=== PATIENT | female | born 1960 | race Caucasian/White ===

== ENCOUNTER 2016-12-19 13:13 | Inpatient (IN) | payer BC, MEDICARE ==
[2016-12-19] MEDS ORDERED: NORMAL SALINE 1,000 ML IV ONE ×2 (13:22→15:40)
--- NOTE | 2016-12-19 13:36 | ERNOTE ---
Medical Problem HPI - Narrative Date of Service: 12/19/16 - General Chief Complaint: Diabetes Related Problem Time Seen by Provider: 12/19/16 13:21 Source: patient Exam Limitations: no limitations - Immun/Allergies/Home Medications Immunizations: IMMUNIZATION HX Immunizations Up to Date Yes History of Influenza Vaccine Yes Hx Pneumococcal Vaccination No Allergies/Adverse Reactions: Allergies Penicillins Allergy (Verified 11/06/15 12:55) Hives Home Medications: HOME MEDICATIONS Multivitamin [Multivitamins] 1 each PO DAILY #0 12/18/12 [Last Taken 12/18/12] Atorvastatin Calcium [Lipitor] 40 mg PO HS #0 tablet 12/27/12 [Last Taken ] lamoTRIgine [Lamictal] 150 mg PO DAILY 01/15/13 [Last Taken Unknown] Ferrous Sulfate [Iron] 325 mg PO DAILY #30 tablet 08/14/14 [Last Taken Unknown] Duloxetine HCl [Cymbalta] 30 mg PO DAILY 08/29/14 [Last Taken Unknown] Insulin Glargine,Hum.rec.anlog [Lantus] 30 units SC HS 08/29/14 [Last Taken Unknown] Pregabalin [Lyrica] 300 mg PO DAILY 08/29/14 [Last Taken Unknown] Cholecalciferol (Vitamin D3) [Vitamin D3] 2,000 unit PO DAILY 09/25/14 [Last Taken Unknown] Furosemide [Lasix] 40 mg PO DAILY 11/17/14 [Last Taken Unknown] Buprenorphine HCl/Naloxone HCl [Suboxone 8 MG-2 MG Tablet] 1 each SL DAILY 11/05 [Last Taken Unknown] Allopurinol [Zyloprim (Allopurinol)] 200 mg PO DAILY 12/19/16 [Last Taken Unknown] Calcium Carb/Vit D3/Minerals [Calcium 600+D Plus Minerals Tb] 1 each PO DAILY [Last Taken Unknown] Diltiazem HCl [Cardizem Cd] 120 mg PO DAILY 12/19/16 [Last Taken Unknown] Emollient Base [Vanicream] 1 appl TP TID 12/19/16 [Last Taken Unknown] Insulin Lispro [Humalog] 8 units SC ACINS 12/19/16 [Last Taken Unknown] - History of Present History Narrative: 56-year-old patient presents to the emergency room for elevated blood glucose at home. Patient states she is unsure if she took her Lantus last 2 days. Patient started to have blood glucose machine at home is reading high, which it does radiate up to 600. Patient states that she did a have hypoglycemia around December 12, and that previously she had increased her Lantus from 28 to 30. Patient states that she is now backing out of her Lantus from 30-28. Date (Duration): 12/19/16 Timing: constant Severity: mild Review of Systems - Narrative Narrative: patient is unsure if she has taken her lantus the last few days but did take it today - Review of Systems Constitutional: Present: See HPI, decreased activity level EYE: Present: no symptoms reported ENT: Present: no symptoms reported Respiratory: Present: no symptoms reported Cardiology: Present: no symptoms reported Gastrointestinal/Abdominal: Present: no symptoms reported Genitourinary: Present: See HPI, frequency Musculoskeletal: Present: no symptoms reported Skin: Present: no symptoms reported Neurological: Present: no symptoms reported Endocrine: Present: See HPI, increased thirst, increased urine Hematologic/Lymphatic: Present: no symptoms reported Psych: Present: no symptoms reported All Other Systems: All systems neg except as marked - Patient's Past Medical History Patient History - Medical: Anemia, Bipolar, Chronic Pain, Diabetes Type 1, Depression, Headache, Osteoarthritis, Renal Failure Patient History - Cardiac/Respiratory: CHF, Hyperlipidemia Patient History - Cancer: No Hx of Cancer Patient History - Surgical Procedures: Colonoscopy, T & A Patient History - Other: None - Family History Mother Family History - Medical: No pertinent hx Father Family History - Medical: History Unknown - Social History Living Situations: home Abuse History: No History of abuse Psych History: No pertinent hx Smoking Status: Current every day smoker Have you smoked in the past 12 months: Yes Do you dip or chew tobacco: No Alcohol Use: none Drug Use: none - Immunizations Immunizations Up to Date: Yes Hx Pneumococcal Vaccination: No History of Influenza Vaccine: Yes Physical Exam - Physical Exam Narrative: Very dry mucous membranes. General Appearance: Present: wd/wn, alert, no apparent distress Eye Exam: Normal inspection: bilateral Ears, Nose, Throat: Present: normal ENT inspection, normal pharynx Neck: Present: normal inspection, nontender Respiratory: Present: no respiratory distress, normal breath sounds, no accessory muscle use, chest nontender, lungs clear Cardiovascular/Chest: Present: regular rate, rhythm, no murmur, normal peripheral pulses Gastrointestinal/Abdominal: Present: normal bowel sounds, nontender, nondistended, soft, no organomegaly Back Exam: Present: normal inspection, normal range of motion, no CVA tenderness , no vertebral tenderness Extremity Exam: Present: normal inspection, non-tender, normal range of motion, no edema Neurological Exam: Present: alert, oriented, normal mood/affect, no motor/ sensory deficits DTR: N=norm/NB=norm/brisk/A=abs/DD=dull/dimin/HC=hyperactive: Ankle (L): Absent Skin Exam: Present: normal color, warm/dry Lymphatic Exam: Present: no adenopathy ED Progress - Results and Orders Patient's Lab Results:: I have reviewed the patient's lab results. Results and Orders: elevated blood glucose, ketones in urine and blood. - Vital Signs Patient's Vital Signs:: I have reviewed the patient's vital signs. Vital Signs: Vital Signs 12/19/16 13:13 Temperature 36.9 C Pulse Rate 85 Respiratory 16 Rate Blood Pressure 140/67 O2 Sat by Pulse 95 Oximetry - EKG EKG: NSR EKG read: Reviewed by me EKG Comments: interp by Ed attending - Progress/Reassessment Chief Complaint: Diabetes Related Problem Progress:: Improved Plan - Plan Plan: After speaking with Dr. Delacruz he requested to give patient 10 units of IV insulin and monitor blood glucose. After this patients blood glucose went down to 427. Dr Nelson and myself feel that this patient no longer requires an insulin gtt and can be treated on the floor with SSI. Patient agrees to her plan of care. Patient will require blood glucose monitoring. Departure - Departure Clinical Impression: Ketoacidosis in type I diabetes mellitus Disposition: [facility] Condition: Good Referrals: Shelia Nelson MD [Primary Care Provider] -
[2016-12-19 13:41] LABS: Venous Blood Gas HCO3 22.8 mmol/L (22.0-29.0); Venous Blood Gas pH 7.39 (7.32-7.43)
[2016-12-19 13:42] LABS: Hematocrit 25.5 % (37.0-47.0); Hemoglobin 8.7 gm/dL (12.5-16.0); Mean Cell Volume 90.4 fl (78-100); Mean Corpuscular Hemoglobin 30.9 pg (27-31); Mean Corpuscular Hgb Conc 34.1 g/dl (32-36); Mean Platelet Volume 9.7 fl (6.0-9.5); Neutrophil % 74.1 % (42-75.0); Platelet Count 215 K/mm3 (150-450); Red Blood Count 2.82 M/mm3 (4.2-5.4); Red Cell Distribution Width 12.1 % (11.5-14.0); White Blood Count 6.7 K/mm3 (4.0-10.5)
[2016-12-19 14:00] LABS: Urine Bilirubin Negative (NEGATIVE); Urine Blood 25 /ul (NEGATIVE); Urine Ketone 15 mg/dL (NEGATIVE); Urine Nitrite Negative (NEGATIVE); Urine Protein 30 mg/dL (NEGATIVE); Urine Urobilinogen Normal (NORMAL); Urine pH 5.5 pH (5.0-7.0)
[2016-12-19 14:06] LABS: Urine Appearance Clear; Urine Bacteria TRACE; Urine Color Yellow; Urine WBC None Seen /hpf (0-5)
[2016-12-19 14:10] LABS: Troponin I 0.059 ng/ml (0.00-0.10)
[2016-12-19 14:12] LABS: ALT 23 U/L (19-67); AST 17 U/L (0-48); Albumin * 3.5 gm/dl (3.4-5.0); Alkaline Phosphatase * 103 U/L (50-170); Anion Gap 18.1 mmol/L (6.8-13.8); BNP * 640 pg/mL (5-205); BUN/Creatinine Ratio 20.8 (9.0-21.6); Bilirubin, Total 0.5 mg/dL (0.0-1.1); Blood Urea Nitrogen 59 mg/dL (3-23); Ca. Corrected For Albumin 9.3 mg/dL (8.4-10.2); Calcium * 9.2 mg/dL (7.9-10.9); Carbon Dioxide 25.6 mmol/L (24-32.6); Chloride 92 mmol/L (97-106); Potassium 4.7 mmol/L (3.4-4.6); Sodium 131 mmol/L (132-142); Total Protein 7.5 gm/dL (6.2-8.2)
[2016-12-19 14:15] LABS: Glucose * 571 mg/dL (70-110)
[2016-12-19] MEDS ORDERED: INSULIN REGULAR HUMAN REC 100 UNITS in NORMAL SALINE 100 ML IV PRN (14:33)
[2016-12-19 14:44] LABS: CKMB 3.1 ng/mL (0.0-9.0)
[2016-12-19 15:09] LABS: Hemoglobin A1C 11.4 % (4.00-6.0)
[2016-12-19] MEDS ORDERED: INSULIN REGULAR, HUMAN 100 UNITS/ML VIAL IV ONE (15:18)
[2016-12-19] MEDS ORDERED: INSULIN REGULAR, HUMAN 100 UNITS/ML VIAL ONE (15:20)
--- NOTE | 2016-12-19 16:43 | HP ---
Chief Complaint - Chief Complaint Date of Service: 12/19/16 Time of Service: 16:32 Chief Complaint: elevated blood sugar History of Present Illness: Viji Vilchis, is a 56-year-old white female, with previous medical history of diabetes mellitus type 1, uncontrolled secondary to noncompliance, hypertension , hyperlipidemia, chronic renal failure stage IV, who was admitted on 2016 because of high blood sugars. The patient said that one week prior to admission she had low blood sugars due to our increase of her Lantus from 28 units to 30 units because her HbA1c was 13.3. She says ever since that day she has been forgetting if she had taken her insulin doses or not. Last night, she said that her sugar read more than 600 in her machine and she did not give herself injection because she fell asleep. She woke up this morning her blood sugar was still 600 and so she went to our emergency room. In the ED , BS was 571, AG of 18.1, her VS were stable, she denied N/V/abdominal pain, AAO x 3 but she had a negative urine ketones , positive serum ketones with a non acidotic ABG. She was started on IVF and insulin drip in the ER and received a RI IV bolus. Her follow up BS was in the low 400. She denies chest pain , increase frequency/dysuria, no open wound. Her EKG showed NSR with possible anterior myocardial infarction, age undetermined. Her troponin was WNL. - Patient's Past Medical History Patient History - Medical: Anemia, Bipolar, Chronic Pain, Diabetes Type 1, Depression, Headache, Osteoarthritis, Renal Failure Patient History - Cardiac/Respiratory: CHF, Hyperlipidemia Patient History - Cancer: No Hx of Cancer Patient History - Surgical Procedures: Colonoscopy, T & A Patient History - Other: None - Family History Mother Family History - Medical: No pertinent hx Father Family History - Medical: History Unknown - Social History Living Situations: home Abuse History: No History of abuse Psych History: No pertinent hx Smoking Status: Current every day smoker Have you smoked in the past 12 months: Yes Do you dip or chew tobacco: No Alcohol Use: none Drug Use: none - Immunizations Immunizations Up to Date: Yes Hx Pneumococcal Vaccination: No History of Influenza Vaccine: Yes Review Of Systems (GEN) - Review of Systems Generalized/Overall Review: Absent: Chills, Fever EENTM: Present: No Symptoms Reported Respiratory: Absent: Cough, Shortness of Breath Cardiac: Absent: Chest Pain, Edema, Palpitations Abdominal: Absent: Nausea, Vomiting, Abdominal Pain Genitourinary: Absent: Burning, Urgency, Frequency Musculoskeletal: Present: Joint Pain Neurological: Absent: Parasthesia, Seizure Skin: Absent: Lesions Immunizations: IMMUNIZATION HX Immunizations Up to Date Yes History of Influenza Vaccine Yes Hx Pneumococcal Vaccination No Allergies/Adverse Reactions: Allergies Allergy/AdvReac Type Severity Reaction Status Date / Time Penicillins Allergy Hives Verified 12/19/16 16:24 Home Medications: HOME MEDICATIONS Multivitamin [Multivitamins] 1 each PO DAILY #0 12/18/12 [Last Taken 12/18/12] Atorvastatin Calcium [Lipitor] 40 mg PO HS #0 tablet 12/27/12 [Last Taken ] lamoTRIgine [Lamictal] 150 mg PO DAILY 01/15/13 [Last Taken Unknown] Ferrous Sulfate [Iron] 325 mg PO DAILY #30 tablet 08/14/14 [Last Taken Unknown] Duloxetine HCl [Cymbalta] 30 mg PO DAILY 08/29/14 [Last Taken Unknown] Insulin Glargine,Hum.rec.anlog [Lantus] 30 units SC HS 08/29/14 [Last Taken Unknown] Pregabalin [Lyrica] 300 mg PO DAILY 08/29/14 [Last Taken Unknown] Cholecalciferol (Vitamin D3) [Vitamin D3] 2,000 unit PO DAILY 09/25/14 [Last Taken Unknown] Furosemide [Lasix] 40 mg PO DAILY 11/17/14 [Last Taken Unknown] Buprenorphine HCl/Naloxone HCl [Suboxone 8 MG-2 MG Tablet] 1 each SL DAILY 11/05 [Last Taken 12/18/16] Allopurinol [Zyloprim (Allopurinol)] 200 mg PO DAILY 12/19/16 [Last Taken Unknown] Calcium Carb/Vit D3/Minerals [Calcium 600+D Plus Minerals Tb] 1 each PO DAILY [Last Taken Unknown] Diltiazem HCl [Cardizem Cd] 120 mg PO DAILY 12/19/16 [Last Taken Unknown] Insulin Lispro [Humalog] 8 units SC ACINS 12/19/16 [Last Taken Unknown] Multivit-Min/FA/Lycopen/Lutein [[employer] Senior Multivitamin Tab] 1 each PO HS 04/27 [Last Taken Unknown] Triamcinolone Acetonide [Kenalog 0.5%] 1 appl TP TID 12/19/16 [Last Taken Unknown] Exam - Exam Vital Signs: Vital Signs - Last Taken Temp 36.7 C 12/19/16 15:28 Pulse 82 12/19/16 16:02 Resp 18 12/19/16 16:02 BP 129/53 12/19/16 16:02 Pulse Ox 96 12/19/16 16:02 Constitutional: Present: Alert, Oriented x3, Cooperative ENT Exam: Present: hearing grossly normal Eye Exam: bilateral eye: normal inspection, PERRL, EOMI Neck: Present: supple Back Exam: Present: no CVA tenderness Breasts: Present: Exam deferred Respiratory: Present: normal breath sounds, No rales, No wheezing Cardiovascular/Chest: Present: regular rate, rhythm, no JVD, no murmur Abdomen: Present: Normal bowel sounds, soft, nontender, nondistended Extremity: Present: no pedal edema, no calf tenderness Diagnostic Studies: Laboratory Results WBC 6.7 K/mm3 (4.0-10.5) 12/19/16 13:35 RBC 2.82 M/mm3 (4.2-5.4) L 12/19/16 13:35 Hgb 8.7 gm/dL (12.5-16.0) L 12/19/16 13:35 Hct 25.5 % (37.0-47.0) L 12/19/16 13:35 MCV 90.4 fl (78-100) 12/19/16 13:35 MCH 30.9 pg (27-31) 12/19/16 13:35 MCHC 34.1 g/dl (32-36) 12/19/16 13:35 RDW 12.1 % (11.5-14.0) 12/19/16 13:35 Plt Count 215 K/mm3 (150-450) 12/19/16 13:35 MPV 9.7 fl (6.0-9.5) H 12/19/16 13:35 Immature Gran % (Auto) 0.10 % (0.001-0.429) 12/19/16 13:35 Immature Gran # (Auto) 0.01 K/mm3 (0.000-0.0310) 12/19/16 13:35 Neutrophils % 74.1 % (42-75.0) 12/19/16 13:35 Lymphocytes % 19.3 % (20-51) L 12/19/16 13:35 Monocytes % 6.0 % (0.0-9) 12/19/16 13:35 Eosinophils % 0.1 % (0.0-3.0) 12/19/16 13:35 Basophils % 0.4 % (0.0-1.0) 12/19/16 13:35 Nucleated RBC % 0.0 k/mm3 (0-1) 12/19/16 13:35 Neutrophils # 5.0 K/mm3 (1.3-6.0) 12/19/16 13:35 Lymphocytes # 1.3 k/mm3 (1.5-3.5) L 12/19/16 13:35 Monocytes # 0.4 k/mm3 (0.0-1.0) 12/19/16 13:35 Eosinophils # 0.0 k/mm3 (0.0-0.7) 12/19/16 13:35 Absolute Basophils 0.0 k/mm3 (0.0-0.1) 12/19/16 13:35 pCO2 37.8 mmHg (32.0-45.0) 12/19/16 14:40 pO2 66.1 mmHg (83.0-108.0) L 12/19/16 14:40 HCO3 23.0 mmol/L (21.0-28.0) 12/19/16 14:40 Total CO2 24.2 mmol/L (19.0-24.0) H 12/19/16 14:40 Base Excess -1.5 mmol/L (-2.0-3.0) 12/19/16 14:40 ABG pH 7.40 (7.35-7.45) 12/19/16 14:40 ABG O2 Sat (Measured) 93.3 % (94.0-98.0) L 12/19/16 14:40 VBG O2 Saturation 78.2 % (94.0-98.0) L 12/19/16 13:35 Sodium 131 mmol/L (132-142) L 12/19/16 13:35 Plasma Sodium 139 mmol/L (130-142) 12/19/16 13:35 Potassium 4.7 mmol/L (3.4-4.6) H 12/19/16 13:35 Chloride 92 mmol/L (97-106) L 12/19/16 13:35 Carbon Dioxide 25.6 mmol/L (24-32.6) 12/19/16 13:35 Anion Gap 18.1 mmol/L (6.8-13.8) H 12/19/16 13:35 BUN 59 mg/dL (3-23) H 12/19/16 13:35 Creatinine 2.84 mg/dL (0.4-1.4) H 12/19/16 13:35 Est GFR (Non-Af Amer) 18 mL/min (60-130) L 12/19/16 13:35 BUN/Creatinine Ratio 20.8 (9.0-21.6) 12/19/16 13:35 Random Glucose 571 mg/dL (70-110) H* 12/19/16 13:35 Mean Blood Glucose 294 mg/dL 12/19/16 13:35 Hemoglobin A1c 11.4 % (4.00-6.0) H 12/19/16 13:35 Calcium 9.2 mg/dL (7.9-10.9) 12/19/16 13:35 Calcium Adj for Albumin 9.3 mg/dL (8.4-10.2) 12/19/16 13:35 Total Bilirubin 0.5 mg/dL (0.0-1.1) 12/19/16 13:35 AST 17 U/L (0-48) 12/19/16 13:35 ALT 23 U/L (19-67) 12/19/16 13:35 Alkaline Phosphatase 103 U/L (50-170) 12/19/16 13:35 Creatine Kinase 166 U/L (0-259) 12/19/16 13:35 CK-MB (CK-2) 3.1 ng/mL (0.0-9.0) 12/19/16 13:35 Troponin I 0.059 ng/ml (0.00-0.10) 12/19/16 13:35 B-Natriuretic Peptide 640 pg/mL (5-205) H 12/19/16 13:35 Total Protein 7.5 gm/dL (6.2-8.2) 12/19/16 13:35 Albumin 3.5 gm/dl (3.4-5.0) 12/19/16 13:35 Urine Color Yellow 12/19/16 13:51 Urine Appearance Clear 12/19/16 13:51 Urine pH 5.5 pH (5.0-7.0) 12/19/16 13:51 Ur Specific [place] 1.010 SP.GR. (1.005-1.010) 12/19/16 13:51 Urine Protein 30 mg/dL (NEGATIVE) H 12/19/16 13:51 Urine Glucose (UA) >=1000 mg/dL (NEGATIVE) H 12/19/16 13:51 Urine Ketones 15 mg/dL (NEGATIVE) 12/19/16 13:51 Urine Blood 25 /ul (NEGATIVE) H 12/19/16 13:51 Urine Nitrate Negative (NEGATIVE) 12/19/16 13:51 Urine Bilirubin Negative mg/dl (NEGATIVE) 12/19/16 13:51 Prot Sulfosalicylic Acd 1+ mg/dL (0) 12/19/16 13:51 Urine Urobilinogen Normal EU/dl (NORMAL) 12/19/16 13:51 Ur Leukocyte Esterase Negative /ul (NEGATIVE) 12/19/16 13:51 Urine RBC 5-10 /hpf (0-5) H 12/19/16 13:51 Urine WBC None seen /hpf (0-5) 12/19/16 13:51 Ur Epithelial Cells 5-10 /hpf (0-5) H 12/19/16 13:51 Urine Bacteria Trace (NONE) 12/19/16 13:51 Urine Culture Comments No culture indicated 12/19/16 13:51 Serum Ketones Positive - 30mg/dl (NEGATIVE) H 12/19/16 13:35 Assessment/Plan - Assessment/Plan (1) Hyperglycemia due to type 1 diabetes mellitus Assessment: due to noncompliance. patient forgetting to take her insulin. though her ketones are positive, her ABG shows a normal pH. will get a CXR, do a follow up EKG and troponin, repeat a BMP, start her on diabetic diet, continue her on IVF and do accuchecks with Humalog following high dose SSI protocol. Will resume her lantus tonight. Problem: Acute (2) Anemia of chronic disease Problem: Acute (3) Chronic pain Assessment: on suboxone Problem: Acute (4) Diabetes mellitus type 1 Problem: Chronic Qualifiers: Diabetes mellitus complication status: with kidney complications Diabetes mellitus complication detail: with chronic kidney disease Chronic kidney disease stage: stage 4 (severe) Qualified Code(s): E10.22 - Type 1 diabetes mellitus with diabetic chronic kidney disease; N18.4 - Chronic kidney disease, stage 4 (severe) (5) HTN (hypertension) Problem: Chronic Qualifiers: Hypertension type: essential hypertension Qualified Code(s): I10 - Essential (primary) hypertension (6) Ketosis due to diabetes Assessment: without acidosis. due to missed insulin medications. continue with IVF Problem: Acute
[2016-12-19] MEDS ORDERED: INSULIN LISPRO 100 UNITS/ML VIAL SC SCH (17:00)
[2016-12-19 19:56] LABS: Anion Gap 12.3 mmol/L (6.8-13.8); BUN/Creatinine Ratio 19.8 (9.0-21.6); Calcium * 8.5 mg/dL (7.9-10.9); Carbon Dioxide 28.2 mmol/L (24-32.6); Estimated Creat Clear 21.3; Potassium 3.5 mmol/L (3.4-4.6); Troponin I 0.108 ng/ml (0.00-0.10)
[2016-12-19] MEDS ORDERED: ASPIRIN 81 MG TAB.CHEW PO ONE (20:13)
[2016-12-19] MEDS: INSULIN GLARGINE,HUM.REC.ANLOG 100 UNITS/ML VIAL SC SCH ×2 (20:23→20:42)
[2016-12-19] MEDS ORDERED: ROSUVASTATIN CALCIUM 10 MG TABLET ONE (20:24)
[2016-12-19] MEDS ORDERED: CLOPIDOGREL BISULFATE 75 MG TABLET PO STA (20:31)
[2016-12-19] MEDS ORDERED: HEPARIN SODIUM,PORCINE 5,000 UNITS/ML VIAL IV ONE (20:37)
--- NOTE | 2016-12-19 20:39 | DS ---
<MaximilianoJackie - Last Filed: 12/19/16 21:48> Transfer Discharge Summary - Diagnosis(s)/Problems (1) NSTEMI (non-ST elevated myocardial infarction) Narrative: Viji Vilchis is a very pleasant 56-year-old female who presented to the emergency room today with complaints of elevated blood glucose. Her meter at home was reading "high." She is a past medical history of type 1 diabetes for the past 21 years which is poorly controlled secondary to noncompliance, hypertension, hyperlipidemia, chronic renal failure stage IV, and a history of congestive heart failure. Her most recent A1c is 13.3%. She reports that she decreased her use of glargine from 30 units to 28 units that she has an episode of hypoglycemia on December 12. Last evening, her glucometer read greater than 600 and she did not give herself insulin but fell asleep. In the emergency room, blood glucose was elevated at 571 mg/dL. Anion gap was 18.1. Her vital signs were stable without hypotension or tachycardia. She received 2 L of IV normal saline. She was started on an IV insulin infusion in the emergency room. Her follow-up blood glucose was 400 mg/dL. No signs or symptoms of infection were noted. Initial troponin was negative. ECG was obtained which did not show any acute ST segment changes. Repeat labs at 1930 revealed elevated troponin from previous reading at 0.1. Sodium is stable. Anion gap is 12.3. Blood glucose has trended down to 179 mg/dL. Creatinine is stable at 2.6 previous reading was 2.8. ECG was obtained which shows inversion of T waves and leads one to aVF. She denies any chest pain or shortness of breath. She has no nausea or vomiting. She is afebrile. Problem: Acute - Course Description of Stay: Mrs. Vilchis continues to deny any chest pain. She does have a family history of cardiovascular disease and continues to smoke 1 pack cigarettes per day. Due to elevated troponin and findings on her ECG, consultation with [facility] was obtained. She received 324 mg of aspirin, 600 mg of clopidogrel, and 4000 units of IV heparin. Her is now at bedside and is update on her condition. Metabolic panel has improved--anion gap 12.3, most recent blood glucose 175 mg/dL. K+ 3.5. She was placed on D5 1/2 NS w/ 20KCL @ 75 mL/hr. Mrs. Vilchis was accepted for transfer by Dr. Gonzales at [facility]. My supervising physician, Dr. Galicia was notified of change in patient condition and transfer. Procedures Performed: none - Results and Findings Results and Findings: Laboratory Results - last 24 hr 12/19/16 19:34 Sodium 138 Plasma Sodium 139 Potassium 3.5 D Chloride 101 Carbon Dioxide 28.2 Anion Gap 12.3 BUN 52 H Creatinine 2.62 H Est GFR (Non-Af Amer) 20 L BUN/Creatinine Ratio 19.8 Random Glucose 179 H D Calcium 8.5 Troponin I 0.108 H - Medications Medications: Active Medications Insulin Human Lispro (Humalog) 0 - 23 units SC ACINS [facility] PRN Reason: Protocol Stop: 01/18/17 17:01 Last Admin: 12/19/16 17:56 Dose: 20 units Rosuvastatin Calcium (Crestor) 20 mg PO HS [facility] Stop: 01/18/17 21:01 Last Admin: 12/19/16 20:25 Dose: 20 mg Discontinued Medications Aspirin (Aspirin Chewable) 324 mg PO ONCE ONE Stop: 12/19/16 20:14 Last Admin: 12/19/16 20:20 Dose: 324 mg Sodium Chloride (Sodium Chloride 0.9%) 1,000 mls @ 126 mls/hr IV .Q7H57M ONE Stop: 12/19/16 21:18 Last Infusion: 12/19/16 15:39 Dose: Infused Sodium Chloride (Sodium Chloride 0.9%) 1,000 mls @ 500 mls/hr IV .Q2H ONE Stop: 12/19/16 17:39 Last Admin: 12/19/16 15:41 Dose: 500 mls/hr Insulin Human Regular (Humulin R) 10 units IV ONCE ONE Stop: 12/19/16 15:19 Last Admin: 12/19/16 15:22 Dose: 10 units - Disposition Disposition: [facility] Condition: Serious Discharge Date: 12/19/16 Discharge Time: 20:46 <Suhail Donahue - Last Filed: 12/20/16 07:16> Transfer Discharge Summary - Course Description of Stay: Significant finding was change in troponin. Family PREFERRED transfer to [facility] rather than the closer facility in [place]. [facility] accepted, transfer arranged. Patient was stable. I directly supervised our nurse practitioner hospitalist care of this patient. - Results and Findings Results and Findings: Laboratory Results - last 24 hr 12/19/16 19:34 Sodium 138 Plasma Sodium 139 Potassium 3.5 D Chloride 101 Carbon Dioxide 28.2 Anion Gap 12.3 BUN 52 H Creatinine 2.62 H Est GFR (Non-Af Amer) 20 L BUN/Creatinine Ratio 19.8 Random Glucose 179 H D Calcium 8.5 Troponin I 0.108 H - Medications Medications: Active Medications Discontinued Medications Aspirin (Aspirin Chewable) 324 mg PO ONCE ONE Stop: 12/19/16 20:14 Last Admin: 12/19/16 20:20 Dose: 324 mg Clopidogrel Bisulfate (Plavix) 600 mg PO ONCE STA Stop: 12/19/16 20:32 Last Admin: 12/19/16 20:42 Dose: 600 mg Heparin Sodium (Porcine) (Heparin Sodium) 4,000 units IV ONCE ONE Stop: 12/19/16 20:38 Last Admin: 12/19/16 20:52 Dose: 4,000 units Sodium Chloride (Sodium Chloride 0.9%) 1,000 mls @ 126 mls/hr IV .Q7H57M ONE Stop: 12/19/16 21:18 Last Infusion: 12/19/16 15:39 Dose: Infused Sodium Chloride (Sodium Chloride 0.9%) 1,000 mls @ 500 mls/hr IV .Q2H ONE Stop: 12/19/16 17:39 Last Admin: 12/19/16 15:41 Dose: 500 mls/hr Insulin Glargine (Lantus) 30 units SC [facility] Stop: 01/18/17 21:01 Last Admin: 12/19/16 20:42 Dose: Not Given Insulin Glargine (Lantus) 15 units SC ONCE ONE Stop: 12/19/16 20:42 Last Admin: 12/19/16 20:42 Dose: 15 units Insulin Human Lispro (Humalog) 0 - 23 units SC [facility] PRN Reason: Protocol Stop: 01/18/17 17:01 Last Admin: 12/19/16 17:56 Dose: 20 units Insulin Human Regular (Humulin R) 10 units IV ONCE ONE Stop: 12/19/16 15:19 Last Admin: 12/19/16 15:22 Dose: 10 units Rosuvastatin Calcium (Crestor) 20 mg PO HS [facility] Stop: 01/18/17 21:01 Last Admin: 12/19/16 20:25 Dose: 20 mg
[2016-12-19] MEDS ORDERED: INSULIN GLARGINE,HUM.REC.ANLOG 100 UNITS/ML VIAL SC ONE (20:41)
[2016-12-19] MEDS ORDERED: ROSUVASTATIN CALCIUM 20 MG TABLET PO SCH (21:00)
[2016-12-19 23:26] VITALS: BP 137/55
[2016-12-20] MEDS ORDERED: ALLOPURINOL 100 MG TABLET PO SCH (09:00)
[2016-12-20] MEDS ORDERED: PREGABALIN 75 MG CAPSULE PO SCH (09:00)
[2016-12-20] MEDS ORDERED: DULoxetine HCL 30 MG CAPSULE.SA PO SCH (09:00)
[2016-12-20] MEDS ORDERED: CHOLECALCIFEROL 1,000 UNIT CAPSULE PO SCH (09:00)
[2016-12-20] MEDS ORDERED: DILTIAZEM HCL 120 MG CAP.SR.24H PO SCH (09:00)
[2016-12-20] MEDS ORDERED: NALOXONE HCL SL SCH (09:00)
[2016-12-20] MEDS ORDERED: lamoTRIgine 100 MG TABLET PO SCH (09:00)
[2016-12-20] MEDS ORDERED: FERROUS SULFATE 325 MG TABLET PO SCH (09:00)
[2016-12-20] MEDS ORDERED: TRIAMCINOLONE ACETONIDE 15 APPL TUBE TP SCH (09:00)
[2016-12-20] MEDS ORDERED: BUPRENORPHINE HCL SL SCH (09:00)
== END 2016-12-19 23:50 | disposition short-term general hospital (02) | DRG 280 ==
LOC: ER 13:13 → MS 15:59
PROVIDERS: ADMIT Internal Medicine; ATTEND Internal Medicine
PROC: 4A033R1 Measurement of Arterial Saturation, Peripheral, Percutaneous Approach (ICD-10-PCS; principal; 2016-12-19)
DX: I21.4 Non-ST elevation (NSTEMI) myocardial infarction (principal); E10.10 Type 1 diabetes mellitus with ketoacidosis without coma; N18.4 Chronic kidney disease, stage 4 (severe); F17.210 Nicotine dependence, cigarettes, uncomplicated; I12.9 Hypertensive chronic kidney disease with stage 1 through stage 4 chronic kidney disease, or unspecified chronic kidney disease; E10.22 Type 1 diabetes mellitus with diabetic chronic kidney disease; T38.3X6A Underdosing of insulin and oral hypoglycemic [antidiabetic] drugs, initial encounter; Y92.009 Unspecified place in unspecified non-institutional (private) residence as the place of occurrence of the external cause; I50.9 Heart failure, unspecified; E78.5 Hyperlipidemia, unspecified; Z79.4 Long term (current) use of insulin; Z82.49 Family history of ischemic heart disease and other diseases of the circulatory system

== ENCOUNTER 2018-03-22 08:50 | Inpatient (IN) | payer BC, MEDICARE ==
[2018-03-22 10:09] LABS: Albumin * 3.6 gm/dl (3.4-5.0); Anion Gap 11.4 mmol/L (6.8-13.8); BUN/Creatinine Ratio 18.5 (9.0-21.6); Bilirubin, Total 0.7 mg/dL (0.0-1.1); Ca. Corrected For Albumin 9.2 mg/dL (8.4-10.2); Calcium * 9.2 mg/dL (7.9-10.9); Carbon Dioxide 32.6 mmol/L (24-32.6)
[2018-03-22 10:10] LABS: Hematocrit 28.8 % (37.0-47.0); Hemoglobin 9.9 gm/dL (12.5-16.0); Mean Cell Volume 94.4 fl (78-100); Mean Corpuscular Hemoglobin 32.5 pg (27-31); Mean Corpuscular Hgb Conc 34.4 g/dl (32-36); Mean Platelet Volume 10.3 fl (8-12.5); Neutrophil # 23.2 K/mm3 (1.3-6.0); Neutrophil % 86.7 % (42-75.0); Platelet Count 220 K/mm3 (150-450); Red Blood Count 3.05 M/mm3 (4.2-5.4); Red Cell Distribution Width 12.7 % (11.5-14.0); White Blood Count 26.7 K/mm3 (4.0-10.5)
[2018-03-22 10:16] LABS: Total Cells Counted 100
[2018-03-22 10:22] LABS: Band 1 % (0-2.0); Lymphocyte 12 % (20-51); Monocyte 6 % (0-9); Neutrophil 81 % (42-75); Neutrophil # 21.6 K/mm3 (1.3-6.0); Platelet Estimate Normal (NORMAL); RBC Morphology Normal (NORMAL)
[2018-03-22] MEDS ORDERED: DEXTROSE 50%-WATER 50 ML SYRG IV ONE (10:32)
[2018-03-22] MEDS ORDERED: DEXTROSE 50%-WATER 50 ML SYRG ONE (10:33)
--- NOTE | 2018-03-22 11:06 | ERNOTE ---
Medical Problem HPI - General Chief Complaint: General Assessment Time Seen by Provider: 03/22/18 10:35 Source: family Exam Limitations: clinical condition - Immun/Allergies/Home Medications Immunizations: IMMUNIZATION HX Immunizations Up to Date Yes History of Influenza Vaccine Yes Hx Pneumococcal Vaccination Yes Allergies/Adverse Reactions: Allergies Penicillins Allergy (Verified 03/22/18 09:05) Hives Home Medications: HOME MEDICATIONS Multivitamin [Multivitamins] 1 ea PO DAILY #0 12/18/12 [Last Taken 12/18/12] lamoTRIgine [Lamictal] 150 mg PO DAILY 01/15/13 [Last Taken Unknown] Ferrous Sulfate [Iron] 325 mg PO DAILY #30 tab 08/14/14 [Last Taken Unknown] Duloxetine HCl [Cymbalta] 30 mg PO DAILY 08/29/14 [Last Taken Unknown] Buprenorphine HCl/Naloxone HCl [Suboxone 8 MG-2 MG Tablet] 1 ea SL DAILY 11/06/15 [Last Taken 12/18/16] Allopurinol [Zyloprim] 200 mg PO DAILY 12/19/16 [Last Taken Unknown] Diltiazem HCl [Cardizem Cd] 120 mg PO DAILY 12/19/16 [Last Taken Unknown] Insulin Lispro [Humalog] 6 units SC ACINS 12/19/16 [Last Taken Unknown] Multivit-Min/FA/Lycopen/Lutein [Sentry Senior Multivitamin Tab] 1 ea PO HS 12/19/16 [Last Taken Unknown] Acetaminophen [Tylenol] 650 mg PO Q4H PRN tab 09/04/17 [Last Taken Unknown] Insulin Glargine,Hum.rec.anlog [Lantus] 20 units SC HS #7 vial 09/04/17 [Last Taken Unknown] atorvastatin 40 mg tablet 40 mg PO HS #31 tab 12/18/17 [Last Taken Unknown] calcium carbonate-vitamin D3 600 mg (1,500 mg)-400 unit capsule 1 cap PO DAILY #31 cap 12/18/17 [Last Taken Unknown] cetirizine 10 mg tablet 10 mg PO DAILY #31 tab 12/18/17 [Last Taken Unknown] multivitamin-ferrous fumarate-folic acid 18 mg-400 mcg tablet 1 tab PO DAILY #31 tab 12/18/17 [Last Taken Unknown] insulin glargine (U-100) 100 unit/mL (3 mL) subcutaneous pen 30 unit SUB-Q QHS #15 ml 01/07/18 [Last Taken Unknown] pregabalin 150 mg capsule 300 mg PO DAILY #62 cap 02/05/18 [Last Taken Unknown] insulin syringe-needle U-100 0.5 mL 31 gauge x 10/24" See Dose Instructions .ROUTE .MEDSUPPLY #10 ea 02/07/18 [Last Taken Unknown] insulin syringe-needle U-100 1 mL 31 gauge x 16" See Dose Instructions .ROUTE .MEDSUPPLY #10 ea 02/07/18 [Last Taken Unknown] miscellaneous medical supply [facility] See Dose Instructions .ROUTE .MEDSUPPLY #1 ea 02/07/18 [Last Taken Unknown] pen needle, diabetic 30 gauge x 10/24" See Dose Instructions .ROUTE .MEDSUPPLY #100 ea 02/07/18 [Last Taken Unknown] cholecalciferol (vitamin D3) 2,000 unit capsule 2,000 unit PO DAILY #90 cap 03/14/18 [Last Taken Unknown] furosemide 40 mg tablet 40 mg PO DAILY #30 tab 03/14/18 [Last Taken Unknown] - History of Present History Narrative: Patient is brought in by her for low blood sugar. She is non compliant with her medications and checking her glucose. Her checked her glucose last night and it read high so he gave her 7units of humalog. Early this morning her glucose was in the 70's, he tried to give her breakfast and a soda but she only took some, denies any vomiting but drools at time when she sleeps She has had a problem with falling asleep at random times during the day, is often up at night and sleeps on the couch. She is on suboxone for chronic pain that is prescribed by a psychiatrist in [place] Review of Systems - Narrative Narrative: limited by lethargy - Review of Systems Constitutional: Absent: recent illness, chills ENT: Absent: nasal drainage, sore throat Respiratory: Absent: shortness of breath, cough Cardiology: Absent: chest pain Gastrointestinal/Abdominal: Absent: nausea, vomiting Genitourinary: Present: no symptoms reported Medical History (Last Reviewed 03/22/18 @ 13:24 by Patti Montoya MD) Tibia fracture (Chronic) Onset Date: ~11/2011 Restless leg syndrome (Chronic) Onset Date: Unknown Presbyopia (Chronic) Onset Date: Unknown History of onychomycosis (Chronic) Onset Date: ~05/27/14 OCD (obsessive compulsive disorder) (Chronic) Onset Date: Unknown Neck pain (Chronic) Onset Date: Unknown Mood swings (Chronic) Onset Date: Unknown Lumbago (Chronic) Onset Date: Unknown Kidney disease (Chronic) Onset Date: Unknown Joint pain (Chronic) Onset Date: Unknown Hyperopia (Chronic) Onset Date: Unknown Hyperlipidemia (Chronic) Onset Date: Unknown Headache (Chronic) Onset Date: Unknown History of gastroesophageal reflux (GERD) (Chronic) Onset Date: Unknown Fibula fracture (Acute) Onset Date: ~11/2011 Endometriosis (Chronic) Onset Date: Unknown Diabetic retinopathy (Chronic) Onset Date: Unknown Diabetic neuropathy (Chronic) Onset Date: ~05/27/14 Diabetes 1.5, managed as type 1 (Chronic) Onset Date: ~12/15/13 Depression (Chronic) Onset Date: Unknown Charcot's joint arthropathy in type 1 diabetes mellitus (Chronic) Onset Date: ~12/24/13 Cellulitis (Chronic) Onset Date: ~12/24/13 Bulging disc (Chronic) Onset Date: Unknown Bipolar disorder (Chronic) Onset Date: Unknown Anemia (Chronic) Onset Date: ~12/24/13 Surgical History: Surgical History (Last Reviewed 03/22/18 @ 13:24 by Patti Montoya MD) History of tonsillectomy (Resolved) Onset Date: ~1973 History of sigmoidoscopy (Resolved) Onset Date: ~05/15/02 H/O nasal septoplasty (Resolved) Onset Date: ~04/10/03 History of salpingo-oophorectomy (Resolved) Onset Date: ~1999 H/O fracture of lower leg (Resolved) Onset Date: ~12/08/11 H/O esophagogastroduodenoscopy (Resolved) Onset Date: ~06/30/04 H/O colonoscopy (Resolved) Onset Date: ~2002 H/O colonoscopy (Resolved) Onset Date: ~08/14/12 Family History: Family History (Last Reviewed 03/22/18 @ 14:13 by Alisa Crooks RN) Mother Acute arthritis Behcets syndrome H/O Deandra thyroiditis Father CVA (cerebral vascular accident) CAD (coronary artery disease) Brother No problems noted. Social History: Preferred Language Vietnamese Smoking Status Current every day smoker Abuse History No History of abuse Psych History No pertinent hx Alcohol Use none Drug Use none Physical Exam - Physical Exam General Appearance: Present: wd/wn, no apparent distress, lethargic Head Exam: Present: normal inspection, no evidence of injury Eye Exam: Normal inspection: bilateral, PERRL: bilateral Ears, Nose, Throat: Present: normal pharynx, other - food remnants on mouth and face Neck: Present: nontender Respiratory: Present: no respiratory distress, normal breath sounds, no accessory muscle use, lungs clear Cardiovascular/Chest: Present: regular rate, rhythm, no murmur Gastrointestinal/Abdominal: Present: nontender, nondistended, soft Extremity Exam: Present: no edema Neurological Exam: Present: no motor/sensory deficits - limited exam,moves all extremities, squeezes hands, symmetric face, other - lethargic but arousable, answers name and location appropiately Skin Exam: Present: normal color, warm/dry ED Progress - Results and Orders Patient's Lab Results:: I have reviewed the patient's lab results. - Vital Signs Patient's Vital Signs:: I have reviewed the patient's vital signs. Vital Signs: Vital Signs 03/22/18 09:00 03/22/18 09:08 03/22/18 09:32 Temperature 37.4 C Pulse Rate 81 78 79 Respiratory Rate 12 14 12 Blood Pressure 138/52 137/62 O2 Sat by Pulse Oximetry 94 98 92 L 03/22/18 10:00 Temperature Pulse Rate 85 Respiratory Rate 12 Blood Pressure 145/67 H O2 Sat by Pulse Oximetry 94 - EKG EKG: NSR, other - no acute changes EKG read: Interp. by me - X-Ray X-Ray #1 X-Ray: chest - right upper love infiltrate Interpretation: Discd w/ radiologist - CT/Ultrasound CT/Ultrasound Narrative: CT head: 1. No acute intracranial hemorrhage or mass effect. 2. Paranasal sinus disease. Correlate clinically for sinusitis. 3. Additional comments as above. - Progress/Reassessment Chief Complaint: General Assessment Progress Note-Subjective: 03/22/18 13:08 patient sleeping but arousable discussed test results with 03/22/18 13:15 discussed with chapis Haysay to admit for pneumonia, continue rocephin, zithromax Rocephin was order not infusing yet as IV infiltrated and patient is very hard stick Departure Clinical Impression: Diabetes 1.5, managed as type 1 Pneumonia Qualifiers: Pneumonia type: due to unspecified organism Laterality: right Lung location: upper lobe of lung Qualified Code(s): J18.1 - Lobar pneumonia, unspecified organism Chronic pain Qualifiers: Chronic pain type: other chronic pain Qualified Code(s): G89.29 - Other chronic pain CKD (chronic kidney disease) Qualifiers: Chronic kidney disease stage: stage 4 (severe) Qualified Code(s): N18.9 - Chronic kidney disease, unspecified - Departure Disposition: Still a patient Condition: Stable
[2018-03-22] MEDS ORDERED: NORMAL SALINE 1,000 ML IV ONE (11:27)
[2018-03-22 11:46] LABS: Urine Bilirubin Negative (NEGATIVE); Urine Blood 25 /ul (NEGATIVE); Urine Ketone Negative (NEGATIVE); Urine Nitrite Negative (NEGATIVE); Urine Protein 100 mg/dL (NEGATIVE); Urine Specific Gravity 1.025 SP.GR. (1.005-1.010); Urine Urobilinogen Normal (NORMAL); Urine pH 5.5 pH (5.0-7.0)
[2018-03-22 11:57] LABS: Urine Appearance Clear (CLEAR); Urine Color Yellow; Urine RBC 0-5 /hpf (0-5); Urine WBC TRACE /hpf (0-5)
[2018-03-22 11:58] LABS: Urine Bacteria TRACE
[2018-03-22 12:04] LABS: Cocaine Ur Negative (NEGATIVE); Urine Barbiturate Negative (NEGATIVE); Urine Benzodiazepines Negative (NEGATIVE); Urine Opiates Negative (NEGATIVE); Urine PCP Negative (NEGATIVE); Urine THC Negative (NEGATIVE)
[2018-03-22] MEDS ORDERED: AZITHROMYCIN 500 MG in DEXTROSE 5 % IN WATER 250 ML IV ONE ×2 (13:31)
--- NOTE | 2018-03-22 14:34 | HP ---
Chief Complaint - Chief Complaint Date of Service: 03/22/18 Time of Service: 14:18 Chief Complaint: low blood sugar History of Present Illness: Viji Vilchis, is a 57-year-old white female, with past medical history of chronic renal failure stage IV, diabetes mellitus type 1, uncontrolled due to noncompliance, diabetic neuropathy, diabetic retinopathy, hyperlipidemia, who was admitted on 03/22/2018 because of pneumonia. The patient was actually brought in by the to the emergency room because of low blood sugar. I am not able to get a clear history from Mei. My history is mostly based on the emergency room notes. Last night the checked her blood sugar level and the meter read high so he gave her 7 units of Humalog. Her blood sugar this morning was in the 70s and so the tried to feed her but she only would be able to take a little bit. She was lethargic and so the brought her to the emergency room. She is on suboxone for chronic pain that is prescribed by a psychiatrist in [place]. In the ED, her WBC was 26,000 and she carried a temperature of 39. Her CXR showed RUL infiltrate correlate for pneumonia. She was given IV Rocephin ad Azithromycin and admitted for further treatment. Medical History (Last Reviewed 03/22/18 @ 14:13 by Alisa Crooks RN) Tibia fracture (Chronic) Onset Date: ~11/2011 Restless leg syndrome (Chronic) Onset Date: Unknown Presbyopia (Chronic) Onset Date: Unknown History of onychomycosis (Chronic) Onset Date: ~05/27/14 OCD (obsessive compulsive disorder) (Chronic) Onset Date: Unknown Neck pain (Chronic) Onset Date: Unknown Mood swings (Chronic) Onset Date: Unknown Lumbago (Chronic) Onset Date: Unknown Kidney disease (Chronic) Onset Date: Unknown Joint pain (Chronic) Onset Date: Unknown Hyperopia (Chronic) Onset Date: Unknown Hyperlipidemia (Chronic) Onset Date: Unknown Headache (Chronic) Onset Date: Unknown History of gastroesophageal reflux (GERD) (Chronic) Onset Date: Unknown Fibula fracture (Acute) Onset Date: ~11/2011 Endometriosis (Chronic) Onset Date: Unknown Diabetic retinopathy (Chronic) Onset Date: Unknown Diabetic neuropathy (Chronic) Onset Date: ~05/27/14 Diabetes 1.5, managed as type 1 (Chronic) Onset Date: ~12/15/13 Depression (Chronic) Onset Date: Unknown Charcot's joint arthropathy in type 1 diabetes mellitus (Chronic) Onset Date: ~12/24/13 Cellulitis (Chronic) Onset Date: ~12/24/13 Bulging disc (Chronic) Onset Date: Unknown Bipolar disorder (Chronic) Onset Date: Unknown Anemia (Chronic) Onset Date: ~12/24/13 Surgical History: Surgical History (Last Reviewed 03/22/18 @ 14:13 by Alisa Crooks RN) History of tonsillectomy (Resolved) Onset Date: ~1973 History of sigmoidoscopy (Resolved) Onset Date: ~05/15/02 H/O nasal septoplasty (Resolved) Onset Date: ~04/10/03 History of salpingo-oophorectomy (Resolved) Onset Date: ~1999 H/O fracture of lower leg (Resolved) Onset Date: ~12/08/11 H/O esophagogastroduodenoscopy (Resolved) Onset Date: ~06/30/04 H/O colonoscopy (Resolved) Onset Date: ~2002 H/O colonoscopy (Resolved) Onset Date: ~08/14/12 Family History: Family History (Last Reviewed 03/22/18 @ 14:13 by Alisa Crooks RN) Mother Acute arthritis Behcets syndrome H/O Deandra thyroiditis Father CVA (cerebral vascular accident) CAD (coronary artery disease) Brother No problems noted. Social History: Preferred Language Occitan Smoking Status Current every day smoker Abuse History No History of abuse Psych History No pertinent hx Alcohol Use none Drug Use none Review Of Systems (GEN) - Review of Systems Misc: All systems neg except as marked - Unreliable due to patient's mentation. Immunizations: IMMUNIZATION HX Immunizations Up to Date Yes History of Influenza Vaccine Yes Hx Pneumococcal Vaccination Yes Allergies/Adverse Reactions: Allergies Allergy/AdvReac Type Severity Reaction Status Date / Time Penicillins Allergy Hives Verified 03/22/18 09:05 Home Medications: HOME MEDICATIONS Multivitamin [Multivitamins] 1 ea PO DAILY #0 12/18/12 [Last Taken 12/18/12] lamoTRIgine [Lamictal] 150 mg PO DAILY 01/15/13 [Last Taken Unknown] Ferrous Sulfate [Iron] 325 mg PO DAILY #30 tab 08/14/14 [Last Taken Unknown] Duloxetine HCl [Cymbalta] 30 mg PO DAILY 08/29/14 [Last Taken Unknown] Buprenorphine HCl/Naloxone HCl [Suboxone 8 MG-2 MG Tablet] 1 ea SL DAILY 11/06/15 [Last Taken 12/18/16] Allopurinol [Zyloprim] 200 mg PO DAILY 12/19/16 [Last Taken Unknown] Diltiazem HCl [Cardizem Cd] 120 mg PO DAILY 12/19/16 [Last Taken Unknown] Insulin Lispro [Humalog] 6 units SC ACINS 12/19/16 [Last Taken Unknown] Multivit-Min/FA/Lycopen/Lutein [Sentry Senior Multivitamin Tab] 1 ea PO HS 12/19/16 [Last Taken Unknown] Acetaminophen [Tylenol] 650 mg PO Q4H PRN tab 09/04/17 [Last Taken Unknown] Insulin Glargine,Hum.rec.anlog [Lantus] 20 units SC HS #7 vial 09/04/17 [Last Taken Unknown] atorvastatin 40 mg tablet 40 mg PO HS #31 tab 12/18/17 [Last Taken Unknown] calcium carbonate-vitamin D3 600 mg (1,500 mg)-400 unit capsule 1 cap PO DAILY #31 cap 12/18/17 [Last Taken Unknown] cetirizine 10 mg tablet 10 mg PO DAILY #31 tab 12/18/17 [Last Taken Unknown] multivitamin-ferrous fumarate-folic acid 18 mg-400 mcg tablet 1 tab PO DAILY #31 tab 12/18/17 [Last Taken Unknown] insulin glargine (U-100) 100 unit/mL (3 mL) subcutaneous pen 30 unit SUB-Q QHS #15 ml 01/07/18 [Last Taken Unknown] pregabalin 150 mg capsule 300 mg PO DAILY #62 cap 02/05/18 [Last Taken Unknown] insulin syringe-needle U-100 0.5 mL 31 gauge x 516" See Dose Instructions .ROUTE .MEDSUPPLY #10 ea 02/07/18 [Last Taken Unknown] insulin syringe-needle U-100 1 mL 31 gauge x 516" See Dose Instructions .ROUTE .MEDSUPPLY #10 ea 02/07/18 [Last Taken Unknown] miscellaneous medical supply misc See Dose Instructions .ROUTE .MEDSUPPLY #1 ea 02/07/18 [Last Taken Unknown] pen needle, diabetic 30 gauge x 516" See Dose Instructions .ROUTE .MEDSUPPLY #100 ea 02/07/18 [Last Taken Unknown] cholecalciferol (vitamin D3) 2,000 unit capsule 2,000 unit PO DAILY #90 cap 03/14/18 [Last Taken Unknown] furosemide 40 mg tablet 40 mg PO DAILY #30 tab 03/14/18 [Last Taken Unknown] Exam - Exam Vital Signs: Vital Signs - Last Taken Temp 38.3 C H 03/22/18 13:45 Pulse 91 03/22/18 13:45 Resp 18 03/22/18 13:45 BP 156/57 H 03/22/18 13:45 Pulse Ox 94 03/22/18 13:45 Constitutional: Present: Alert - AAO x 2, Somnolent ENT Exam: Present: hearing grossly normal Eye Exam: bilateral eye: normal inspection, PERRL, EOMI Neck: Present: supple Respiratory: Present: decreased breath sounds, No rales, No wheezing Cardiovascular/Chest: Present: regular rate, rhythm, no JVD, no murmur Abdomen: Present: Normal bowel sounds, soft, nontender, nondistended Extremity: Present: no pedal edema, no calf tenderness Diagnostic Studies: Abnormal Lab Results 03/22/18 03/22/18 03/22/18 Range/Units 09:45 09:45 09:45 WBC 26.7 H (4.0-10.5) K/mm3 RBC 3.05 L (4.2-5.4) M/mm3 Hgb 9.9 L (12.5-16.0) gm/dL Hct 28.8 L (37.0-47.0) % MCH 32.5 H (27-31) pg Immature Gran % (Auto) 1.20 H (0.001-0.429) % Immature Gran # (Auto) 0.33 H (0.000-0.0310) K/mm3 Neutrophils % 86.7 H (42-75.0) % Neutrophils % (Manual) 81 H (42-75) % Lymphocytes % 6.6 L (20-51) % Lymphocytes % (Manual) 12 L (20-51) % Neutrophils # 23.2 H (1.3-6.0) K/mm3 Neutrophils # (Manual) 21.6 H (1.3-6.0) K/mm3 Monocytes # 1.4 H (0.0-1.0) k/mm3 Monocytes # (Manual) 1.6 H (0.0-1.0) k/mm3 Chloride 94 L (97-106) mmol/L BUN 44 H (3-23) mg/dL Creatinine 2.38 H D (0.4-1.4) mg/dL Est GFR (Non-Af Amer) 22 L D (60-130) mL/min Random Glucose 59 L (70-110) mg/dL Procalcitonin 1.62 H (0.05-0.50) ng/mL Urine Protein (NEGATIVE) mg/dL Urine Glucose (UA) (NEGATIVE) mg/dL Urine Blood (NEGATIVE) /ul Prot Sulfosalicylic Acd (0) mg/dL Urine WBC (0-5) /hpf 03/22/18 Range/Units 11:18 WBC (4.0-10.5) K/mm3 RBC (4.2-5.4) M/mm3 Hgb (12.5-16.0) gm/dL Hct (37.0-47.0) % MCH (27-31) pg Immature Gran % (Auto) (0.001-0.429) % Immature Gran # (Auto) (0.000-0.0310) K/mm3 Neutrophils % (42-75.0) % Neutrophils % (Manual) (42-75) % Lymphocytes % (20-51) % Lymphocytes % (Manual) (20-51) % Neutrophils # (1.3-6.0) K/mm3 Neutrophils # (Manual) (1.3-6.0) K/mm3 Monocytes # (0.0-1.0) k/mm3 Monocytes # (Manual) (0.0-1.0) k/mm3 Chloride (97-106) mmol/L BUN (3-23) mg/dL Creatinine (0.4-1.4) mg/dL Est GFR (Non-Af Amer) (60-130) mL/min Random Glucose (70-110) mg/dL Procalcitonin (0.05-0.50) ng/mL Urine Protein 100 H (NEGATIVE) mg/dL Urine Glucose (UA) >=1000 H (NEGATIVE) mg/dL Urine Blood 25 H (NEGATIVE) /ul Prot Sulfosalicylic Acd 3+ H (0) mg/dL Urine WBC Trace H (0-5) /hpf Laboratory Results WBC 26.7 K/mm3 (4.0-10.5) H 03/22/18 09:45 RBC 3.05 M/mm3 (4.2-5.4) L 03/22/18 09:45 Hgb 9.9 gm/dL (12.5-16.0) L 03/22/18 09:45 Hct 28.8 % (37.0-47.0) L 03/22/18 09:45 MCV 94.4 fl (78-100) 03/22/18 09:45 MCH 32.5 pg (27-31) H 03/22/18 09:45 MCHC 34.4 g/dl (32-36) 03/22/18 09:45 RDW 12.7 % (11.5-14.0) 03/22/18 09:45 Plt Count 220 K/mm3 (150-450) 03/22/18 09:45 MPV 10.3 fl (8-12.5) 03/22/18 09:45 Immature Gran % (Auto) 1.20 % (0.001-0.429) H 03/22/18 09:45 Immature Gran # (Auto) 0.33 K/mm3 (0.000-0.0310) H 03/22/18 09:45 Neutrophils % 86.7 % (42-75.0) H 03/22/18 09:45 Neutrophils % (Manual) 81 % (42-75) H 03/22/18 09:45 Band Neuts % (Manual) 1 % (0-2.0) 03/22/18 09:45 Lymphocytes % 6.6 % (20-51) L 03/22/18 09:45 Lymphocytes % (Manual) 12 % (20-51) L 03/22/18 09:45 Monocytes % 5.3 % (0.0-9) 03/22/18 09:45 Monocytes % (Manual) 6 % (0-9) 03/22/18 09:45 Eosinophils % 0.0 % (0.0-3.0) 03/22/18 09:45 Basophils % 0.2 % (0.0-1.0) 03/22/18 09:45 Nucleated RBC % 0.0 k/mm3 (0-1) 03/22/18 09:45 Neutrophils # 23.2 K/mm3 (1.3-6.0) H 03/22/18 09:45 Neutrophils # (Manual) 21.6 K/mm3 (1.3-6.0) H 03/22/18 09:45 Lymphocytes # 1.76 k/mm3 (1.5-3.5) 03/22/18 09:45 Lymphocytes # (Manual) 3.2 k/mm3 (1.5-3.5) 03/22/18 09:45 Monocytes # 1.4 k/mm3 (0.0-1.0) H 03/22/18 09:45 Monocytes # (Manual) 1.6 k/mm3 (0.0-1.0) H 03/22/18 09:45 Eosinophils # 0.0 k/mm3 (0.0-0.7) 03/22/18 09:45 Absolute Basophils 0.1 k/mm3 (0.0-0.1) 03/22/18 09:45 Platelet Estimate Normal (NORMAL) 03/22/18 09:45 RBC Morphology Normal (NORMAL) 03/22/18 09:45 Sodium 134 mmol/L (132-142) 03/22/18 09:45 Plasma Sodium 133 mmol/L (130-142) 03/22/18 09:45 Potassium 4.0 mmol/L (3.4-4.6) D 03/22/18 09:45 Chloride 94 mmol/L (97-106) L 03/22/18 09:45 Carbon Dioxide 32.6 mmol/L (24-32.6) 03/22/18 09:45 Anion Gap 11.4 mmol/L (6.8-13.8) 03/22/18 09:45 BUN 44 mg/dL (3-23) H 03/22/18 09:45 Creatinine 2.38 mg/dL (0.4-1.4) H D 03/22/18 09:45 Est GFR (Non-Af Amer) 22 mL/min (60-130) L D 03/22/18 09:45 BUN/Creatinine Ratio 18.5 (9.0-21.6) 03/22/18 09:45 Random Glucose 59 mg/dL (70-110) L 03/22/18 09:45 Lactic Acid, Venous 0.9 mmol/L (0.4-2.0) 03/22/18 09:45 Calcium 9.2 mg/dL (7.9-10.9) 03/22/18 09:45 Calcium Adj for Albumin 9.2 mg/dL (8.4-10.2) 03/22/18 09:45 Total Bilirubin 0.7 mg/dL (0.0-1.1) 03/22/18 09:45 AST 20 U/L (0-48) 03/22/18 09:45 ALT 21 U/L (19-67) 03/22/18 09:45 Alkaline Phosphatase 105 U/L (50-170) 03/22/18 09:45 Total Protein 8.0 gm/dL (6.2-8.2) 03/22/18 09:45 Albumin 3.6 gm/dl (3.4-5.0) 03/22/18 09:45 Procalcitonin 1.62 ng/mL (0.05-0.50) H 03/22/18 09:45 Urine Color Yellow 03/22/18 11:18 Urine Appearance Clear (CLEAR) 03/22/18 11:18 Urine pH 5.5 pH (5.0-7.0) 03/22/18 11:18 Ur Specific [place] 1.025 SP.GR. (1.005-1.010) 03/22/18 11:18 Urine Protein 100 mg/dL (NEGATIVE) H 03/22/18 11:18 Urine Glucose (UA) >=1000 mg/dL (NEGATIVE) H 03/22/18 11:18 Urine Ketones Negative mg/dL (NEGATIVE) 03/22/18 11:18 Urine Blood 25 /ul (NEGATIVE) H 03/22/18 11:18 Urine Nitrate Negative (NEGATIVE) 03/22/18 11:18 Urine Bilirubin Negative mg/dl (NEGATIVE) 03/22/18 11:18 Prot Sulfosalicylic Acd 3+ mg/dL (0) H 03/22/18 11:18 Urine Urobilinogen Normal EU/dl (NORMAL) 03/22/18 11:18 Ur Leukocyte Esterase Negative /ul (NEGATIVE) 03/22/18 11:18 Urine RBC 0-5 /hpf (0-5) 10/12/18 11:18 Urine WBC Trace /hpf (0-5) H 03/22/18 11:18 Ur Epithelial Cells Trace /hpf (0-5) 03/22/18 11:18 Urine Bacteria Trace (NONE) 03/22/18 11:18 Urine Culture Comments Culture to follow 03/22/18 11:18 Urine Opiates Screen Negative (NEGATIVE) 03/22/18 11:18 Barbiturate Screen Negative (NEGATIVE) 03/22/18 11:18 Ur Phencyclidine Scrn Negative (NEGATIVE) 03/22/18 11:18 Urine Amphetamine Negative (NEGATIVE) 03/22/18 11:18 U Benzodiazepines Scrn Negative (NEGATIVE) 03/22/18 11:18 Urine Cocaine Screen Negative (NEGATIVE) 03/22/18 11:18 Urine Marijuana (THC) Negative (NEGATIVE) 03/22/18 11:18 Assessment/Plan - Assessment/Plan (1) Hypoglycemia Assessment: got D50 and BS went up to 154. Problem: Acute (2) Pneumonia Assessment: community acquired vs aspiration. will continue with IV antibiotics. await for blood /spututm culture results. Problem: Acute Qualifiers: Pneumonia type: due to unspecified organism Laterality: right Lung location: upper lobe of lung Qualified Code(s): J18.1 - Lobar pneumonia, unspecified organism (3) Leukocytosis Assessment: due to infection and hypoglycemic stress Problem: Acute (4) Chronic pain syndrome Problem: Chronic (5) Diabetic retinopathy Problem: Chronic (6) Diabetic neuropathy Problem: Chronic (7) Bipolar disorder Problem: Chronic (8) HTN (hypertension) Problem: Chronic Qualifiers: Hypertension type: essential hypertension Qualified Code(s): I10 - Essential (primary) hypertension (9) Hyperglycemia due to type 1 diabetes mellitus Assessment: due to noncompliance Problem: Acute (10) CKD (chronic kidney disease) Problem: Chronic Qualifiers: Chronic kidney disease stage: stage 4 (severe) Qualified Code(s): N18.4 - Chronic kidney disease, stage 4 (severe) (11) Anemia Problem: Chronic (12) Uncontrolled diabetes mellitus type 1 with peripheral artery disease Problem: Acute
[2018-03-22] MEDS: INSULIN LISPRO 100 UNITS/ML VIAL SC SCH (16:39)
[2018-03-22] MEDS: NORMAL SALINE 1,000 ML IV PRN (20:26)
[2018-03-22] MEDS ORDERED: ALBUTEROL SULFATE 2.5 MG/0.5 ML VIAL.NEB IH PRN (20:31)
[2018-03-23] MEDS: NORMAL SALINE 1,000 ML IV PRN ×2 (06:35→17:00)
[2018-03-23] MEDS: INSULIN LISPRO 100 UNITS/ML VIAL SC SCH ×3 (07:11→16:59)
--- NOTE | 2018-03-23 10:45 | PN ---
Progess Note - Interim Date: 03/23/18 Time: 10:43 Narrative: 03/23/18 10:43 Tmax is 39.3 at 18:53. Will repeat CBC. Still drowsy and sleepy. O2 sat 95% at RA.
[2018-03-23 11:58] LABS: Hematocrit 27.1 % (37.0-47.0); Mean Cell Volume 95.4 fl (78-100); Mean Corpuscular Hemoglobin 31.7 pg (27-31); Mean Corpuscular Hgb Conc 33.2 g/dl (32-36); Mean Platelet Volume 10.5 fl (8-12.5); Neutrophil # 20.4 K/mm3 (1.3-6.0); Neutrophil % 89.6 % (42-75.0); Platelet Count 177 K/mm3 (150-450); Red Blood Count 2.84 M/mm3 (4.2-5.4); Red Cell Distribution Width 12.7 % (11.5-14.0); White Blood Count 22.8 K/mm3 (4.0-10.5)
[2018-03-23 11:59] LABS: Anion Gap 9.4 mmol/L (6.8-13.8); BUN/Creatinine Ratio 23.7 (9.0-21.6); Calcium * 8.1 mg/dL (7.9-10.9); Carbon Dioxide 27.6 mmol/L (24-32.6); Estimated Creat Clear 27.8
--- NOTE | 2018-03-23 12:46 | PN ---
Subjective - Date and Time Seen Date: 03/23/18 Time: 12:42 Subjective Narrative: Tmax is 39.3 at 18:53. Will repeat CBC. Still drowsy and sleepy from her hypoglycemia and pneumonia. O2 sat 95% at RA-improved. Objective - Review of Systems Generalized/Overall Review: Reports: Fever. Denies: Weakness, Chills Respiratory: Reports: Shortness of Breath Cardiac: Denies: Chest Pain, Edema, Palpitations Abdominal: Denies: Nausea, Vomiting Genitourinary Symptoms: Denies: Urgency, Frequency Musculoskeletal Complaints: Reports: Joint Pain - Vitals Vitals: Last Vital Signs Temp 37.2 C 03/23/18 10:35 Pulse 79 03/23/18 10:35 Resp 14 03/23/18 10:35 BP 132/47 03/23/18 10:35 Pulse Ox 96 03/23/18 10:35 - Abnormal Lab Findings Abnormal Lab Findings: Abnormal Lab Results 03/23/18 Range/Units 11:37 Sodium 131 L (132-142) mmol/L BUN 47 H (3-23) mg/dL Creatinine 1.98 H D (0.4-1.4) mg/dL Est GFR (Non-Af Amer) 28 L D (60-130) mL/min BUN/Creatinine Ratio 23.7 H (9.0-21.6) Random Glucose 349 H D (70-110) mg/dL - Exam Constitutional: Present: Alert, Oriented x3, Cooperative ENT Exam: Present: hearing grossly normal Neck: Present: supple Respiratory: Present: decreased breath sounds, No rales, No wheezing Cardiovascular/Chest: Present: regular rate, rhythm, no JVD, no murmur Abdomen: Present: Normal bowel sounds, soft, nontender, nondistended Extremity: Present: no pedal edema, no calf tenderness Assessment/Plan - Problems/Diagnosis (1) Hypoglycemia Problem: Resolved Narrative: still dowsy and sleepy (2) Pneumonia Problem: Acute Qualifiers: Pneumonia type: due to unspecified organism Laterality: right Lung location: upper lobe of lung Qualified Code(s): J18.1 - Lobar pneumonia, unspecified organism Narrative: her Tmax at 1853 was 39.3. will continue with IV antibiotics until she is afebrile for at leaast 48 hours before changing to PO antibiotic. Will recheck her CBC. ADDENDUM: Her WBC is still 22,000. will transfer her to acute status. (3) Leukocytosis Problem: Acute Narrative: due to pneumonia and the stress of hypoglycemia. will recheck. (4) Chronic pain syndrome Problem: Chronic (5) Diabetic retinopathy Problem: Chronic (6) Diabetic neuropathy Problem: Chronic (7) Bipolar disorder Problem: Chronic (8) HTN (hypertension) Problem: Chronic Qualifiers: Hypertension type: essential hypertension Qualified Code(s): I10 - Essential (primary) hypertension (9) Hyperglycemia due to type 1 diabetes mellitus Problem: Acute (10) CKD (chronic kidney disease) Problem: Chronic Qualifiers: Chronic kidney disease stage: stage 4 (severe) Qualified Code(s): N18.4 - Chronic kidney disease, stage 4 (severe) (11) Anemia Problem: Chronic (12) Uncontrolled diabetes mellitus type 1 with peripheral artery disease Problem: Acute
[2018-03-23 13:00] LABS: Total Cells Counted 100
[2018-03-23] MEDS: AZITHROMYCIN 250 MG TABLET PO SCH (13:37)
[2018-03-23] MEDS: ENOXAPARIN SODIUM 30 MG/0.3 ML SYRG SC SCH (13:37)
[2018-03-23] MEDS: ACETAMINOPHEN 325 MG TABLET PO PRN (15:07)
[2018-03-23 15:17] LABS: Band 8 % (0-2.0); Lymphocyte 3 % (20-51); Monocyte 2 % (0-9); Neutrophil 87 % (42-75); Neutrophil # 19.8 K/mm3 (1.3-6.0); Platelet Estimate Normal (NORMAL); RBC Morphology Normal (NORMAL)
[2018-03-23] MEDS: INSULIN GLARGINE,HUM.REC.ANLOG 100 UNITS/ML VIAL SC SCH (20:26)
[2018-03-23] MEDS ORDERED: INSULIN LISPRO 100 UNITS/ML VIAL SC ONE (21:00)
[2018-03-24] MEDS: NORMAL SALINE 1,000 ML IV PRN ×3 (02:28→22:52)
[2018-03-24] MEDS: ACETAMINOPHEN 325 MG TABLET PO PRN ×3 (04:31→23:45)
[2018-03-24] MEDS: INSULIN LISPRO 100 UNITS/ML VIAL SC SCH ×3 (06:45→16:57)
[2018-03-24] MEDS: AZITHROMYCIN 250 MG TABLET PO SCH (09:16)
--- NOTE | 2018-03-24 11:27 | PN ---
Subjective - Date and Time Seen Date: 03/24/18 Time: 11:27 Subjective Narrative: Patient wanting to go home today. Tmax 37.3. WBC [id number] Objective - Review of Systems Generalized/Overall Review: Reports: Weakness. Denies: Chills, Fever Respiratory: Reports: Cough. Denies: Shortness of Breath Cardiac: Denies: Chest Pain, Edema, Palpitations Abdominal: Denies: Nausea, Vomiting Genitourinary Symptoms: Denies: Urgency, Frequency - Vitals Vitals: Last Vital Signs Temp 36.9 C 03/24/18 11:00 Pulse 100 03/24/18 11:00 Resp 18 03/24/18 11:00 BP 169/70 H 03/24/18 11:00 Pulse Ox 93 03/24/18 11:00 - Abnormal Lab Findings Abnormal Lab Findings: Abnormal Lab Results 03/23/18 03/23/18 Range/Units 11:37 11:37 WBC 22.8 H (4.0-10.5) K/mm3 RBC 2.84 L (4.2-5.4) M/mm3 Hgb 9.0 L (12.5-16.0) gm/dL Hct 27.1 L (37.0-47.0) % MCH 31.7 H (27-31) pg Immature Gran % (Auto) 2.10 H (0.001-0.429) % Immature Gran # (Auto) 0.49 H (0.000-0.0310) K/mm3 Neutrophils % 89.6 H (42-75.0) % Neutrophils % (Manual) 87 H (42-75) % Band Neuts % (Manual) 8 H (0-2.0) % Lymphocytes % 4.4 L (20-51) % Lymphocytes % (Manual) 3 L (20-51) % Neutrophils # 20.4 H (1.3-6.0) K/mm3 Neutrophils # (Manual) 19.8 H (1.3-6.0) K/mm3 Lymphocytes # 1.01 L (1.5-3.5) k/mm3 Lymphocytes # (Manual) 0.7 L (1.5-3.5) k/mm3 Sodium 131 L (132-142) mmol/L BUN 47 H (3-23) mg/dL Creatinine 1.98 H D (0.4-1.4) mg/dL Est GFR (Non-Af Amer) 28 L D (60-130) mL/min BUN/Creatinine Ratio 23.7 H (9.0-21.6) Random Glucose 349 H D (70-110) mg/dL - Exam Constitutional: Present: Alert, Oriented x3, Cooperative ENT Exam: Present: hearing grossly normal Neck: Present: supple Respiratory: Present: decreased breath sounds, No rales, No wheezing Cardiovascular/Chest: Present: regular rate, rhythm, no JVD, no murmur Abdomen: Present: Normal bowel sounds, soft, nontender, nondistended Extremity: Present: no pedal edema, no calf tenderness Assessment/Plan - Problems/Diagnosis (1) Hypoglycemia Problem: Resolved Narrative: AAO x 3 . (2) Pneumonia Problem: Acute Qualifiers: Pneumonia type: due to unspecified organism Laterality: right Lung location: upper lobe of lung Qualified Code(s): J18.1 - Lobar pneumonia, unspecified organism Narrative: will do a follow up CBC. Possible discharge nt he mrsourav f contiue to be afebrile and WBC continues to trend down. (3) Leukocytosis Problem: Acute Narrative: due to pneumonia. will do follow up CBC (4) Chronic pain syndrome Problem: Chronic Narrative: on Suboxone by pain clinic in [place] (5) Diabetic retinopathy Problem: Chronic (6) Diabetic neuropathy Problem: Chronic (7) Bipolar disorder Problem: Chronic (8) HTN (hypertension) Problem: Chronic Qualifiers: Hypertension type: essential hypertension Qualified Code(s): I10 - Essential (primary) hypertension (9) Hyperglycemia due to type 1 diabetes mellitus Problem: Acute (10) CKD (chronic kidney disease) Problem: Chronic Qualifiers: Chronic kidney disease stage: stage 4 (severe) Qualified Code(s): N18.4 - Chronic kidney disease, stage 4 (severe) (11) Anemia Problem: Chronic (12) Uncontrolled diabetes mellitus type 1 with peripheral artery disease Problem: Acute
[2018-03-24 11:53] LABS: Hematocrit 28.9 % (37.0-47.0); Hemoglobin 9.6 gm/dL (12.5-16.0); Mean Cell Volume 93.8 fl (78-100); Mean Corpuscular Hemoglobin 31.2 pg (27-31); Mean Corpuscular Hgb Conc 33.2 g/dl (32-36); Mean Platelet Volume 9.9 fl (8-12.5); Neutrophil # 13.8 K/mm3 (1.3-6.0); Neutrophil % 85.3 % (42-75.0); Platelet Count 206 K/mm3 (150-450); Red Blood Count 3.08 M/mm3 (4.2-5.4); Red Cell Distribution Width 12.8 % (11.5-14.0); White Blood Count 16.2 K/mm3 (4.0-10.5)
[2018-03-24 12:01] LABS: Anion Gap 12.2 mmol/L (6.8-13.8); BUN/Creatinine Ratio 26.5 (9.0-21.6); Calcium * 8.8 mg/dL (7.9-10.9); Carbon Dioxide 26.7 mmol/L (24-32.6); Estimated Creat Clear 35.5; Potassium 3.9 mmol/L (3.4-4.6)
[2018-03-24] MEDS: BUPRENORPHINE HCL SL SCH (12:12)
[2018-03-24] MEDS: NALOXONE HCL SL SCH (12:12)
[2018-03-24] MEDS: ENOXAPARIN SODIUM 30 MG/0.3 ML SYRG SC SCH (13:32)
[2018-03-24] MEDS ORDERED: ROSUVASTATIN CALCIUM 20 MG TABLET PO SCH (21:00)
[2018-03-24] MEDS: INSULIN GLARGINE,HUM.REC.ANLOG 100 UNITS/ML VIAL SC SCH (21:37)
[2018-03-25] MEDS: ACETAMINOPHEN 325 MG TABLET PO PRN ×2 (03:47→07:50)
[2018-03-25 06:15] LABS: Hematocrit 24.5 % (37.0-47.0); Hemoglobin 8.2 gm/dL (12.5-16.0); Mean Cell Volume 93.2 fl (78-100); Mean Corpuscular Hemoglobin 31.2 pg (27-31); Mean Corpuscular Hgb Conc 33.5 g/dl (32-36); Mean Platelet Volume 10.2 fl (8-12.5); Neutrophil # 9.7 K/mm3 (1.3-6.0); Platelet Count 189 K/mm3 (150-450); Red Blood Count 2.63 M/mm3 (4.2-5.4); Red Cell Distribution Width 12.5 % (11.5-14.0); White Blood Count 11.7 K/mm3 (4.0-10.5)
[2018-03-25 06:21] LABS: Anion Gap 8.3 mmol/L (6.8-13.8); BUN/Creatinine Ratio 20.4 (9.0-21.6); Calcium * 8.2 mg/dL (7.9-10.9); Carbon Dioxide 27.6 mmol/L (24-32.6); Estimated Creat Clear 40.2; Potassium 3.9 mmol/L (3.4-4.6)
[2018-03-25] MEDS: INSULIN LISPRO 100 UNITS/ML VIAL SC SCH ×2 (06:55→11:14)
[2018-03-25] MEDS ORDERED: ONDANSETRON HCL 4 MG TABLET PO PRN (08:01)
--- NOTE | 2018-03-25 08:19 | DS ---
(1) Hypoglycemia Problem: Resolved (2) Pneumonia Problem: Acute Qualifiers: Pneumonia type: due to unspecified organism Laterality: right Lung location: upper lobe of lung Qualified Code(s): J18.1 - Lobar pneumonia, unspecified organism (3) Leukocytosis Problem: Acute (4) Chronic pain syndrome Problem: Chronic (5) Diabetic retinopathy Problem: Chronic (6) Diabetic neuropathy Problem: Chronic (7) Bipolar disorder Problem: Chronic (8) HTN (hypertension) Problem: Chronic Qualifiers: Hypertension type: essential hypertension Qualified Code(s): I10 - Essential (primary) hypertension (9) Hyperglycemia due to type 1 diabetes mellitus Problem: Acute (10) CKD (chronic kidney disease) Problem: Chronic Qualifiers: Chronic kidney disease stage: stage 4 (severe) Qualified Code(s): N18.4 - Chronic kidney disease, stage 4 (severe) (11) Anemia Problem: Chronic (12) Uncontrolled diabetes mellitus type 1 with peripheral artery disease Problem: Acute Description of Stay: Viji Vilchis, is a 57-year-old white female, with past medical history of chronic renal failure stage IV, diabetes mellitus type 1, uncontrolled due to noncompliance, diabetic neuropathy, diabetic retinopathy, hyperlipidemia, who was admitted on 03/22/2018 because of pneumonia. The patient was actually brought in by the to the emergency room because of low blood sugar. I am not able to get a clear history from Mei. My history is mostly based on the emergency room notes. Last night the checked her blood sugar level and the meter read high so he gave her 7 units of Humalog. Her blood sugar this morning was in the 70s and so the tried to feed her but she only would be able to take a little bit. She was lethargic and so the brought her to the emergency room. She is on suboxone for chronic pain that is prescribed by a psychiatrist in [place]. In the ED, her WBC was 26,000 and she carried a temperature of 39. Her CXR showed RUL infiltrate correlate for pneumonia. She was given IV Rocephin ad Azithromycin and admitted for further treatment. She improved clinically with IV antibiotis and she is AAO x 3. She has not been febrile for the last 48-72 hours and her WBC is now down to 11.7. She says hat she was started on Tressiba 24 units q AM. She is stable to be discharged today. Procedures Performed: none Results and Findings: Pending Mircobiology Results 03/22/18 12:30 Blood Blood Culture - Preliminary NO GROWTH AFTER 48 HOURS 03/22/18 09:45 Blood Blood Culture - Preliminary NO GROWTH AFTER 48 HOURS Lab Pending Results 03/22/18 09:45: WBC 26.7 H, RBC 3.05 L, Hgb 9.9 L, Hct 28.8 L, MCV 94.4, MCH 32.5 H, MCHC 34.4, RDW 12.7, Plt Count 220, MPV 10.3, Immature Gran % (Auto) 1.20 H, Immature Gran # (Auto) 0.33 H, Neutrophils % 86.7 H, Neutrophils % (Manual) 81 H, Band Neuts % (Manual) 1, Lymphocytes % 6.6 L, Lymphocytes % (Manual) 12 L, Monocytes % 5.3, Monocytes % (Manual) 6, Eosinophils % 0.0, Basophils % 0.2, Nucleated RBC % 0.0, Neutrophils # 23.2 H, Neutrophils # (Manual) 21.6 H, Lymphocytes # 1.76, Lymphocytes # (Manual) 3.2, Monocytes # 1.4 H, Monocytes # (Manual) 1.6 H, Eosinophils # 0.0, Absolute Basophils 0.1, Platelet Estimate Normal, RBC Morphology Normal 03/22/18 09:45: Sodium 134, Plasma Sodium 133, Potassium 4.0 D, Chloride 94 L, Carbon Dioxide 32.6, Anion Gap 11.4, BUN 44 H, Creatinine 2.38 H D, Est GFR (Non-Af Amer) 22 L D, BUN/Creatinine Ratio 18.5, Random Glucose 59 L, Calcium 9.2, Calcium Adj for Albumin 9.2, Total Bilirubin 0.7, AST 20, ALT 21, Alkaline Phosphatase 105, Total Protein 8.0, Albumin 3.6 03/22/18 09:45: Lactic Acid, Venous 0.9 03/22/18 09:45: Procalcitonin 1.62 H 03/22/18 11:18: Urine Color Yellow, Urine Appearance Clear, Urine pH 5.5, Ur Specific [place] 1.025, Urine Protein 100 H, Urine Glucose (UA) >=1000 H, Urine Ketones Negative, Urine Blood 25 H, Urine Nitrate Negative, Urine Bilirubin Negative, Prot Sulfosalicylic Acd 3+ H, Urine Urobilinogen Normal, Ur Leukocyte Esterase Negative, Urine RBC 0-5, Urine WBC Trace H, Ur Epithelial Cells Trace, Urine Bacteria Trace, Urine Culture Comments Culture to follow 03/22/18 11:18: Urine Opiates Screen Negative, Barbiturate Screen Negative, Ur Phencyclidine Scrn Negative, Urine Amphetamine Negative, U Benzodiazepines Scrn Negative, Urine Cocaine Screen Negative, Urine Marijuana (THC) Negative 03/23/18 11:37: WBC 22.8 H, RBC 2.84 L, Hgb 9.0 L, Hct 27.1 L, MCV 95.4, MCH 31.7 H, MCHC 33.2, RDW 12.7, Plt Count 177, MPV 10.5, Immature Gran % (Auto) 2.10 H, Immature Gran # (Auto) 0.49 H, Neutrophils % 89.6 H, Neutrophils % (Manual) 87 H, Band Neuts % (Manual) 8 H, Lymphocytes % 4.4 L, Lymphocytes % (Manual) 3 L, Monocytes % 3.8, Monocytes % (Manual) 2, Eosinophils % 0.0, Basophils % 0.1, Nucleated RBC % 0.0, Neutrophils # 20.4 H, Neutrophils # (Manual) 19.8 H, Lymphocytes # 1.01 L, Lymphocytes # (Manual) 0.7 L, Monocytes # 0.9, Monocytes # (Manual) 0.5, Eosinophils # 0.0, Absolute Basophils 0.0, Platelet Estimate Normal, RBC Morphology Normal 03/23/18 11:37: Sodium 131 L, Plasma Sodium 135, Potassium 4.0, Chloride 98, Carbon Dioxide 27.6, Anion Gap 9.4, BUN 47 H, Creatinine 1.98 H D, Est GFR (Non- Af Amer) 28 L D, BUN/Creatinine Ratio 23.7 H, Random Glucose 349 H D, Calcium 8.1 03/24/18 11:48: WBC 16.2 H D, RBC 3.08 L, Hgb 9.6 L, Hct 28.9 L, MCV 93.8, MCH 31.2 H, MCHC 33.2, RDW 12.8, Plt Count 206, MPV 9.9, Immature Gran % (Auto) 1.60 H, Immature Gran # (Auto) 0.26 H, Neutrophils % 85.3 H, Lymphocytes % 8.5 L, Monocytes % 4.0, Eosinophils % 0.4, Basophils % 0.2, Nucleated RBC % 0.0, Neutrophils # 13.8 H, Lymphocytes # 1.37 L, Monocytes # 0.6, Eosinophils # 0.1, Absolute Basophils 0.0 03/24/18 11:48: Sodium 134, Plasma Sodium 136, Potassium 3.9, Chloride 99, Carbon Dioxide 26.7, Anion Gap 12.2, BUN 41 H, Creatinine 1.55 H D, Est GFR (Non-Af Amer) 37 L D, BUN/Creatinine Ratio 26.5 H, Random Glucose 202 H D, Calcium 8.8 03/25/18 06:07: WBC 11.7 H D, RBC 2.63 L, Hgb 8.2 L, Hct 24.5 L, MCV 93.2, MCH 31.2 H, MCHC 33.5, RDW 12.5, Plt Count 189, MPV 10.2, Immature Gran % (Auto) 1.00 H, Immature Gran # (Auto) 0.12 H, Neutrophils % 83.0 H, Lymphocytes % 10.5 L, Monocytes % 4.9, Eosinophils % 0.3, Basophils % 0.3, Nucleated RBC % 0.0, Neutrophils # 9.7 H, Lymphocytes # 1.23 L, Monocytes # 0.6, Eosinophils # 0.0, Absolute Basophils 0.0 03/25/18 06:07: Sodium 134, Plasma Sodium 137, Potassium 3.9, Chloride 102, Carbon Dioxide 27.6, Anion Gap 8.3, BUN 28 H, Creatinine 1.37, Est GFR (Non-Af Amer) 42 L, BUN/Creatinine Ratio 20.4, Random Glucose 271 H D, Calcium 8.2 Discharge Location: Home Disposition: Home self-care Condition: Stable Discharge Activity: Activity as tolerated Discharge Diet: Consistent carbs Referrals: Shelia Nelson MD [Primary Care Provider] - Additional Patient Instructions (free text): Follow up with PCP in 1 week. -Please make TCM appointment unless senior living discharge. Thank you! Charity @ [phone]. Prescriptions (Any new or edited meds): Insulin Degludec [Tresiba Flextouch U-200] 24 unit SQ DAILY #1 insuln.pen Levofloxacin [Levaquin] 500 mg PO DAILY 6 Days #6 tablet Ondansetron HCl [Zofran] 4 mg PO Q6H PRN #20 tablet PRN Reason: Nausea And Vomiting Complete Home Medications List: Complete Home Medication List: Multivitamin [Multivitamins] 1 ea PO DAILY #0 12/18/12 lamoTRIgine [Lamictal] 150 mg PO DAILY 01/15/13 Ferrous Sulfate [Iron] 325 mg PO DAILY #30 tab 08/14/14 Duloxetine HCl [Cymbalta] 30 mg PO DAILY 08/29/14 Buprenorphine HCl/Naloxone HCl [Suboxone 8 MG-2 MG Tablet] 1.5 film SL DAILY 11/06/15 Allopurinol [Zyloprim] 200 mg PO DAILY 12/19/16 Diltiazem HCl [Cardizem Cd] 120 mg PO DAILY 12/19/16 Insulin Lispro [Humalog] 6 units SC ACINS 12/19/16 Multivit-Min/FA/Lycopen/Lutein [[facility] Multivitamin Tab] 1 ea PO HS 12/19/16 Acetaminophen [Tylenol] 650 mg PO Q4H PRN tab 09/04/17 atorvastatin 40 mg tablet 40 mg PO HS #31 tab 12/18/17 calcium carbonate-vitamin D3 600 mg (1,500 mg)-400 unit capsule 1 cap PO DAILY #31 cap 12/18/17 cetirizine 10 mg tablet 10 mg PO DAILY #31 tab 12/18/17 multivitamin-ferrous fumarate-folic acid 18 mg-400 mcg tablet 1 tab PO DAILY #31 tab 12/18/17 pregabalin 150 mg capsule 300 mg PO DAILY #62 cap 02/05/18 insulin syringe-needle U-100 0.5 mL 31 gauge x 516" See Dose Instructions .ROUTE .MEDSUPPLY #10 ea 02/07/18 insulin syringe-needle U-100 1 mL 31 gauge x 516" See Dose Instructions .ROUTE .MEDSUPPLY #10 ea 02/07/18 miscellaneous medical supply misc See Dose Instructions .ROUTE .MEDSUPPLY #1 ea 02/07/18 pen needle, diabetic 30 gauge x 516" See Dose Instructions .ROUTE .MEDSUPPLY #100 ea 02/07/18 cholecalciferol (vitamin D3) 2,000 unit capsule 2,000 unit PO DAILY #90 cap 03/14/18 furosemide 40 mg tablet 40 mg PO DAILY #30 tab 03/14/18 Insulin Degludec [Tresiba Flextouch U-200] 24 unit SQ DAILY #1 insuln.pen 03/25/18 Levofloxacin [Levaquin] 500 mg PO DAILY 6 Days #6 tablet 03/25/18 Ondansetron HCl [Zofran] 4 mg PO Q6H PRN #20 tablet 03/25/18
[2018-03-25] MEDS: NORMAL SALINE 1,000 ML IV PRN (08:26)
[2018-03-25] MEDS: NALOXONE HCL SL SCH (08:40)
[2018-03-25] MEDS: BUPRENORPHINE HCL SL SCH (08:40)
[2018-03-25] MEDS: AZITHROMYCIN 250 MG TABLET PO SCH (08:41)
[2018-03-25] MEDS ORDERED: CHOLECALCIFEROL 1,000 UNIT CAPSULE PO SCH (09:00)
[2018-03-25] MEDS ORDERED: PREGABALIN 75 MG CAPSULE PO SCH (09:00)
[2018-03-25] MEDS ORDERED: DULoxetine HCL 30 MG CAPSULE.SA PO SCH (09:00)
[2018-03-25] MEDS ORDERED: DILTIAZEM HCL 120 MG CAP.SR.24H PO SCH (09:00)
[2018-03-25] MEDS ORDERED: MULTIVITAMINS 1 CAP CAPSULE PO SCH (09:00)
[2018-03-25] MEDS ORDERED: CALCIUM CARBONATE/VITAMIN D3 1 TAB TABLET PO SCH (09:00)
[2018-03-25] MEDS ORDERED: FERROUS SULFATE 325 MG TABLET PO SCH (09:00)
[2018-03-25] MEDS ORDERED: ALLOPURINOL 100 MG TABLET PO SCH (09:00)
[2018-03-25] MEDS ORDERED: Buprenorphine Hcl/Naloxone 8-2 MG SL SCH (09:00)
[2018-03-25] MEDS ORDERED: LORATADINE 10 MG TABLET PO SCH (09:00)
[2018-03-25] MEDS ORDERED: lamoTRIgine 100 MG TABLET PO SCH (09:00)
[2018-03-25] MEDS ORDERED: FUROSEMIDE 40 MG TABLET PO SCH (09:00)
[2018-03-25] MEDS: ENOXAPARIN SODIUM 30 MG/0.3 ML SYRG SC SCH (12:50)
[2018-03-25 15:08] VITALS: BP 158/65
== END 2018-03-25 16:20 | disposition home or self-care (01) | DRG 637 ==
LOC: MS 08:50 → ER 08:50 → MS 13:50
PROVIDERS: ADMIT Internal Medicine; ATTEND Internal Medicine
CPT/HCPCS: 36415; 70450; 71010; 71045; 80048; 80053; 80307; 81001; 83605; 84145; 85007; 85025; 87040; 87077; 87086; 87186; 93005; 96360; 96361; 96365; 96374; 99285; G0479

== ENCOUNTER 2019-01-24 08:50 | Inpatient (IN) ==
[2019-01-24 09:46] LABS: Hematocrit 24.8 % (37.0-47.0); Hemoglobin 8.7 gm/dL (12.5-16.0); Mean Cell Volume 90.5 fl (78-100); Mean Corpuscular Hemoglobin 31.8 pg (27-31); Mean Corpuscular Hgb Conc 35.1 g/dl (32-36); Platelet Count 210 K/mm3 (150-450); Red Blood Count 2.74 M/mm3 (4.2-5.4); Red Cell Distribution Width 12.5 % (11.5-14.0); White Blood Count 18.3 K/mm3 (4.0-10.5)
[2019-01-24 09:47] LABS: ALT 26 U/L (19-67); AST 30 U/L (0-48); Albumin * 2.2 gm/dl (3.4-5.0); Alkaline Phosphatase * 166 U/L (50-170); Anion Gap 13.5 mmol/L (6.8-13.8); BUN/Creatinine Ratio 21.8 (9.0-21.6); Bilirubin, Total 0.4 mg/dL (0.0-1.1); Blood Urea Nitrogen 84 mg/dL (3-23); Ca. Corrected For Albumin 9.6 mg/dL (8.4-10.2); Calcium * 8.5 mg/dL (7.9-10.9); Carbon Dioxide 26.6 mmol/L (24-32.6); Chloride 86 mmol/L (97-106); Glucose * 317 mg/dL (70-110); Potassium 4.1 mmol/L (3.4-4.6); Sodium 122 mmol/L (132-142); Total Protein 6.9 gm/dL (6.2-8.2)
[2019-01-24 09:49] LABS: Total Cells Counted 100
[2019-01-24 10:09] LABS: Band 2 % (0-2.0); Lymphocyte 6 % (20-51); Monocyte 2 % (0-9); Neutrophil 90 % (42-75); Neutrophil # 16.5 K/mm3 (1.3-6.0)
[2019-01-24 10:10] LABS: Hypochromia 1+; Platelet Estimate Normal (NORMAL)
--- NOTE | 2019-01-24 10:27 | ERNOTE ---
Neuro HPI ER Record Date of Service: 01/24/19 Presenting Symptoms: confusion, difficulty walking, difficulty standing Time Seen by Provider: 01/24/19 09:01 Source: patient, family Exam Limitations: no limitations Immunizations: IMMUNIZATION HX Immunizations Up to Date Yes History of Influenza Vaccine Yes Hx Pneumococcal Vaccination Yes Allergies/Adverse Reactions: Allergies Allergy/AdvReac Type Severity Reaction Status Date / Time Penicillins Allergy Hives Verified 01/24/19 07:41 Home Medications: HOME MEDICATIONS Buprenorphine HCl/Naloxone HCl [Suboxone 8 MG-2 MG Tablet] 1.5 film SL DAILY 11/06/15 [Last Taken 12/18/16] Insulin Lispro [Humalog] 6 units SC ACINS 12/19/16 [Last Taken Unknown] Acetaminophen [Tylenol] 650 mg PO Q4H PRN tab 09/04/17 [Last Taken Unknown] miscellaneous medical supply misc See Dose Instructions .ROUTE .MEDSUPPLY #1 ea 02/07/18 [Last Taken Unknown] pen needle, diabetic 30 gauge x 10/24" See Dose Instructions .ROUTE .MEDSUPPLY #100 ea 02/07/18 [Last Taken Unknown] duloxetine 30 mg capsule,delayed release 30 mg PO DAILY #30 cap 09/09/18 [Last Taken Unknown] lamotrigine 150 mg tablet 150 mg PO DAILY #30 tab 09/09/18 [Last Taken Unknown] tramadol 50 mg tablet 50 mg PO Q6H PRN #30 tab 12/04/18 [Last Taken Unknown] pregabalin 150 mg capsule 150 mg PO BID #60 cap 12/11/18 [Last Taken Unknown] omeprazole magnesium 20 mg tablet,delayed release 20 mg PO DAILY 12/31/18 [Last Taken Unknown] insulin degludec (U-100) 100 unit/mL (3 mL) subcutaneous pen 20 unit SUBCUT DAILY ml 01/01/19 [Last Taken Unknown] calcium carbonate-vitamin D3 600 mg (1,500 mg)-800 unit tablet 1 tab PO DAILY #90 tab 01/06/19 [Last Taken Unknown] cholecalciferol (vitamin D3) 2,000 unit capsule 2,000 unit PO DAILY #90 cap 01/06/19 [Last Taken Unknown] diltiazem ER 180 mg capsule,24 hr,extended release 180 mg PO DAILY 01/06/19 [Last Taken Unknown] ferrous sulfate 325 mg (65 mg iron) tablet 325 mg PO DAILY #30 tab 01/06/19 [Last Taken Unknown] furosemide 40 mg tablet 60 mg PO DAILY #135 tab 01/06/19 [Last Taken Unknown] Atorvastatin Calcium 40 mg PO DAILY 01/18/19 [Last Taken Unknown] Sulfamethoxazole/Trimethoprim [Bactrim Ds] 1 tab PO BID #14 tab 01/18/19 [Last Taken Unknown] oxyCODONE HCL/ACETAMINOPHEN [Percocet 5 MG/325 MG] 1 tab PO Q4H PRN #20 tab 01/18/19 [Last Taken Unknown] lorazepam 1 mg tablet 1 mg PO ONCE #1 tab 01/23/19 [Last Taken Unknown] - History of Present Illness Narrative: patient has ongoing process with fx pelvis for several months has had numerous meds changed to deal with pain, , recent treatment for uti, was seen by ortho today and was not noted to be safe to go home with alterred mentall state Onset: constant, continues in ER Context: other - Character of Deficits New weakness: Present: general (diffuse) Additional Deficits: Present: vision problems, decrease ability to walk, weakness, off balance Baseline Cognition: Present: alert, oriented x 4 Baseline Gait: Present: walks w/o assistance Associated Symptoms: Reports: altered mental status, disoriented, confused Prior Treament: Reports: recently seen, treated by physician Review of Systems - Review of Systems Constitutional: Present: See HPI EYE: Present: no symptoms reported ENT: Present: no symptoms reported Respiratory: Present: no symptoms reported Cardiology: Present: no symptoms reported Gastrointestinal/Abdominal: Present: no symptoms reported Genitourinary: Present: no symptoms reported Musculoskeletal: Present: See HPI, other - pain in anterior pelvis Skin: Present: no symptoms reported Neurological: Present: no symptoms reported Endocrine: Present: no symptoms reported Hematologic/Lymphatic: Present: no symptoms reported Psych: Present: no symptoms reported Medical History (Updated 01/22/19 @ 12:22 by Patti Montoya MD) Major depression (Chronic) Onset Date: Unknown Tibia fracture (Chronic) Onset Date: ~11/2011 Left Restless leg syndrome (Chronic) Onset Date: Unknown Presbyopia (Chronic) Onset Date: Unknown History of onychomycosis (Chronic) Onset Date: ~05/27/14 OCD (obsessive compulsive disorder) (Chronic) Onset Date: Unknown Neck pain (Chronic) Onset Date: Unknown Mood swings (Chronic) Onset Date: Unknown Lumbago (Chronic) Onset Date: Unknown Kidney disease (Chronic) Onset Date: Unknown Joint pain (Chronic) Onset Date: Unknown Hyperopia (Chronic) Onset Date: Unknown Hyperlipidemia (Chronic) Onset Date: Unknown Headache (Chronic) Onset Date: Unknown History of gastroesophageal reflux (GERD) (Chronic) Onset Date: Unknown Fibula fracture (Acute) Onset Date: ~11/2011 Closed Left Endometriosis (Chronic) Onset Date: Unknown Diabetic retinopathy (Chronic) Onset Date: Unknown Diabetic neuropathy (Chronic) Onset Date: ~05/27/14 Diabetes 1.5, managed as type 1 (Chronic) Onset Date: ~12/15/13 Depression (Chronic) Onset Date: Unknown Charcot's joint arthropathy in type 1 diabetes mellitus (Chronic) Onset Date: ~12/24/13 Cellulitis (Chronic) Onset Date: ~12/24/13 and abscess of foot and leg Bulging disc (Chronic) Onset Date: Unknown Bipolar disorder (Chronic) Onset Date: Unknown Anemia (Chronic) Onset Date: ~12/24/13 Fracture of pubic ramus Onset Date: ~12/09/18 Surgical History: Surgical History (Updated 03/25/18 @ 08:37 by Shelia Nelson MD) History of tonsillectomy (Resolved) Onset Date: ~1973 History of sigmoidoscopy (Resolved) Onset Date: ~05/15/02 Marcela; polyp H/O nasal septoplasty (Resolved) Onset Date: ~04/10/03 Dr. Almodovar History of salpingo-oophorectomy (Resolved) Onset Date: ~1999 H/O fracture of lower leg (Resolved) Onset Date: ~12/08/11 Dr. Niño; Closed reduction, IM fixation of left tibiae closed reduction of left fibula H/O esophagogastroduodenoscopy (Resolved) Onset Date: ~06/30/04 10/07/14; Marcela; '05 gastroparesis. ' clotest negative. Mild chronic superficial gastritis H/O colonoscopy (Resolved) Onset Date: ~2002 2003, 2004, 05/18/08; Dr. Mderano '03 hyperplastic, pedunculated adenomatous polyps. '04 adenomatous polyp, '05 poor prep. '08 fragments of colonic mucosa with adenomatous and hyperplastic changes H/O colonoscopy (Resolved) Onset Date: ~08/14/12 [place]; Capacious colon. Recheck 10 years Family History: Family History (Updated 02/07/18 @ 10:50 by Anastasia Post RN) Mother Acute arthritis Behcets syndrome H/O Deandra thyroiditis Father , age 84 CVA (cerebral vascular accident) CAD (coronary artery disease) Brother , age 59 unknown cause No problems noted. Social History: (Last Reviewed 01/24/19 @ 08:59 by Martín Raya RN) Social History: adopted: No Marital status: lives independently: Yes household members: spouse current occupation: disability Highest education level completed: Associate degree: occupat Service: No Tobacco: Smoking Status: Former smoker Tobacco: How many years used: 5 how long ago did patient quit smoking: age 20 Alcohol: alcohol intake: former Substance Use: substance use type: does not use Dietary Habits: caffeine: Yes Type: carbonated beverages, coffee Physical Exam - Physical Exam General Appearance: Present: lethargic Head Exam: Present: normal inspection, no evidence of injury Eye Exam: Normal inspection: bilateral, PERRL: bilateral, EOMI: bilateral Ears, Nose, Throat: Present: normal ENT inspection, normal pharynx Neck: Present: normal inspection, nontender Respiratory: Present: no respiratory distress, normal breath sounds, no accessory muscle use, chest nontender, lungs clear Cardiovascular/Chest: Present: regular rate, rhythm, no murmur, normal peripheral pulses Gastrointestinal/Abdominal: Present: normal bowel sounds, nondistended, no organomegaly, tenderness - suprapubic tenderness Back Exam: Present: normal inspection, normal range of motion, no CVA tenderne ss, no vertebral tenderness Extremity Exam: Present: normal inspection, non-tender, normal range of motion, no edema Neurological Exam: Present: alert, oriented, normal mood/affect, no motor/sensory deficits Skin Exam: Present: normal color, warm/dry Lymphatic Exam: Present: no adenopathy Dao Coma Scale - Assess Eye Opening: To Voice Motor: Obeys Commands Verbal: Confused - Total Coma Scale Total: 13 Progress - Date and Time Seen: Date and Time: 01/24/19 10:[address] clemente, to admit to hospital with alterred mental status and hyperglycemia - Results and Orders Patient's Lab Results:: I have reviewed the patient's lab results. - Vital Signs Patient's Vital Signs:: I have reviewed the patient's vital signs. Vital Signs: Vital Signs 01/24/19 08:50 Temperature 36.6 C Pulse Rate 61 Respiratory Rate 14 Blood Pressure 116/53 O2 Sat by Pulse Oximetry 92 L - EKG EKG #1 EKG: NSR - CT/Ultrasound CT/Ultrasound Narrative: ct head no acute process - Progress/Reassessment Chief Complaint: Altered Mental Status Progress:: Unchanged - Transfer of Care Expected Disposition: Admit Plan - Plan Plan: to admit to observation Departure Clinical Impression: Altered mental state, Hyponatremia, Hyperglycemia due to type 1 diabetes mellitus - Departure Disposition: Still a patient Condition: Serious Referrals: Morena Clemente MD [Primary Care Provider] -
[2019-01-24 10:30] LABS: Urine Bilirubin Negative (NEGATIVE); Urine Ketone Negative (NEGATIVE); Urine Nitrite Negative (NEGATIVE); Urine Protein 15 mg/dL (NEGATIVE); Urine Urobilinogen Normal (NORMAL)
[2019-01-24 10:44] LABS: Urine Amorphous Sediment Moderate - 2+ (NONE-FEW); Urine Appearance Cloudy (CLEAR); Urine Bacteria None Seen; Urine Blood 5 /ul (NEGATIVE); Urine Color Yellow; Urine RBC TRACE /hpf (0-5); Urine WBC None Seen /hpf (0-5)
[2019-01-24] MEDS: NORMAL SALINE 1,000 ML IV PRN ×2 (11:12→18:56)
[2019-01-24] MEDS ORDERED: LEVOFLOXACIN IN DEXTROSE 5 % 750 MG/150 ML BAG IV ONE (11:23)
[2019-01-24] MEDS ORDERED: INSULIN REGULAR, HUMAN 100 UNITS/ML VIAL IV STA (11:44)
[2019-01-24] MEDS ORDERED: INSULIN DEGLUDEC 20 UNIT subcut SCH (11:45)
[2019-01-24] MEDS ORDERED: INSULIN GLARGINE,HUM.REC.ANLOG 100 UNITS/ML VIAL SC SCH (11:45)
[2019-01-24] MEDS ORDERED: INSULIN LISPRO 100 UNITS/ML VIAL SC SCH (12:00)
[2019-01-24] MEDS: DILTIAZEM HCL 180 MG CAP.SR.24H PO SCH ×2 (12:55→13:25)
[2019-01-24] MEDS: lamoTRIgine 100 MG TABLET PO SCH ×2 (12:55→13:26)
[2019-01-24] MEDS: CALCIUM CARBONATE/VITAMIN D3 1 TAB TABLET PO SCH ×2 (12:55→13:26)
[2019-01-24] MEDS: ROSUVASTATIN CALCIUM 20 MG TABLET PO SCH ×2 (12:55→13:25)
[2019-01-24] MEDS: DULoxetine HCL 30 MG CAPSULE.SA PO SCH ×2 (12:55→13:25)
[2019-01-24] MEDS: CHOLECALCIFEROL 1,000 UNIT CAPSULE PO SCH ×2 (12:56→13:24)
[2019-01-24] MEDS: NALOXONE HCL SL SCH (12:56)
[2019-01-24] MEDS: INSULIN REGULAR, HUMAN 100 UNITS/ML VIAL SC SCH ×3 (12:56→20:29)
[2019-01-24] MEDS: FERROUS SULFATE 325 MG TABLET PO SCH ×2 (12:56→13:25)
[2019-01-24] MEDS: PREGABALIN 75 MG CAPSULE PO SCH ×3 (12:56→20:38)
[2019-01-24] MEDS: BUPRENORPHINE HCL SL SCH (12:56)
--- NOTE | 2019-01-24 13:29 | HP ---
Chief Complaint - Chief Complaint Date of Service: 01/24/19 Time of Service: 13:27 Chief Complaint: I feel drowsy, and have back and pelvic pain. History of Present Illness: 58-year-old female with past medical history of anemia of chronic disease, bipolar disorder, bulging disc disease, Charcot joints, depression, type 1 diabetes, hypertension, CKD stage IV, GERD, hyperlipidemia, OCD, and restless leg syndrome was evaluated in our ER due to altered mental status and increasing somnolence after the patient took a prescribed Ativan tablet. Patient was scheduled to undergo an MRI this morning to evaluate her pelvis for possible displacement of known fractures of the superior and inferior rami. Patient was unable to stay still and required the medication to relax in order for the imaging to be done. However her reports shortly after taking the medication at 5:00 this morning she became sleepy and fell asleep and was difficult to arouse. When patient did awaken she was very drowsy but was able to recall where she was and why she was in the hospital. Patient has been seen in the ER and PCP's office over the past week multiple times for increasing right hip and back pain despite being on pain medications. She reports that the pain became excruciating after she returned from a camping trip with her last week but denies any known trauma or injury. Patient is chronically on Suboxone which is managed by a pain specialist in the [facility], therefore management of her pain has been difficult. Her blood sugar has also been very difficult to manage at home according to her who cares for her, this is likely secondary to an ongoing infection secondary to UTI confirmed on urinalysis and urine culture. Patient was initially prescribed oral antibiotics in the ER but repeat labs done in the ER this morning demonstrate persistence of her UTI. Medical History (Updated 01/24/19 @ 14:09 by Morena Kimbrough MD) Major depression (Chronic) Onset Date: Unknown Tibia fracture (Chronic) Onset Date: ~11/2011 Left Restless leg syndrome (Chronic) Onset Date: Unknown Presbyopia (Chronic) Onset Date: Unknown History of onychomycosis (Chronic) Onset Date: ~05/27/14 OCD (obsessive compulsive disorder) (Chronic) Onset Date: Unknown Neck pain (Chronic) Onset Date: Unknown Mood swings (Chronic) Onset Date: Unknown Lumbago (Chronic) Onset Date: Unknown Kidney disease (Chronic) Onset Date: Unknown Joint pain (Chronic) Onset Date: Unknown Hyperopia (Chronic) Onset Date: Unknown Hyperlipidemia (Chronic) Onset Date: Unknown Headache (Chronic) Onset Date: Unknown History of gastroesophageal reflux (GERD) (Chronic) Onset Date: Unknown Fibula fracture (Acute) Onset Date: ~11/2011 Closed Left Endometriosis (Chronic) Onset Date: Unknown Diabetic retinopathy (Chronic) Onset Date: Unknown Diabetic neuropathy (Chronic) Onset Date: ~05/27/14 Diabetes 1.5, managed as type 1 (Chronic) Onset Date: ~12/15/13 Depression (Chronic) Onset Date: Unknown Charcot's joint arthropathy in type 1 diabetes mellitus (Chronic) Onset Date: ~12/24/13 Cellulitis (Chronic) Onset Date: ~12/24/13 and abscess of foot and leg Bulging disc (Chronic) Onset Date: Unknown Bipolar disorder (Chronic) Onset Date: Unknown Anemia (Chronic) Onset Date: ~12/24/13 Fracture of pubic ramus Onset Date: ~12/09/18 Surgical History: Surgical History (Updated 03/25/18 @ 08:37 by Shelia Nelson MD) History of tonsillectomy (Resolved) Onset Date: ~1973 History of sigmoidoscopy (Resolved) Onset Date: ~05/15/02 Marcela; polyp H/O nasal septoplasty (Resolved) Onset Date: ~04/10/03 Dr. Almodovar History of salpingo-oophorectomy (Resolved) Onset Date: ~1999 H/O fracture of lower leg (Resolved) Onset Date: ~12/08/11 Dr. Niño; Closed reduction, IM fixation of left tibiae closed reduction of left fibula H/O esophagogastroduodenoscopy (Resolved) Onset Date: ~06/30/04 10/07/14; Marcela; '05 gastroparesis. ' clotest negative. Mild chronic superficial gastritis H/O colonoscopy (Resolved) Onset Date: ~2002 2003, 2004, 05/18/08; Dr. Medrano '03 hyperplastic, pedunculated adenomatous polyps. '04 adenomatous polyp, '05 poor prep. '08 fragments of colonic mucosa with adenomatous and hyperplastic changes H/O colonoscopy (Resolved) Onset Date: ~08/14/12 Marcela; Capacious colon. Recheck 10 years Family History: Family History (Updated 02/07/18 @ 10:50 by Anastasia Post RN) Mother Acute arthritis Behcets syndrome H/O Deandra thyroiditis Father , age 84 CVA (cerebral vascular accident) CAD (coronary artery disease) Brother , age 59 unknown cause No problems noted. Social History: (Last Updated 01/24/19 @ 12:06 by Marylu Pereira RN) Social History: adopted: No longterm: No Marital status: lives independently: Yes household members: spouse current occupational status: disabled current occupation: disability Highest education level completed: Associate degree: occupat Service: No Tobacco: Smoking Status: Current every day smoker Smoking cigarettes per day: 5 Tobacco: How many years used: 5 how long ago did patient quit smoking: age 20 Alcohol: alcohol intake: current Alcohol type: beer alcohol intake frequency: a few times a month Substance Use: substance use type: does not use Dietary Habits: caffeine: Yes Type: carbonated beverages, coffee Peds Patient Hx - Developmental: No Pertinent Hx Peds Patient Hx - Medical: Diabetes Peds Patient Hx - Cardiac/Respiratory: No Pertinent Hx Peds Patient Hx - Surgical: No Surgical History Patient History - Cancer: No Hx of Cancer Review Of Systems (GEN) - Review of Systems Generalized/Overall Review: Present: Fatigue EENTM: Present: No Symptoms Reported Respiratory: Present: No Symptoms Reported Cardiac: Present: No Symptoms Reported Abdominal: Present: No Symptoms Reported Genitourinary: Present: Frequency Musculoskeletal: Present: Joint Pain - Right hip pain, Back Pain Neurological: Present: Depressed, Emotional Problems Skin: Present: No Symptoms Reported Endocrine: Present: No Symptoms Reported Immunizations: IMMUNIZATION HX Immunizations Up to Date Yes History of Influenza Vaccine Yes Hx Pneumococcal Vaccination Yes Allergies/Adverse Reactions: Allergies Allergy/AdvReac Type Severity Reaction Status Date / Time Penicillins Allergy Hives Verified 01/24/19 12:02 Home Medications: HOME MEDICATIONS Buprenorphine HCl/Naloxone HCl [Suboxone 8 MG-2 MG Tablet] 1.5 film SL DAILY 11/06/15 [Last Taken 12/18/16] Insulin Lispro [Humalog] 6 units SC ACINS 12/19/16 [Last Taken Unknown] Acetaminophen [Tylenol] 650 mg PO Q4H PRN tab 09/04/17 [Last Taken Unknown] miscellaneous medical supply misc See Dose Instructions .ROUTE .MEDSUPPLY #1 ea 02/07/18 [Last Taken Unknown] pen needle, diabetic 30 gauge x 10/24" 1 each .ROUTE .MEDSUPPLY #100 ea 02/07/18 [Last Taken Unknown] duloxetine 30 mg capsule,delayed release 30 mg PO DAILY #30 cap 09/09/18 [Last Taken Unknown] lamotrigine 150 mg tablet 150 mg PO DAILY #30 tab 09/09/18 [Last Taken Unknown] pregabalin 150 mg capsule 150 mg PO BID #60 cap 12/11/18 [Last Taken Unknown] omeprazole magnesium 20 mg tablet,delayed release 20 mg PO DAILY 12/31/18 [Last Taken Unknown] insulin degludec (U-100) 100 unit/mL (3 mL) subcutaneous pen 24 unit SUBCUT DAILY ml 01/01/19 [Last Taken Unknown] calcium carbonate-vitamin D3 600 mg (1,500 mg)-800 unit tablet 1 tab PO DAILY #90 tab 01/06/19 [Last Taken Unknown] cholecalciferol (vitamin D3) 2,000 unit capsule 2,000 unit PO DAILY #90 cap 01/06/19 [Last Taken Unknown] diltiazem ER 180 mg capsule,24 hr,extended release 180 mg PO DAILY 01/06/19 [Last Taken Unknown] ferrous sulfate 325 mg (65 mg iron) tablet 325 mg PO DAILY #30 tab 01/06/19 [Last Taken Unknown] furosemide 40 mg tablet 60 mg PO DAILY #135 tab 01/06/19 [Last Taken Unknown] Atorvastatin Calcium 40 mg PO DAILY 01/18/19 [Last Taken Unknown] Sulfamethoxazole/Trimethoprim [Bactrim Ds] 1 tab PO BID #14 tab 01/18/19 [Last Taken Unknown] oxyCODONE HCL/ACETAMINOPHEN [Percocet 5 MG/325 MG] 1 tab PO Q4H PRN #20 tab 01/18/19 [Last Taken Unknown] Allopurinol [Zyloprim (Allopurinol)] 200 mg PO HS 01/24/19 [Last Taken Unknown] Sodium Fluoride [Prevident 5000] 100 ml DENTAL DAILY 01/24/19 [Last Taken Unknown] Exam - Exam Vital Signs: Vital Signs - Last Taken Temp 36.5 C 01/24/19 12:09 Pulse 60 01/24/19 12:09 Resp 20 01/24/19 12:09 BP 122/55 01/24/19 12:09 Pulse Ox 95 01/24/19 12:09 Constitutional: Present: Oriented x3, Cooperative, Well developed, Well nourished, No distress, Somnolent, Elderly, Looks Older than stated age ENT Exam: Present: normal ENT inspection, hearing grossly normal, pharynx normal, TMs normal Eye Exam: bilateral eye: normal inspection, PERRL, EOMI Neck: Present: non-tender, full range of motion, supple, normal inspection, trachea midline Back Exam: Present: normal inspection, no CVA tenderness, decreased range of motion, vertebral tenderness Breasts: Present: Exam deferred Respiratory: Present: chest non-tender, no respiratory distress, no accessory muscle use, wheezing - mild inspiratory wheezing bilaterally Cardiovascular/Chest: Present: normal peripheral pulses, regular rate, rhythm, no chest tenderness, no edema, no gallop, no JVD, no murmur, no rub Peripheral Pulses: carotid (R): 3+, carotid (L): 3+, femoral (R): 3+, femoral (L): 3+, dorsalis-pedis (R): 3+, dorsalis-pedis (L): 3+ Abdomen: Present: Normal bowel sounds, soft, nontender, nondistended, no rebound tenderness, no hepatospenomegaly, no masses /Rectal: Present: Exam deferred Extremity: Present: no pedal edema, no calf tenderness, normal capillary refill, pelvis stable, leg pain Skin Exam: Present: normal color, warm/dry, no cyanosis Lymphatic: Present: no adenopathy Neurologic: Present: electromechanical technologist II-XII nml as tested, normal cerebellar test, no motor/sensory deficits, normal mood/affect, abnormal gait, other - Somnolent but arousable Appearance: Present: appropriate insight, neat, no memory impairment Eye contact: Present: cooperative, good eye contact, normal speech Thoughts: Present: normal thought pattern, no apparent hallucination Diagnostic Studies: Abnormal Lab Results 01/24/19 01/24/19 01/24/19 Range/Units 09:27 09:27 10:24 WBC 18.3 H (4.0-10.5) K/mm3 RBC 2.74 L (4.2-5.4) M/mm3 Hgb 8.7 L (12.5-16.0) gm/dL Hct 24.8 L (37.0-47.0) % MCH 31.8 H (27-31) pg Neutrophils % (Manual) 90 H (42-75) % Lymphocytes % (Manual) 6 L (20-51) % Neutrophils # (Manual) 16.5 H (1.3-6.0) K/mm3 Lymphocytes # (Manual) 1.1 L (1.5-3.5) k/mm3 Sodium 122 L (132-142) mmol/L Plasma Sodium 125 L (130-142) mmol/L Chloride 86 L (97-106) mmol/L BUN 84 H (3-23) mg/dL Creatinine 3.85 H (0.4-1.4) mg/dL Est GFR (Non-Af Amer) 13 L (60-130) mL/min BUN/Creatinine Ratio 21.8 H (9.0-21.6) Random Glucose 317 H (70-110) mg/dL Albumin 2.2 L (3.4-5.0) gm/dl Urine Protein 15 H (NEGATIVE) mg/dL Urine Glucose (UA) 100 H (NEGATIVE) mg/dL Urine Blood 5 H (NEGATIVE) /ul Amorphous Sediment Moderate - 2+ H (NONE-FEW) Ur Random Sodium (20-110) mmol/L 01/24/19 Range/Units 10:24 WBC (4.0-10.5) K/mm3 RBC (4.2-5.4) M/mm3 Hgb (12.5-16.0) gm/dL Hct (37.0-47.0) % MCH (27-31) pg Neutrophils % (Manual) (42-75) % Lymphocytes % (Manual) (20-51) % Neutrophils # (Manual) (1.3-6.0) K/mm3 Lymphocytes # (Manual) (1.5-3.5) k/mm3 Sodium (132-142) mmol/L Plasma Sodium (130-142) mmol/L Chloride (97-106) mmol/L BUN (3-23) mg/dL Creatinine (0.4-1.4) mg/dL Est GFR (Non-Af Amer) (60-130) mL/min BUN/Creatinine Ratio (9.0-21.6) Random Glucose (70-110) mg/dL Albumin (3.4-5.0) gm/dl Urine Protein (NEGATIVE) mg/dL Urine Glucose (UA) (NEGATIVE) mg/dL Urine Blood (NEGATIVE) /ul Amorphous Sediment (NONE-FEW) Ur Random Sodium 16 L (20-110) mmol/L Laboratory Results WBC 18.3 K/mm3 (4.0-10.5) H 01/24/19 09:27 RBC 2.74 M/mm3 (4.2-5.4) L 01/24/19 09:27 Hgb 8.7 gm/dL (12.5-16.0) L 01/24/19 09:27 Hct 24.8 % (37.0-47.0) L 01/24/19 09: MCV 90.5 fl (78-100) 01/24/19 09:27 MCH 31.8 pg (27-31) H 01/24/19 09: MCHC 35.1 g/dl (32-36) 01/24/19 09: RDW 12.5 % (11.5-14.0) 01/24/19 09:27 Plt Count 210 K/mm3 (150-450) 01/24/19 09:27 MPV 11.0 fl (8-12.5) 01/24/19 09:27 90 % (42-75) H 01/24/19 09:27 Band Neuts % (Manual) 2 % (0-2.0) 01/24/19 09:27 6 % (20-51) L 01/24/19 09:27 2 % (0-9) 01/24/19 09:27 16.5 K/mm3 (1.3-6.0) H 01/24/19 09:27 1.1 k/mm3 (1.5-3.5) L 01/24/19 09:27 0.4 k/mm3 (0.0-1.0) 01/24/19 09:27 Normal (NORMAL) 01/24/19 09:27 1+ 01/24/19 09:27 Sodium 122 mmol/L (132-142) L 01/24/19 09:27 125 mmol/L (130-142) L 01/24/19 09:27 Potassium 4.1 mmol/L (3.4-4.6) 01/24/19 09:27 Chloride 86 mmol/L (97-106) L 01/24/19 09:27 Carbon Dioxide 26.6 mmol/L (24-32.6) 01/24/19 09:27 13.5 mmol/L (6.8-13.8) 01/24/19 09:27 BUN 84 mg/dL (3-23) H 01/24/19 09:27 3.85 mg/dL (0.4-1.4) H 01/24/19 09:27 Est GFR (Non-Af Amer) 13 mL/min (60-130) L 01/24/19 09:27 21.8 (9.0-21.6) H 01/24/19 09:27 317 mg/dL (70-110) H 01/24/19 09:27 Calcium 8.5 mg/dL (7.9-10.9) 01/24/19 09:27 Calcium Adj for Albumin 9.6 mg/dL (8.4-10.2) 01/24/19 09:27 0.4 mg/dL (0.0-1.1) 01/24/19 09:27 AST 30 U/L (0-48) 01/24/19 09:27 ALT 26 U/L (19-67) 01/24/19 09:27 166 U/L (50-170) 01/24/19 09:27 6.9 gm/dL (6.2-8.2) 01/24/19 09:27 2.2 gm/dl (3.4-5.0) L 01/24/19 09:27 Yellow 01/24/19 10:24 Cloudy (CLEAR) 01/24/19 10:24 5.0 pH (5.0-7.0) 01/24/19 10:24 Ur Specific [facility] 1.020 SP.GR. (1.005-1.010) 01/24/19 10:24 15 mg/dL (NEGATIVE) H 01/24/19 10:24 100 mg/dL (NEGATIVE) H 01/24/19 10:24 Negative mg/dL (NEGATIVE) 01/24/19 10:24 5 /ul (NEGATIVE) H 01/24/19 10:24 Negative (NEGATIVE) 01/24/19 10:24 Negative mg/dl (NEGATIVE) 01/24/19 10:24 Prot Sulfosalicylic Acd 1+ mg/dL (0) 01/24/19 10:24 Normal EU/dl (NORMAL) 01/24/19 10:24 Ur Leukocyte Esterase Negative /ul (NEGATIVE) 01/24/19 10:24 Trace /hpf (0-5) 01/24/19 10:24 None seen /hpf (0-5) 01/24/19 10:24 Ur Epithelial Cells None seen /hpf (0-5) 01/24/19 10:24 Amorphous Sediment Moderate - 2+ (NONE-FEW) H 01/24/19 10:24 None seen (NONE) 01/24/19 10:24 Culture to follow 01/24/19 10:24 Ur Random Sodium 16 mmol/L (20-110) L 01/24/19 10:24 Negative (NEGATIVE) 01/24/19 09:27 Assessment/Plan - Narrative Narrative: Patient was evaluated and medical chart was reviewed and decision to admit to inpatient MedSurg unit was made. Patient currently remains somnolent and drowsy but is arousable to verbal and tactile stimuli, she was able to give a history of her current condition and relates that she just feels sleepy since taking the Ativan this morning. At the moment she denies pain and is resting comfortably. However labs done during the admission reveals significant hyponatremia and concurrent hyperglycemia, patient's kidney function has also declined likely secondary to dehydration since her and herself admit that since becoming ill she has not been eating or drinking the way she should. Patient also has findings of an ongoing infection indicated by elevated WBCs and neutrophils, urine culture results and sensitivity also revealed a growth of E. coli and group B strep. Given the patient's somnolence ER physician ordered a head CT which was negative for any acute findings and MRI of the pelvis although poor in quality due to the patient's inability to stay still demonstrate persistence of her pelvic fracture although it is nondisplaced but the radiologist expressed concern for possible pathologic fracture. At the moment we are unable to confirm this however she was evaluated by the orthopedic team who recommends no surgical intervention at the moment but outpatient ongoing monitoring of the pelvic fracture. Therefore patient currently is being treated for diagnoses of a UTI, severe hyponatremia, moderate dehydration, hyperglycemia, and altered mental status secondary to anxiolytics. Will treat patient with IV hydration to manage hyponatremia and dehydration as well as acute kidney injury superimposed on CKD, will also treat her with IV antibiotics to treat her UTI, and her insulin has been optimized to treat her hyperglycemia and to manage her diabetes while in the hospital. In the meantime, serial CMP's have been ordered to continue monitoring hyponatremia and repeat lab was also ordered for the morning to monitor the infection. - Assessment/Plan (1) Hyponatremia Problem: Acute (2) Moderate dehydration Problem: Acute (3) Acute kidney injury superimposed on CKD Problem: Acute (4) Hyperglycemia due to type 1 diabetes mellitus Problem: Acute (5) Altered mental state Problem: Acute (6) Hip pain, right Problem: Chronic (7) Back pain Problem: Chronic (8) Pelvic ring fracture with delayed healing Problem: Chronic (9) UTI (urinary tract infection) Problem: Acute Qualifiers: Urinary tract infection type: site unspecified
[2019-01-24 13:49] LABS: Anion Gap 12.4 mmol/L (6.8-13.8); BUN/Creatinine Ratio 22.5 (9.0-21.6); Bilirubin, Total 0.3 mg/dL (0.0-1.1); Ca. Corrected For Albumin 9.9 mg/dL (8.4-10.2); Calcium * 8.6 mg/dL (7.9-10.9); Carbon Dioxide 26.5 mmol/L (24-32.6); Potassium 3.9 mmol/L (3.4-4.6); Total Protein 6.5 gm/dL (6.2-8.2)
[2019-01-24 17:48] LABS: Albumin * 1.9 gm/dl (3.4-5.0); Anion Gap 14.4 mmol/L (6.8-13.8); BUN/Creatinine Ratio 23.7 (9.0-21.6); Bilirubin, Total 0.3 mg/dL (0.0-1.1); Ca. Corrected For Albumin 9.9 mg/dL (8.4-10.2); Calcium * 8.5 mg/dL (7.9-10.9); Carbon Dioxide 24.7 mmol/L (24-32.6); Potassium 4.1 mmol/L (3.4-4.6); Total Protein 6.3 gm/dL (6.2-8.2)
[2019-01-24] MEDS: DOCUSATE SODIUM 100 MG CAPSULE PO SCH (20:31)
[2019-01-24] MEDS: INSULIN GLARGINE,HUM.REC.ANLOG 100 UNITS/ML VIAL SC SCH (20:31)
[2019-01-24] MEDS: FAMOTIDINE 20 MG TABLET PO SCH (20:34)
[2019-01-24] MEDS: ALLOPURINOL 100 MG TABLET PO SCH (20:35)
[2019-01-24] MEDS: traMADol HCL 50 MG TABLET PO PRN (20:41)
[2019-01-24 21:22] LABS: Anion Gap 14.6 mmol/L (6.8-13.8); BUN/Creatinine Ratio 22.5 (9.0-21.6); Bilirubin, Total 0.4 mg/dL (0.0-1.1); Ca. Corrected For Albumin 9.6 mg/dL (8.4-10.2); Calcium * 8.3 mg/dL (7.9-10.9); Carbon Dioxide 22.7 mmol/L (24-32.6); Potassium 4.3 mmol/L (3.4-4.6); Total Protein 6.8 gm/dL (6.2-8.2)
[2019-01-24] MEDS ORDERED: SODIUM CHLORIDE 3 % 500 ML IV SCH (21:45)
[2019-01-24] MEDS: TAMSULOSIN HCL 0.4 MG CAP.SR.24H PO SCH (22:11)
[2019-01-25] MEDS: ACETAMINOPHEN 325 MG TABLET PO PRN (00:36)
[2019-01-25 01:57] LABS: Albumin * 1.9 gm/dl (3.4-5.0); Anion Gap 12.8 mmol/L (6.8-13.8); Bilirubin, Total 0.2 mg/dL (0.0-1.1); Ca. Corrected For Albumin 9.9 mg/dL (8.4-10.2); Calcium * 8.5 mg/dL (7.9-10.9); Carbon Dioxide 24.4 mmol/L (24-32.6); Potassium 4.2 mmol/L (3.4-4.6); Total Protein 6.2 gm/dL (6.2-8.2)
[2019-01-25] MEDS: traMADol HCL 50 MG TABLET PO PRN (04:15)
[2019-01-25 06:12] LABS: Hemoglobin 8.2 gm/dL (12.5-16.0); Mean Cell Volume 91.9 fl (78-100); Mean Corpuscular Hemoglobin 31.5 pg (27-31); Mean Corpuscular Hgb Conc 34.3 g/dl (32-36); Mean Platelet Volume 10.3 fl (8-12.5); Neutrophil # 13.5 K/mm3 (1.3-6.0); Platelet Count 258 K/mm3 (150-450); Red Cell Distribution Width 12.8 % (11.5-14.0); White Blood Count 15.7 K/mm3 (4.0-10.5)
[2019-01-25 06:27] LABS: Albumin * 1.8 gm/dl (3.4-5.0); BUN/Creatinine Ratio 22.7 (9.0-21.6); Bilirubin, Total 0.3 mg/dL (0.0-1.1); Calcium * 8.6 mg/dL (7.9-10.9); Carbon Dioxide 25.2 mmol/L (24-32.6); Potassium 4.2 mmol/L (3.4-4.6); Total Protein 5.9 gm/dL (6.2-8.2)
[2019-01-25] MEDS: INSULIN REGULAR, HUMAN 100 UNITS/ML VIAL SC SCH ×4 (06:53→22:04)
[2019-01-25 07:12] LABS: Hematocrit 23.9 % (37.0-47.0)
[2019-01-25] MEDS: BUPRENORPHINE HCL SL SCH (09:00)
[2019-01-25] MEDS: NALOXONE HCL SL SCH (09:00)
[2019-01-25] MEDS: DOCUSATE SODIUM 100 MG CAPSULE PO SCH ×2 (09:01→21:58)
[2019-01-25] MEDS: CALCIUM CARBONATE/VITAMIN D3 1 TAB TABLET PO SCH (09:01)
[2019-01-25] MEDS: DILTIAZEM HCL 180 MG CAP.SR.24H PO SCH (09:01)
[2019-01-25] MEDS: ROSUVASTATIN CALCIUM 20 MG TABLET PO SCH (09:01)
[2019-01-25] MEDS: lamoTRIgine 100 MG TABLET PO SCH (09:02)
[2019-01-25] MEDS: FERROUS SULFATE 325 MG TABLET PO SCH (09:02)
[2019-01-25] MEDS: FUROSEMIDE 20 MG TABLET PO SCH (09:02)
[2019-01-25] MEDS: PREGABALIN 75 MG CAPSULE PO SCH ×2 (09:02→22:03)
[2019-01-25] MEDS: DULoxetine HCL 30 MG CAPSULE.SA PO SCH (09:02)
[2019-01-25] MEDS: CHOLECALCIFEROL 1,000 UNIT CAPSULE PO SCH (09:03)
[2019-01-25] MEDS: FAMOTIDINE 20 MG TABLET PO SCH ×2 (09:03→22:00)
--- NOTE | 2019-01-25 11:05 | PN ---
Subjective - Date and Time Seen Date: 01/25/19 Time: 10:58 Subjective Narrative: I feel better but I am still sleepy Objective Objective Narrative: 58-year-old female admitted for severe hyponatremia, dehydration, kno wn pelvic fracture, and uncontrolled pelvic pain was evaluated at bedside was found to be afebrile and in no acute distress. Patient was found to be resting comfortably, she is still sleeping excessively but is arousable, she maintains stable vitals and denies any new symptoms. Patient's hyponatremia has improved significantly with IV fluids, she was followed and monitored with serial CMP. Electrolytes are balanced and her kidney function has returned to baseline. Patient reports adequate pain control at the moment. Patient was found to have urinary retention last night, and was required to be catheterized. At the moment she is urinating without any issues and maintains adequate diuresis. We will continue to monitor closely. - Review of Systems Generalized/Overall Review: Reports: No Symptoms Reported EENTM: Reports: No Symptoms Reported Respiratory: Reports: No Symptoms Reported Cardiac: Reports: No Symptoms Reported Abdominal: Reports: No Symptoms Reported Genitourinary Symptoms: Reports: No Symptoms Reported Musculoskeletal Complaints: Reports: Joint Pain - Right hip and back pain Neurological: Reports: Other - Mild somnolence but the patient is arousable Skin: Reports: No Symptoms Reported Endocrine: Reports: No Symptoms Reported - Vitals Vitals: Last Vital Signs Temp 36.6 C 01/25/19 06:32 Pulse 80 01/25/19 09:02 Resp 18 01/25/19 06:32 BP 113/57 01/25/19 09:02 Pulse Ox 95 01/25/19 06:32 - Abnormal Lab Findings Abnormal Lab Findings: Abnormal Lab Results 01/24/19 01/24/19 01/24/19 Range/Units 10:24 13:30 17:30 WBC (4.0-10.5) K/mm3 RBC (4.2-5.4) M/mm3 Hgb (12.5-16.0) gm/dL Hct (37.0-47.0) % MCH (27-31) pg Immature Gran % (Auto) (0.001-0.429) % Immature Gran # (Auto) (0.000-0.0310) K/mm3 Neutrophils % (42-75.0) % Lymphocytes % (20-51) % Neutrophils # (1.3-6.0) K/mm3 Lymphocytes # (1.5-3.5) k/mm3 Monocytes # (0.0-1.0) k/mm3 Sodium 124 L 123 L (132-142) mmol/L Plasma Sodium 126 L 125 L (130-142) mmol/L Chloride 89 L 88 L (97-106) mmol/L Carbon Dioxide (24-32.6) mmol/L Anion Gap 14.4 H (6.8-13.8) mmol/L BUN 86 H 85 H (3-23) mg/dL Creatinine 3.82 H 3.58 H (0.4-1.4) mg/dL Est GFR (Non-Af Amer) 13 L 14 L (60-130) mL/min BUN/Creatinine Ratio 22.5 H 23.7 H (9.0-21.6) Random Glucose 222 H 224 H (70-110) mg/dL ALT (19-67) U/L Total Protein (6.2-8.2) gm/dL Albumin 2.0 L 1.9 L (3.4-5.0) gm/dl Ur Random Sodium 16 L (20-110) mmol/L 01/24/19 01/25/19 01/25/19 Range/Units 21:05 01:30 05:30 WBC (4.0-10.5) K/mm3 RBC (4.2-5.4) M/mm3 Hgb (12.5-16.0) gm/dL Hct (37.0-47.0) % MCH (27-31) pg Immature Gran % (Auto) (0.001-0.429) % Immature Gran # (Auto) (0.000-0.0310) K/mm3 Neutrophils % (42-75.0) % Lymphocytes % (20-51) % Neutrophils # (1.3-6.0) K/mm3 Lymphocytes # (1.5-3.5) k/mm3 Monocytes # (0.0-1.0) k/mm3 Sodium 122 L 126 L 128 L (132-142) mmol/L Plasma Sodium 123 L 126 L 129 L (130-142) mmol/L Chloride 89 L 93 L 95 L (97-106) mmol/L Carbon Dioxide 22.7 L (24-32.6) mmol/L Anion Gap 14.6 H (6.8-13.8) mmol/L BUN 80 H 79 H 79 H (3-23) mg/dL Creatinine 3.55 H 3.43 H 3.48 H (0.4-1.4) mg/dL Est GFR (Non-Af Amer) 14 L 15 L 14 L (60-130) mL/min BUN/Creatinine Ratio 22.5 H 23.0 H 22.7 H (9.0-21.6) Random Glucose 156 H D 119 H 160 H D (70-110) mg/dL ALT 17 L (19-67) U/L Total Protein 5.9 L (6.2-8.2) gm/dL Albumin 2.0 L 1.9 L 1.8 L (3.4-5.0) gm/dl Ur Random Sodium (20-110) mmol/L 01/25/19 Range/Units 06:00 WBC 15.7 H (4.0-10.5) K/mm3 RBC 2.60 L (4.2-5.4) M/mm3 Hgb 8.2 L (12.5-16.0) gm/dL Hct 23.9 L* (37.0-47.0) % MCH 31.5 H (27-31) pg Immature Gran % (Auto) 2.10 H (0.001-0.429) % Immature Gran # (Auto) 0.33 H (0.000-0.0310) K/mm3 Neutrophils % 86.0 H (42-75.0) % Lymphocytes % 4.4 L (20-51) % Neutrophils # 13.5 H (1.3-6.0) K/mm3 Lymphocytes # 0.69 L (1.5-3.5) k/mm3 Monocytes # 1.1 H (0.0-1.0) k/mm3 Sodium (132-142) mmol/L Plasma Sodium (130-142) mmol/L Chloride (97-106) mmol/L Carbon Dioxide (24-32.6) mmol/L Anion Gap (6.8-13.8) mmol/L BUN (3-23) mg/dL Creatinine (0.4-1.4) mg/dL Est GFR (Non-Af Amer) (60-130) mL/min BUN/Creatinine Ratio (9.0-21.6) Random Glucose (70-110) mg/dL ALT (19-67) U/L Total Protein (6.2-8.2) gm/dL Albumin (3.4-5.0) gm/dl Ur Random Sodium (20-110) mmol/L - Exam Constitutional: Present: Alert, Oriented x3, Cooperative, Well developed, Well nourished, No distress ENT Exam: Present: normal ENT inspection, hearing grossly normal, pharynx normal, TMs normal Neck: Present: non-tender, full range of motion, supple, normal inspection, trachea midline Breasts: Present: Exam deferred Respiratory: Present: chest non-tender, lungs clear, normal breath sounds, no respiratory distress, no accessory muscle use Cardiovascular/Chest: Present: normal peripheral pulses, regular rate, rhythm, no chest tenderness, no edema, no gallop, no JVD, no murmur, no rub Abdomen: Present: Normal bowel sounds, soft, nontender /Rectal: Present: Exam deferred Extremity: Present: non-tender, no pedal edema, no calf tenderness, leg pain, other - Mild right hip tenderness Skin Exam: Present: normal color, warm/dry, no cyanosis Lymphatic: Present: no adenopathy Neurologic: Present: direct support professional home health II-XII nml as tested, no motor/sensory deficits, alert, normal mood/affect, oriented x 3 Appearance: Present: appropriate appearance, appropriate insight, neat, no memory impairment Eye contact: Present: cooperative, good eye contact, normal speech Thoughts: Present: normal thought pattern, no apparent hallucination Cauti Physician Documentation - Urinary Catheter Management Urethral (Jackson) Urethral Indwelling: No Date of Insertion: 01/25/19 Time of Insertion: 21:36 Assessment/Plan - Problems/Diagnosis (1) Hyponatremia Problem: Acute (2) Moderate dehydration Problem: Resolved (3) Acute kidney injury superimposed on CKD Problem: Acute (4) Hyperglycemia due to type 1 diabetes mellitus Problem: Acute (5) Altered mental state Problem: Acute Qualifiers: Altered mental status type: somnolence Qualified Code(s): R40.0 - Somnolence (6) Hip pain, right Problem: Chronic (7) Back pain Problem: Chronic (8) Pelvic ring fracture with delayed healing Problem: Chronic (9) UTI (urinary tract infection) Problem: Acute Qualifiers: Urinary tract infection type: site unspecified (10) Urinary retention with incomplete bladder emptying Problem: Acute
[2019-01-25] MEDS: TAMSULOSIN HCL 0.4 MG CAP.SR.24H PO SCH ×2 (19:16→19:18)
[2019-01-25] MEDS ORDERED: TAMSULOSIN HCL 0.4 MG CAP.SR.24H PO SCH (21:38)
[2019-01-25] MEDS: ALLOPURINOL 100 MG TABLET PO SCH (21:59)
[2019-01-25] MEDS: INSULIN GLARGINE,HUM.REC.ANLOG 100 UNITS/ML VIAL SC SCH (22:03)
[2019-01-26] MEDS: INSULIN REGULAR, HUMAN 100 UNITS/ML VIAL SC SCH ×4 (06:33→20:55)
[2019-01-26 07:57] LABS: Albumin * 1.9 gm/dl (3.4-5.0); Anion Gap 11.5 mmol/L (6.8-13.8); BUN/Creatinine Ratio 21.1 (9.0-21.6); Bilirubin, Total 0.3 mg/dL (0.0-1.1); Ca. Corrected For Albumin 10.2 mg/dL (8.4-10.2); Calcium * 8.8 mg/dL (7.9-10.9); Carbon Dioxide 27.1 mmol/L (24-32.6); Potassium 4.6 mmol/L (3.4-4.6); Total Protein 6.4 gm/dL (6.2-8.2)
[2019-01-26] MEDS: CHOLECALCIFEROL 1,000 UNIT CAPSULE PO SCH (09:23)
[2019-01-26] MEDS: DILTIAZEM HCL 180 MG CAP.SR.24H PO SCH (09:23)
[2019-01-26] MEDS: FERROUS SULFATE 325 MG TABLET PO SCH (09:23)
[2019-01-26] MEDS: CALCIUM CARBONATE/VITAMIN D3 1 TAB TABLET PO SCH (09:23)
[2019-01-26] MEDS: FAMOTIDINE 20 MG TABLET PO SCH ×2 (09:24→20:56)
[2019-01-26] MEDS: FUROSEMIDE 20 MG TABLET PO SCH (09:24)
[2019-01-26] MEDS: lamoTRIgine 100 MG TABLET PO SCH (09:24)
[2019-01-26] MEDS: ROSUVASTATIN CALCIUM 20 MG TABLET PO SCH (09:24)
[2019-01-26] MEDS: DOCUSATE SODIUM 100 MG CAPSULE PO SCH ×2 (09:24→20:55)
[2019-01-26] MEDS: DULoxetine HCL 30 MG CAPSULE.SA PO SCH (09:24)
[2019-01-26] MEDS: PREGABALIN 75 MG CAPSULE PO SCH ×2 (09:26→21:00)
[2019-01-26] MEDS: NALOXONE HCL SL SCH ×2 (09:26→11:54)
[2019-01-26] MEDS: BUPRENORPHINE HCL SL SCH ×2 (09:26→11:54)
[2019-01-26] MEDS ORDERED: LEVOFLOXACIN IN DEXTROSE 5 % 500 MG/100 ML BAG IV SCH (11:30)
[2019-01-26] MEDS ORDERED: NALOXONE HCL 1 MG/1 ML SYRG IV ONE (11:31)
--- NOTE | 2019-01-26 12:07 | PN ---
Subjective - Date and Time Seen Date: 01/26/19 Time: 11:51 Subjective Narrative: Patient is somnolent at the moment and is unable to express her self. Objective Objective Narrative: 58-year-old female admitted for severe hyponatremia, dehydration, known pelvic fracture, and uncontrolled pelvic pain was evaluated at bedside was found to be afebrile but heavily sedated and difficult to arouse. Patient is a chronic Suboxone user which she is being treated with for opioid addiction by a physician and [place]. Her brought in the medication yesterday and she was administered the prescribed dose of 1.5 transdermal patch, however this morning he explains that normally she does not take the prescribed dose but only half of one patch. Therefore it is apparent that the patient was administered a higher dose than what she usually takes which might explain her oversedation. During bedside evaluation this morning patient was noted to be snoring and very difficult to arouse by verbal or pains stimuli. She only went with sternal rub. Therefore decision to attempt to reverse the medication with a low dose of Narcan was made. I am not sure how effective this would be since the Suboxone already contains Narcan, however given the fact that the medication contains opioids and she received a higher dose than usual I figure it want her to try. I will reevaluate her after the administration of the medication. On the other hand her hyponatremia has resolved and her blood sugars have improved. Patient maintains stable vitals however her oxygen saturation was found to be inadequate therefore oxygen was administered by nasal cannula which brought her saturation to normal levels. - Review of Systems Generalized/Overall Review: Reports: Weakness EENTM: Reports: No Symptoms Reported Respiratory: Reports: No Symptoms Reported Cardiac: Reports: No Symptoms Reported Abdominal: Reports: No Symptoms Reported Genitourinary Symptoms: Reports: No Symptoms Reported Musculoskeletal Complaints: Reports: Joint Pain - Right hip and pelvic pain Neurological: Reports: Other - Patient is somnolent and difficult to arouse Skin: Reports: No Symptoms Reported Endocrine: Reports: No Symptoms Reported - Vitals Vitals: Last Vital Signs Temp 36.8 C 01/26/19 10:09 Pulse 86 01/26/19 10:09 Resp 18 01/26/19 10:09 BP 138/51 01/26/19 10:09 Pulse Ox 93 01/26/19 10:09 - Abnormal Lab Findings Abnormal Lab Findings: Abnormal Lab Results 01/26/19 Range/Units 06:09 Sodium 131 L (132-142) mmol/L BUN 74 H (3-23) mg/dL Creatinine 3.50 H (0.4-1.4) mg/dL Est GFR (Non-Af Amer) 14 L (60-130) mL/min AST 50 H (0-48) U/L Albumin 1.9 L (3.4-5.0) gm/dl - Exam Constitutional: Present: Lethargic, Somnolent, Looks Older than stated age ENT Exam: Present: normal ENT inspection, hearing grossly normal, pharynx normal Neck: Present: non-tender, full range of motion, supple, normal inspection, trachea midline Breasts: Present: Exam deferred Respiratory: Present: chest non-tender, lungs clear, normal breath sounds, no respiratory distress, no accessory muscle use, other - Heavy breathing and snoring Cardiovascular/Chest: Present: normal peripheral pulses, regular rate, rhythm, no chest tenderness, no edema, no gallop, no JVD, no murmur, no rub Abdomen: Present: Normal bowel sounds, soft, nontender, nondistended, no rebound tenderness, no hepatospenomegaly, no masses /Rectal: Present: Exam deferred Extremity: Present: no pedal edema, no calf tenderness, pelvis stable - but stable pelvis, other - Eyal right hip tenderness Skin Exam: Present: normal color, warm/dry, no cyanosis Lymphatic: Present: no adenopathy Neurologic: Present: depressed affect, disoriented x 3, other - Patient is so mnolent and difficult to arouse, neurological evaluation is difficult at the moment Appearance: Present: disheveled, impaired insight, impaired recent memory Eye contact: Present: avoids eye contact, decreased rate of speech, belligerent, uncooperative Thoughts: Present: incoherent Cauti Physician Documentation - Urinary Catheter Management Urethral (Jackson) Urethral Indwelling: No Date of Insertion: 01/25/19 Time of Insertion: 21:36 Assessment/Plan - Problems/Diagnosis (1) Hyponatremia Problem: Acute (2) Moderate dehydration Problem: Resolved (3) Acute kidney injury superimposed on CKD Problem: Acute (4) Hyperglycemia due to type 1 diabetes mellitus Problem: Acute (5) Altered mental state Problem: Acute Qualifiers: Altered mental status type: somnolence Qualified Code(s): R40.0 - Somnolence (6) Hip pain, right Problem: Chronic (7) Back pain Problem: Chronic (8) Pelvic ring fracture with delayed healing Problem: Chronic (9) UTI (urinary tract infection) Problem: Acute Qualifiers: Urinary tract infection type: site unspecified (10) Urinary retention with incomplete bladder emptying Problem: Resolved (11) Overdose of drug/medicinal substance Problem: Acute
[2019-01-26] MEDS ORDERED: NALOXONE HCL 0.4 MG/ML VIAL IV ONE (12:11)
[2019-01-26] MEDS: DEXTROSE 5%-NORMAL SALINE 1,000 ML IV PRN (17:02)
[2019-01-26] MEDS: TAMSULOSIN HCL 0.4 MG CAP.SR.24H PO SCH (17:08)
[2019-01-26] MEDS: INSULIN GLARGINE,HUM.REC.ANLOG 100 UNITS/ML VIAL SC SCH (20:55)
[2019-01-26] MEDS: ALLOPURINOL 100 MG TABLET PO SCH (20:56)
[2019-01-27] MEDS: DEXTROSE 5%-NORMAL SALINE 1,000 ML IV PRN (05:41)
[2019-01-27] MEDS: INSULIN REGULAR, HUMAN 100 UNITS/ML VIAL SC SCH ×2 (06:33→11:56)
[2019-01-27] MEDS ORDERED: BUPRENORPHINE HCL SL SCH (09:45)
[2019-01-27] MEDS ORDERED: NALOXONE HCL SL SCH (09:45)
[2019-01-27] MEDS: DILTIAZEM HCL 180 MG CAP.SR.24H PO SCH ×2 (09:47→11:41)
[2019-01-27] MEDS: FUROSEMIDE 20 MG TABLET PO SCH ×2 (09:47→11:47)
[2019-01-27 09:55] LABS: Mean Cell Volume 92.4 fl (78-100); Mean Corpuscular Hemoglobin 31.5 pg (27-31); Mean Corpuscular Hgb Conc 34.1 g/dl (32-36); Mean Platelet Volume 9.8 fl (8-12.5); Platelet Count 296 K/mm3 (150-450); Red Blood Count 2.38 M/mm3 (4.2-5.4); Red Cell Distribution Width 14.2 % (11.5-14.0)
[2019-01-27 10:06] LABS: Hemoglobin 7.5 gm/dL (12.5-16.0)
[2019-01-27 10:08] LABS: Total Cells Counted 100
[2019-01-27] MEDS ORDERED: DILTIAZEM HCL 5 MG/ML VIAL IV SCH ×2 (10:30→12:00)
--- NOTE | 2019-01-27 10:39 | PN ---
Subjective - Date and Time Seen Date: 01/27/19 Time: 10:30 Subjective Narrative: Patient is heavily sedated and difficult to arouse. She is nonverbal. Objective Objective Narrative: 58-year-old female originally admitted for severe hyponatremia, moderate dehydration, known pelvic fracture, and uncontrolled pelvic pain, hyperglycemia was evaluated at bedside was again found to be afebrile but heavily sedated and difficult to arouse. Patient is demonstrating clinical decline, her prognosis looks poor at the moment. Yesterday she started desaturating with oxygen saturation as low as 80-83 however corrected to 97 with oxygen by nasal cannula. Patient is still so heavily sedated that she cannot stay awake enough to eat a complete meal or take p.o. meds, so we had to put her on a D5W to maintain blood sugars and switch to IV meds when possible. She is unresponsive to verbal stimuli and only partially responsive to pain stimuli. Her explains that she has an extensive history of addiction and psyc hiatric disorders that she is been hospitalized for. Her psychiatrist that normally manages her Suboxone was contacted and he explains that he does not think this is due to a Suboxone overdose nor is she withdrawing however he recommended testing levels in the urine and blood so orders were placed. We will follow-up with the results although he might be days until we receive them since they are send out labs. In the meantime the patient has started to show hemodynamic instability with hypotension that was reported this morning and she had a bout of fever around 6:00 this morning that increased to 38.9 and required the administration of acetaminophen. Her has been briefed on her condition it was explained to him that her prognosis looks very poor but we are doing the best we can. Currently we are considering transferring the patient to a facility with higher level of care. Once we have secured a bed we will transfer the patient for management by a neurophysiology tech and an balance wheel motion inspector. In the meantime we will continue hydrating her and have optimized her IV antibiotics due a clinical picture of pneumonia indicated by worsening leukocytosis and a chest x-ray done this morning that demonstrated bilateral infiltrate indicating possible pneumonia versus atelectasis likely secondary to her bedridden status and sedated state. Vanco at renal doses has been added to her IV antibiotic regimen. - Review of Systems Generalized/Overall Review: Reports: Weakness, Fever, Malaise EENTM: Reports: No Symptoms Reported Respiratory: Reports: Other - Heavy snoring Cardiac: Reports: No Symptoms Reported Abdominal: Reports: No Symptoms Reported Genitourinary Symptoms: Reports: No Symptoms Reported Musculoskeletal Complaints: Reports: Joint Pain, Other - Right hip pain Neurological: Reports: Weakness, Other - Heavy sedation and unarousable by verbal or tactile stimuli Skin: Reports: No Symptoms Reported Endocrine: Reports: No Symptoms Reported - Vitals Vitals: Last Vital Signs Temp 37.1 C 01/27/19 10:00 Pulse 73 01/27/19 10:00 Resp 22 H 01/27/19 10:00 BP 132/43 01/27/19 10:00 Pulse Ox 100 01/27/19 10:00 - Abnormal Lab Findings Abnormal Lab Findings: Abnormal Lab Results 01/27/19 Range/Units 09:43 WBC 18.0 H (4.0-10.5) K/mm3 RBC 2.38 L (4.2-5.4) M/mm3 Hgb 7.5 L* (12.5-16.0) gm/dL Hct 22.0 L* (37.0-47.0) % MCH 31.5 H (27-31) pg RDW 14.2 H (11.5-14.0) % - Exam Constitutional: Present: Well developed, Somnolent, Obtunded, Other - Patient is currently sleeping soundly and snoring, she is unarousable to verbal and partia lly arousable to pain stimuli., Looks Older than stated age ENT Exam: Present: normal ENT inspection, pharynx normal Neck: Present: non-tender, full range of motion, supple, normal inspection, trachea midline Breasts: Present: Exam deferred Respiratory: Present: no respiratory distress, no accessory muscle use, decreased breath sounds - Decreased breath sounds at bases, No wheezing Cardiovascular/Chest: Present: normal peripheral pulses, regular rate, rhythm, no chest tenderness, no edema, no gallop, no JVD, no murmur, no rub Abdomen: Present: Normal bowel sounds, soft, nontender, nondistended, no rebound tenderness, no hepatospenomegaly, no masses /Rectal: Present: Exam deferred Extremity: Present: normal range of motion, non-tender, normal inspection, no pedal edema, no calf tenderness, normal capillary refill Skin Exam: Present: normal color, warm/dry, no cyanosis Lymphatic: Present: no adenopathy Neurologic: Present: abnormal message clerk II-XII, depressed affect, disoriented x 3, other - Unresponsive to verbal stimuli, somnolent, difficult to arouse Appearance: Present: disheveled, impaired recent memory, impaired remote memory, other - Patient is unarousable and unresponsive to verbal stimuli she looks acutely ill Eye contact: Present: avoids eye contact, uncooperative Thoughts: Present: other - Thoughts are difficult to evaluate given the patient's unresponsive state Cauti Physician Documentation - Urinary Catheter Management Urethral (Jackson) Urethral Indwelling: Yes Reason for Continuing Indwelling Catheter: Acute urinary retention Date of Insertion: 01/25/19 Time of Insertion: 21:36 Assessment/Plan Plan Narrative: We are currently trying to obtain a bed at a facility with a higher level of care given the patient's grandson clinical picture. At the moment she remains unarousable and unresponsive to verbal stimuli but is partially responsive to pain stimuli. Patient is currently on D5W IV drip to maintain blood sugars, hypotension has improved and she maintains stable blood pressure at the moment. Oxygen saturation is also stable on room air, however patient is still sleeping soundly and is difficult to awake. Chest x-ray demonstrates possible atelectasis versus bilateral pneumonia, given her worsening leukocytosis Vanco has been added to her treatment as a precaution. She is currently on Levaquin as well. Her psychiatrist in [place] reports that it is unlikely that this is a Suboxone overdose or withdrawal given the nature of the medication, however as a precaution we have reduce the dose of the medication to avoid further complication. Patient's GFR has returned to baseline with adequate hydration however she is currently an end-stage renal disease so we will try to transfer her to a facility that has nephrology service available. Head CT ordered this morning is negative for any acute findings. Her prognosis looks poor at the moment however we are doing all that we can and the has been briefed on her condition. We will continue to keep her on a electronic device monitor and monitor closely. - Problems/Diagnosis (1) Hyponatremia Problem: Acute (2) Moderate dehydration Problem: Resolved (3) Acute kidney injury superimposed on CKD Problem: Acute (4) Hyperglycemia due to type 1 diabetes mellitus Problem: Resolved (5) Altered mental state Problem: Acute Qualifiers: Altered mental status type: somnolence Qualified Code(s): R40.0 - Somnolence (6) Hip pain, right Problem: Chronic (7) Back pain Problem: Chronic (8) Pelvic ring fracture with delayed healing Problem: Chronic (9) UTI (urinary tract infection) Problem: Resolved Qualifiers: Urinary tract infection type: site unspecified (10) Urinary retention with incomplete bladder emptying Problem: Resolved (11) Overdose of drug/medicinal substance Problem: Acute (12) Jackson catheter in place Problem: Acute (13) Patient unarousable Problem: Acute (14) [place] coma scale score 13-15, 24 hours or more after hospital admission Problem: Acute (15) End stage chronic kidney disease Problem: Acute (16) Opiate addiction Problem: Acute
[2019-01-27 10:48] LABS: Eosinophil 1 % (0-3); Hypochromia 2+; Lymphocyte 5 % (20-51); Monocyte 5 % (0-9); Neutrophil 89 % (42-75)
[2019-01-27 10:49] LABS: Platelet Estimate Normal (NORMAL)
[2019-01-27] MEDS: lamoTRIgine 100 MG TABLET PO SCH (11:41)
[2019-01-27] MEDS: CHOLECALCIFEROL 1,000 UNIT CAPSULE PO SCH (11:41)
[2019-01-27] MEDS: FERROUS SULFATE 325 MG TABLET PO SCH (11:42)
[2019-01-27] MEDS: DULoxetine HCL 30 MG CAPSULE.SA PO SCH (11:42)
[2019-01-27] MEDS: FAMOTIDINE 20 MG TABLET PO SCH (11:42)
[2019-01-27] MEDS: ROSUVASTATIN CALCIUM 20 MG TABLET PO SCH (11:42)
[2019-01-27] MEDS: DOCUSATE SODIUM 100 MG CAPSULE PO SCH (11:42)
[2019-01-27] MEDS: CALCIUM CARBONATE/VITAMIN D3 1 TAB TABLET PO SCH (11:42)
[2019-01-27] MEDS: PREGABALIN 75 MG CAPSULE PO SCH (11:45)
[2019-01-27] MEDS: NALOXONE HCL SL SCH (12:18)
[2019-01-27] MEDS: BUPRENORPHINE HCL SL SCH (12:18)
[2019-01-27] MEDS: ACETAMINOPHEN 325 MG TABLET PO PRN (12:30)
[2019-01-27] MEDS ORDERED: VANCOMYCIN HCL 1 GM in DEXTROSE 5 % IN WATER 250 ML IV SCH ×2 (13:00)
--- NOTE | 2019-01-27 13:47 | DS ---
Transfer Discharge Summary - Diagnosis(s)/Problems (1) Hyponatremia Problem: Acute (2) Moderate dehydration Problem: Resolved (3) Acute kidney injury superimposed on CKD Problem: Acute (4) Hyperglycemia due to type 1 diabetes mellitus Problem: Resolved (5) Altered mental state Problem: Acute (6) Hip pain, right Problem: Chronic (7) Back pain Problem: Chronic (8) Pelvic ring fracture with delayed healing Problem: Chronic (9) UTI (urinary tract infection) Problem: Resolved (10) Urinary retention with incomplete bladder emptying Problem: Resolved (11) Overdose of drug/medicinal substance Problem: Suspected (12) Jackson catheter in place Problem: Acute (13) Patient unarousable Problem: Resolved (14) [place] coma scale score 13-15, 24 hours or more after hospital admission Problem: Acute (15) End stage chronic kidney disease Problem: Acute (16) Opiate addiction Problem: Chronic - Course Description of Stay: 58-year-old female with past medical history of opioid addiction, Suboxone user, anemia of chronic disease, bipolar disorder, chronic back pain, depression, anxiety disorder, end-stage renal disease, GERD, hyperlipidemia, restless legs syndrome was admitted to our MedSurg unit for a diagnosis of severe hyponatremia, altered mental status, moderate dehydration, and uncontrolled type 2 diabetes. Patient has been diagnosed with the pathologic pelvic fracture which has caused her uncontrolled pain requiring multiple visits to our ER. On the last visit to the ER she was found to have severe hyponatremia and altered mental state. Patient's hyponatremia was managed and corrected with IV fluids, and her blood sugars were managed with insulin. However patient's altered mental status worsened when she became unarousable and unresponsive to verbal or tactile stimuli, she was administered Narcan which had no effect. Yesterday she started desaturating and required O2 by nasal cannula which improved her oxygenation, however patient was still obtunded and difficult to arouse. This morning 2 bouts of fever requiring acetaminophen was reported as well as hypotension. Checks x-ray demonstrated bilateral infiltrate indicating possible pneumonia versus bilateral atelectasis. Head CT was once again repeated and was negative for any acute findings. After discussing transferring patient's another facility patient finally started waking up and was responsive and following verbal commands. For now she maintained stable vitals and adequate oxygen saturation on room air. However given the patient's worsening kidney function, it is necessary that she see a program consultant therefore we will transfer her to [facility] where patient would be placed in the ICU for closer monitoring and management. Her case was presented to the on-call director of real estate Dr. Farris who graciously accepted the patient's case. Procedures Performed: none - Results and Findings Results and Findings: Laboratory Results - last 24 hr 01/27/19 01/27/19 01/27/19 09:43 09:43 09:43 WBC 18.0 H RBC 2.38 L Hgb 7.5 L* Hct 22.0 L* MCV 92.4 MCH 31.5 H MCHC 34.1 RDW 14.2 H Plt Count 296 MPV 9.8 Neutrophils % (Manual) 89 H Lymphocytes % (Manual) 5 L Monocytes % (Manual) 5 Eosinophils % (Manual) 1 Neutrophils # (Manual) 16.0 H Lymphocytes # (Manual) 0.9 L Monocytes # (Manual) 0.9 Eosinophils # (Manual) 0.2 Platelet Estimate Normal Hypochromasia 2+ pCO2 pO2 HCO3 Total CO2 Base Excess ABG pH ABG O2 Sat (Measured) Creatinine 3.24 H Lactic Acid, Venous 0.4 01/27/19 13:20 WBC RBC Hgb Hct MCV MCH MCHC RDW Plt Count MPV Neutrophils % (Manual) Lymphocytes % (Manual) Monocytes % (Manual) Eosinophils % (Manual) Neutrophils # (Manual) Lymphocytes # (Manual) Monocytes # (Manual) Eosinophils # (Manual) Platelet Estimate Hypochromasia pCO2 32.1 pO2 67.7 L HCO3 21.9 Total CO2 22.8 Base Excess -1.8 ABG pH 7.45 ABG O2 Sat (Measured) 94.5 Creatinine Lactic Acid, Venous - Medications Medications: Active Medications Acetaminophen (Tylenol) 650 mg PO Q6H PRN PRN Reason: Mild pain (pain scale 1-3) Stop: 02/23/19 11:18 Last Admin: 01/27/19 12:30 Dose: 650 mg Documented by: Allopurinol (Zyloprim) 200 mg PO HS FRANCES Stop: 02/23/19 21:01 Last Admin: 01/26/19 20:56 Dose: 200 mg Documented by: Calcium/Vitamin D (Calcarb 600 With Vitamin D) 1 tab PO DAILY FRANCES Stop: 02/23/19 12:01 Last Admin: 01/27/19 11:42 Dose: 1 tab Documented by: Cholecalciferol (Vitamin D) 2,000 unit PO DAILY [facility] Stop: 02/23/19 12:01 Last Admin: 01/27/19 11:41 Dose: 2,000 unit Documented by: Diltiazem HCl (Cardizem Cd) 180 mg PO DAILY [facility] Stop: 02/23/19 12:01 Last Admin: 01/27/19 11:41 Dose: 180 mg Documented by: Docusate Sodium (Colace) 100 mg PO BID [facility] Stop: 02/23/19 21:01 Last Admin: 01/27/19 11:42 Dose: 100 mg Documented by: Duloxetine HCl (Cymbalta) 30 mg PO DAILY [facility] Stop: 02/23/19 11:46 Last Admin: 01/27/19 11:42 Dose: Not Given Documented by: Famotidine (Pepcid) 20 mg PO BID [facility] Stop: 02/23/19 21:01 Last Admin: 01/27/19 11:42 Dose: 20 mg Documented by: Ferrous Sulfate (Ferrous Sulfate) 325 mg PO DAILY [facility] Stop: 02/23/19 12:01 Last Admin: 01/27/19 11:42 Dose: 325 mg Documented by: Furosemide (Lasix) 60 mg PO DAILY [facility] Stop: 02/24/19 09:01 Last Admin: 01/27/19 11:47 Dose: 60 mg Documented by: Levofloxacin/Dextrose (Levaquin) 500 mg in 100 mls @ 100 mls/hr IV Q48H [facility]; Protocol Stop: 02/25/19 11:31 Last Infusion: 01/26/19 13:08 Dose: Infused Documented by: Dextrose/Sodium Chloride (Dextrose 5%-0.9% Ns) 1,000 mls @ 150 mls/hr IV .Q6H40M PRN PRN Reason: HYDRATION Stop: 02/25/19 15:44 Last Admin: 01/27/19 05:41 Dose: 80 mls/hr Documented by: Insulin Glargine (Lantus) 20 units SC [facility] Stop: 02/23/19 21:01 Last Admin: 01/26/19 20:55 Dose: 20 units Documented by: Insulin Human Regular (Humulin R) [address] [facility]; Protocol Stop: 02/23/19 12:01 Last Admin: 01/27/19 11:56 Dose: 16 units Documented by: Lamotrigine (Lamictal) 150 mg PO DAILY [facility] Stop: 02/23/19 11:46 Last Admin: 01/27/19 11:41 Dose: 150 mg Documented by: Non-Formulary Medication (Buprenorphine Hcl/Naloxone Hcl) 0.5 film SL DAILY [facility] Stop: 02/26/19 09:46 Last Admin: 01/27/19 12:17 Dose: Not Given Documented by: Pregabalin (Lyrica) 150 mg PO BID [facility] Stop: 02/23/19 12:01 Last Admin: 01/27/19 11:45 Dose: Not Given Documented by: Rosuvastatin Calcium (Crestor) 20 mg PO DAILY [facility] Stop: 02/23/19 11:46 Last Admin: 01/27/19 11:42 Dose: 20 mg Documented by: Tamsulosin HCl (Flomax) 0.4 mg PO DAILY@1800 [facility] Stop: 02/23/19 22:06 Last Admin: 01/26/19 17:08 Dose: Not Given Documented by: Discontinued Medications Diltiazem HCl (Cardizem) 30 mg IV Q6H [facility] Stop: 02/26/19 10:31 Last Admin: 01/27/19 12:18 Dose: Not Given Documented by: Sodium Chloride (Sodium Chloride 0.9%) 1,000 mls @ 150 mls/hr IV .Q6H40M PRN PRN Reason: HYDRATION Stop: 02/23/19 10:42 Last Infusion: 01/24/19 23:13 Dose: Infused Documented by: Levofloxacin/Dextrose (Levaquin) 750 mg in 150 mls @ 100 mls/hr IV ONCE ONE; Protocol Stop: 01/24/19 12:52 Last Infusion: 01/24/19 14:20 Dose: Infused Documented by: Sodium Chloride (Hypertonic) (Sodium Chloride 3%) 500 mls @ 30 mls/hr IV .[id number] [facility] Stop: 02/23/19 21:46 Last Infusion: 01/25/19 13:00 Dose: Infused Documented by: Insulin Human Regular (Humulin R) 10 units IV ONCE STA Stop: 01/24/19 11:45 Last Admin: 01/24/19 12:52 Dose: 10 units Documented by: Naloxone HCl (Narcan) 0.1 mg IV ONCE ONE Stop: 01/26/19 11:32 Last Admin: 01/26/19 11:44 Dose: 0.1 mg Documented by: Naloxone HCl (Narcan) 0.2 mg IV ONCE ONE Stop: 01/26/19 12:12 Last Admin: 01/26/19 12:16 Dose: 0.2 mg Documented by: Buprenorphine Hcl/Naloxone Hcl 1.5 Film 1.5 film SL DAILY [facility] Stop: 02/23/19 12:31 Last Admin: 01/27/19 12:18 Dose: Not Given Documented by: Tramadol HCl (Ultram) 50 mg PO Q6H PRN PRN Reason: Right hip pain Stop: 02/23/19 11:35 Last Admin: 01/25/19 04:15 Dose: 50 mg Documented by: - Disposition Disposition: Short Term Hospital Inpatient Condition: Stable Discharge Date: 01/27/19 Discharge Time: 13:47
[2019-01-27 15:33] VITALS: BP 122/48
== END 2019-01-27 15:05 | disposition short-term general hospital (02) | DRG 640 ==
LOC: MS 08:50 → ER 08:50 → OBSVTOIN 10:34 → MS 11:17
PROVIDERS: ADMIT Family Medicine; ATTEND Family Medicine
CPT/HCPCS: 36415; 36600; 70450; 71010; 71045; 80053; 81001; 82009; 82565; 82803; 83605; 83930; 84300; 85007; 85025; 87040; 87086; 93005; 94762; 96361; 96365; 99285; G0378

== ENCOUNTER 2020-03-20 11:55 | Inpatient (IN) ==
--- NOTE | 2020-03-20 13:08 | ERNOTE ---
Back Pain ER HPI Date of Service: 03/20/20 Presenting Symptoms: other - fall Time Seen by Provider: 03/20/20 12:07 Source: patient Exam Limitations: clinical condition Immunizations: IMMUNIZATION HX Immunizations Up to Date Yes History of Influenza Vaccine Yes Hx Pneumococcal Vaccination Yes Allergies/Adverse Reactions: Allergies Penicillins Allergy (Verified 03/20/20 17:51) Hives Home Medications: HOME MEDICATIONS Buprenorphine HCl/Naloxone HCl [Suboxone 8 MG-2 MG Tablet] 1.5 film SL DAILY 11/06/15 [Last Taken 12/18/16] Acetaminophen [Tylenol] 650 mg PO Q4H PRN tab 09/04/17 [Last Taken Unknown] miscellaneous medical supply See Dose Instructions .ROUTE .MEDSUPPLY #1 ea 02/07/18 [Last Taken Unknown] pen needle, diabetic 30 gauge x 10/24" 1 ea .ROUTE .MEDSUPPLY #100 ea 02/07/18 [Last Taken Unknown] diltiazem HCl 180 mg capsule,24 hr,extended release 180 mg PO DAILY 01/06/19 [Last Taken Unknown] Sodium Fluoride [Prevident 5000] 100 ml DENTAL DAILY 01/24/19 [Last Taken Unknown] lisinopril 10 mg tablet See Rx Instructions .ROUTE DAILY #90 tab 06/09/19 [Last Taken Unknown] insulin aspart U-100 100 unit/mL (3 mL) subcutaneous pen 4 unit SUBCUT .with meals ml 10/01/19 [Last Taken Unknown] insulin degludec 200 unit/mL (3 mL) subcutaneous pen See Rx Instructions .ROUTE .COMPLEX ml 10/01/19 [Last Taken Unknown] famotidine 20 mg tablet 20 mg PO Q48H #30 tab 01/02/20 [Last Taken Unknown] omeprazole magnesium 20 mg tablet,delayed release 40 mg PO DAILY #60 tab 01/02/20 [Last Taken Unknown] atorvastatin 20 mg tablet 20 mg PO HS #90 tab 01/19/20 [Last Taken Unknown] furosemide 40 mg tablet See Rx Instructions .ROUTE .COMPLEX #135 unknown measurement unit code: not specified 01/29/20 [Last Taken Unknown] pregabalin 75 mg capsule 75 mg PO BID #180 cap 01/29/20 [Last Taken Unknown] duloxetine 30 mg capsule,delayed release 30 mg PO DAILY #30 cap 02/02/20 [Last Taken Unknown] calcium carbonate-vitamin D3 600 mg (1,500 mg)-800 unit tablet See Rx Instructions .ROUTE .COMPLEX #90 unknown measurement unit code: not specified 03/01/20 [Last Taken Unknown] cholecalciferol (vitamin D3) 50 mcg (2,000 unit) capsule See Rx Instructions .ROUTE .COMPLEX #90 unknown measurement unit code: not specified 03/01/20 [Last Taken Unknown] cyclobenzaprine 7.5 mg tablet 7.5 mg PO Q8H #60 tab 03/01/20 [Last Taken Unknown] lamotrigine 150 mg tablet 150 mg PO DAILY #30 tab 03/01/20 [Last Taken Unknown] Narrative: Patient is a 59 years old female who present brought in by EMS for pain in her right shoulder and right side of thoracic spine. Patient had a fall 2 weeks ago during which she sustained a fracture of her pelvis. Her reports that she has been complaining of pain in her right shoulder since and it has become worse in the last week. Patient is on insulin and Suboxone for pain for years. Her Suboxone is prescribed from a doctor in [place]. reported that she has not been eating much in the last week. reported that patient did not receive her dose of long-acting insulin yet today. 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 Patient is pale Timing: Reports: constant Quality/Severity: Reports: severe Location of pain: Reports: upper back, other - pelvis Activities at Onset: Reports: rest Recent Injury?: Reports: yes Possible Precipitating Factor: Reports: fall/near fall Modifying Factors - (Improves): Reports: nothing Modifying Factors - (Worsens): Reports: other - movement in all direction Associated Symptoms: Reports: difficulty walking Prior Treament: Reports: recently seen, other - two weeks ago for a fall with pelvis fracture of inferior right ramus Review of Systems - Review of Systems Constitutional: Absent: fever EYE: Absent: eye pain ENT: Present: other - no loss of smell and no loss of taste. Absent: ear pain, nose congestion, sore throat Respiratory: Absent: shortness of breath Cardiology: Absent: chest pain Gastrointestinal/Abdominal: Present: nausea, eating less. Absent: abdominal pain Genitourinary: Absent: pain Musculoskeletal: Present: back pain, joint pain Endocrine: Present: See HPI Psych: Present: depressed All Other Systems: All systems neg except as marked Medical History (Last Reviewed 03/20/20 @ 12:06 by Anna Chan RN) Primary osteoarthritis, left shoulder (Chronic) Osteoarthritis of right knee (Chronic) Major depression (Chronic) Onset Date: Unknown Tibia fracture (Chronic) Onset Date: ~11/2011 Left Restless leg syndrome (Chronic) Onset Date: Unknown Presbyopia (Chronic) Onset Date: Unknown History of onychomycosis (Chronic) Onset Date: ~05/27/14 OCD (obsessive compulsive disorder) (Chronic) Onset Date: Unknown Neck pain (Chronic) Onset Date: Unknown Mood swings (Chronic) Onset Date: Unknown Lumbago (Chronic) Onset Date: Unknown Kidney disease (Chronic) Onset Date: Unknown Joint pain (Chronic) Onset Date: Unknown Hyperopia (Chronic) Onset Date: Unknown Hyperlipidemia (Chronic) Onset Date: Unknown Headache (Chronic) Onset Date: Unknown History of gastroesophageal reflux (GERD) (Chronic) Onset Date: Unknown Fibula fracture (Acute) Onset Date: ~11/2011 Closed Left Endometriosis (Chronic) Onset Date: Unknown Diabetic retinopathy (Chronic) Onset Date: Unknown Diabetic neuropathy (Chronic) Onset Date: ~05/27/14 Diabetes 1.5, managed as type 1 (Chronic) Onset Date: ~12/15/13 Depression (Chronic) Onset Date: Unknown Charcot's joint arthropathy in type 1 diabetes mellitus (Chronic) Onset Date: ~12/24/13 Cellulitis (Chronic) Onset Date: ~12/24/13 and abscess of foot and leg Bulging disc (Chronic) Onset Date: Unknown Bipolar disorder (Chronic) Onset Date: Unknown Anemia (Chronic) Onset Date: ~12/24/13 Fracture of pubic ramus Onset Date: ~02/202012/09/2018 Surgical History: Surgical History (Last Reviewed 03/20/20 @ 12:06 by Anna Chan RN) History of tonsillectomy (Resolved) Onset Date: ~1973 History of sigmoidoscopy (Resolved) Onset Date: ~05/15/02 Thomasan; polyp H/O nasal septoplasty (Resolved) Onset Date: ~04/10/03 Dr. Almodovar History of salpingo-oophorectomy (Resolved) Onset Date: ~1999 H/O fracture of lower leg (Resolved) Onset Date: ~12/08/11 Dr. Niño; Closed reduction, IM fixation of left tibiae closed reduction of left fibula H/O esophagogastroduodenoscopy (Resolved) Onset Date: ~06/30/04 10/07/14; Marcela; '05 gastroparesis. '15 clotest negative. Mild chronic superficial gastritis H/O colonoscopy (Resolved) Onset Date: ~2002 2003, 2004, 05/18/08; Dr. Medrano '03 hyperplastic, pedunculated adenomatous polyps. '04 adenomatous polyp, '05 poor prep. '08 fragments of colonic mucosa with adenomatous and hyperplastic changes H/O colonoscopy (Resolved) Onset Date: ~08/14/12 Marcela; Capacious colon. Recheck 10 years Family History: Family History (Last Reviewed 03/20/20 @ 12:07 by Anna Chan RN) Mother Acute arthritis Behcets syndrome H/O Deandra thyroiditis Father , age 84 CVA (cerebral vascular accident) CAD (coronary artery disease) Brother , age 59 unknown cause No problems noted. Social History: (Last Updated 03/20/20 @ 12:07 by Anna Chan RN) Social History: adopted: No mcfp: No Marital status: lives independently: Yes household members: spouse current occupational status: disabled Highest education level completed: Associate degree: occupat Service: No Tobacco: Smoking Status: Former smoker tobacco type: cigarettes Smoking cigarettes per day: 8 Tobacco: How many years used: 5 how long ago did patient quit smoking: age 20 Alcohol: alcohol intake: current Alcohol type: beer, hard liquor alcohol intake frequency: a few times a month Substance Use: substance use type: does not use Dietary Habits: caffeine: Yes Type: carbonated beverages, coffee Physical Exam - Physical Exam General Appearance: Present: alert, moderate distress, other - pale Head Exam: Present: normal inspection Eye Exam: Normal inspection: bilateral, PERRL: bilateral, EOMI: bilateral Ears, Nose, Throat: Present: normal ENT inspection Neck: Present: normal inspection Respiratory: Present: no respiratory distress Cardiovascular/Chest: Present: regular rate, rhythm Peripheral Pulses: N=norm/S=strong/W=weak/B=bound/A=absent: Carotid (R): Normal, Carotid (L): Normal, Radial (R): Normal, Radial (L): Normal Gastrointestinal/Abdominal: Present: normal bowel sounds Back Exam: Present: other - pain in paraspinal muscle (right rhomboid) and right shoulder Extremity Exam: Present: other - abrasion of 1st left toe Skin Exam: Present: other - pale Lymphatic Exam: Present: no adenopathy Progress - Results and Orders Patient's Lab Results:: I have reviewed the patient's lab results. - Vital Signs Patient's Vital Signs:: I have reviewed the patient's vital signs. Vital Signs: Vital Signs 03/20/20 12:00 Temperature 36.5 C Pulse Rate 106 H Respiratory Rate 16 Blood Pressure 153/109 H O2 Sat by Pulse Oximetry 100 - Progress/Reassessment Chief Complaint: Back Pain Progress Note-Subjective: 03/20/20 15:35 - Discussed case with Dr Nelson, who accepted admission Plan - Plan Plan: Patient with right shoulder and right rhomboid pain, brought in by EMS, found to have an Hemoglobin of 5.6. Patient reports having previous transfusion with multiple colonoscopy and EGD which did not reveal a source of her anemia. Her anemia Departure Clinical Impression: Acute anemia, Chronic pain, Urinary tract infection Diabetes mellitus Qualifiers: Diabetes mellitus type: type 1 Pelvic fracture Qualifiers: Encounter type: subsequent encounter Pelvic bone location: pubis - Departure Disposition: Short Term Hospital Inpatient Condition: Fair
[2020-03-20 13:15] LABS: Mean Cell Volume 88.1 fl (78-100); Mean Corpuscular Hemoglobin 29.2 pg (27-31); Mean Corpuscular Hgb Conc 33.1 g/dl (32-36); Mean Platelet Volume 9.6 fl (8-12.5); Neutrophil # 23.2 K/mm3 (1.3-6.0); Neutrophil % 93.2 % (42-75.0); Platelet Count 619 K/mm3 (150-450); Red Blood Count 2.02 M/mm3 (4.2-5.4); Red Cell Distribution Width 15.8 % (11.5-14.0); White Blood Count 24.9 K/mm3 (4.0-10.5)
[2020-03-20 13:27] LABS: BUN/Creatinine Ratio 38.8 (9.0-21.6); Bilirubin, Total 0.4 mg/dL (0.0-1.1); Calcium * 9.9 mg/dL (7.9-10.9); Carbon Dioxide 21.1 mmol/L (24-32.6); Potassium 5.1 mmol/L (3.4-4.6)
[2020-03-20 13:33] LABS: Hematocrit 17.8 % (37.0-47.0); Hemoglobin 5.9 gm/dL (12.5-16.0)
[2020-03-20 13:35] LABS: Albumin * 1.6 gm/dl (3.4-5.0); Ca. Corrected For Albumin 11.5 mg/dL (8.4-10.2)
[2020-03-20 13:36] LABS: Total Cells Counted 100
[2020-03-20 14:11] LABS: Lymphocyte 4 % (20-51); Neutrophil 93 % (42-75); Neutrophil # 23.2 K/mm3 (1.3-6.0)
[2020-03-20 14:12] LABS: Monocyte 3 % (0-9); Platelet Estimate Increased (NORMAL); RBC Morphology Normal (NORMAL)
[2020-03-20] MEDS ORDERED: FUROSEMIDE 10 MG/ML VIAL IV ONE (14:30)
[2020-03-20] MEDS ORDERED: cefTRIAXone SODIUM 1,000 MG/100 ML BAG IV ONE (15:46)
[2020-03-20 16:24] LABS: Urine Appearance Slightly Cloudy (CLEAR); Urine Bilirubin Negative (NEGATIVE); Urine Blood 25 /ul (NEGATIVE); Urine Color Yellow; Urine Ketone Negative (NEGATIVE)
[2020-03-20 16:25] LABS: Urine Bacteria 2+; Urine Nitrite Positive (NEGATIVE); Urine Protein 30 mg/dL (NEGATIVE); Urine RBC 0-5 /hpf (0-5); Urine Urobilinogen Normal (NORMAL); Urine WBC 0-5 /hpf (0-5)
--- NOTE | 2020-03-20 18:06 | HP ---
Chief Complaint - Chief Complaint Date of Service: 03/20/20 Time of Service: 17:41 Chief Complaint: fall/shoulder and back pain History of Present Illness: Viji Lancaster is a 59-year-old white female, patient of Dr. Kimbrough, with past medical history significant for diabetes mellitus type 1, chronic renal failure, chronic low back pain, diabetic neuropathy and retinopathy, bipolar affective disorder, essential hypertension, who was admitted on 03/20/2020 for right shoulder pain and right side upper back pain. The patient and the said that she rolled over her couch today and fell to the floor. The height of the couch is very close to the floor as per . 2 weeks prior to admission the patient did have a fall and sustained a pelvic fracture. Her x-ray of her shoulder showed no acute fracture or dislocation with some degenerative changes. X-ray of her thoracic spine showed no acute changes except for degenerative disc disease throughout the spine. She however was found to have an elevated white blood cell count of 24.9 and a hemoglobin of 5.9, with an MCV of 88.1. Her last hemoglobin was 4 months ago which was 8.7. Her urinalysis also showed urinary tract infection. She was given IV Rocephin and 2 units of packed RBC was ordered with IV Lasix in between bags. She was then admitted for further management. She denies any hematemesis, hematochezia, and black tarry stools. She denies any blood in her urine. Medical History (Last Reviewed 03/20/20 @ 12:06 by Anna Chan RN) Primary osteoarthritis, left shoulder (Chronic) Osteoarthritis of right knee (Chronic) Major depression (Chronic) Onset Date: Unknown Tibia fracture (Chronic) Onset Date: ~11/2011 Left Restless leg syndrome (Chronic) Onset Date: Unknown Presbyopia (Chronic) Onset Date: Unknown History of onychomycosis (Chronic) Onset Date: ~05/27/14 OCD (obsessive compulsive disorder) (Chronic) Onset Date: Unknown Neck pain (Chronic) Onset Date: Unknown Mood swings (Chronic) Onset Date: Unknown Lumbago (Chronic) Onset Date: Unknown Kidney disease (Chronic) Onset Date: Unknown Joint pain (Chronic) Onset Date: Unknown Hyperopia (Chronic) Onset Date: Unknown Hyperlipidemia (Chronic) Onset Date: Unknown Headache (Chronic) Onset Date: Unknown History of gastroesophageal reflux (GERD) (Chronic) Onset Date: Unknown Fibula fracture (Acute) Onset Date: ~11/2011 Closed Left Endometriosis (Chronic) Onset Date: Unknown Diabetic retinopathy (Chronic) Onset Date: Unknown Diabetic neuropathy (Chronic) Onset Date: ~05/27/14 Diabetes 1.5, managed as type 1 (Chronic) Onset Date: ~12/15/13 Depression (Chronic) Onset Date: Unknown Charcot's joint arthropathy in type 1 diabetes mellitus (Chronic) Onset Date: ~12/24/13 Cellulitis (Chronic) Onset Date: ~12/24/13 and abscess of foot and leg Bulging disc (Chronic) Onset Date: Unknown Bipolar disorder (Chronic) Onset Date: Unknown Anemia (Chronic) Onset Date: ~12/24/13 Fracture of pubic ramus Onset Date: ~02/202012/09/2018 Surgical History: Surgical History (Last Reviewed 03/20/20 @ 12:06 by Anna Chan, KARLENE) History of tonsillectomy (Resolved) Onset Date: ~1973 History of sigmoidoscopy (Resolved) Onset Date: ~05/15/02 Marcela; polyp H/O nasal septoplasty (Resolved) Onset Date: ~04/10/03 Dr. Almodovar History of salpingo-oophorectomy (Resolved) Onset Date: ~1999 H/O fracture of lower leg (Resolved) Onset Date: ~12/08/11 Dr. Niño; Closed reduction, IM fixation of left tibiae closed reduction of left fibula H/O esophagogastroduodenoscopy (Resolved) Onset Date: ~06/30/04 10/07/14; Marcela; '05 gastroparesis. ' clotest negative. Mild chronic superficial gastritis H/O colonoscopy (Resolved) Onset Date: ~2002 2003, 2004, 05/18/08; Dr. Medrano '03 hyperplastic, pedunculated adenomatous polyps. '04 adenomatous polyp, '05 poor prep. '08 fragments of colonic mucosa with adenomatous and hyperplastic changes H/O colonoscopy (Resolved) Onset Date: ~08/14/12 Marcela; Capacious colon. Recheck 10 years Family History: Family History (Last Reviewed 03/20/20 @ 12:07 by Anna Chan, KARLENE) Mother Acute arthritis Behcets syndrome H/O Deandra thyroiditis Father , age 84 CVA (cerebral vascular accident) CAD (coronary artery disease) Brother , age 59 unknown cause No problems noted. Social History: (Last Updated 03/20/20 @ 12:07 by Anna Chan RN) Social History: adopted: No custodial: No Marital status: lives independently: Yes household members: spouse current occupational status: disabled Highest education level completed: Associate degree: occupat Service: No Tobacco: Smoking Status: Former smoker tobacco type: cigarettes Smoking cigarettes per day: 8 Tobacco: How many years used: 5 how long ago did patient quit smoking: age 20 Alcohol: alcohol intake: current Alcohol type: beer, hard liquor alcohol intake frequency: a few times a month Substance Use: substance use type: does not use Dietary Habits: caffeine: Yes Type: carbonated beverages, coffee Review Of Systems (GEN) - Review of Systems Generalized/Overall Review: Present: Weakness. Absent: Chills, Fever EENTM: Present: Blurred Vision Respiratory: Absent: Cough, Shortness of Breath, Orthopnea Cardiac: Absent: Chest Pain, Edema, Palpitations Abdominal: Absent: Nausea, Vomiting, Hematemesis, Abdominal Pain, Melena, Bright blood from rectum Genitourinary: Present: Frequency. Absent: Urgency, Hematuria, Dysuria Musculoskeletal: Present: Joint Pain, Back Pain Neurological: Absent: Headache Skin: Absent: Lesions, Rash Misc: All systems neg except as marked Immunizations: IMMUNIZATION HX Immunizations Up to Date Yes History of Influenza Vaccine Yes Hx Pneumococcal Vaccination Yes Allergies/Adverse Reactions: Allergies Allergy/AdvReac Type Severity Reaction Status Date / Time Penicillins Allergy Hives Verified 03/20/20 17:51 Home Medications: HOME MEDICATIONS Buprenorphine HCl/Naloxone HCl [Suboxone 8 MG-2 MG Tablet] 1.5 film SL DAILY 11/06/15 [Last Taken 12/18/16] Acetaminophen [Tylenol] 650 mg PO Q4H PRN tab 09/04/17 [Last Taken Unknown] miscellaneous medical supply See Dose Instructions .ROUTE .MEDSUPPLY #1 ea 02/07/18 [Last Taken Unknown] pen needle, diabetic 30 gauge x 5/16" 1 ea .ROUTE .MEDSUPPLY #100 ea 02/07/18 [Last Taken Unknown] diltiazem HCl 180 mg capsule,24 hr,extended release 180 mg PO DAILY 01/06/19 [Last Taken Unknown] Sodium Fluoride [Prevident 5000] 100 ml DENTAL DAILY 01/24/19 [Last Taken Unknown] insulin aspart U-100 100 unit/mL (3 mL) subcutaneous pen 4 unit SUBCUT .with meals ml 10/01/19 [Last Taken Unknown] famotidine 20 mg tablet 20 mg PO Q48H #30 tab 01/02/20 [Last Taken Unknown] omeprazole magnesium 20 mg tablet,delayed release 40 mg PO DAILY #60 tab 01/02/20 [Last Taken Unknown] atorvastatin 20 mg tablet 20 mg PO HS #90 tab 01/19/20 [Last Taken Unknown] pregabalin 75 mg capsule 75 mg PO BID #180 cap 01/29/20 [Last Taken Unknown] duloxetine 30 mg capsule,delayed release 30 mg PO DAILY #30 cap 02/02/20 [Last Taken Unknown] cyclobenzaprine 7.5 mg tablet 7.5 mg PO Q8H #60 tab 03/01/20 [Last Taken Unknown] lamotrigine 150 mg tablet 150 mg PO DAILY #30 tab 03/01/20 [Last Taken Unknown] Calcium Carbonate/Vitamin D3 [Calcium 600-D3 20Mcg(800 Unit)] 1 ea PO HS 03/20/20 [Last Taken Unknown] Cholecalciferol (Vitamin D3) [Vitamin D3] 2,000 unit PO HS 03/20/20 [Last Taken Unknown] Furosemide [Lasix] 60 mg PO DAILY 03/20/20 [Last Taken Unknown] Insulin Degludec [Tresiba Flextouch U-200] 16 unit SQ HS 03/20/20 [Last Taken Unknown] Lisinopril [Zestril] 10 mg PO DAILY 03/20/20 [Last Taken Unknown] Exam - Exam Vital Signs: Vital Signs - Last Taken Temp 37 C 03/20/20 17:11 Pulse 105 H 03/20/20 17:11 Resp 18 03/20/20 17:11 BP 170/69 H 03/20/20 17:11 Pulse Ox 100 03/20/20 17:11 Constitutional: Present: Alert, Oriented x3, Cooperative, Looks Older than stated age ENT Exam: Present: hearing grossly normal Eye Exam: bilateral eye: normal inspection, PERRL, EOMI, conjunctivae pale Neck: Present: supple. Absent: lymphadenopathy (R), lymphadenopathy (L) Back Exam: Present: other - Positive tenderness between her shoulder blades Respiratory: Present: decreased breath sounds, No rales, No wheezing Cardiovascular/Chest: Present: regular rate, rhythm, no JVD, no murmur Abdomen: Present: Normal bowel sounds, soft, nontender, nondistended Extremity: Present: no calf tenderness, pedal edema Diagnostic Studies: Abnormal Lab Results 03/20/20 03/20/20 03/20/20 Range/Units 13:09 13:09 14:40 WBC 24.9 H (4.0-10.5) K/mm3 RBC 2.02 L (4.2-5.4) M/mm3 Hgb 5.9 L* D (12.5-16.0) gm/dL Hct 17.8 L* D (37.0-47.0) % RDW 15.8 H (11.5-14.0) % Plt Count 619 H (150-450) K/mm3 Immature Gran % (Auto) 1.10 H (0.001-0.429) % Immature Gran # (Auto) 0.28 H (0.000-0.0310) K/mm3 Neutrophils % 93.2 H (42-75.0) % Neutrophils % (Manual) 93 H (42-75) % Lymphocytes % 2.8 L (20-51) % Lymphocytes % (Manual) 4 L (20-51) % Neutrophils # 23.2 H (1.3-6.0) K/mm3 Neutrophils # (Manual) 23.2 H (1.3-6.0) K/mm3 Lymphocytes # 0.69 L (1.5-3.5) k/mm3 Lymphocytes # (Manual) 1.0 L (1.5-3.5) k/mm3 Platelet Estimate Increased H (NORMAL) Sodium 126 L (132-142) mmol/L Plasma Sodium 129 L (130-142) mmol/L Potassium 5.1 H (3.4-4.6) mmol/L Chloride 94 L (97-106) mmol/L Carbon Dioxide 21.1 L (24-32.6) mmol/L Anion Gap 16.0 H (6.8-13.8) mmol/L BUN 99 H (3-23) mg/dL Creatinine 2.55 H D (0.4-1.4) mg/dL Est GFR (Non-Af Amer) 20 L D (60-130) mL/min BUN/Creatinine Ratio 38.8 H (9.0-21.6) Random Glucose 374 H (70-110) mg/dL Calcium Adj for Albumin 11.5 H (8.4-10.2) mg/dL Alkaline Phosphatase 172 H (50-170) U/L Albumin 1.6 L (3.4-5.0) gm/dl Urine Protein (NEGATIVE) mg/dL Urine Glucose (UA) (NEGATIVE) mg/dL Urine Blood (NEGATIVE) /ul Urine Nitrate (NEGATIVE) Ur Leukocyte Esterase (NEGATIVE) /ul Urine Bacteria (NONE) Crossmatch See Detail 03/20/20 Range/Units 16:09 WBC (4.0-10.5) K/mm3 RBC (4.2-5.4) M/mm3 Hgb (12.5-16.0) gm/dL Hct (37.0-47.0) % RDW (11.5-14.0) % Plt Count (150-450) K/mm3 Immature Gran % (Auto) (0.001-0.429) % Immature Gran # (Auto) (0.000-0.0310) K/mm3 Neutrophils % (42-75.0) % Neutrophils % (Manual) (42-75) % Lymphocytes % (20-51) % Lymphocytes % (Manual) (20-51) % Neutrophils # (1.3-6.0) K/mm3 Neutrophils # (Manual) (1.3-6.0) K/mm3 Lymphocytes # (1.5-3.5) k/mm3 Lymphocytes # (Manual) (1.5-3.5) k/mm3 Platelet Estimate (NORMAL) Sodium (132-142) mmol/L Plasma Sodium (130-142) mmol/L Potassium (3.4-4.6) mmol/L Chloride (97-106) mmol/L Carbon Dioxide (24-32.6) mmol/L Anion Gap (6.8-13.8) mmol/L BUN (3-23) mg/dL Creatinine (0.4-1.4) mg/dL Est GFR (Non-Af Amer) (60-130) mL/min BUN/Creatinine Ratio (9.0-21.6) Random Glucose (70-110) mg/dL Calcium Adj for Albumin (8.4-10.2) mg/dL Alkaline Phosphatase (50-170) U/L Albumin (3.4-5.0) gm/dl Urine Protein 30 H (NEGATIVE) mg/dL Urine Glucose (UA) 500 H (NEGATIVE) mg/dL Urine Blood 25 H (NEGATIVE) /ul Urine Nitrate Positive H (NEGATIVE) Ur Leukocyte Esterase 25 H (NEGATIVE) /ul Urine Bacteria 2+ H (NONE) Crossmatch Laboratory Results WBC 24.9 K/mm3 (4.0-10.5) H 03/20/20 13:09 RBC 2.02 M/mm3 (4.2-5.4) L 03/20/20 13:09 Hgb 5.9 gm/dL (12.5-16.0) L* D 03/20/20 13:09 Hct 17.8 % (37.0-47.0) L* D 03/20/20 13:09 MCV 88.1 fl (78-100) 03/20/20 13:09 MCH 29.2 pg (27-31) 03/20/20 13:09 MCHC 33.1 g/dl (32-36) 03/20/20 13:09 RDW 15.8 % (11.5-14.0) H 03/20/20 13:09 Plt Count 619 K/mm3 (150-450) H 03/20/20 13:09 MPV 9.6 fl (8-12.5) 03/20/20 13:09 Immature Gran % (Auto) 1.10 % (0.001-0.429) H 03/20/20 13:09 Immature Gran # (Auto) 0.28 K/mm3 (0.000-0.0310) H 03/20/20 13:09 Neutrophils % 93.2 % (42-75.0) H 03/20/20 13:09 Neutrophils % (Manual) 93 % (42-75) H 03/20/20 13:09 Lymphocytes % 2.8 % (20-51) L 03/20/20 13:09 Lymphocytes % (Manual) 4 % (20-51) L 03/20/20 13:09 Monocytes % 2.8 % (0.0-9) 03/20/20 13:09 Monocytes % (Manual) 3 % (0-9) 03/20/20 13:09 Eosinophils % 0.0 % (0.0-3.0) 03/20/20 13:09 Basophils % 0.1 % (0.0-1.0) 03/20/20 13:09 Nucleated RBC % 0.0 k/mm3 (0-1) 03/20/20 13:09 Neutrophils # 23.2 K/mm3 (1.3-6.0) H 03/20/20 13:09 Neutrophils # (Manual) 23.2 K/mm3 (1.3-6.0) H 03/20/20 13:09 Lymphocytes # 0.69 k/mm3 (1.5-3.5) L 03/20/20 13:09 Lymphocytes # (Manual) 1.0 k/mm3 (1.5-3.5) L 03/20/20 13:09 Monocytes # 0.7 k/mm3 (0.0-1.0) 03/20/20 13:09 Monocytes # (Manual) 0.7 k/mm3 (0.0-1.0) 03/20/20 13:09 Eosinophils # 0.0 k/mm3 (0.0-0.7) 03/20/20 13:09 Absolute Basophils 0.0 k/mm3 (0.0-0.1) 03/20/20 13:09 Platelet Estimate Increased (NORMAL) H 03/20/20 13:09 RBC Morphology Normal (NORMAL) 03/20/20 13:09 Sodium 126 mmol/L (132-142) L 03/20/20 13:09 Plasma Sodium 129 mmol/L (130-142) L 03/20/20 13:09 Potassium 5.1 mmol/L (3.4-4.6) H 03/20/20 13:09 Chloride 94 mmol/L (97-106) L 03/20/20 13:09 Carbon Dioxide 21.1 mmol/L (24-32.6) L 03/20/20 13:09 Anion Gap 16.0 mmol/L (6.8-13.8) H 03/20/20 13:09 BUN 99 mg/dL (3-23) H 03/20/20 13:09 Creatinine 2.55 mg/dL (0.4-1.4) H D 03/20/20 13:09 Est GFR (Non-Af Amer) 20 mL/min (60-130) L D 03/20/20 13:09 BUN/Creatinine Ratio 38.8 (9.0-21.6) H 03/20/20 13:09 Random Glucose 374 mg/dL (70-110) H 03/20/20 13:09 Lactic Acid, Venous 0.7 mmol/L (0.4-2.0) 03/20/20 13:09 Calcium 9.9 mg/dL (7.9-10.9) 03/20/20 13:09 Calcium Adj for Albumin 11.5 mg/dL (8.4-10.2) H 03/20/20 13:09 Total Bilirubin 0.4 mg/dL (0.0-1.1) 03/20/20 13:09 AST 18 U/L (0-48) 03/20/20 13:09 ALT 19 U/L (19-67) 03/20/20 13:09 Alkaline Phosphatase 172 U/L (50-170) H 03/20/20 13:09 Total Protein 8.0 gm/dL (6.2-8.2) 03/20/20 13:09 Albumin 1.6 gm/dl (3.4-5.0) L 03/20/20 13:09 Urine Color Yellow 03/20/20 16:09 Urine Appearance Slightly cloudy (CLEAR) 03/20/20 16:09 Urine pH 6.0 pH (5.0-7.0) 03/20/20 16:09 Ur Specific Grandy 1.010 SP.GR. (1.005-1.010) 03/20/20 16:09 Urine Protein 30 mg/dL (NEGATIVE) H 03/20/20 16:09 Urine Glucose (UA) 500 mg/dL (NEGATIVE) H 03/20/20 16:09 Urine Ketones Negative mg/dL (NEGATIVE) 03/20/20 16:09 Urine Blood 25 /ul (NEGATIVE) H 03/20/20 16:09 Urine Nitrate Positive (NEGATIVE) H 03/20/20 16:09 Urine Bilirubin Negative mg/dl (NEGATIVE) 03/20/20 16:09 Prot Sulfosalicylic Acd 1+ mg/dL (0) 03/20/20 16:09 Urine Urobilinogen Normal EU/dl (NORMAL) 03/20/20 16:09 Ur Leukocyte Esterase 25 /ul (NEGATIVE) H 03/20/20 16:09 Urine RBC 0-5 /hpf (0-5) 03/20/20 16:09 Urine WBC 0-5 /hpf (0-5) 03/20/20 16:09 Ur Epithelial Cells None seen /hpf (0-5) 03/20/20 16:09 Urine Bacteria 2+ (NONE) H 03/20/20 16:09 Urine Culture Comments Culture to follow 03/20/20 16:09 Blood Type A Positive 03/20/20 14:40 Antibody Screen Negative 03/20/20 14:40 Crossmatch See Detail 03/20/20 14:40 Assessment/Plan - Narrative Narrative: Viji was admitted for a rollover fall from a couch with concomitant back and shoulder pain. Her x-rays did not show any acute fracture or dislocations. She however was found to have a hemoglobin of 5.9. Her urinalysis also showed urinary tract infection. She is being admitted for IV antibiotics and blood transfusion. Her leukocytosis and thrombocytosis are probably reactive to her anemia although her leukocytosis is also secondary to her urinary tract infection. We will continue her on IV Rocephin until her culture and sensitivity comes back. We will get a stool for occult blood although I feel her acute anemia is due to acute blood loss from her pelvic fracture 2 weeks ago. She does have chronic anemia secondary likely to her chronic kidney disease. - Assessment/Plan (1) Back pain Problem: Chronic Qualifiers: (2) UTI (urinary tract infection) Problem: Resolved (3) Acute anemia Problem: Acute (4) Leukocytosis Problem: Acute (5) Thrombocytosis Problem: Acute (6) Hyponatremia Problem: Acute (7) Diabetes mellitus Problem: Chronic Qualifiers: Diabetes mellitus type: type 1 (8) Hyperglycemia due to type 1 diabetes mellitus Problem: Resolved (9) Pelvic fracture Problem: Acute Qualifiers: Encounter type: subsequent encounter Pelvic bone location: pubis
[2020-03-20] MEDS ORDERED: INSULIN DEGLUDEC SQ SCH (21:00)
[2020-03-20] MEDS: ROSUVASTATIN CALCIUM 10 MG TABLET PO SCH ×2 (21:10→21:19)
[2020-03-20] MEDS: CYCLOBENZAPRINE HCL 10 MG TABLET PO SCH (21:10)
[2020-03-20] MEDS: CHOLECALCIFEROL 1,000 UNIT CAPSULE PO SCH ×2 (21:10→21:19)
[2020-03-20] MEDS: PREGABALIN 75 MG CAPSULE PO SCH (21:10)
[2020-03-20] MEDS: CALCIUM CARBONATE/VITAMIN D3 1 TAB TABLET PO SCH ×2 (21:10→21:19)
[2020-03-20] MEDS: INSULIN LISPRO 100 UNITS/ML VIAL SC SCH (21:10)
[2020-03-20] MEDS: INSULIN GLARGINE,HUM.REC.ANLOG 100 UNITS/ML VIAL SC SCH (23:11)
[2020-03-20] MEDS ORDERED: FUROSEMIDE 10 MG/ML VIAL ONE (23:21)
[2020-03-21] MEDS: ACETAMINOPHEN 325 MG TABLET PO PRN ×2 (00:30→20:04)
[2020-03-21] MEDS: CYCLOBENZAPRINE HCL 10 MG TABLET PO SCH ×3 (04:23→20:05)
[2020-03-21] MEDS: NORMAL SALINE 1,000 ML IV PRN ×2 (05:33→15:42)
[2020-03-21] MEDS ORDERED: OMEPRAZOLE 20 MG CAPSULE.SA PO SCH (07:00)
[2020-03-21] MEDS ORDERED: VANCOMYCIN HCL 1 GM in DEXTROSE 5 % IN WATER 250 ML IV ONE ×2 (07:30)
[2020-03-21] MEDS ORDERED: LISINOPRIL 10 MG TABLET PO SCH (09:00)
[2020-03-21] MEDS ORDERED: FUROSEMIDE 40 MG TABLET PO SCH (09:00)
[2020-03-21 09:10] LABS: Anion Gap 18.5 mmol/L (6.8-13.8); BUN/Creatinine Ratio 42.2 (9.0-21.6); Calcium * 9.5 mg/dL (7.9-10.9); Estimated Creat Clear 28.8; Potassium 4.5 mmol/L (3.4-4.6)
[2020-03-21] MEDS: lamoTRIgine 100 MG TABLET PO SCH (09:10)
[2020-03-21] MEDS: DILTIAZEM HCL 180 MG CAP.SR.24H PO SCH (09:11)
[2020-03-21] MEDS: PREGABALIN 75 MG CAPSULE PO SCH ×2 (09:11→20:10)
[2020-03-21] MEDS: DULoxetine HCL 30 MG CAPSULE.SA PO SCH (09:12)
[2020-03-21] MEDS: FUROSEMIDE 20 MG TABLET PO SCH (09:13)
[2020-03-21] MEDS: INSULIN LISPRO 100 UNITS/ML VIAL SC SCH ×4 (09:29→20:07)
[2020-03-21] MEDS: PANTOPRAZOLE SODIUM 40 MG TABLET.EC PO SCH (09:30)
[2020-03-21 09:40] LABS: Hematocrit 26.2 % (37.0-47.0); Hemoglobin 8.6 gm/dL (12.5-16.0); Mean Cell Volume 88.2 fl (78-100); Red Blood Count 2.97 M/mm3 (4.2-5.4); White Blood Count 21.9 K/mm3 (4.0-10.5)
[2020-03-21 09:41] LABS: Mean Corpuscular Hgb Conc 32.8 g/dl (32-36); Mean Platelet Volume 9.4 fl (8-12.5); Neutrophil # 19.7 K/mm3 (1.3-6.0); Neutrophil % 90.2 % (42-75.0); Platelet Count 552 K/mm3 (150-450); Red Cell Distribution Width 14.9 % (11.5-14.0)
[2020-03-21 09:42] LABS: NRBC# 0.1 k/mm3 (0-1)
[2020-03-21] MEDS ORDERED: NALOXONE HCL SL SCH (10:30)
[2020-03-21] MEDS ORDERED: BUPRENORPHINE HCL SL SCH (10:30)
--- NOTE | 2020-03-21 10:33 | PN ---
Subjective - Date and Time Seen Date: 03/21/20 Time: 10:15 Subjective Narrative: patient sleeping ( nurse noted she has been more somnolent than yesterday) but woke with name call and nudge of her shoulder , got irritated and went back to sleep. Tmax 38.3. lab called -positive Gram positive cocci in clusters x 2 bottles - therefore likely Staph- coagulase pos or neg ? Objective - Review of Systems Generalized/Overall Review: Reports: Fever Misc: All systems neg except as marked - was not able to get response as patieht preferred to go to sleep - Vitals Vitals: Last Vital Signs Temp 38.3 C H 03/21/20 09:56 Pulse 95 03/21/20 09:56 Resp 18 03/21/20 09:56 BP 166/71 H 03/21/20 09:56 Pulse Ox 93 03/21/20 09:56 - Abnormal Lab Findings Abnormal Lab Findings: Abnormal Lab Results 03/20/20 03/20/20 03/20/20 Range/Units 13:09 13:09 14:40 WBC 24.9 H (4.0-10.5) K/mm3 RBC 2.02 L (4.2-5.4) M/mm3 Hgb 5.9 L* D (12.5-16.0) gm/dL Hct 17.8 L* D (37.0-47.0) % RDW 15.8 H (11.5-14.0) % Plt Count 619 H (150-450) K/mm3 Immature Gran % (Auto) 1.10 H (0.001-0.429) % Immature Gran # (Auto) 0.28 H (0.000-0.0310) K/mm3 Neutrophils % 93.2 H (42-75.0) % Neutrophils % (Manual) 93 H (42-75) % Lymphocytes % 2.8 L (20-51) % Lymphocytes % (Manual) 4 L (20-51) % Neutrophils # 23.2 H (1.3-6.0) K/mm3 Neutrophils # (Manual) 23.2 H (1.3-6.0) K/mm3 Lymphocytes # 0.69 L (1.5-3.5) k/mm3 Lymphocytes # (Manual) 1.0 L (1.5-3.5) k/mm3 Platelet Estimate Increased H (NORMAL) Sodium 126 L (132-142) mmol/L Plasma Sodium 129 L (130-142) mmol/L Potassium 5.1 H (3.4-4.6) mmol/L Chloride 94 L (97-106) mmol/L Carbon Dioxide 21.1 L (24-32.6) mmol/L Anion Gap 16.0 H (6.8-13.8) mmol/L BUN 99 H (3-23) mg/dL Creatinine 2.55 H D (0.4-1.4) mg/dL Est GFR (Non-Af Amer) 20 L D (60-130) mL/min BUN/Creatinine Ratio 38.8 H (9.0-21.6) Random Glucose 374 H (70-110) mg/dL Calcium Adj for Albumin 11.5 H (8.4-10.2) mg/dL Alkaline Phosphatase 172 H (50-170) U/L Albumin 1.6 L (3.4-5.0) gm/dl Urine Protein (NEGATIVE) mg/dL Urine Glucose (UA) (NEGATIVE) mg/dL Urine Blood (NEGATIVE) /ul Urine Nitrate (NEGATIVE) Ur Leukocyte Esterase (NEGATIVE) /ul Urine Bacteria (NONE) Crossmatch See Detail 03/20/20 03/21/20 03/21/20 Range/Units 16:09 05:45 05:55 WBC 21.9 H (4.0-10.5) K/mm3 RBC 2.97 L (4.2-5.4) M/mm3 Hgb 8.6 L (12.5-16.0) gm/dL Hct 26.2 L (37.0-47.0) % RDW 14.9 H (11.5-14.0) % Plt Count 552 H (150-450) K/mm3 Immature Gran % (Auto) 0.90 H (0.001-0.429) % Immature Gran # (Auto) 0.20 H (0.000-0.0310) K/mm3 Neutrophils % 90.2 H (42-75.0) % Neutrophils % (Manual) (42-75) % Lymphocytes % 3.7 L (20-51) % Lymphocytes % (Manual) (20-51) % Neutrophils # 19.7 H (1.3-6.0) K/mm3 Neutrophils # (Manual) (1.3-6.0) K/mm3 Lymphocytes # 0.81 L (1.5-3.5) k/mm3 Lymphocytes # (Manual) (1.5-3.5) k/mm3 Platelet Estimate (NORMAL) Sodium (132-142) mmol/L Plasma Sodium (130-142) mmol/L Potassium (3.4-4.6) mmol/L Chloride (97-106) mmol/L Carbon Dioxide 20.0 L (24-32.6) mmol/L Anion Gap 18.5 H (6.8-13.8) mmol/L BUN 79 H (3-23) mg/dL Creatinine 1.87 H D (0.4-1.4) mg/dL Est GFR (Non-Af Amer) 29 L D (60-130) mL/min BUN/Creatinine Ratio 42.2 H (9.0-21.6) Random Glucose 211 H D (70-110) mg/dL Calcium Adj for Albumin (8.4-10.2) mg/dL Alkaline Phosphatase (50-170) U/L Albumin (3.4-5.0) gm/dl Urine Protein 30 H (NEGATIVE) mg/dL Urine Glucose (UA) 500 H (NEGATIVE) mg/dL Urine Blood 25 H (NEGATIVE) /ul Urine Nitrate Positive H (NEGATIVE) Ur Leukocyte Esterase 25 H (NEGATIVE) /ul Urine Bacteria 2+ H (NONE) Crossmatch - Exam Constitutional: Present: Alert - AAO x1, was not able to aks more questions, Somnolent Neck: Present: supple. Absent: lymphadenopathy (R), lymphadenopathy (L) Respiratory: Present: decreased breath sounds, No rales, No wheezing Cardiovascular/Chest: Present: regular rate, rhythm, no JVD, no murmur Abdomen: Present: Normal bowel sounds, soft, nontender, nondistended Extremity: Present: no pedal edema, no calf tenderness Assessment/Plan Plan Narrative: Viji was admitted yesterday for shoulder and back pain after a fall. X-ray showed no evidence of acute fracture or dislocation. She was found though to have a leukocytosis of 25.8 and a urinary tract infection. She was also found to be anemic with a hemoglobin of 5.9 down from 8.7 four months prior to admission. She did have a pelvic fracture 2 weeks ago after a fall and is most likely the source of her acute on chronic anemia. She denied any hematemesis, hematochezia, or melena. She does have anemia of chronic renal disease. She received 2 units of packed RBC and her hemoglobin is up to 8.9. She was started on IV Rocephin. Her blood cultures x 2 bottles is growing gram-positive cocci in clusters likely Staphylococcus. I added vancomycin this morning. Her white blood cell count has come down to 21.8 however she did have a fever this morning of 38.3. Her creatinine improved to 1.7. She did not fulfill criteria for sepsis. She is however more somnolent this morning or could also be patient has not had a good sleep for several nights and is trying to recover now. We will continue with her IV antibiotics and await culture and sensitivity. Her urine culture is ruling out pathogen. Consider doing renal ultrasound to rule out complicated UTI like acute pyelonephritis/abscess. - Problems/Diagnosis (1) Bacteremia Problem: Acute (2) UTI (urinary tract infection) Problem: Acute Qualifiers: Urinary tract infection type: site unspecified Hematuria presence: without hematuria Qualified Code(s): N39.0 - Urinary tract infection, site not specified (3) Acute anemia Problem: Acute (4) Back pain Problem: Chronic Qualifiers: (5) Leukocytosis Problem: Acute (6) Thrombocytosis Problem: Acute (7) Hyponatremia Problem: Acute (8) Diabetes mellitus Problem: Chronic Qualifiers: Diabetes mellitus type: type 1 (9) Pelvic fracture Problem: Acute Qualifiers: Encounter type: subsequent encounter Pelvic bone location: pubis
[2020-03-21] MEDS ORDERED: ENOXAPARIN SODIUM 30 MG/0.3 ML SYRG SC SCH (12:15)
[2020-03-21] MEDS: NALOXONE HCL SL SCH (13:20)
[2020-03-21] MEDS: BUPRENORPHINE HCL SL SCH (13:20)
[2020-03-21] MEDS: CALCIUM CARBONATE/VITAMIN D3 1 TAB TABLET PO SCH (20:04)
[2020-03-21] MEDS: ROSUVASTATIN CALCIUM 10 MG TABLET PO SCH (20:05)
[2020-03-21] MEDS: CHOLECALCIFEROL 1,000 UNIT CAPSULE PO SCH (20:06)
[2020-03-21] MEDS: INSULIN GLARGINE,HUM.REC.ANLOG 100 UNITS/ML VIAL SC SCH (20:07)
[2020-03-22] MEDS: NORMAL SALINE 1,000 ML IV PRN ×2 (02:15→13:47)
[2020-03-22] MEDS: CYCLOBENZAPRINE HCL 10 MG TABLET PO SCH ×3 (05:59→20:05)
[2020-03-22 06:32] LABS: Hematocrit 25.6 % (37.0-47.0); Hemoglobin 8.5 gm/dL (12.5-16.0); Mean Cell Volume 86.8 fl (78-100); Mean Corpuscular Hemoglobin 28.8 pg (27-31); Mean Corpuscular Hgb Conc 33.2 g/dl (32-36); Mean Platelet Volume 9.2 fl (8-12.5); Neutrophil # 21.5 K/mm3 (1.3-6.0); Neutrophil % 89.1 % (42-75.0); Platelet Count 575 K/mm3 (150-450); Red Blood Count 2.95 M/mm3 (4.2-5.4); Red Cell Distribution Width 15.2 % (11.5-14.0); White Blood Count 24.1 K/mm3 (4.0-10.5)
[2020-03-22 06:35] LABS: Total Cells Counted 100
[2020-03-22 06:58] LABS: Anion Gap 14.1 mmol/L (6.8-13.8); BUN/Creatinine Ratio 34.1 (9.0-21.6); Carbon Dioxide 22.7 mmol/L (24-32.6); Estimated Creat Clear 31.1; Potassium 3.8 mmol/L (3.4-4.6)
[2020-03-22 06:59] LABS: Eosinophil 1 % (0-3); Lymphocyte 8 % (20-51); Monocyte 1 % (0-9); Neutrophil 90 % (42-75); Neutrophil # 21.7 K/mm3 (1.3-6.0); Platelet Estimate Normal (NORMAL)
[2020-03-22] MEDS: INSULIN LISPRO 100 UNITS/ML VIAL SC SCH ×4 (07:02→20:03)
[2020-03-22] MEDS: PANTOPRAZOLE SODIUM 40 MG TABLET.EC PO SCH (07:27)
[2020-03-22] MEDS: DULoxetine HCL 30 MG CAPSULE.SA PO SCH (09:21)
[2020-03-22] MEDS: DILTIAZEM HCL 180 MG CAP.SR.24H PO SCH (09:21)
[2020-03-22] MEDS: LISINOPRIL 20 MG TABLET PO SCH (09:21)
[2020-03-22] MEDS: FUROSEMIDE 20 MG TABLET PO SCH (09:21)
[2020-03-22] MEDS: VANCOMYCIN HCL 750 MG in DEXTROSE 5 % IN WATER 250 ML IV SCH ×2 (09:22)
[2020-03-22] MEDS: lamoTRIgine 100 MG TABLET PO SCH (09:22)
[2020-03-22] MEDS: NALOXONE HCL SL SCH (09:23)
[2020-03-22] MEDS: BUPRENORPHINE HCL SL SCH (09:23)
[2020-03-22] MEDS: PREGABALIN 75 MG CAPSULE PO SCH ×2 (09:26→20:08)
[2020-03-22] MEDS: ACETAMINOPHEN 325 MG TABLET PO PRN ×2 (09:30→20:05)
--- NOTE | 2020-03-22 10:57 | PN ---
Subjective - Date and Time Seen Date: 03/22/20 Time: 10:37 Subjective Narrative: I have right shoulder and right hip pain. Objective Objective Narrative: 59-year-old female admitted for UTI, bacteremia, right shoulder injury, acute symptomatic anemia, CAIN on CKD, and generalized weakness was evaluated at bedside this morning was found to be afebrile and in no acute distress. Patient was fully awake and sitting up in her chair and was oriented x3 on evaluation. She continues to complain of right shoulder pain that is spasmodic in nature, therefore we will continue to administer a muscle relaxant to treat muscle spasm. Imaging of the patient's shoulder and cervical neck area were negative for any acute fractures, however she does have multiple fractures in the pelvic region which would explain her right pelvic and right hip pain. The patient has had multiple falls in the recent months due to issues with balance and a previous pelvic fracture that was never corrected. She has been evaluated by Ortho who recommended only conservative management of the original pelvic fracture but since the fracture occurred the patient has had recurrent falls due to issues with balance. She also has a long history of uncontrolled type 1 diabetes due to noncompliance with her insulin and indulging in the wrong foods, so during the hospitalization we will keep a close eye on her glucose levels. The patient also has history of chronic kidney disease however she arrived at the hospital with decreased hemoglobin levels, and her bleeding related to her pelvic fracture is suspected but cannot be confirmed since there was no signs of acute bleeding on imaging. However as a precaution I will discontinue Lovenox in order to avoid complications with bleeding. This is especially important since the patient received 2 units of PRBCs during the weekend to bring her hemoglobin back to her baseline. The patient has a long history with Suboxone which [place] so pain management will need to be very cautious during the hospitalization. For now we will manage her with acetaminophen. We will also keep her on dual IV antibiotics and IV fluids to address a UTI and bacteremia. Her last known fever was yesterday morning for which she was administered acetaminophen, there has been no recurrence so far. - Review of Systems Generalized/Overall Review: Reports: No Symptoms Reported EENTM: Reports: No Symptoms Reported Respiratory: Reports: No Symptoms Reported Cardiac: Reports: No Symptoms Reported Abdominal: Reports: No Symptoms Reported Genitourinary Symptoms: Reports: No Symptoms Reported Musculoskeletal Complaints: Reports: Joint Pain - Right hip and right shoulder pain Neurological: Reports: No Symptoms Reported Skin: Reports: Change in Color - Paleness of skin Endocrine: Reports: No Symptoms Reported - Vitals Vitals: Last Vital Signs Temp 36.5 C 03/22/20 09:57 Pulse 82 03/22/20 09:57 Resp 16 03/22/20 09:57 BP 143/70 03/22/20 09:57 Pulse Ox 93 03/22/20 09:57 - Abnormal Lab Findings Abnormal Lab Findings: Abnormal Lab Results 03/22/20 03/22/20 Range/Units 06:14 06:14 WBC 24.1 H (4.0-10.5) K/mm3 RBC 2.95 L (4.2-5.4) M/mm3 Hgb 8.5 L (12.5-16.0) gm/dL Hct 25.6 L (37.0-47.0) % RDW 15.2 H (11.5-14.0) % Plt Count 575 H (150-450) K/mm3 Immature Gran % (Auto) 1.50 H (0.001-0.429) % Immature Gran # (Auto) 0.37 H (0.000-0.0310) K/mm3 Neutrophils % 89.1 H (42-75.0) % Neutrophils % (Manual) 90 H (42-75) % Lymphocytes % 5.8 L (20-51) % Lymphocytes % (Manual) 8 L (20-51) % Neutrophils # 21.5 H (1.3-6.0) K/mm3 Neutrophils # (Manual) 21.7 H (1.3-6.0) K/mm3 Lymphocytes # 1.40 L (1.5-3.5) k/mm3 Carbon Dioxide 22.7 L (24-32.6) mmol/L Anion Gap 14.1 H (6.8-13.8) mmol/L BUN 59 H (3-23) mg/dL Creatinine 1.73 H (0.4-1.4) mg/dL Est GFR (Non-Af Amer) 32 L (60-130) mL/min BUN/Creatinine Ratio 34.1 H (9.0-21.6) Random Glucose 137 H D (70-110) mg/dL - Exam Constitutional: Present: Alert, Oriented x3, Cooperative, Well developed, No distress, Elderly ENT Exam: Present: normal ENT inspection, hearing grossly normal, pharynx normal, TMs normal Neck: Present: non-tender, full range of motion, supple, normal inspection, trachea midline Breasts: Present: Exam deferred, Nontender Respiratory: Present: chest non-tender, lungs clear, normal breath sounds, no respiratory distress, no accessory muscle use Cardiovascular/Chest: Present: normal peripheral pulses, regular rate, rhythm, no chest tenderness, no edema, no gallop, no JVD, no rub Abdomen: Present: Normal bowel sounds, soft, nontender, nondistended, no rebound tenderness, no hepatospenomegaly, no masses /Rectal: Present: Exam deferred Extremity: Present: no pedal edema, no calf tenderness, normal capillary refill, leg pain Skin Exam: Present: pallor Lymphatic: Present: no adenopathy Neurologic: Present: immunochemist II-XII nml as tested, normal cerebellar test, no motor/sensory deficits, alert, normal mood/affect, oriented x 3 Appearance: Present: appropriate appearance, appropriate insight, neat, no memory impairment Eye contact: Present: cooperative, good eye contact, normal speech Thoughts: Present: normal thought pattern, no apparent hallucination Assessment/Plan Plan Narrative: Follow-up labs have been ordered for tomorrow morning to reevaluate leukocytosis hemoglobin and renal function electrolytes. In the meantime we will keep patient on IV antibiotics and IV hydration. She was found to be growing coagulase positive Staphylococcus aureus so Vanco was ordered to her treatment. Patient has been has expressed that he is no longer able to care for her and is requested that she be discharged to a nursing facility, case reviewer are on the case looking for placement. They inform you that this might be difficult due to the patient's psychiatric history and complicated chronic conditions, but we will make our best effort to find proper placement for her. She also arrived with a coccygeal ulcer most likely due to immobility and pressure applied to her sacrum, so wound care team has been consulted. - Problems/Diagnosis (1) Right shoulder pain Problem: Acute (2) Acute anemia Problem: Acute (3) Diabetes mellitus Problem: Chronic Qualifiers: Diabetes mellitus type: type 1 Diabetes mellitus complication status: with kidney complications Diabetes mellitus complication detail: with chronic kidney disease Chronic kidney disease stage: stage 4 (severe) Qualified Code(s): E10.22 - Type 1 diabetes mellitus with diabetic chronic kidney disease; N18.4 - Chronic kidney disease, stage 4 (severe) (4) Bacteremia Problem: Acute (5) Acute kidney injury superimposed on CKD Problem: Acute (6) Hip pain, right Problem: Chronic (7) Back pain Problem: Chronic Qualifiers: Back pain location: low back pain (8) UTI (urinary tract infection) Problem: Acute (9) Pelvic fracture Problem: Chronic Qualifiers: Encounter type: subsequent encounter Pelvic bone location: pubis (10) Signs and symptoms of anemia Problem: Acute (11) Recurrent falls Problem: Chronic (12) Decubitus ulcer of coccygeal region Problem: Acute
--- NOTE | 2020-03-22 14:03 | CONS ---
HPI - General Date of Service: 03/22/20 Source: patient, RN notes reviewed - History of Present Illness Initial Comments: Patient is a 59 year old female, recently admitted to the hospital from the Emergency Department. She presented due to right shoulder pain and chronic low back pain. On admission, the patient was diagnosed with acute anemia, with a hemaglobin of 5.6, UTI, bacteremia with blood cultures pending and WBC of 24.9. [facility] was consulted regarding an open wound to the sacrum. The patient states that she has experienced itching and mild soreness to the area for approximately one year. She denies any treatment. She does have an extensive medical history, including falls and pelvic fracture x 2, with the recent being a few weeks ago. She admits to being sedentary at home. Timing/Duration: constant Allergies/Adverse Reactions: Allergies Penicillins Allergy (Verified 03/20/20 17:51) Hives Home Medications: Home Medications Medication Instructions Recorded Last Taken Buprenorphine HCl/Naloxone HCl 1 film SL DAILY 11/06/15 12/18/16 [Suboxone 8 MG-2 MG Tablet] Acetaminophen [Tylenol] 650 mg PO Q4H PRN tab 09/04/17 Unknown miscellaneous medical supply See Dose Instructions .ROUTE 02/07/18 Unknown .MEDSUPPLY #1 ea pen needle, diabetic 30 gauge x 1 ea .ROUTE .MEDSUPPLY #100 ea 02/07/18 Unknown 10/24" diltiazem HCl 180 mg capsule,24 180 mg PO DAILY 01/06/19 Unknown hr,extended release Sodium Fluoride [Prevident 5000] 100 ml DENTAL DAILY 01/24/19 Unknown insulin aspart U-100 100 unit/mL 4 unit SUBCUT .with meals ml 10/01/19 Unknown (3 mL) subcutaneous pen famotidine 20 mg tablet 20 mg PO Q48H #30 tab 01/02/20 Unknown omeprazole magnesium 20 mg 40 mg PO DAILY #60 tab 01/02/20 Unknown tablet,delayed release atorvastatin 20 mg tablet 20 mg PO HS #90 tab 01/19/20 Unknown pregabalin 75 mg capsule 75 mg PO BID #180 cap 01/29/20 Unknown duloxetine 30 mg capsule,delayed 30 mg PO DAILY #30 cap 02/02/20 Unknown release cyclobenzaprine 7.5 mg tablet 7.5 mg PO Q8H #60 tab 03/01/20 Unknown lamotrigine 150 mg tablet 150 mg PO DAILY #30 tab 03/01/20 Unknown Calcium Carbonate/Vitamin D3 1 ea PO HS 03/20/20 Unknown [Calcium 600-D3 20Mcg(800 Unit)] Cholecalciferol (Vitamin D3) 2,000 unit PO HS 03/20/20 Unknown [Vitamin D3] Furosemide [Lasix] 60 mg PO DAILY 03/20/20 Unknown Insulin Degludec [Tresiba 16 unit SQ HS 03/20/20 Unknown Flextouch U-200] Lisinopril [Zestril] 10 mg PO DAILY 03/20/20 Unknown Procedures Closed [endoscopic] biopsy of large intestine (05/15/02) Closed reduction of fracture with internal fixation, tibia and fibula (12/07/11) Colonoscopy (08/14/12) Endoscopic polypectomy of large intestine (05/18/08) Esophagogastroduodenoscopy [EGD] with closed biopsy (10/07/14) Measurement of Arterial Saturation, Peripheral, Percutaneous Approach (12/19/16) Measurement of systemic arterial blood gases (12/25/12) Other endoscopy of small intestine (06/30/04) Other septoplasty (04/10/02) Other turbinectomy (04/10/02) Medications - Medications Current Medications: Current Medications Acetaminophen (Tylenol) 650 mg PO Q4H PRN PRN Reason: Mild pain (pain scale 1-3) Stop: 04/19/20 20:01 Last Admin: 03/22/20 09:30 Dose: 650 mg Documented by: Calcium/Vitamin D (Calcarb 600 With Vitamin D) 1 tab PO [facility] Stop: 04/19/20 20:46 Last Admin: 03/21/20 20:04 Dose: 1 tab Documented by: Cholecalciferol (Vitamin D) 2,000 unit PO [facility] Stop: 04/19/20 20:46 Last Admin: 03/21/20 20:06 Dose: 2,000 unit Documented by: Cyclobenzaprine HCl (Flexeril) 7.5 mg PO Q8H [facility] Stop: 04/19/20 21:01 Last Admin: 03/22/20 12:22 Dose: 7.5 mg Documented by: Diltiazem HCl (Cardizem Cd) 180 mg PO DAILY [facility] Stop: 04/20/20 09:01 Last Admin: 03/22/20 09:21 Dose: 180 mg Documented by: Duloxetine HCl (Cymbalta) 30 mg PO DAILY [facility] Stop: 04/20/20 09:01 Last Admin: 03/22/20 09:21 Dose: 30 mg Documented by: Furosemide (Lasix) 60 mg PO DAILY [facility] Stop: 04/20/20 09:01 Last Admin: 03/22/20 09:21 Dose: 60 mg Documented by: Ceftriaxone Sodium 1,000 mg/ (Dextrose/Water) 100 mls @ 200 mls/hr IV Q24H [facility]; Protocol Stop: 04/20/20 17:01 Last Infusion: 03/21/20 18:10 Dose: Infused Documented by: Sodium Chloride (Sodium Chloride 0.9%) 1,000 mls @ 100 mls/hr IV .Q10H PRN PRN Reason: HYDRATION Stop: 04/20/20 05:04 Last Admin: 03/22/20 02:15 Dose: 100 mls/hr Documented by: Vancomycin HCl 750 mg/ (Dextrose/Water) 250 mls @ 167 mls/hr IV Q24H [facility] Stop: 04/21/20 09:01 Last Admin: 03/22/20 09:22 Dose: 167 mls/hr Documented by: Insulin Glargine (Lantus) 16 units SC [facility] Stop: 04/19/20 21:01 Last Admin: 03/21/20 20:07 Dose: 16 units Documented by: Insulin Human Lispro (Humalog) 0 - 21 units SC [facility]; Protocol Stop: 04/19/20 21:01 Last Admin: 03/22/20 12:22 Dose: 4 units Documented by: Lamotrigine (Lamictal) 150 mg PO DAILY [facility] Stop: 04/20/20 09:01 Last Admin: 03/22/20 09:22 Dose: 150 mg Documented by: Lisinopril (Zestril) 20 mg PO DAILY [facility] Stop: 04/21/20 09:01 Last Admin: 03/22/20 09:21 Dose: 20 mg Documented by: Buprenorphine Hcl/Naloxone Hcl 8 Mg/2 Mg 1 film SL DAILY [facility] Stop: 04/20/20 10:31 Last Admin: 03/22/20 09:23 Dose: 1 film Documented by: Pantoprazole Sodium (Protonix) 40 mg PO QDAC [facility] Stop: 04/20/20 07:01 Last Admin: 03/22/20 07:27 Dose: 40 mg Documented by: Pregabalin (Lyrica) 75 mg PO BID [facility] Stop: 04/19/20 21:01 Last Admin: 03/22/20 09:26 Dose: 75 mg Documented by: Rosuvastatin Calcium (Crestor) 10 mg PO HS [facility] Stop: 04/19/20 20:46 Last Admin: 03/21/20 20:05 Dose: 10 mg Documented by: Review of Systems - Review of Systems Generalized/Overall Review: Present: Weakness, Fatigue EENTM: Absent: Nose Congestion Respiratory: Absent: Cough, Shortness of Breath Cardiac: Absent: Chest Pain, Edema Abdominal: Absent: Nausea, Vomiting Musculoskeletal: Present: Muscle Pain Neurological: Absent: Headache Skin: Present: Lesions Physical Examination - Exam Vital Signs: Vital Signs - Last Taken Temp 36.5 C 03/22/20 09:57 Pulse 82 03/22/20 09:57 Resp 16 03/22/20 09:57 BP 143/70 03/22/20 09:57 Pulse Ox 93 03/22/20 09:57 O2 Oxygen Delivery Method Room Air Constitutional: Present: Alert, Cooperative, No distress ENT Exam: Present: hearing grossly normal Skin Exam: Present: warm/dry, other - area of excoriation on the sacrum measures ~7cm in circumference. minimal drainage. no induration. - Results and Findings: Lab/Microbiology results last 24 hrs: Abnormal/Pending Laboratory Last 24 HRS 03/22/20 03/22/20 06:14 06:14 WBC 24.1 H RBC 2.95 L Hgb 8.5 L Hct 25.6 L RDW 15.2 H Plt Count 575 H Immature Gran % (Auto) 1.50 H Immature Gran # (Auto) 0.37 H Neutrophils % 89.1 H Neutrophils % (Manual) 90 H Lymphocytes % 5.8 L Lymphocytes % (Manual) 8 L Neutrophils # 21.5 H Neutrophils # (Manual) 21.7 H Lymphocytes # 1.40 L Carbon Dioxide 22.7 L Anion Gap 14.1 H BUN 59 H Creatinine 1.73 H Est GFR (Non-Af Amer) 32 L BUN/Creatinine Ratio 34.1 H Random Glucose 137 H D Culture 03/20/20 16:05 Urine Culture - Preliminary Urine,Catheterized Staphylococcus Species 03/20/20 16:36 Blood Culture - Preliminary Blood Staphylococcus Species 03/20/20 16:17 Blood Culture - Preliminary Blood Staphylococcus Species - Assessments/Findings (1) Decubitus ulcer of coccygeal region Diagnosis(s): The area on the sacral/coccyx of redness and excoriation is superficial. Recommend using Janel antifungal cream, as a skin barrier. This will be applied daily, and PRN. Wash with soap and water at dressing changes. Continue with excellent off-loading. Problem: Chronic Qualifiers: Pressure injury stage: stage 1 Qualified Code(s): L89.151 - Pressure ulcer of sacral region, stage 1
[2020-03-22] MEDS: INSULIN GLARGINE,HUM.REC.ANLOG 100 UNITS/ML VIAL SC SCH (20:03)
[2020-03-22] MEDS: ROSUVASTATIN CALCIUM 10 MG TABLET PO SCH (20:05)
[2020-03-22] MEDS: CALCIUM CARBONATE/VITAMIN D3 1 TAB TABLET PO SCH (20:05)
[2020-03-22] MEDS: CHOLECALCIFEROL 1,000 UNIT CAPSULE PO SCH (20:06)
[2020-03-22] MEDS: MICONAZOLE NITRATE 30 APPL TUBE TP SCH (20:15)
[2020-03-23] MEDS: NORMAL SALINE 1,000 ML IV PRN ×3 (00:17→19:51)
[2020-03-23] MEDS: ACETAMINOPHEN 325 MG TABLET PO PRN ×3 (00:19→15:41)
[2020-03-23] MEDS: CYCLOBENZAPRINE HCL 10 MG TABLET PO SCH ×3 (04:26→20:04)
[2020-03-23 06:25] LABS: Mean Cell Volume 88.7 fl (78-100); Mean Corpuscular Hemoglobin 28.7 pg (27-31); Mean Corpuscular Hgb Conc 32.4 g/dl (32-36); Mean Platelet Volume 8.9 fl (8-12.5); Neutrophil # 17.4 K/mm3 (1.3-6.0); Neutrophil % 86.9 % (42-75.0); Platelet Count 510 K/mm3 (150-450); Red Blood Count 2.47 M/mm3 (4.2-5.4); Red Cell Distribution Width 15.5 % (11.5-14.0)
[2020-03-23 06:37] LABS: Albumin * 1.2 gm/dl (3.4-5.0); Anion Gap 12.2 mmol/L (6.8-13.8); Bilirubin, Total 0.2 mg/dL (0.0-1.1); Ca. Corrected For Albumin 11.2 mg/dL (8.4-10.2); Calcium * 9.3 mg/dL (7.9-10.9); Carbon Dioxide 22.1 mmol/L (24-32.6); Potassium 4.3 mmol/L (3.4-4.6); Total Protein 6.6 gm/dL (6.2-8.2)
[2020-03-23 07:05] LABS: Hematocrit 21.9 % (37.0-47.0); Hemoglobin 7.1 gm/dL (12.5-16.0)
[2020-03-23] MEDS: INSULIN LISPRO 100 UNITS/ML VIAL SC SCH ×4 (07:20→20:10)
[2020-03-23] MEDS: PANTOPRAZOLE SODIUM 40 MG TABLET.EC PO SCH (07:27)
[2020-03-23] MEDS: lamoTRIgine 100 MG TABLET PO SCH (09:10)
[2020-03-23] MEDS: LISINOPRIL 20 MG TABLET PO SCH (09:10)
[2020-03-23] MEDS: DILTIAZEM HCL 180 MG CAP.SR.24H PO SCH (09:10)
[2020-03-23] MEDS: FUROSEMIDE 20 MG TABLET PO SCH (09:10)
[2020-03-23] MEDS: MICONAZOLE NITRATE 30 APPL TUBE TP SCH ×2 (09:11→20:04)
[2020-03-23] MEDS: DULoxetine HCL 30 MG CAPSULE.SA PO SCH (09:11)
[2020-03-23] MEDS: NALOXONE HCL SL SCH (09:12)
[2020-03-23] MEDS: BUPRENORPHINE HCL SL SCH (09:12)
[2020-03-23] MEDS: VANCOMYCIN HCL 750 MG in DEXTROSE 5 % IN WATER 250 ML IV SCH ×2 (09:13)
[2020-03-23] MEDS: PREGABALIN 75 MG CAPSULE PO SCH ×2 (09:19→20:04)
--- NOTE | 2020-03-23 10:46 | PN ---
Subjective - Date and Time Seen Date: 03/23/20 Time: 10:35 Subjective Narrative: I still have right shoulder and right hip pain. Objective Objective Narrative: 59-year-old female admitted for UTI, bacteremia, Sepsis, right shoulder injury, acute symptomatic anemia, CAIN on CKD, and generalized weakness was evaluated at bedside this morning was found to be afebrile and in no acute distress. Patient continues to complain of right hip and right shoulder pain, we are managing her pain carefully given the fact that she is still on Suboxone. We will look for conservative methods to treat her pain to avoid complications over medicating her. Repeat labs this morning revealed a drop of 1 g in her hemoglobin after the patient was transfused 2 units during the weekend. Results did show however improvement of the leukocytosis, and there has been no recurrence of fever. This would indicate a favorable response to the current treatment, therefore we will not make any changes. We will continue to monitor this for now and wait for fecal occult blood test results to rule out any GI bleeding. Patient's diagnostic list was updated this morning and sepsis was added to the diagnoses. Given the patient's tachycardia, fever, and organ injury, and unknown source of infection is likely the patient was septic when she arrived to the hospital. Final blood and urine culture results confirmed the growth of MSSA susceptible to Vanco, so the patient will be kept on Vanco and we will discontinue the Rocephin. This particularly important given her significant chronic kidney disease. During morning rounds today a long-term plan was discussed and patient was informed that we are looking for placement at a rehab facility so she can continue PT and OT, however it was recommended that the patient should consider going to a long-term care facility preferably alf to manage her chronic conditions. She has not decided whether or not this is the right plan for her, so we will give her time to discuss it with her , once they reach a decision will do our best to assist them in finding proper placement - Review of Systems Generalized/Overall Review: Reports: No Symptoms Reported EENTM: Reports: No Symptoms Reported Respiratory: Reports: No Symptoms Reported Cardiac: Reports: No Symptoms Reported Abdominal: Reports: No Symptoms Reported Genitourinary Symptoms: Reports: No Symptoms Reported Musculoskeletal Complaints: Reports: Joint Pain - Right hip and right shoulder pain Neurological: Reports: No Symptoms Reported Skin: Reports: No Symptoms Reported Endocrine: Reports: No Symptoms Reported - Vitals Vitals: Last Vital Signs Temp 36.7 C 03/23/20 07:34 Pulse 81 03/23/20 09:10 Resp 16 03/23/20 07:34 BP 138/61 03/23/20 09:10 Pulse Ox 93 03/23/20 07:34 - Abnormal Lab Findings Abnormal Lab Findings: Abnormal Lab Results 03/23/20 03/23/20 Range/Units 06:19 06:19 WBC 20.0 H (4.0-10.5) K/mm3 RBC 2.47 L (4.2-5.4) M/mm3 Hgb 7.1 L* (12.5-16.0) gm/dL Hct 21.9 L* (37.0-47.0) % RDW 15.5 H (11.5-14.0) % Plt Count 510 H (150-450) K/mm3 Immature Gran % (Auto) 1.80 H (0.001-0.429) % Immature Gran # (Auto) 0.37 H (0.000-0.0310) K/mm3 Neutrophils % 86.9 H (42-75.0) % Lymphocytes % 7.3 L (20-51) % Neutrophils # 17.4 H (1.3-6.0) K/mm3 Lymphocytes # 1.46 L (1.5-3.5) k/mm3 Sodium 129 L (132-142) mmol/L Carbon Dioxide 22.1 L (24-32.6) mmol/L BUN 53 H (3-23) mg/dL Creatinine 1.83 H (0.4-1.4) mg/dL Est GFR (Non-Af Amer) 30 L (60-130) mL/min BUN/Creatinine Ratio 29.0 H (9.0-21.6) Random Glucose 207 H D (70-110) mg/dL Calcium Adj for Albumin 11.2 H (8.4-10.2) mg/dL ALT 15 L (19-67) U/L Albumin 1.2 L (3.4-5.0) gm/dl - Exam Constitutional: Present: Alert, Oriented x3, Cooperative, Well developed, Well nourished, No distress, Elderly ENT Exam: Present: normal ENT inspection, hearing grossly normal, pharynx normal, TMs normal Neck: Present: non-tender, full range of motion, supple, normal inspection, trachea midline Breasts: Present: Exam deferred, Nontender Respiratory: Present: chest non-tender, lungs clear, normal breath sounds, no respiratory distress, no accessory muscle use Cardiovascular/Chest: Present: normal peripheral pulses, regular rate, rhythm, no chest tenderness, no edema, no gallop, no JVD, no murmur, no rub Abdomen: Present: Normal bowel sounds, soft, nontender, nondistended, no rebound tenderness, no hepatospenomegaly, no masses /Rectal: Present: Exam deferred Extremity: Present: no pedal edema, no calf tenderness, leg pain - Right thigh and hip tenderness Skin Exam: Present: warm/dry, no cyanosis, pallor Lymphatic: Present: no adenopathy Neurologic: Present: syrup mixer helper II-XII nml as tested, no motor/sensory deficits, alert, normal mood/affect, oriented x 3 Appearance: Present: appropriate appearance, appropriate insight, neat, no memory impairment Eye contact: Present: cooperative, good eye contact, normal speech Thoughts: Present: normal thought pattern, no apparent hallucination Assessment/Plan Plan Narrative: We will continue the current management with IV Vanco and IV hydration. Discharge planning to rehab facility is underway. We will also follow-up with fecal occult blood test to rule out any GI bleeding. - Problems/Diagnosis (1) Right shoulder pain Problem: Acute (2) Acute anemia Problem: Acute (3) Diabetes mellitus Problem: Chronic Qualifiers: Diabetes mellitus type: type 1 Diabetes mellitus complication status: with kidney complications Diabetes mellitus complication detail: with chronic kidney disease Chronic kidney disease stage: stage 4 (severe) Qualified Code(s): E10.22 - Type 1 diabetes mellitus with diabetic chronic kidney disease; N18.4 - Chronic kidney disease, stage 4 (severe) (4) Bacteremia Problem: Acute (5) Acute kidney injury superimposed on CKD Problem: Acute (6) Hip pain, right Problem: Chronic (7) Back pain Problem: Chronic Qualifiers: Back pain location: low back pain (8) UTI (urinary tract infection) Problem: Acute (9) Pelvic fracture Problem: Chronic Qualifiers: Encounter type: subsequent encounter Pelvic bone location: pubis (10) Signs and symptoms of anemia Problem: Acute (11) Recurrent falls Problem: Chronic (12) Decubitus ulcer of coccygeal region Problem: Chronic Qualifiers: Pressure injury stage: stage 1 Qualified Code(s): L89.151 - Pressure ulcer of sacral region, stage 1 (13) Decubitus ulcer of coccygeal region, stage 1 Problem: Acute (14) CKD (chronic kidney disease) stage 4, GFR 15-29 ml/min Problem: Chronic (15) Sepsis Problem: Acute Qualifiers: Sepsis type: methicillin susceptible Staphylococcus aureus
[2020-03-23] MEDS: CHOLECALCIFEROL 1,000 UNIT CAPSULE PO SCH (20:04)
[2020-03-23] MEDS: INSULIN GLARGINE,HUM.REC.ANLOG 100 UNITS/ML VIAL SC SCH (20:09)
[2020-03-23] MEDS: ROSUVASTATIN CALCIUM 10 MG TABLET PO SCH (20:10)
[2020-03-23] MEDS: CALCIUM CARBONATE/VITAMIN D3 1 TAB TABLET PO SCH (20:10)
[2020-03-24] MEDS: ACETAMINOPHEN 325 MG TABLET PO PRN ×4 (00:47→19:22)
[2020-03-24] MEDS: CYCLOBENZAPRINE HCL 10 MG TABLET PO SCH ×3 (05:44→20:51)
[2020-03-24] MEDS: NORMAL SALINE 1,000 ML IV PRN ×2 (05:47→15:52)
[2020-03-24] MEDS: PANTOPRAZOLE SODIUM 40 MG TABLET.EC PO SCH (07:20)
[2020-03-24] MEDS: INSULIN LISPRO 100 UNITS/ML VIAL SC SCH ×4 (07:22→20:56)
[2020-03-24] MEDS ORDERED: VANCOMYCIN HCL LEVEL XX ONE (08:30)
[2020-03-24] MEDS: DILTIAZEM HCL 180 MG CAP.SR.24H PO SCH (08:49)
[2020-03-24] MEDS: DULoxetine HCL 30 MG CAPSULE.SA PO SCH (08:49)
[2020-03-24] MEDS: PREGABALIN 75 MG CAPSULE PO SCH ×2 (08:49→20:49)
[2020-03-24] MEDS: lamoTRIgine 100 MG TABLET PO SCH (08:50)
[2020-03-24] MEDS: FUROSEMIDE 20 MG TABLET PO SCH (08:50)
[2020-03-24] MEDS: LISINOPRIL 20 MG TABLET PO SCH (08:51)
[2020-03-24] MEDS: VANCOMYCIN HCL 750 MG in DEXTROSE 5 % IN WATER 250 ML IV SCH ×2 (08:51)
[2020-03-24] MEDS: BUPRENORPHINE HCL SL SCH (08:55)
[2020-03-24] MEDS: NALOXONE HCL SL SCH (08:55)
[2020-03-24] MEDS: MICONAZOLE NITRATE 30 APPL TUBE TP SCH ×2 (09:12→20:51)
--- NOTE | 2020-03-24 14:25 | PN ---
Subjective - Date and Time Seen Date: 03/24/20 Time: 14:17 Subjective Narrative: I still have muscle spasms in my right shoulder Objective Objective Narrative: 59-year-old female admitted for UTI, bacteremia, Sepsis, right shoulder injury, acute symptomatic anemia, CAIN on CKD, and generalized weakness was evaluated at bedside today was found to be her usual self. The patient continues to complain of periodic muscle spasm in her right shoulder, will continue to administer muscle relaxants for this. She is tolerating in hospital PT and OT without any issues but has a long way to go in her rehabilitation. Patient was found to have a decrease in her hemoglobin yesterday so we will repeat labs in the morning to reevaluate her anemia, in the meantime we will continue the current treatment. - Review of Systems Generalized/Overall Review: Reports: No Symptoms Reported EENTM: Reports: No Symptoms Reported Respiratory: Reports: No Symptoms Reported Cardiac: Reports: No Symptoms Reported Abdominal: Reports: No Symptoms Reported Genitourinary Symptoms: Reports: No Symptoms Reported Musculoskeletal Complaints: Reports: Joint Pain - Right shoulder pain Neurological: Reports: No Symptoms Reported Skin: Reports: No Symptoms Reported Endocrine: Reports: No Symptoms Reported - Vitals Vitals: Last Vital Signs Temp 37.6 C 03/24/20 11:13 Pulse 82 03/24/20 11:13 Resp 16 03/24/20 11:13 BP 140/52 03/24/20 11:13 Pulse Ox 95 03/24/20 11:13 - Abnormal Lab Findings Abnormal Lab Findings: Abnormal Lab Results 03/24/20 Range/Units 09:15 Vancomycin Trough 20.5 H (10.0-20.0) mcg/mL - Exam Constitutional: Present: Alert, Oriented x3, Cooperative, Well developed, Well nourished, No distress ENT Exam: Present: normal ENT inspection, hearing grossly normal Neck: Present: non-tender, full range of motion, supple, normal inspection, trachea midline Breasts: Present: Exam deferred, Nontender Respiratory: Present: chest non-tender, lungs clear, normal breath sounds, no respiratory distress, no accessory muscle use Cardiovascular/Chest: Present: normal peripheral pulses, regular rate, rhythm, no chest tenderness, no edema, no gallop, no JVD, no murmur, no rub Abdomen: Present: Normal bowel sounds, soft, nontender, nondistended, no rebound tenderness, no hepatospenomegaly, no masses /Rectal: Present: Exam deferred Extremity: Present: no pedal edema, no calf tenderness, leg pain Skin Exam: Present: warm/dry, no cyanosis, pallor Lymphatic: Present: no adenopathy Neurologic: Present: court worker II-XII nml as tested, no motor/sensory deficits, alert, normal mood/affect, oriented x 3 Appearance: Present: appropriate appearance, appropriate insight, neat, no memory impairment Eye contact: Present: cooperative, good eye contact, normal speech Thoughts: Present: normal thought pattern Assessment/Plan Plan Narrative: Follow-up CBC and CMP has been ordered for tomorrow morning. - Problems/Diagnosis (1) Right shoulder pain Problem: Acute (2) Acute anemia Problem: Acute (3) Diabetes mellitus Problem: Chronic Qualifiers: Diabetes mellitus type: type 1 Diabetes mellitus complication status: with kidney complications Diabetes mellitus complication detail: with chronic kid clive disease Chronic kidney disease stage: stage 4 (severe) Qualified Code(s): E10.22 - Type 1 diabetes mellitus with diabetic chronic kidney disease; N18.4 - Chronic kidney disease, stage 4 (severe) (4) Bacteremia Problem: Acute (5) Acute kidney injury superimposed on CKD Problem: Acute (6) Hip pain, right Problem: Chronic (7) Back pain Problem: Chronic Qualifiers: Back pain location: low back pain (8) UTI (urinary tract infection) Problem: Acute (9) Pelvic fracture Problem: Chronic Qualifiers: Encounter type: subsequent encounter Pelvic bone location: pubis (10) Signs and symptoms of anemia Problem: Acute (11) Recurrent falls Problem: Chronic (12) Decubitus ulcer of coccygeal region Problem: Chronic Qualifiers: Pressure injury stage: stage 1 Qualified Code(s): L89.151 - Pressure ulcer of sacral region, stage 1 (13) Decubitus ulcer of coccygeal region, stage 1 Problem: Acute (14) CKD (chronic kidney disease) stage 4, GFR 15-29 ml/min Problem: Chronic (15) Sepsis Problem: Acute Qualifiers: Sepsis type: methicillin susceptible Staphylococcus aureus
[2020-03-24] MEDS ORDERED: WATER IV SCH ×2 (19:00)
[2020-03-24] MEDS ORDERED: DEXTROSE 5% IV SCH ×2 (19:00)
[2020-03-24] MEDS ORDERED: VANCOMYCIN HCL IV SCH ×2 (19:00)
[2020-03-24] MEDS: CHOLECALCIFEROL 1,000 UNIT CAPSULE PO SCH (20:50)
[2020-03-24] MEDS: ROSUVASTATIN CALCIUM 10 MG TABLET PO SCH (20:50)
[2020-03-24] MEDS: CALCIUM CARBONATE/VITAMIN D3 1 TAB TABLET PO SCH (20:50)
[2020-03-24] MEDS: INSULIN GLARGINE,HUM.REC.ANLOG 100 UNITS/ML VIAL SC SCH (20:57)
[2020-03-25] MEDS: NORMAL SALINE 1,000 ML IV PRN ×3 (01:57→22:53)
[2020-03-25] MEDS: CYCLOBENZAPRINE HCL 10 MG TABLET PO SCH ×3 (04:34→20:31)
[2020-03-25] MEDS: ACETAMINOPHEN 325 MG TABLET PO PRN ×2 (05:39→17:10)
[2020-03-25] MEDS: PANTOPRAZOLE SODIUM 40 MG TABLET.EC PO SCH (06:43)
[2020-03-25] MEDS: INSULIN LISPRO 100 UNITS/ML VIAL SC SCH ×4 (07:09→20:36)
[2020-03-25 07:29] LABS: Hematocrit 24.3 % (37.0-47.0); Mean Cell Volume 89.7 fl (78-100); Mean Corpuscular Hemoglobin 28.8 pg (27-31); Mean Corpuscular Hgb Conc 32.1 g/dl (32-36); Platelet Count 624 K/mm3 (150-450); Red Blood Count 2.71 M/mm3 (4.2-5.4); Red Cell Distribution Width 15.8 % (11.5-14.0); White Blood Count 18.5 K/mm3 (4.0-10.5)
[2020-03-25 07:35] LABS: Hemoglobin 7.8 gm/dL (12.5-16.0)
[2020-03-25 07:36] LABS: Total Cells Counted 100
[2020-03-25 07:44] LABS: Albumin * 1.3 gm/dl (3.4-5.0); Anion Gap 15.5 mmol/L (6.8-13.8); BUN/Creatinine Ratio 27.1 (9.0-21.6); Bilirubin, Total 0.3 mg/dL (0.0-1.1); Ca. Corrected For Albumin 11.1 mg/dL (8.4-10.2); Calcium * 9.3 mg/dL (7.9-10.9); Carbon Dioxide 19.7 mmol/L (24-32.6); Potassium 5.2 mmol/L (3.4-4.6); Total Protein 7.1 gm/dL (6.2-8.2)
[2020-03-25 07:50] LABS: Atypical (Reactive) Lymph 1 % (0-2); Eosinophil 2 % (0-3); Lymphocyte 4 % (20-51); Monocyte 3 % (0-9); Neutrophil 90 % (42-75); Neutrophil # 16.7 K/mm3 (1.3-6.0)
[2020-03-25 07:51] LABS: Platelet Estimate Increased (NORMAL)
[2020-03-25] MEDS: DILTIAZEM HCL 180 MG CAP.SR.24H PO SCH (08:43)
[2020-03-25] MEDS: FUROSEMIDE 20 MG TABLET PO SCH (08:44)
[2020-03-25] MEDS: DULoxetine HCL 30 MG CAPSULE.SA PO SCH (08:44)
[2020-03-25] MEDS: lamoTRIgine 100 MG TABLET PO SCH (08:44)
[2020-03-25] MEDS: LISINOPRIL 20 MG TABLET PO SCH (08:44)
[2020-03-25] MEDS: BUPRENORPHINE HCL SL SCH (08:45)
[2020-03-25] MEDS: NALOXONE HCL SL SCH (08:45)
[2020-03-25] MEDS: MICONAZOLE NITRATE 30 APPL TUBE TP SCH ×2 (08:45→20:32)
--- NOTE | 2020-03-25 08:59 | PN ---
Subjective - Date and Time Seen Date: 03/25/20 Time: 08:58 Subjective Narrative: I am comfortable, but right shoulder hurts. Objective Objective Narrative: 59-year-old female admitted for UTI, bacteremia, Sepsis, right shoulder injury, acute symptomatic anemia, CAIN on CKD, and generalized weakness was evaluated at bedside today was found to be afebrile and in no acute distress. Labs this morning revealed improvement in her leukocytosis indicating that the IV antibiotic is providing adequate coverage, will keep her on the same antibiotics to continue treating her bacteremia. The patient is tolerating in-hospital physical therapy and Occupational Therapy without any issues. We will continue to monitor her and work on discharge planning to a rehab facility. - Review of Systems Generalized/Overall Review: Reports: No Symptoms Reported EENTM: Reports: No Symptoms Reported Respiratory: Reports: No Symptoms Reported Cardiac: Reports: No Symptoms Reported Abdominal: Reports: No Symptoms Reported Genitourinary Symptoms: Reports: No Symptoms Reported Musculoskeletal Complaints: Reports: Joint Pain - Right shoulder and right pelvic pain Neurological: Reports: No Symptoms Reported Skin: Reports: No Symptoms Reported Endocrine: Reports: No Symptoms Reported - Vitals Vitals: Last Vital Signs Temp 36.8 C 03/25/20 06:58 Pulse 84 03/25/20 08:44 Resp 16 03/25/20 06:58 BP 152/59 H 03/25/20 08:44 Pulse Ox 95 03/25/20 06:58 - Abnormal Lab Findings Abnormal Lab Findings: Abnormal Lab Results 03/24/20 03/25/20 03/25/20 Range/Units 09:15 07:10 07:10 WBC 18.5 H (4.0-10.5) K/mm3 RBC 2.71 L (4.2-5.4) M/mm3 Hgb 7.8 L* (12.5-16.0) gm/dL Hct 24.3 L (37.0-47.0) % RDW 15.8 H (11.5-14.0) % Plt Count 624 H (150-450) K/mm3 Neutrophils % (Manual) 90 H (42-75) % Lymphocytes % (Manual) 4 L (20-51) % Neutrophils # (Manual) 16.7 H (1.3-6.0) K/mm3 Lymphocytes # (Manual) 0.7 L (1.5-3.5) k/mm3 Platelet Estimate Increased H (NORMAL) Sodium 129 L (132-142) mmol/L Potassium 5.2 H D (3.4-4.6) mmol/L Carbon Dioxide 19.7 L (24-32.6) mmol/L Anion Gap 15.5 H (6.8-13.8) mmol/L BUN 42 H (3-23) mg/dL Creatinine 1.55 H (0.4-1.4) mg/dL Est GFR (Non-Af Amer) 36 L (60-130) mL/min BUN/Creatinine Ratio 27.1 H (9.0-21.6) Random Glucose 239 H (70-110) mg/dL Calcium Adj for Albumin 11.1 H (8.4-10.2) mg/dL ALT 12 L (19-67) U/L Albumin 1.3 L (3.4-5.0) gm/dl Vancomycin Trough 20.5 H (10.0-20.0) mcg/mL - Exam Constitutional: Present: Alert, Oriented x3, Cooperative, Well developed, Well nourished, No distress ENT Exam: Present: normal ENT inspection, hearing grossly normal Neck: Present: non-tender, full range of motion, supple, normal inspection, trachea midline Breasts: Present: Exam deferred, Nontender Respiratory: Present: chest non-tender, lungs clear, normal breath sounds, no respiratory distress, no accessory muscle use Cardiovascular/Chest: Present: normal peripheral pulses, regular rate, rhythm, no chest tenderness, no edema, no gallop, no JVD, no murmur, no rub Abdomen: Present: Normal bowel sounds, soft, nontender, nondistended, no rebound tenderness, no hepatospenomegaly, no masses /Rectal: Present: Exam deferred Extremity: Present: non-tender, no pedal edema, no calf tenderness, other - Right shoulder and right pelvic tenderness with decreased range of motion. Skin Exam: Present: normal color, warm/dry, no cyanosis Lymphatic: Present: no adenopathy Neurologic: Present: dry dip worker II-XII nml as tested, normal cerebellar test, no motor/sensory deficits, alert, normal mood/affect, oriented x 3 Appearance: Present: appropriate appearance, appropriate insight, neat, no memory impairment Eye contact: Present: cooperative, good eye contact, normal speech Thoughts: Present: normal thought pattern Assessment/Plan Plan Narrative: Labs this morning confirm that hemoglobin is stabilized and is closer to the patient's baseline. We will just monitor for now and repeat labs in the morning. - Problems/Diagnosis (1) Right shoulder pain Problem: Acute (2) Acute anemia Problem: Acute (3) Diabetes mellitus Problem: Chronic Qualifiers: Diabetes mellitus type: type 1 Diabetes mellitus complication status: with kidney complications Diabetes mellitus complication detail: with chronic kidney disease Chronic kidney disease stage: stage 4 (severe) Qualified Code(s): E10.22 - Type 1 diabetes mellitus with diabetic chronic kidney disease; N18.4 - Chronic kidney disease, stage 4 (severe) (4) Bacteremia Problem: Acute (5) Acute kidney injury superimposed on CKD Problem: Acute (6) Hip pain, right Problem: Chronic (7) Back pain Problem: Chronic Qualifiers: Back pain location: low back pain (8) UTI (urinary tract infection) Problem: Acute (9) Pelvic fracture Problem: Chronic Qualifiers: Encounter type: subsequent encounter Pelvic bone location: pubis (10) Signs and symptoms of anemia Problem: Acute (11) Recurrent falls Problem: Chronic (12) Decubitus ulcer of coccygeal region Problem: Chronic Qualifiers: Pressure injury stage: stage 1 Qualified Code(s): L89.151 - Pressure ulcer of sacral region, stage 1 (13) Decubitus ulcer of coccygeal region, stage 1 Problem: Acute (14) CKD (chronic kidney disease) stage 4, GFR 15-29 ml/min Problem: Chronic (15) Sepsis Problem: Acute Qualifiers: Sepsis type: methicillin susceptible Staphylococcus aureus
[2020-03-25] MEDS: PREGABALIN 75 MG CAPSULE PO SCH ×2 (09:05→20:34)
[2020-03-25] MEDS ORDERED: VANCOMYCIN HCL 500 MG in DEXTROSE 5 % IN WATER 100 ML IV SCH ×2 (19:00)
[2020-03-25] MEDS: CHOLECALCIFEROL 1,000 UNIT CAPSULE PO SCH (20:31)
[2020-03-25] MEDS: CALCIUM CARBONATE/VITAMIN D3 1 TAB TABLET PO SCH (20:31)
[2020-03-25] MEDS: ROSUVASTATIN CALCIUM 10 MG TABLET PO SCH (20:31)
[2020-03-25] MEDS: INSULIN GLARGINE,HUM.REC.ANLOG 100 UNITS/ML VIAL SC SCH (20:35)
[2020-03-26] MEDS: CYCLOBENZAPRINE HCL 10 MG TABLET PO SCH ×3 (04:59→21:35)
[2020-03-26] MEDS: ACETAMINOPHEN 325 MG TABLET PO PRN ×2 (05:33→19:03)
[2020-03-26] MEDS: PANTOPRAZOLE SODIUM 40 MG TABLET.EC PO SCH (06:42)
[2020-03-26] MEDS: INSULIN LISPRO 100 UNITS/ML VIAL SC SCH ×4 (06:45→21:31)
[2020-03-26 07:16] LABS: Mean Cell Volume 90.6 fl (78-100); Mean Corpuscular Hemoglobin 28.5 pg (27-31); Mean Corpuscular Hgb Conc 31.5 g/dl (32-36); Mean Platelet Volume 8.9 fl (8-12.5); Platelet Count 564 K/mm3 (150-450); Red Blood Count 2.56 M/mm3 (4.2-5.4); Red Cell Distribution Width 15.7 % (11.5-14.0); White Blood Count 19.5 K/mm3 (4.0-10.5)
[2020-03-26 07:23] LABS: Hemoglobin 7.3 gm/dL (12.5-16.0)
[2020-03-26 07:24] LABS: Hematocrit 23.2 % (37.0-47.0)
[2020-03-26 07:25] LABS: Total Cells Counted 100
[2020-03-26 07:31] LABS: Albumin * 1.4 gm/dl (3.4-5.0); Anion Gap 15.5 mmol/L (6.8-13.8); BUN/Creatinine Ratio 24.2 (9.0-21.6); Bilirubin, Total 0.2 mg/dL (0.0-1.1); Ca. Corrected For Albumin 11.1 mg/dL (8.4-10.2); Calcium * 9.3 mg/dL (7.9-10.9); Carbon Dioxide 22.6 mmol/L (24-32.6); Potassium 4.1 mmol/L (3.4-4.6)
[2020-03-26 07:39] LABS: Atypical (Reactive) Lymph 2 % (0-2); Band 2 % (0-2.0); Eosinophil 1 % (0-3); Immature Granulocyte 2 (0-1); Lymphocyte 7 % (20-51); Monocyte 3 % (0-9); Neutrophil 83 % (42-75); Neutrophil # 16.2 K/mm3 (1.3-6.0)
[2020-03-26 07:42] LABS: Anisocytosis 2+; Hypochromia 2+; Microcytosis 1+; Platelet Estimate Increased (NORMAL); Polychromasia Trace
[2020-03-26] MEDS: DULoxetine HCL 30 MG CAPSULE.SA PO SCH (09:08)
[2020-03-26] MEDS: NALOXONE HCL SL SCH (09:08)
[2020-03-26] MEDS: lamoTRIgine 100 MG TABLET PO SCH (09:08)
[2020-03-26] MEDS: BUPRENORPHINE HCL SL SCH (09:08)
[2020-03-26] MEDS: FUROSEMIDE 20 MG TABLET PO SCH (09:09)
[2020-03-26] MEDS: LISINOPRIL 20 MG TABLET PO SCH (09:10)
[2020-03-26] MEDS: DILTIAZEM HCL 180 MG CAP.SR.24H PO SCH (09:11)
--- NOTE | 2020-03-26 09:20 | PN ---
Subjective - Date and Time Seen Date: 03/26/20 Time: 09:14 Subjective Narrative: I am comfortable. Objective Objective Narrative: 59-year-old female admitted for UTI, bacteremia with MSSA, Sepsis, right shoulder injury, acute symptomatic anemia, and CAIN on CKD was evaluated at bedside this morning was found to be afebrile and in no acute distress. Patient reports being comfortable but still has lingering pain in her right shoulder, her muscle relaxant dose was increased yesterday we will administer a dose this morning. Labs this morning revealed an uptake in her leukocytosis which prompted switching her IV antibiotics to Ancef which was on her susceptibility report for adequate coverage of her MSSA. Her hemoglobin has remained stable which makes ongoing bleeding unlikely. But repeat labs have been ordered for tomorrow morning for reevaluation. This morning she complained of constipation and moving her bowel movements every 2 days and the stools are only minimal, it was explained to her that this could be due to the Suboxone that she is currently on. However in an effort to address her constipation MiraLAX was ordered to her treatment. - Review of Systems Generalized/Overall Review: Reports: No Symptoms Reported EENTM: Reports: No Symptoms Reported Respiratory: Reports: No Symptoms Reported Cardiac: Reports: No Symptoms Reported Abdominal: Reports: No Symptoms Reported Genitourinary Symptoms: Reports: No Symptoms Reported Musculoskeletal Complaints: Reports: Joint Pain, Muscle Pain - Right shoulder muscle pain Neurological: Reports: No Symptoms Reported Skin: Reports: No Symptoms Reported Endocrine: Reports: No Symptoms Reported - Vitals Vitals: Last Vital Signs Temp 37.6 C 03/26/20 08:31 Pulse 87 03/26/20 09:11 Resp 18 03/26/20 08:31 BP 146/59 03/26/20 09:11 Pulse Ox 95 03/26/20 08:31 - Abnormal Lab Findings Abnormal Lab Findings: Abnormal Lab Results 03/26/20 03/26/20 Range/Units 06:57 06:57 WBC 19.5 H (4.0-10.5) K/mm3 RBC 2.56 L (4.2-5.4) M/mm3 Hgb 7.3 L* (12.5-16.0) gm/dL Hct 23.2 L* (37.0-47.0) % MCHC 31.5 L (32-36) g/dl RDW 15.7 H (11.5-14.0) % Plt Count 564 H (150-450) K/mm3 Neutrophils % (Manual) 83 H (42-75) % Lymphocytes % (Manual) 7 L (20-51) % Immature Granulocytes 2 H (0-1) Neutrophils # (Manual) 16.2 H (1.3-6.0) K/mm3 Lymphocytes # (Manual) 1.4 L (1.5-3.5) k/mm3 Platelet Estimate Increased H (NORMAL) Carbon Dioxide 22.6 L (24-32.6) mmol/L Anion Gap 15.5 H (6.8-13.8) mmol/L BUN 37 H (3-23) mg/dL Creatinine 1.53 H (0.4-1.4) mg/dL Est GFR (Non-Af Amer) 37 L (60-130) mL/min BUN/Creatinine Ratio 24.2 H (9.0-21.6) Random Glucose 156 H D (70-110) mg/dL Calcium Adj for Albumin 11.1 H (8.4-10.2) mg/dL ALT 16 L (19-67) U/L Albumin 1.4 L (3.4-5.0) gm/dl - Exam Constitutional: Present: Alert, Oriented x3, Cooperative, Well developed, No distress ENT Exam: Present: normal ENT inspection, hearing grossly normal Neck: Present: non-tender, full range of motion, supple, normal inspection, trachea midline Breasts: Present: Exam deferred Respiratory: Present: chest non-tender, lungs clear, normal breath sounds, no respiratory distress, no accessory muscle use Cardiovascular/Chest: Present: normal peripheral pulses, regular rate, rhythm, no chest tenderness, no edema, no gallop, no JVD, no murmur, no rub Abdomen: Present: Normal bowel sounds, soft, nontender, nondistended, no rebound tenderness, no hepatospenomegaly, no masses /Rectal: Present: Exam deferred Extremity: Present: no pedal edema, no calf tenderness, leg pain Skin Exam: Present: warm/dry, pallor Lymphatic: Present: no adenopathy Neurologic: Present: credit collections specialist II-XII nml as tested, normal cerebellar test, no motor/sensory deficits, alert, normal mood/affect, oriented x 3 Appearance: Present: appropriate appearance, appropriate insight, neat, no memory impairment Eye contact: Present: cooperative, good eye contact, normal speech Thoughts: Present: normal thought pattern, no apparent hallucination Assessment/Plan Plan Narrative: Patient has had no recurrence of fever or chills since arriving to the hospital and she maintained stable vitals. We will repeat labs in the morning for reevaluation of leukocytosis anemia electrolytes and renal function. The patient will be signed out to the on-call physician for the weekend. Discharge planning is underway and we are in the process of finding placement at a rehab facility. - Problems/Diagnosis (1) Right shoulder pain Problem: Acute (2) Acute anemia Problem: Acute (3) Diabetes mellitus Problem: Chronic Qualifiers: Diabetes mellitus type: type 1 Diabetes mellitus complication status: with kidney complications Diabetes mellitus complication detail: with chronic kidney disease Chronic kidney disease stage: stage 4 (severe) Qualified Code(s): E10.22 - Type 1 diabetes mellitus with diabetic chronic kidney disease; N18.4 - Chronic kidney disease, stage 4 (severe) (4) Bacteremia Problem: Acute (5) Acute kidney injury superimposed on CKD Problem: Acute (6) Hip pain, right Problem: Chronic (7) Back pain Problem: Chronic Qualifiers: Back pain location: low back pain (8) UTI (urinary tract infection) Problem: Acute (9) Pelvic fracture Problem: Chronic Qualifiers: Encounter type: subsequent encounter Pelvic bone location: pubis (10) Signs and symptoms of anemia Problem: Acute (11) Recurrent falls Problem: Chronic (12) Decubitus ulcer of coccygeal region Problem: Chronic Qualifiers: Pressure injury stage: stage 1 Qualified Code(s): L89.151 - Pressure ulcer of sacral region, stage 1 (13) Decubitus ulcer of coccygeal region, stage 1 Problem: Acute (14) CKD (chronic kidney disease) stage 4, GFR 15-29 ml/min Problem: Chronic (15) Sepsis Problem: Acute Qualifiers: Sepsis type: methicillin susceptible Staphylococcus aureus (16) Constipation Problem: Acute
[2020-03-26] MEDS: POLYETHYLENE GLYCOL 3350 17 GM PACKET PO SCH (10:26)
[2020-03-26] MEDS: MICONAZOLE NITRATE 30 APPL TUBE TP SCH ×2 (10:26→21:42)
[2020-03-26] MEDS: PREGABALIN 75 MG CAPSULE PO SCH ×2 (10:29→21:42)
[2020-03-26] MEDS: CEFAZOLIN SODIUM/DEXTROSE,ISO 1 GM/50 ML BAG IV SCH ×2 (10:47→17:17)
[2020-03-26] MEDS: NORMAL SALINE 1,000 ML IV PRN ×2 (11:01→21:36)
[2020-03-26] MEDS ORDERED: FLU VACC QS2020-21(6MOS UP)/PF 60 MCG/0.5 ML SYRINGE IM ONE (15:17)
[2020-03-26] MEDS: INSULIN GLARGINE,HUM.REC.ANLOG 100 UNITS/ML VIAL SC SCH (21:33)
[2020-03-26] MEDS: ROSUVASTATIN CALCIUM 10 MG TABLET PO SCH (21:34)
[2020-03-26] MEDS: CHOLECALCIFEROL 1,000 UNIT CAPSULE PO SCH (21:35)
[2020-03-26] MEDS: CALCIUM CARBONATE/VITAMIN D3 1 TAB TABLET PO SCH (21:35)
[2020-03-27] MEDS: CEFAZOLIN SODIUM/DEXTROSE,ISO 1 GM/50 ML BAG IV SCH ×3 (02:28→17:51)
[2020-03-27] MEDS: CYCLOBENZAPRINE HCL 10 MG TABLET PO SCH ×3 (05:42→21:37)
[2020-03-27] MEDS: INSULIN LISPRO 100 UNITS/ML VIAL SC SCH ×4 (06:51→21:34)
[2020-03-27] MEDS: PANTOPRAZOLE SODIUM 40 MG TABLET.EC PO SCH (06:51)
[2020-03-27] MEDS: ACETAMINOPHEN 325 MG TABLET PO PRN ×3 (07:00→19:59)
[2020-03-27 07:31] LABS: Mean Cell Volume 90.2 fl (78-100); Mean Corpuscular Hemoglobin 28.2 pg (27-31); Mean Corpuscular Hgb Conc 31.3 g/dl (32-36); Mean Platelet Volume 8.8 fl (8-12.5); Neutrophil # 12.7 K/mm3 (1.3-6.0); Neutrophil % 79.8 % (42-75.0); Platelet Count 505 K/mm3 (150-450); Red Blood Count 2.55 M/mm3 (4.2-5.4); Red Cell Distribution Width 15.4 % (11.5-14.0)
[2020-03-27 07:39] LABS: Hemoglobin 7.2 gm/dL (12.5-16.0)
[2020-03-27] MEDS: NORMAL SALINE 1,000 ML IV PRN (07:57)
[2020-03-27] MEDS: lamoTRIgine 100 MG TABLET PO SCH (08:49)
[2020-03-27] MEDS: DILTIAZEM HCL 180 MG CAP.SR.24H PO SCH (08:50)
[2020-03-27] MEDS: POLYETHYLENE GLYCOL 3350 17 GM PACKET PO SCH (08:50)
[2020-03-27] MEDS: LISINOPRIL 20 MG TABLET PO SCH (08:50)
[2020-03-27] MEDS: FUROSEMIDE 20 MG TABLET PO SCH (08:50)
[2020-03-27] MEDS: DULoxetine HCL 30 MG CAPSULE.SA PO SCH (08:50)
[2020-03-27] MEDS: MICONAZOLE NITRATE 30 APPL TUBE TP SCH ×2 (08:53→21:40)
[2020-03-27] MEDS: BUPRENORPHINE HCL SL SCH (08:54)
[2020-03-27] MEDS: NALOXONE HCL SL SCH (08:54)
[2020-03-27] MEDS: PREGABALIN 75 MG CAPSULE PO SCH ×2 (09:04→21:42)
[2020-03-27] MEDS: ROSUVASTATIN CALCIUM 10 MG TABLET PO SCH (21:37)
[2020-03-27] MEDS: CALCIUM CARBONATE/VITAMIN D3 1 TAB TABLET PO SCH (21:37)
[2020-03-27] MEDS: INSULIN GLARGINE,HUM.REC.ANLOG 100 UNITS/ML VIAL SC SCH (21:38)
[2020-03-27] MEDS: CHOLECALCIFEROL 1,000 UNIT CAPSULE PO SCH (21:40)
--- NOTE | 2020-03-27 22:20 | PN ---
Subjective - Date and Time Seen Date: 03/27/20 Time: 09:30 Subjective Narrative: No fever, chills. She reports pain is not controlled and she was not able to work with therapy today. Therapy confirms this. She reports her PCP had increased her suboxone to one film TID and she has only been getting one film a day here. Verified with her pharmacy that she was increased to 1 film TID. Objective - Vitals Vitals: Last Vital Signs Temp 36.0 C 03/27/20 18:17 Pulse 83 03/27/20 18:17 Resp 16 03/27/20 18:17 BP 177/72 H 03/27/20 18:17 Pulse Ox 95 03/27/20 18:17 - Abnormal Lab Findings Abnormal Lab Findings: Abnormal Lab Results 03/27/20 Range/Units 07:25 WBC 16.0 H (4.0-10.5) K/mm3 RBC 2.55 L (4.2-5.4) M/mm3 Hgb 7.2 L* (12.5-16.0) gm/dL Hct 23.0 L* (37.0-47.0) % MCHC 31.3 L (32-36) g/dl RDW 15.4 H (11.5-14.0) % Plt Count 505 H (150-450) K/mm3 Immature Gran % (Auto) 2.70 H (0.001-0.429) % Immature Gran # (Auto) 0.43 H (0.000-0.0310) K/mm3 Neutrophils % 79.8 H (42-75.0) % Lymphocytes % 12.1 L (20-51) % Neutrophils # 12.7 H (1.3-6.0) K/mm3 - Exam Constitutional: Present: Alert, Oriented x3, Cooperative ENT Exam: Present: hearing grossly normal Respiratory: Present: lungs clear, normal breath sounds, no respiratory distress Cardiovascular/Chest: Present: regular rate, rhythm, edema - 1+ Abdomen: Present: Normal bowel sounds, soft, nontender, nondistended Skin Exam: Present: normal color, warm/dry, no cyanosis Appearance: Present: appropriate appearance, appropriate insight Eye contact: Present: cooperative, good eye contact, normal speech Assessment/Plan Plan Narrative: Medically stable. Needing alf placement. Continue therapy, but will need improved pain control. Will increase suboxone to 2 films daily at this time, may need to go back to her home regimen of 3 films daily. No other changes made today. - Problems/Diagnosis (1) Bacteremia Problem: Acute (2) Right shoulder pain Problem: Acute (3) Chronic pain Problem: Chronic (4) Pelvic fracture Problem: Chronic Qualifiers: Encounter type: subsequent encounter Pelvic bone location: pubis (5) Acute kidney injury superimposed on CKD Problem: Acute
[2020-03-28] MEDS: CEFAZOLIN SODIUM/DEXTROSE,ISO 1 GM/50 ML BAG IV SCH ×3 (01:44→16:42)
[2020-03-28] MEDS: CYCLOBENZAPRINE HCL 10 MG TABLET PO SCH ×3 (05:05→20:57)
[2020-03-28] MEDS: PANTOPRAZOLE SODIUM 40 MG TABLET.EC PO SCH (07:03)
[2020-03-28] MEDS: ACETAMINOPHEN 325 MG TABLET PO PRN ×3 (07:03→21:00)
[2020-03-28] MEDS: INSULIN LISPRO 100 UNITS/ML VIAL SC SCH ×4 (07:05→20:49)
[2020-03-28] MEDS: NALOXONE HCL SL SCH (08:13)
[2020-03-28] MEDS: BUPRENORPHINE HCL SL SCH (08:13)
[2020-03-28] MEDS: DULoxetine HCL 30 MG CAPSULE.SA PO SCH (08:14)
[2020-03-28] MEDS: LISINOPRIL 20 MG TABLET PO SCH (08:14)
[2020-03-28] MEDS: FUROSEMIDE 20 MG TABLET PO SCH (08:14)
[2020-03-28] MEDS: DILTIAZEM HCL 180 MG CAP.SR.24H PO SCH (08:15)
[2020-03-28] MEDS: POLYETHYLENE GLYCOL 3350 17 GM PACKET PO SCH (08:15)
[2020-03-28] MEDS: lamoTRIgine 100 MG TABLET PO SCH (08:15)
[2020-03-28] MEDS: MICONAZOLE NITRATE 30 APPL TUBE TP SCH ×2 (08:19→21:13)
[2020-03-28] MEDS: PREGABALIN 75 MG CAPSULE PO SCH ×2 (08:19→20:56)
[2020-03-28] MEDS: CHOLECALCIFEROL 1,000 UNIT CAPSULE PO SCH (20:57)
[2020-03-28] MEDS: ROSUVASTATIN CALCIUM 10 MG TABLET PO SCH (20:57)
[2020-03-28] MEDS: CALCIUM CARBONATE/VITAMIN D3 1 TAB TABLET PO SCH (20:57)
[2020-03-28] MEDS: INSULIN GLARGINE,HUM.REC.ANLOG 100 UNITS/ML VIAL SC SCH (20:58)
--- NOTE | 2020-03-28 21:41 | PN ---
Subjective - Date and Time Seen Date: 03/28/20 Time: 10:30 Subjective Narrative: Viji reports feeling better today. Pain is controlled. She feels that she can work with PT today. No fever, chills, nausea, or vomiting. Objective - Vitals Vitals: Last Vital Signs Temp 36.8 C 03/28/20 17:20 Pulse 90 03/28/20 17:20 Resp 18 03/28/20 17:20 BP 162/61 H 03/28/20 17:20 Pulse Ox 97 03/28/20 17:20 - Exam Constitutional: Present: Alert, Oriented x3, Cooperative ENT Exam: Present: hearing grossly normal Respiratory: Present: lungs clear, normal breath sounds, no respiratory distress Cardiovascular/Chest: Present: regular rate, rhythm, no murmur Abdomen: Present: Normal bowel sounds, soft, nontender, nondistended Eye contact: Present: cooperative, good eye contact, normal speech Thoughts: Present: normal thought pattern, no apparent hallucination Assessment/Plan Plan Narrative: Pain controlled today after suboxone was increased to 2 films per day. This was increased to 2 after she reported and verified that she had been increased on her home dose to one film TID by her PCP. Encouraged to work on strengthening with therapy. No other changes made today. Medically stable, but still needs to improve strength. - Problems/Diagnosis (1) Bacteremia Problem: Acute (2) Right shoulder pain Problem: Acute (3) Chronic pain Problem: Chronic (4) Pelvic fracture Problem: Chronic Qualifiers: Encounter type: subsequent encounter Pelvic bone location: pubis (5) Acute kidney injury superimposed on CKD Problem: Acute
[2020-03-29] MEDS: CEFAZOLIN SODIUM/DEXTROSE,ISO 1 GM/50 ML BAG IV SCH ×3 (01:30→16:45)
[2020-03-29] MEDS: ACETAMINOPHEN 325 MG TABLET PO PRN ×4 (02:53→21:30)
[2020-03-29] MEDS: CYCLOBENZAPRINE HCL 10 MG TABLET PO SCH ×3 (04:18→21:17)
[2020-03-29] MEDS: INSULIN LISPRO 100 UNITS/ML VIAL SC SCH ×4 (06:47→21:21)
[2020-03-29] MEDS: FUROSEMIDE 20 MG TABLET PO SCH (08:43)
[2020-03-29] MEDS: PANTOPRAZOLE SODIUM 40 MG TABLET.EC PO SCH (08:44)
[2020-03-29] MEDS: DULoxetine HCL 30 MG CAPSULE.SA PO SCH (08:44)
[2020-03-29] MEDS: DILTIAZEM HCL 180 MG CAP.SR.24H PO SCH (08:44)
[2020-03-29] MEDS: LISINOPRIL 20 MG TABLET PO SCH (08:44)
[2020-03-29] MEDS: lamoTRIgine 100 MG TABLET PO SCH (08:45)
[2020-03-29] MEDS: MICONAZOLE NITRATE 30 APPL TUBE TP SCH ×2 (08:45→21:17)
[2020-03-29] MEDS: NALOXONE HCL SL SCH (08:45)
[2020-03-29] MEDS: POLYETHYLENE GLYCOL 3350 17 GM PACKET PO SCH (08:45)
[2020-03-29] MEDS: BUPRENORPHINE HCL SL SCH (08:45)
[2020-03-29] MEDS: PREGABALIN 75 MG CAPSULE PO SCH ×2 (08:51→21:16)
--- NOTE | 2020-03-29 09:12 | PN ---
Subjective - Date and Time Seen Date: 03/29/20 Time: 09:12 Subjective Narrative: I have right shoulder and cervical neck pain. Objective Objective Narrative: 59-year-old female admitted for UTI, bacteremia with MSSA, Sepsis, right shoulder injury, acute symptomatic anemia, and CAIN on CKD was evaluated at bedside this morning was found to be afebrile and in no acute distress. Patient reports having right shoulder and cervical neck pain this morning, will administer her Suboxone which helps with her pain. The patient had a rough weekend and said she was unable to participate in her physical therapy due to pain, however starting today she intends to resume her physical therapy to maximize her rehab. Her last labs revealed improvement of her leukocytosis after her IV antibiotics were switched per the susceptibility report. There has been no recurrence of fever or any new complaints. We will continue working on discharge planning to a rehab facility. - Review of Systems Generalized/Overall Review: Reports: No Symptoms Reported EENTM: Reports: No Symptoms Reported Respiratory: Reports: No Symptoms Reported Cardiac: Reports: No Symptoms Reported Abdominal: Reports: No Symptoms Reported Genitourinary Symptoms: Reports: No Symptoms Reported Musculoskeletal Complaints: Reports: Joint Pain Neurological: Reports: No Symptoms Reported Skin: Reports: No Symptoms Reported Endocrine: Reports: No Symptoms Reported - Vitals Vitals: Last Vital Signs Temp 36.6 C 03/29/20 06:40 Pulse 80 03/29/20 08:44 Resp 18 03/29/20 06:40 BP 140/60 03/29/20 08:44 Pulse Ox 96 03/29/20 06:40 - Exam Constitutional: Present: Alert, Oriented x3, Cooperative, Well developed, No distress ENT Exam: Present: normal ENT inspection, hearing grossly normal, pharynx normal, TMs normal Neck: Present: non-tender, full range of motion, supple, normal inspection, trachea midline Breasts: Present: Exam deferred, Nontender Respiratory: Present: chest non-tender, lungs clear, normal breath sounds, no respiratory distress, no accessory muscle use Cardiovascular/Chest: Present: normal peripheral pulses, regular rate, rhythm, no chest tenderness, no edema, no gallop, no JVD, no murmur, no rub Abdomen: Present: Normal bowel sounds, soft, nontender, nondistended, no rebound tenderness, no hepatospenomegaly, no masses /Rectal: Present: Exam deferred Extremity: Present: non-tender, no pedal edema, no calf tenderness Skin Exam: Present: normal color, warm/dry, no cyanosis Lymphatic: Present: no adenopathy Neurologic: Present: pre press operator II-XII nml as tested, normal cerebellar test, no motor/sensory deficits, alert, normal mood/affect, oriented x 3 Appearance: Present: appropriate appearance, appropriate insight, neat, no memory impairment Eye contact: Present: cooperative, good eye contact, normal speech Thoughts: Present: normal thought pattern, no apparent hallucination Assessment/Plan Plan Narrative: Repeat CBC has been ordered for evaluation of leukocytosis and hemoglobin levels. We will tweak her in hospital treatment accordingly. - Problems/Diagnosis (1) Right shoulder pain Problem: Acute (2) Acute anemia Problem: Acute (3) Diabetes mellitus Problem: Chronic Qualifiers: Diabetes mellitus type: type 1 Diabetes mellitus complication status: with kidney complications Diabetes mellitus complication detail: with chronic kidney disease Chronic kidney disease stage: stage 4 (severe) Qualified Code(s): E10.22 - Type 1 diabetes mellitus with diabetic chronic kidney disease; N18.4 - Chronic kidney disease, stage 4 (severe) (4) Bacteremia Problem: Acute (5) Acute kidney injury superimposed on CKD Problem: Acute (6) Hip pain, right Problem: Chronic (7) Back pain Problem: Chronic Qualifiers: Back pain location: low back pain (8) UTI (urinary tract infection) Problem: Acute (9) Pelvic fracture Problem: Chronic Qualifiers: Encounter type: subsequent encounter Pelvic bone location: pubis (10) Signs and symptoms of anemia Problem: Acute (11) Recurrent falls Problem: Chronic (12) Decubitus ulcer of coccygeal region Problem: Chronic Qualifiers: Pressure injury stage: stage 1 Qualified Code(s): L89.151 - Pressure ulcer of sacral region, stage 1 (13) Decubitus ulcer of coccygeal region, stage 1 Problem: Acute (14) CKD (chronic kidney disease) stage 4, GFR 15-29 ml/min Problem: Chronic (15) Sepsis Problem: Acute Qualifiers: Sepsis type: methicillin susceptible Staphylococcus aureus (16) Constipation Problem: Acute
[2020-03-29 09:38] LABS: Mean Cell Volume 90.6 fl (78-100); Mean Corpuscular Hemoglobin 28.7 pg (27-31); Mean Corpuscular Hgb Conc 31.7 g/dl (32-36); Mean Platelet Volume 8.7 fl (8-12.5); Neutrophil # 13.7 K/mm3 (1.3-6.0); Neutrophil % 86.5 % (42-75.0); Platelet Count 455 K/mm3 (150-450); Red Blood Count 2.44 M/mm3 (4.2-5.4); Red Cell Distribution Width 15.3 % (11.5-14.0); White Blood Count 15.8 K/mm3 (4.0-10.5)
[2020-03-29 09:46] LABS: Hematocrit 22.1 % (37.0-47.0)
[2020-03-29] MEDS: CHOLECALCIFEROL 1,000 UNIT CAPSULE PO SCH (21:16)
[2020-03-29] MEDS: ROSUVASTATIN CALCIUM 10 MG TABLET PO SCH (21:16)
[2020-03-29] MEDS: CALCIUM CARBONATE/VITAMIN D3 1 TAB TABLET PO SCH (21:16)
[2020-03-29] MEDS: INSULIN GLARGINE,HUM.REC.ANLOG 100 UNITS/ML VIAL SC SCH (21:25)
[2020-03-30] MEDS: CEFAZOLIN SODIUM/DEXTROSE,ISO 1 GM/50 ML BAG IV SCH ×3 (00:59→17:00)
[2020-03-30] MEDS: ACETAMINOPHEN 325 MG TABLET PO PRN ×4 (02:47→20:53)
[2020-03-30] MEDS: CYCLOBENZAPRINE HCL 10 MG TABLET PO SCH ×3 (04:27→20:53)
[2020-03-30] MEDS: PANTOPRAZOLE SODIUM 40 MG TABLET.EC PO SCH (06:22)
[2020-03-30 06:33] LABS: Mean Cell Volume 91.6 fl (78-100); Mean Corpuscular Hemoglobin 28.5 pg (27-31); Mean Corpuscular Hgb Conc 31.1 g/dl (32-36); Mean Platelet Volume 8.7 fl (8-12.5); Neutrophil # 12.9 K/mm3 (1.3-6.0); Platelet Count 405 K/mm3 (150-450); Red Blood Count 2.39 M/mm3 (4.2-5.4); White Blood Count 15.4 K/mm3 (4.0-10.5)
[2020-03-30 07:15] LABS: Hematocrit 21.9 % (37.0-47.0); Hemoglobin 6.8 gm/dL (12.5-16.0)
[2020-03-30] MEDS: INSULIN LISPRO 100 UNITS/ML VIAL SC SCH ×4 (07:28→20:58)
--- NOTE | 2020-03-30 09:18 | PN ---
Subjective - Date and Time Seen Date: 03/30/20 Time: 09:12 Subjective Narrative: I still have right shoulder blade pain. Objective Objective Narrative: 59-year-old female admitted for UTI, bacteremia with MSSA, Sepsis, right shoulder injury, acute symptomatic anemia, and CAIN on CKD was evaluated at bedside this morning was found to be afebrile and in no acute distress. Patient is doing much better with inpatient physical therapy, she is cooperative and does not require a Fadumo lift at the moment. Labs this morning revealed anemia with hemoglobin below 7, so we will transfuse 1 unit of PRBCs. Her leukocytosis is slowly improving ever since her IV antibiotics were switched, will continue to monitor this closely. The patient continues to complain of right shoulder pain which he says located right in between both shoulder blades but more in the right. The x-ray of her right shoulder done on admission was negative for any fractures so this is possibly a soft tissue injury from her fall. We will celi nue to apply ice to the area and to treat the patient with her Suboxone in conjunction with muscle relaxants. - Review of Systems Generalized/Overall Review: Reports: No Symptoms Reported EENTM: Reports: No Symptoms Reported Respiratory: Reports: No Symptoms Reported Cardiac: Reports: No Symptoms Reported Abdominal: Reports: No Symptoms Reported Genitourinary Symptoms: Reports: No Symptoms Reported Musculoskeletal Complaints: Reports: Joint Pain - Right shoulder pain Neurological: Reports: No Symptoms Reported Skin: Reports: No Symptoms Reported Endocrine: Reports: No Symptoms Reported - Vitals Vitals: Last Vital Signs Temp 36.9 C 03/30/20 06:25 Pulse 88 03/30/20 06:25 Resp 20 03/30/20 06:25 BP 156/65 H 03/30/20 06:25 Pulse Ox 95 03/30/20 06:25 - Abnormal Lab Findings Abnormal Lab Findings: Abnormal Lab Results 03/29/20 03/30/20 03/30/20 Range/Units 09:30 06:15 07:38 WBC 15.8 H 15.4 H (4.0-10.5) K/mm3 RBC 2.44 L 2.39 L (4.2-5.4) M/mm3 Hgb 7.0 L* 6.8 L* (12.5-16.0) gm/dL Hct 22.1 L* 21.9 L* (37.0-47.0) % MCHC 31.7 L 31.1 L (32-36) g/dl RDW 15.3 H 15.0 H (11.5-14.0) % Plt Count 455 H (150-450) K/mm3 Immature Gran % (Auto) 1.00 H 0.80 H (0.001-0.429) % Immature Gran # (Auto) 0.16 H 0.12 H (0.000-0.0310) K/mm3 Neutrophils % 86.5 H 84.0 H (42-75.0) % Lymphocytes % 7.4 L 9.3 L (20-51) % Neutrophils # 13.7 H 12.9 H (1.3-6.0) K/mm3 Lymphocytes # 1.17 L 1.43 L (1.5-3.5) k/mm3 Crossmatch See Detail - Exam Constitutional: Present: Alert, Oriented x3, Cooperative, Well developed, No distress, Looks Older than stated age ENT Exam: Present: normal ENT inspection, hearing grossly normal Neck: Present: non-tender, full range of motion, supple, normal inspection, trachea midline Breasts: Present: Exam deferred Respiratory: Present: chest non-tender, lungs clear, normal breath sounds, no respiratory distress, no accessory muscle use Cardiovascular/Chest: Present: normal peripheral pulses, regular rate, rhythm, no chest tenderness, no edema, no gallop, no JVD, no murmur, no rub Abdomen: Present: Normal bowel sounds, soft, nontender, nondistended, no rebound tenderness, no hepatospenomegaly, no masses /Rectal: Present: Exam deferred Extremity: Present: no pedal edema, no calf tenderness, other - Tenderness in right scapular region Skin Exam: Present: warm/dry, no cyanosis, pallor Lymphatic: Present: no adenopathy Neurologic: Present: [employer] combat skills II-XII nml as tested, normal cerebellar test, no motor/sensory deficits, alert, normal mood/affect, oriented x 3 Appearance: Present: appropriate appearance, appropriate insight, neat, no memory impairment Eye contact: Present: cooperative, good eye contact, normal speech Thoughts: Present: normal thought pattern, no apparent hallucination Assessment/Plan Plan Narrative: We are currently working on discharge planning with plans to discharge patient to a care facility where she can continue her rehab. In the meantime we will transfuse 1 unit of PRBCs and reevaluate hemoglobin levels after transfusion. We will continue the current IV antibiotics. - Problems/Diagnosis (1) Right shoulder pain Problem: Acute (2) Acute anemia Problem: Acute (3) Diabetes mellitus Problem: Chronic Qualifiers: Diabetes mellitus type: type 1 Diabetes mellitus complication status: with kidney complications Diabetes mellitus complication detail: with chronic kidney disease Chronic kidney disease stage: stage 4 (severe) Qualified Code(s): E10.22 - Type 1 diabetes mellitus with diabetic chronic kidney disease; N18.4 - Chronic kidney disease, stage 4 (severe) (4) Bacteremia Problem: Acute (5) Acute kidney injury superimposed on CKD Problem: Acute (6) Hip pain, right Problem: Chronic (7) Back pain Problem: Chronic Qualifiers: Back pain location: low back pain (8) UTI (urinary tract infection) Problem: Acute (9) Pelvic fracture Problem: Chronic Qualifiers: Encounter type: subsequent encounter Pelvic bone location: pubis (10) Signs and symptoms of anemia Problem: Acute (11) Recurrent falls Problem: Chronic (12) Decubitus ulcer of coccygeal region Problem: Chronic Qualifiers: Pressure injury stage: stage 1 Qualified Code(s): L89.151 - Pressure ulcer of sacral region, stage 1 (13) Decubitus ulcer of coccygeal region, stage 1 Problem: Acute (14) CKD (chronic kidney disease) stage 4, GFR 15-29 ml/min Problem: Chronic (15) Sepsis Problem: Acute Qualifiers: Sepsis type: methicillin susceptible Staphylococcus aureus (16) Constipation Problem: Acute
[2020-03-30] MEDS: NALOXONE HCL SL SCH (09:33)
[2020-03-30] MEDS: POLYETHYLENE GLYCOL 3350 17 GM PACKET PO SCH (09:33)
[2020-03-30] MEDS: FUROSEMIDE 20 MG TABLET PO SCH (09:33)
[2020-03-30] MEDS: BUPRENORPHINE HCL SL SCH (09:33)
[2020-03-30] MEDS: lamoTRIgine 100 MG TABLET PO SCH (09:33)
[2020-03-30] MEDS: DILTIAZEM HCL 180 MG CAP.SR.24H PO SCH (09:34)
[2020-03-30] MEDS: LISINOPRIL 20 MG TABLET PO SCH (09:34)
[2020-03-30] MEDS: MICONAZOLE NITRATE 30 APPL TUBE TP SCH ×2 (09:35→20:54)
[2020-03-30] MEDS: DULoxetine HCL 30 MG CAPSULE.SA PO SCH (09:35)
[2020-03-30] MEDS: PREGABALIN 75 MG CAPSULE PO SCH ×2 (09:52→20:52)
[2020-03-30] MEDS: CALCIUM CARBONATE/VITAMIN D3 1 TAB TABLET PO SCH (20:52)
[2020-03-30] MEDS: ROSUVASTATIN CALCIUM 10 MG TABLET PO SCH (20:53)
[2020-03-30] MEDS: CHOLECALCIFEROL 1,000 UNIT CAPSULE PO SCH (20:54)
[2020-03-30] MEDS: INSULIN GLARGINE,HUM.REC.ANLOG 100 UNITS/ML VIAL SC SCH (21:00)
[2020-03-31] MEDS: CEFAZOLIN SODIUM/DEXTROSE,ISO 1 GM/50 ML BAG IV SCH ×3 (01:20→16:21)
[2020-03-31] MEDS: ACETAMINOPHEN 325 MG TABLET PO PRN ×3 (01:28→16:28)
[2020-03-31] MEDS: PANTOPRAZOLE SODIUM 40 MG TABLET.EC PO SCH (06:45)
[2020-03-31] MEDS: CYCLOBENZAPRINE HCL 10 MG TABLET PO SCH ×3 (06:48→21:04)
[2020-03-31] MEDS: INSULIN LISPRO 100 UNITS/ML VIAL SC SCH ×3 (08:00→16:31)
[2020-03-31] MEDS: NALOXONE HCL SL SCH (08:46)
[2020-03-31] MEDS: BUPRENORPHINE HCL SL SCH (08:46)
[2020-03-31] MEDS: POLYETHYLENE GLYCOL 3350 17 GM PACKET PO SCH (08:46)
[2020-03-31] MEDS: DILTIAZEM HCL 180 MG CAP.SR.24H PO SCH (08:47)
[2020-03-31] MEDS: DULoxetine HCL 30 MG CAPSULE.SA PO SCH (08:48)
[2020-03-31] MEDS: FUROSEMIDE 20 MG TABLET PO SCH (08:48)
[2020-03-31] MEDS: lamoTRIgine 100 MG TABLET PO SCH (08:49)
[2020-03-31] MEDS: MICONAZOLE NITRATE 30 APPL TUBE TP SCH ×2 (08:50→21:11)
[2020-03-31] MEDS: LISINOPRIL 20 MG TABLET PO SCH (08:50)
[2020-03-31] MEDS: PREGABALIN 75 MG CAPSULE PO SCH ×2 (08:52→21:04)
--- NOTE | 2020-03-31 09:12 | PN ---
Subjective - Date and Time Seen Date: 03/31/20 Subjective Narrative: I feel good this morning, my pain is better. Objective - Review of Systems Generalized/Overall Review: Reports: No Symptoms Reported EENTM: Reports: Mouth Pain - Painful sore on tongue Respiratory: Reports: No Symptoms Reported Cardiac: Reports: No Symptoms Reported Abdominal: Reports: No Symptoms Reported Genitourinary Symptoms: Reports: No Symptoms Reported Musculoskeletal Complaints: Reports: No Symptoms Reported Neurological: Reports: No Symptoms Reported Skin: Reports: No Symptoms Reported Endocrine: Reports: No Symptoms Reported - Vitals Vitals: Last Vital Signs Temp 37.0 C 03/31/20 06:38 Pulse 85 03/31/20 08:50 Resp 16 03/31/20 06:38 BP 148/87 03/31/20 08:50 Pulse Ox 93 03/31/20 06:38 - Abnormal Lab Findings Abnormal Lab Findings: Abnormal Lab Results 03/30/20 Range/Units 07:38 Crossmatch See Detail - Exam Constitutional: Present: Alert, Oriented x3, Cooperative, Well developed, Well nourished, No distress ENT Exam: Present: hearing grossly normal, pharynx normal, moist mucous membranes, other - Mildly tender sore on right lateral aspect of sublingular region. Neck: Present: non-tender, full range of motion, supple, normal inspection, trachea midline Breasts: Present: Exam deferred, Nontender Respiratory: Present: chest non-tender, lungs clear, normal breath sounds, no respiratory distress, no accessory muscle use Cardiovascular/Chest: Present: normal peripheral pulses, regular rate, rhythm, no chest tenderness, no edema, no gallop, no JVD, no murmur, no rub Abdomen: Present: Normal bowel sounds, soft, nontender, nondistended, no rebound tenderness, no hepatospenomegaly, no masses /Rectal: Present: Exam deferred Extremity: Present: no pedal edema, no calf tenderness, leg pain Skin Exam: Present: warm/dry, no cyanosis, pallor Lymphatic: Present: no adenopathy 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 We will follow-up with CBC results for evaluation of hemoglobin levels as well as WBCs, CMP was also ordered to evaluate electrolytes and renal function. - Problems/Diagnosis (1) Right shoulder pain Problem: Acute (2) Acute anemia Problem: Acute (3) Diabetes mellitus Problem: Chronic Qualifiers: Diabetes mellitus type: type 1 Diabetes mellitus complication status: with kidney complications Diabetes mellitus complication detail: with chronic kidney disease Chronic kidney disease stage: stage 4 (severe) Qualified Code(s): E10.22 - Type 1 diabetes mellitus with diabetic chronic kidney disease; N18.4 - Chronic kidney disease, stage 4 (severe) (4) Bacteremia Problem: Acute (5) Acute kidney injury superimposed on CKD Problem: Acute (6) Hip pain, right Problem: Chronic (7) Back pain Problem: Chronic Qualifiers: Back pain location: low back pain (8) UTI (urinary tract infection) Problem: Acute (9) Pelvic fracture Problem: Chronic Qualifiers: Encounter type: subsequent encounter Pelvic bone location: pubis (10) Signs and symptoms of anemia Problem: Acute (11) Recurrent falls Problem: Chronic (12) Decubitus ulcer of coccygeal region Problem: Chronic Qualifiers: Pressure injury stage: stage 1 Qualified Code(s): L89.151 - Pressure ulcer of sacral region, stage 1 (13) Decubitus ulcer of coccygeal region, stage 1 Problem: Acute (14) CKD (chronic kidney disease) stage 4, GFR 15-29 ml/min Problem: Chronic (15) Sepsis Problem: Acute Qualifiers: Sepsis type: methicillin susceptible Staphylococcus aureus (16) Constipation Problem: Acute
[2020-03-31 09:20] LABS: Hematocrit 27.2 % (37.0-47.0); Hemoglobin 8.8 gm/dL (12.5-16.0); Mean Cell Volume 90.4 fl (78-100); Mean Corpuscular Hemoglobin 29.2 pg (27-31); Mean Corpuscular Hgb Conc 32.4 g/dl (32-36); Mean Platelet Volume 8.8 fl (8-12.5); Neutrophil # 14.4 K/mm3 (1.3-6.0); Neutrophil % 87.8 % (42-75.0); Platelet Count 407 K/mm3 (150-450); Red Blood Count 3.01 M/mm3 (4.2-5.4); Red Cell Distribution Width 14.5 % (11.5-14.0); White Blood Count 16.4 K/mm3 (4.0-10.5)
[2020-03-31 09:36] LABS: Albumin * 1.6 gm/dl (3.4-5.0); Anion Gap 8.9 mmol/L (6.8-13.8); BUN/Creatinine Ratio 17.2 (9.0-21.6); Bilirubin, Total 0.2 mg/dL (0.0-1.1); Ca. Corrected For Albumin 11.6 mg/dL (8.4-10.2); Carbon Dioxide 34.1 mmol/L (24-32.6)
[2020-03-31] MEDS: NYSTATIN 30 ML, diphenhydrAMINE HCL 75 MG, LIDOCAINE HCL 30 ML, MAG HYDROX/ALUMINUM HYD... PO SCH ×8 (11:59→16:22)
[2020-03-31] MEDS: LINEZOLID IN DEXTROSE 5% 600 MG/300 ML BAG IV SCH (18:56)
[2020-03-31] MEDS: CHOLECALCIFEROL 1,000 UNIT CAPSULE PO SCH (21:04)
[2020-03-31] MEDS: INSULIN GLARGINE,HUM.REC.ANLOG 100 UNITS/ML VIAL SC SCH (21:04)
[2020-03-31] MEDS: CALCIUM CARBONATE/VITAMIN D3 1 TAB TABLET PO SCH (21:04)
[2020-03-31] MEDS: ROSUVASTATIN CALCIUM 10 MG TABLET PO SCH (21:04)
[2020-04-01] MEDS: CEFAZOLIN SODIUM/DEXTROSE,ISO 1 GM/50 ML BAG IV SCH ×3 (01:18→17:27)
[2020-04-01] MEDS: ACETAMINOPHEN 325 MG TABLET PO PRN ×3 (03:49→17:18)
[2020-04-01] MEDS: CYCLOBENZAPRINE HCL 10 MG TABLET PO SCH ×3 (04:45→21:59)
[2020-04-01 06:18] LABS: Hemoglobin 8.6 gm/dL (12.5-16.0); Mean Cell Volume 91.8 fl (78-100); Mean Corpuscular Hemoglobin 29.3 pg (27-31); Mean Corpuscular Hgb Conc 31.9 g/dl (32-36); Mean Platelet Volume 8.8 fl (8-12.5); Neutrophil # 12.8 K/mm3 (1.3-6.0); Neutrophil % 86.5 % (42-75.0); Platelet Count 379 K/mm3 (150-450); Red Blood Count 2.94 M/mm3 (4.2-5.4); Red Cell Distribution Width 14.3 % (11.5-14.0); White Blood Count 14.8 K/mm3 (4.0-10.5)
[2020-04-01] MEDS: LINEZOLID IN DEXTROSE 5% 600 MG/300 ML BAG IV SCH ×2 (07:42→18:47)
[2020-04-01] MEDS: PANTOPRAZOLE SODIUM 40 MG TABLET.EC PO SCH (07:53)
[2020-04-01] MEDS: INSULIN LISPRO 100 UNITS/ML VIAL SC SCH ×3 (07:55→17:37)
[2020-04-01] MEDS: NYSTATIN 30 ML, diphenhydrAMINE HCL 75 MG, LIDOCAINE HCL 30 ML, MAG HYDROX/ALUMINUM HYD... PO SCH ×12 (09:08→17:15)
[2020-04-01] MEDS: DILTIAZEM HCL 180 MG CAP.SR.24H PO SCH (09:12)
[2020-04-01] MEDS: FUROSEMIDE 20 MG TABLET PO SCH (09:12)
[2020-04-01] MEDS: POLYETHYLENE GLYCOL 3350 17 GM PACKET PO SCH (09:12)
[2020-04-01] MEDS: DULoxetine HCL 30 MG CAPSULE.SA PO SCH (09:13)
[2020-04-01] MEDS: lamoTRIgine 100 MG TABLET PO SCH (09:13)
[2020-04-01] MEDS: LISINOPRIL 20 MG TABLET PO SCH (09:13)
[2020-04-01] MEDS: BUPRENORPHINE HCL SL SCH (09:15)
[2020-04-01] MEDS: NALOXONE HCL SL SCH (09:15)
[2020-04-01] MEDS: PREGABALIN 75 MG CAPSULE PO SCH ×2 (09:23→21:59)
[2020-04-01] MEDS: MICONAZOLE NITRATE 30 APPL TUBE TP SCH ×2 (09:23→21:59)
--- NOTE | 2020-04-01 09:58 | DS ---
(1) Right shoulder pain Problem: Acute (2) Acute anemia Problem: Acute (3) Diabetes mellitus Problem: Chronic Qualifiers: Diabetes mellitus type: type 1 Diabetes mellitus complication status: with kidney complications Diabetes mellitus complication detail: with chronic kidney disease Chronic kidney disease stage: stage 4 (severe) Qualified Code(s): E10.22 - Type 1 diabetes mellitus with diabetic chronic kidney disease; N18.4 - Chronic kidney disease, stage 4 (severe) (4) Bacteremia Problem: Acute (5) Acute kidney injury superimposed on CKD Problem: Acute (6) Hip pain, right Problem: Chronic (7) Back pain Problem: Chronic Qualifiers: Back pain location: low back pain (8) UTI (urinary tract infection) Problem: Acute (9) Pelvic fracture Problem: Chronic Qualifiers: Encounter type: subsequent encounter Pelvic bone location: pubis (10) Signs and symptoms of anemia Problem: Acute (11) Recurrent falls Problem: Chronic (12) Decubitus ulcer of coccygeal region Problem: Chronic Qualifiers: Pressure injury stage: stage 1 Qualified Code(s): L89.151 - Pressure ulcer of sacral region, stage 1 (13) Decubitus ulcer of coccygeal region, stage 1 Problem: Acute (14) CKD (chronic kidney disease) stage 4, GFR 15-29 ml/min Problem: Chronic (15) Sepsis Problem: Acute Qualifiers: Sepsis type: methicillin susceptible Staphylococcus aureus (16) Constipation Problem: Acute Date of Discharge:: 04/01/20 Hospital Course: 59-year-old female was admitted for acute bacteremia due to MSSA, UTI, electrolyte imbalance, and recurrent falls. The patient was brought in to the ER after she had fallen multiple times in her home the last episode occurring the day before admission, the patient injured her right shoulder but no fractures were detected. Since then she has been having recurrent right shoulder pain which has been managed with pain medications. The patient also has multiple old fractures of the pelvis which the orthopedic surgeons have said are inoperable at least for now. This has made ambulation difficult for the patient and has been really impaired her balance causing her to fall multiple times. On admission the patient was found to be anemic due to apparent blood loss however the source of the bleeding was never discovered, however bleeding of her fracture sites are suspected. She was transfused initially 2 units of [place] BC and was transfused an additional unit yesterday which she tolerated well, posttransfusion hemoglobin has shown great improvement. Patient is now at her baseline. Blood cultures during hospitalization revealed growth of MSSA so she has been treated with IV antibiotics since arriving and has tolerated it without any issues. Change her antibiotics was made yesterday and as a result her white count has improved this morning. We will discharge with 5 additional days of IV antibiotics. We were finally able to get placement for the patient at [facility] where she will continue physical therapy and Occupational Therapy to address her problems with her gait and balance. Patient is currently on Suboxone for chronic pain which is [place], we will discharge her on the same medication not make any changes. The patient is to follow-up with me her PCP in the next 2 weeks. We will discharge her with orders to repeat a CBC and CMP for reevaluation of hemoglobin and electrolytes. Procedures Performed: none Results and Findings: Lab Pending Results 03/20/20 13:09: WBC 24.9 H, RBC 2.02 L, Hgb 5.9 L* D, Hct 17.8 L* D, MCV 88.1, MCH 29.2, MCHC 33.1, RDW 15.8 H, Plt Count 619 H, MPV 9.6, Immature Gran % (Auto) 1.10 H, Immature Gran # (Auto) 0.28 H, Neutrophils % 93.2 H, Neutrophils % (Manual) 93 H, Lymphocytes % 2.8 L, Lymphocytes % (Manual) 4 L, Monocytes % 2.8, Monocytes % (Manual) 3, Eosinophils % 0.0, Basophils % 0.1, Nucleated RBC % 0.0, Neutrophils # 23.2 H, Neutrophils # (Manual) 23.2 H, Lymphocytes # 0.69 L, Lymphocytes # (Manual) 1.0 L, Monocytes # 0.7, Monocytes # (Manual) 0.7, Eosinophils # 0.0, Absolute Basophils 0.0, Platelet Estimate Increased H, RBC Morphology Normal 03/20/20 13:09: Sodium 126 L, Plasma Sodium 129 L, Potassium 5.1 H, Chloride 94 L, Carbon Dioxide 21.1 L, Anion Gap 16.0 H, BUN 99 H, Creatinine 2.55 H D, Est GFR (Non-Af Amer) 20 L D, BUN/Creatinine Ratio 38.8 H, Random Glucose 374 H, Calcium 9.9, Calcium Adj for Albumin 11.5 H, Total Bilirubin 0.4, AST 18, ALT 19, Alkaline Phosphatase 172 H, Total Protein 8.0, Albumin 1.6 L 03/20/20 13:09: Lactic Acid, Venous 0.7 03/20/20 14:40: Blood Type A Positive, Antibody Screen Negative, Crossmatch See Detail 03/20/20 16:09: Urine Color Yellow, Urine Appearance Slightly cloudy, Urine pH 6.0, Ur Specific [place] 1.010, Urine Protein 30 H, Urine Glucose (UA) 500 H, Urine Ketones Negative, Urine Blood 25 H, Urine Nitrate Positive H, Urine Bilirubin Negative, Prot Sulfosalicylic Acd 1+, Urine Urobilinogen Normal, Ur Leukocyte Esterase 25 H, Urine RBC 0-5, Urine WBC 0-5, Ur Epithelial Cells None seen, Urine Bacteria 2+ H, Urine Culture Comments Culture to follow 03/21/20 05:45: WBC 21.9 H, RBC 2.97 L, Hgb 8.6 L, Hct 26.2 L, MCV 88.2, MCH 29.0, MCHC 32.8, RDW 14.9 H, Plt Count 552 H, MPV 9.4, Immature Gran % (Auto) 0.90 H, Immature Gran # (Auto) 0.20 H, Neutrophils % 90.2 H, Lymphocytes % 3.7 L, Monocytes % 4.8, Eosinophils % 0.3, Basophils % 0.1, Nucleated RBC % 0.1, Neutrophils # 19.7 H, Lymphocytes # 0.81 L, Monocytes # 1.0, Eosinophils # 0.1, Absolute Basophils 0.0 03/21/20 05:55: Sodium 133, Plasma Sodium 135, Potassium 4.5, Chloride 99, Carbon Dioxide 20.0 L, Anion Gap 18.5 H, BUN 79 H, Creatinine 1.87 H D, Est GFR (Non-Af Amer) 29 L D, BUN/Creatinine Ratio 42.2 H, Random Glucose 211 H D, Calcium 9.5 03/22/20 06:14: WBC 24.1 H, RBC 2.95 L, Hgb 8.5 L, Hct 25.6 L, MCV 86.8, MCH 28.8, MCHC 33.2, RDW 15.2 H, Plt Count 575 H, MPV 9.2, Immature Gran % (Auto) 1.50 H, Immature Gran # (Auto) 0.37 H, Neutrophils % 89.1 H, Neutrophils % (Manual) 90 H, Lymphocytes % 5.8 L, Lymphocytes % (Manual) 8 L, Monocytes % 3.4, Monocytes % (Manual) 1, Eosinophils % 0.1, Eosinophils % (Manual) 1, Basophils % 0.1, Nucleated RBC % 0.0, Neutrophils # 21.5 H, Neutrophils # (Manual) 21.7 H, Lymphocytes # 1.40 L, Lymphocytes # (Manual) 1.9, Monocytes # 0.8, Monocytes # (Manual) 0.2, Eosinophils # 0.0, Eosinophils # (Manual) 0.2, Absolute Basophils 0.0, Platelet Estimate Normal 03/22/20 06:14: Sodium 135, Plasma Sodium 136, Potassium 3.8, Chloride 102, Carbon Dioxide 22.7 L, Anion Gap 14.1 H, BUN 59 H, Creatinine 1.73 H, Est GFR (Non-Af Amer) 32 L, BUN/Creatinine Ratio 34.1 H, Random Glucose 137 H D, Calcium 10.0 03/23/20 06:19: WBC 20.0 H, RBC 2.47 L, Hgb 7.1 L*, Hct 21.9 L*, MCV 88.7, MCH 28.7, MCHC 32.4, RDW 15.5 H, Plt Count 510 H, MPV 8.9, Immature Gran % (Auto) 1.80 H, Immature Gran # (Auto) 0.37 H, Neutrophils % 86.9 H, Lymphocytes % 7.3 L, Monocytes % 3.7, Eosinophils % 0.1, Basophils % 0.2, Nucleated RBC % 0.0, Neutrophils # 17.4 H, Lymphocytes # 1.46 L, Monocytes # 0.7, Eosinophils # 0.0, Absolute Basophils 0.0 03/23/20 06:19: Sodium 129 L, Plasma Sodium 131, Potassium 4.3, Chloride 99, Carbon Dioxide 22.1 L, Anion Gap 12.2, BUN 53 H, Creatinine 1.83 H, Est GFR (Non-Af Amer) 30 L, BUN/Creatinine Ratio 29.0 H, Random Glucose 207 H D, Calcium 9.3, Calcium Adj for Albumin 11.2 H, Total Bilirubin 0.2, AST 14, ALT 15 L, Alkaline Phosphatase 125, Total Protein 6.6, Albumin 1.2 L 03/23/20 10:53: SARS-CoV-2 (PCR) Not detected 03/24/20 09:15: Vancomycin Trough 20.5 H 03/25/20 07:10: WBC 18.5 H, RBC 2.71 L, Hgb 7.8 L*, Hct 24.3 L, MCV 89.7, MCH 28.8, MCHC 32.1, RDW 15.8 H, Plt Count 624 H, MPV 9.0, Neutrophils % (Manual) 90 H, Lymphocytes % (Manual) 4 L, Monocytes % (Manual) 3, Eosinophils % (Manual) 2, Neutrophils # (Manual) 16.7 H, Lymphocytes # (Manual) 0.7 L, Monocytes # (Manual) 0.6, Eosinophils # (Manual) 0.4, Atypic/Reactive Lymphs 1, Platelet Estimate Increased H 03/25/20 07:10: Sodium 129 L, Plasma Sodium 131, Potassium 5.2 H D, Chloride 99, Carbon Dioxide 19.7 L, Anion Gap 15.5 H, BUN 42 H, Creatinine 1.55 H, Est GFR (Non-Af Amer) 36 L, BUN/Creatinine Ratio 27.1 H, Random Glucose 239 H, Calcium 9.3, Calcium Adj for Albumin 11.1 H, Total Bilirubin 0.3, AST 20, ALT 12 L, Alkaline Phosphatase 123, Total Protein 7.1, Albumin 1.3 L 03/26/20 06:57: WBC 19.5 H, RBC 2.56 L, Hgb 7.3 L*, Hct 23.2 L*, MCV 90.6, MCH 28.5, MCHC 31.5 L, RDW 15.7 H, Plt Count 564 H, MPV 8.9, Neutrophils % (Manual) 83 H, Band Neuts % (Manual) 2, Lymphocytes % (Manual) 7 L, Monocytes % (Manual) 3, Eosinophils % (Manual) 1, Immature Granulocytes 2 H, Neutrophils # (Manual) 16.2 H, Lymphocytes # (Manual) 1.4 L, Monocytes # (Manual) 0.6, Eosinophils # (Manual) 0.2, Atypic/Reactive Lymphs 2, Platelet Estimate Increased H, Polychromasia Trace, Hypochromasia 2+, Anisocytosis 2+, Microcytosis 1+ 03/26/20 06:57: Sodium 133, Plasma Sodium 134, Potassium 4.1 D, Chloride 99, Carbon Dioxide 22.6 L, Anion Gap 15.5 H, BUN 37 H, Creatinine 1.53 H, Est GFR (Non-Af Amer) 37 L, BUN/Creatinine Ratio 24.2 H, Random Glucose 156 H D, Calcium 9.3, Calcium Adj for Albumin 11.1 H, Total Bilirubin 0.2, AST 11, ALT 16 L, Alkaline Phosphatase 116, Total Protein 7.0, Albumin 1.4 L 03/27/20 07:25: WBC 16.0 H, RBC 2.55 L, Hgb 7.2 L*, Hct 23.0 L*, MCV 90.2, MCH 28.2, MCHC 31.3 L, RDW 15.4 H, Plt Count 505 H, MPV 8.8, Immature Gran % (Auto) 2.70 H, Immature Gran # (Auto) 0.43 H, Neutrophils % 79.8 H, Lymphocytes % 12.1 L, Monocytes % 4.9, Eosinophils % 0.2, Basophils % 0.3, Nucleated RBC % 0.0, Neutrophils # 12.7 H, Lymphocytes # 1.93, Monocytes # 0.8, Eosinophils # 0.0, Absolute Basophils 0.0 03/29/20 09:30: WBC 15.8 H, RBC 2.44 L, Hgb 7.0 L*, Hct 22.1 L*, MCV 90.6, MCH 28.7, MCHC 31.7 L, RDW 15.3 H, Plt Count 455 H, MPV 8.7, Immature Gran % (Auto) 1.00 H, Immature Gran # (Auto) 0.16 H, Neutrophils % 86.5 H, Lymphocytes % 7.4 L, Monocytes % 4.7, Eosinophils % 0.1, Basophils % 0.3, Nucleated RBC % 0.0, Neutrophils # 13.7 H, Lymphocytes # 1.17 L, Monocytes # 0.7, Eosinophils # 0.0, Absolute Basophils 0.1 03/29/20 10:04: Stool Occult Blood Negative 03/30/20 06:15: WBC 15.4 H, RBC 2.39 L, Hgb 6.8 L*, Hct 21.9 L*, MCV 91.6, MCH 28.5, MCHC 31.1 L, RDW 15.0 H, Plt Count 405, MPV 8.7, Immature Gran % (Auto) 0.80 H, Immature Gran # (Auto) 0.12 H, Neutrophils % 84.0 H, Lymphocytes % 9.3 L, Monocytes % 5.4, Eosinophils % 0.2, Basophils % 0.3, Nucleated RBC % 0.0, Neutrophils # 12.9 H, Lymphocytes # 1.43 L, Monocytes # 0.8, Eosinophils # 0.0, Absolute Basophils 0.1 03/30/20 07:38: Blood Type A Positive, Antibody Screen Negative, Crossmatch See Detail 03/31/20 09:13: WBC 16.4 H, RBC 3.01 L, Hgb 8.8 L, Hct 27.2 L, MCV 90.4, MCH 29.2, MCHC 32.4, RDW 14.5 H, Plt Count 407, MPV 8.8, Immature Gran % (Auto) 0.50 H, Immature Gran # (Auto) 0.09 H, Neutrophils % 87.8 H, Lymphocytes % 6.8 L, Monocytes % 4.4, Eosinophils % 0.1, Basophils % 0.4, Nucleated RBC % 0.0, Neutrophils # 14.4 H, Lymphocytes # 1.12 L, Monocytes # 0.7, Eosinophils # 0.0, Absolute Basophils 0.1 03/31/20 09:13: Sodium 133, Plasma Sodium 134, Potassium 4.0, Chloride 94 L, Carbon Dioxide 34.1 H, Anion Gap 8.9, BUN 29 H, Creatinine 1.69 H, Est GFR (Non- Af Amer) 33 L, BUN/Creatinine Ratio 17.2, Random Glucose 182 H, Calcium 10.0, Calcium Adj for Albumin 11.6 H, Total Bilirubin 0.2, AST 14, ALT 5 L, Alkaline Phosphatase 123, Total Protein 8.0, Albumin 1.6 L 04/01/20 06:00: WBC 14.8 H, RBC 2.94 L, Hgb 8.6 L, Hct 27.0 L, MCV 91.8, MCH 29.3, MCHC 31.9 L, RDW 14.3 H, Plt Count 379, MPV 8.8, Immature Gran % (Auto) 0.70 H, Immature Gran # (Auto) 0.10 H, Neutrophils % 86.5 H, Lymphocytes % 7.9 L, Monocytes % 4.4, Eosinophils % 0.1, Basophils % 0.4, Nucleated RBC % 0.0, Neutrophils # 12.8 H, Lymphocytes # 1.16 L, Monocytes # 0.7, Eosinophils # 0.0, Absolute Basophils 0.1 Discharge Location: [facility] Disposition: swing bed (SNF) Condition: Fair Face to Face Encounter completed per [facility] Guidelines: No Level of Care: SNF Discharge Activity: Activity as tolerated Discharge Diet: Consistent carbs Alf Therapy: Physical Therapy, Occupation Therapy Prescriptions (Any new or edited meds): Cyclobenzaprine HCl [Flexeril] 10 mg PO Q8H #30 tab Complete Home Medications List: Complete Home Medication List: Buprenorphine HCl/Naloxone HCl [Suboxone 8 MG-2 MG Tablet] 1 film SL DAILY 11/06/15 Acetaminophen [Tylenol] 650 mg PO Q4H PRN tab 09/04/17 miscellaneous medical supply See Dose Instructions .ROUTE .MEDSUPPLY #1 ea 02/07/18 pen needle, diabetic 30 gauge x 5/16" 1 ea .ROUTE .MEDSUPPLY #100 ea 02/07/18 diltiazem HCl 180 mg capsule,24 hr,extended release 180 mg PO DAILY 01/06/19 Sodium Fluoride [Prevident 5000] 100 ml DENTAL DAILY 01/24/19 insulin aspart U-100 100 unit/mL (3 mL) subcutaneous pen 4 unit SUBCUT .with meals ml 10/01/19 omeprazole magnesium 20 mg tablet,delayed release 40 mg PO DAILY #60 tab 01/02/20 pregabalin 75 mg capsule 75 mg PO BID #180 cap 01/29/20 duloxetine 30 mg capsule,delayed release 30 mg PO DAILY #30 cap 02/02/20 lamotrigine 150 mg tablet 150 mg PO DAILY #30 tab 03/01/20 Calcium Carbonate/Vitamin D3 [Calcium 600-D3 20Mcg(800 Unit)] 1 ea PO HS 03/20/20 Cholecalciferol (Vitamin D3) [Vitamin D3] 2,000 unit PO HS 03/20/20 Furosemide [Lasix] 60 mg PO DAILY 03/20/20 Insulin Degludec [Tresiba Flextouch U-200] 16 unit SQ HS 03/20/20 Lisinopril [Zestril] 10 mg PO DAILY 03/20/20 atorvastatin 20 mg tablet 20 mg PO HS #90 tab 03/30/20 famotidine 20 mg tablet 20 mg PO Q48H #45 tab 03/30/20 Cefazolin Sodium/Dextrose,Iso [Ancef] 1 gm IV Q8H bag 04/01/20 Cyclobenzaprine HCl [Flexeril] 10 mg PO Q8H #30 tab 04/01/20 Linezolid in Dextrose 5% [Zyvox] 600 mg IV Q12H 5 Days bag 04/01/20 Forms: Patient Portal Registration
[2020-04-01] MEDS: INSULIN GLARGINE,HUM.REC.ANLOG 100 UNITS/ML VIAL SC SCH (21:58)
[2020-04-01] MEDS: ROSUVASTATIN CALCIUM 10 MG TABLET PO SCH (21:59)
[2020-04-01] MEDS: CALCIUM CARBONATE/VITAMIN D3 1 TAB TABLET PO SCH (21:59)
[2020-04-01] MEDS: CHOLECALCIFEROL 1,000 UNIT CAPSULE PO SCH (22:00)
[2020-04-02] MEDS: ACETAMINOPHEN 325 MG TABLET PO PRN (00:48)
[2020-04-02] MEDS: CEFAZOLIN SODIUM/DEXTROSE,ISO 1 GM/50 ML BAG IV SCH ×2 (00:50→09:16)
[2020-04-02] MEDS: CYCLOBENZAPRINE HCL 10 MG TABLET PO SCH ×2 (05:27→12:00)
[2020-04-02] MEDS: NYSTATIN 30 ML, diphenhydrAMINE HCL 75 MG, LIDOCAINE HCL 30 ML, MAG HYDROX/ALUMINUM HYD... PO SCH ×8 (06:26→11:58)
[2020-04-02] MEDS: LINEZOLID IN DEXTROSE 5% 600 MG/300 ML BAG IV SCH (06:27)
[2020-04-02] MEDS: PANTOPRAZOLE SODIUM 40 MG TABLET.EC PO SCH (06:27)
[2020-04-02 06:45] LABS: Mean Cell Volume 91.9 fl (78-100); Mean Corpuscular Hemoglobin 28.7 pg (27-31); Mean Corpuscular Hgb Conc 31.2 g/dl (32-36); Mean Platelet Volume 9.1 fl (8-12.5); Neutrophil # 10.2 K/mm3 (1.3-6.0); Neutrophil % 82.3 % (42-75.0); Platelet Count 357 K/mm3 (150-450); Red Blood Count 2.72 M/mm3 (4.2-5.4); Red Cell Distribution Width 14.3 % (11.5-14.0); White Blood Count 12.4 K/mm3 (4.0-10.5)
[2020-04-02 07:02] LABS: Hemoglobin 7.8 gm/dL (12.5-16.0)
[2020-04-02] MEDS: INSULIN LISPRO 100 UNITS/ML VIAL SC SCH ×2 (07:31→11:59)
[2020-04-02] MEDS: NALOXONE HCL SL SCH (09:13)
[2020-04-02] MEDS: BUPRENORPHINE HCL SL SCH (09:13)
[2020-04-02] MEDS: DILTIAZEM HCL 180 MG CAP.SR.24H PO SCH (09:14)
[2020-04-02] MEDS: DULoxetine HCL 30 MG CAPSULE.SA PO SCH (09:15)
[2020-04-02] MEDS: lamoTRIgine 100 MG TABLET PO SCH (09:15)
[2020-04-02] MEDS: POLYETHYLENE GLYCOL 3350 17 GM PACKET PO SCH (09:15)
[2020-04-02] MEDS: LISINOPRIL 20 MG TABLET PO SCH (09:15)
[2020-04-02] MEDS: FUROSEMIDE 20 MG TABLET PO SCH (09:15)
[2020-04-02] MEDS: PREGABALIN 75 MG CAPSULE PO SCH (09:19)
[2020-04-02] MEDS: MICONAZOLE NITRATE 30 APPL TUBE TP SCH (09:23)
--- NOTE | 2020-04-02 11:22 | DS ---
(1) Right shoulder pain Problem: Acute (2) Acute anemia Problem: Acute (3) Diabetes mellitus Problem: Chronic Qualifiers: Diabetes mellitus type: type 1 Diabetes mellitus complication status: with kidney complications Diabetes mellitus complication detail: with chronic kidney disease Chronic kidney disease stage: stage 4 (severe) Qualified Code(s): E10.22 - Type 1 diabetes mellitus with diabetic chronic kidney disease; N18.4 - Chronic kidney disease, stage 4 (severe) (4) Bacteremia Problem: Acute (5) Acute kidney injury superimposed on CKD Problem: Acute (6) Hip pain, right Problem: Chronic (7) Back pain Problem: Chronic Qualifiers: Back pain location: low back pain (8) UTI (urinary tract infection) Problem: Acute (9) Pelvic fracture Problem: Chronic Qualifiers: Encounter type: subsequent encounter Pelvic bone location: pubis (10) Signs and symptoms of anemia Problem: Acute (11) Recurrent falls Problem: Chronic (12) Decubitus ulcer of coccygeal region Problem: Chronic Qualifiers: Pressure injury stage: stage 1 Qualified Code(s): L89.151 - Pressure ulcer of sacral region, stage 1 (13) Decubitus ulcer of coccygeal region, stage 1 Problem: Acute (14) CKD (chronic kidney disease) stage 4, GFR 15-29 ml/min Problem: Chronic (15) Sepsis Problem: Acute Qualifiers: Sepsis type: methicillin susceptible Staphylococcus aureus (16) Constipation Problem: Chronic Date of Discharge:: 04/02/20 Hospital Course: 59-year-old female was admitted for acute bacteremia due to MSSA, UTI, electrolyte imbalance, and recurrent falls. The patient was brought in to the ER after she had fallen multiple times in her home the last episode occurring the day before admission, the patient injured her right shoulder but no fractures were detected. Since then she has been having recurrent right shoulder pain which has been managed with pain medications. The patient also has multiple old fractures of the pelvis which the orthopedic surgeons have said are inoperable at least for now. This has made ambulation difficult for the patient and has been really impaired her balance causing her to fall multiple times. On admission the patient was found to be anemic due to apparent blood loss however the source of the bleeding was never discovered, however bleeding of her fracture sites are suspected. She was transfused initially 2 units of PRBC and was transfused an additional unit yesterday which she tolerated well, posttransfusion hemoglobin has shown great improvement. Patient is now at her baseline. Blood cultures during hospitalization revealed growth of MSSA so she has been treated with IV antibiotics since arriving and has tolerated it without any issues. Change her antibiotics was made yesterday and as a result her white count has improved this morning. We will discharge with 5 additional days of Po antibiotics. Patient is currently on Suboxone for chronic pain which is managed [place] physician [place], we will discharge her on the same medication not make any changes. The patient is to follow-up with me her PCP in the next 2 weeks. We will discharge her with orders to repeat a CBC and CMP for reevaluation of hemoglobin and electrolytes. Discharge was canceled yesterday due to the patient not being accepted at [facility] for SNF. Her case was once again discussed with the hospitalist this morning and he explained that the patient was able to ambulate further than the distance required in order for her to qualify. Therefore we will discharge patient home with PT/OT, with nursing services, and a home health aide. The patient has significant issues with balance due to her pelvic fractures and she will need further PT and occupational therapy to continue working on her balance and safe transfers as well as activities of daily life. She will also need nursing services to help with managing her medications and monitor vitals. The patient is cared for by her who recently reported that her care is becoming too much for him so he requested assistance with activities of daily living such as bathing dressing and personal hygiene. The need for home health skilled services is directly related to the time spent [id number] with the patient. Procedures Performed: see notes below - Patient was transfused 3 units of PRBCs during hospitalization. Results and Findings: Lab Pending Results 03/20/20 13:09: WBC 24.9 H, RBC 2.02 L, Hgb 5.9 L* D, Hct 17.8 L* D, MCV 88.1, MCH 29.2, MCHC 33.1, RDW 15.8 H, Plt Count 619 H, MPV 9.6, Immature Gran % (Auto) 1.10 H, Immature Gran # (Auto) 0.28 H, Neutrophils % 93.2 H, Neutrophils % (Manual) 93 H, Lymphocytes % 2.8 L, Lymphocytes % (Manual) 4 L, Monocytes % 2.8, Monocytes % (Manual) 3, Eosinophils % 0.0, Basophils % 0.1, Nucleated RBC % 0.0, Neutrophils # 23.2 H, Neutrophils # (Manual) 23.2 H, Lymphocytes # 0.69 L, Lymphocytes # (Manual) 1.0 L, Monocytes # 0.7, Monocytes # (Manual) 0.7, Eosinophils # 0.0, Absolute Basophils 0.0, Platelet Estimate Increased H, RBC Morphology Normal 03/20/20 13:09: Sodium 126 L, Plasma Sodium 129 L, Potassium 5.1 H, Chloride 94 L, Carbon Dioxide 21.1 L, Anion Gap 16.0 H, BUN 99 H, Creatinine 2.55 H D, Est GFR (Non-Af Amer) 20 L D, BUN/Creatinine Ratio 38.8 H, Random Glucose 374 H, Calcium 9.9, Calcium Adj for Albumin 11.5 H, Total Bilirubin 0.4, AST 18, ALT 19, Alkaline Phosphatase 172 H, Total Protein 8.0, Albumin 1.6 L 03/20/20 13:09: Lactic Acid, Venous 0.7 03/20/20 14:40: Blood Type A Positive, Antibody Screen Negative, Crossmatch See Detail 03/20/20 16:09: Urine Color Yellow, Urine Appearance Slightly cloudy, Urine pH 6.0, Ur Specific [place] 1.010, Urine Protein 30 H, Urine Glucose (UA) 500 H, Urine Ketones Negative, Urine Blood 25 H, Urine Nitrate Positive H, Urine Bilirubin Negative, Prot Sulfosalicylic Acd 1+, Urine Urobilinogen Normal, Ur Leukocyte Esterase 25 H, Urine RBC 0-5, Urine WBC 0-5, Ur Epithelial Cells None seen, Urine Bacteria 2+ H, Urine Culture Comments Culture to follow 03/21/20 05:45: WBC 21.9 H, RBC 2.97 L, Hgb 8.6 L, Hct 26.2 L, MCV 88.2, MCH 29.0, MCHC 32.8, RDW 14.9 H, Plt Count 552 H, MPV 9.4, Immature Gran % (Auto) 0 .90 H, Immature Gran # (Auto) 0.20 H, Neutrophils % 90.2 H, Lymphocytes % 3.7 L, Monocytes % 4.8, Eosinophils % 0.3, Basophils % 0.1, Nucleated RBC % 0.1, Neutrophils # 19.7 H, Lymphocytes # 0.81 L, Monocytes # 1.0, Eosinophils # 0.1, Absolute Basophils 0.0 03/21/20 05:55: Sodium 133, Plasma Sodium 135, Potassium 4.5, Chloride 99, Carbon Dioxide 20.0 L, Anion Gap 18.5 H, BUN 79 H, Creatinine 1.87 H D, Est GFR (Non-Af Amer) 29 L D, BUN/Creatinine Ratio 42.2 H, Random Glucose 211 H D, Calcium 9.5 03/22/20 06:14: WBC 24.1 H, RBC 2.95 L, Hgb 8.5 L, Hct 25.6 L, MCV 86.8, MCH 28.8, MCHC 33.2, RDW 15.2 H, Plt Count 575 H, MPV 9.2, Immature Gran % (Auto) 1.50 H, Immature Gran # (Auto) 0.37 H, Neutrophils % 89.1 H, Neutrophils % (Manual) 90 H, Lymphocytes % 5.8 L, Lymphocytes % (Manual) 8 L, Monocytes % 3.4, Monocytes % (Manual) 1, Eosinophils % 0.1, Eosinophils % (Manual) 1, Basophils % 0.1, Nucleated RBC % 0.0, Neutrophils # 21.5 H, Neutrophils # (Manual) 21.7 H, Lymphocytes # 1.40 L, Lymphocytes # (Manual) 1.9, Monocytes # 0.8, Monocytes # (Manual) 0.2, Eosinophils # 0.0, Eosinophils # (Manual) 0.2, Absolute Basophils 0.0, Platelet Estimate Normal 03/22/20 06:14: Sodium 135, Plasma Sodium 136, Potassium 3.8, Chloride 102, Carbon Dioxide 22.7 L, Anion Gap 14.1 H, BUN 59 H, Creatinine 1.73 H, Est GFR (Non-Af Amer) 32 L, BUN/Creatinine Ratio 34.1 H, Random Glucose 137 H D, Calcium 10.0 03/23/20 06:19: WBC 20.0 H, RBC 2.47 L, Hgb 7.1 L*, Hct 21.9 L*, MCV 88.7, MCH 28.7, MCHC 32.4, RDW 15.5 H, Plt Count 510 H, MPV 8.9, Immature Gran % (Auto) 1.80 H, Immature Gran # (Auto) 0.37 H, Neutrophils % 86.9 H, Lymphocytes % 7.3 L, Monocytes % 3.7, Eosinophils % 0.1, Basophils % 0.2, Nucleated RBC % 0.0, Neutrophils # 17.4 H, Lymphocytes # 1.46 L, Monocytes # 0.7, Eosinophils # 0.0, Absolute Basophils 0.0 03/23/20 06:19: Sodium 129 L, Plasma Sodium 131, Potassium 4.3, Chloride 99, Carbon Dioxide 22.1 L, Anion Gap 12.2, BUN 53 H, Creatinine 1.83 H, Est GFR (Non-Af Amer) 30 L, BUN/Creatinine Ratio 29.0 H, Random Glucose 207 H D, Calcium 9.3, Calcium Adj for Albumin 11.2 H, Total Bilirubin 0.2, AST 14, ALT 15 L, Alkaline Phosphatase 125, Total Protein 6.6, Albumin 1.2 L 03/23/20 10:53: SARS-CoV-2 (PCR) Not detected 03/24/20 09:15: Vancomycin Trough 20.5 H 03/25/20 07:10: WBC 18.5 H, RBC 2.71 L, Hgb 7.8 L*, Hct 24.3 L, MCV 89.7, MCH 28.8, MCHC 32.1, RDW 15.8 H, Plt Count 624 H, MPV 9.0, Neutrophils % (Manual) 90 H, Lymphocytes % (Manual) 4 L, Monocytes % (Manual) 3, Eosinophils % (Manual) 2, Neutrophils # (Manual) 16.7 H, Lymphocytes # (Manual) 0.7 L, Monocytes # (Manual) 0.6, Eosinophils # (Manual) 0.4, Atypic/Reactive Lymphs 1, Platelet Estimate Increased H 03/25/20 07:10: Sodium 129 L, Plasma Sodium 131, Potassium 5.2 H D, Chloride 99, Carbon Dioxide 19.7 L, Anion Gap 15.5 H, BUN 42 H, Creatinine 1.55 H, Est GFR (Non-Af Amer) 36 L, BUN/Creatinine Ratio 27.1 H, Random Glucose 239 H, Calcium 9.3, Calcium Adj for Albumin 11.1 H, Total Bilirubin 0.3, AST 20, ALT 12 L, Alkaline Phosphatase 123, Total Protein 7.1, Albumin 1.3 L 03/26/20 06:57: WBC 19.5 H, RBC 2.56 L, Hgb 7.3 L*, Hct 23.2 L*, MCV 90.6, MCH 28.5, MCHC 31.5 L, RDW 15.7 H, Plt Count 564 H, MPV 8.9, Neutrophils % (Manual) 83 H, Band Neuts % (Manual) 2, Lymphocytes % (Manual) 7 L, Monocytes % (Manual) 3, Eosinophils % (Manual) 1, Immature Granulocytes 2 H, Neutrophils # (Manual) 16.2 H, Lymphocytes # (Manual) 1.4 L, Monocytes # (Manual) 0.6, Eosinophils # (Manual) 0.2, Atypic/Reactive Lymphs 2, Platelet Estimate Increased H, Polychromasia Trace, Hypochromasia 2+, Anisocytosis 2+, Microcytosis 1+ 03/26/20 06:57: Sodium 133, Plasma Sodium 134, Potassium 4.1 D, Chloride 99, Carbon Dioxide 22.6 L, Anion Gap 15.5 H, BUN 37 H, Creatinine 1.53 H, Est GFR (Non-Af Amer) 37 L, BUN/Creatinine Ratio 24.2 H, Random Glucose 156 H D, Calcium 9.3, Calcium Adj for Albumin 11.1 H, Total Bilirubin 0.2, AST 11, ALT 16 L, Alkaline Phosphatase 116, Total Protein 7.0, Albumin 1.4 L 03/27/20 07:25: WBC 16.0 H, RBC 2.55 L, Hgb 7.2 L*, Hct 23.0 L*, MCV 90.2, MCH 28.2, MCHC 31.3 L, RDW 15.4 H, Plt Count 505 H, MPV 8.8, Immature Gran % (Auto) 2.70 H, Immature Gran # (Auto) 0.43 H, Neutrophils % 79.8 H, Lymphocytes % 12.1 L, Monocytes % 4.9, Eosinophils % 0.2, Basophils % 0.3, Nucleated RBC % 0.0, Neutrophils # 12.7 H, Lymphocytes # 1.93, Monocytes # 0.8, Eosinophils # 0.0, Absolute Basophils 0.0 03/29/20 09:30: WBC 15.8 H, RBC 2.44 L, Hgb 7.0 L*, Hct 22.1 L*, MCV 90.6, MCH 28.7, MCHC 31.7 L, RDW 15.3 H, Plt Count 455 H, MPV 8.7, Immature Gran % (Auto) 1.00 H, Immature Gran # (Auto) 0.16 H, Neutrophils % 86.5 H, Lymphocytes % 7.4 L, Monocytes % 4.7, Eosinophils % 0.1, Basophils % 0.3, Nucleated RBC % 0.0, Neutrophils # 13.7 H, Lymphocytes # 1.17 L, Monocytes # 0.7, Eosinophils # 0.0, Absolute Basophils 0.1 03/29/20 10:04: Stool Occult Blood Negative 03/30/20 06:15: WBC 15.4 H, RBC 2.39 L, Hgb 6.8 L*, Hct 21.9 L*, MCV 91.6, MCH 28.5, MCHC 31.1 L, RDW 15.0 H, Plt Count 405, MPV 8.7, Immature Gran % (Auto) 0.80 H, Immature Gran # (Auto) 0.12 H, Neutrophils % 84.0 H, Lymphocytes % 9.3 L, Monocytes % 5.4, Eosinophils % 0.2, Basophils % 0.3, Nucleated RBC % 0.0, Neutrophils # 12.9 H, Lymphocytes # 1.43 L, Monocytes # 0.8, Eosinophils # 0.0, Absolute Basophils 0.1 03/30/20 07:38: Blood Type A Positive, Antibody Screen Negative, Crossmatch See Detail 03/31/20 09:13: WBC 16.4 H, RBC 3.01 L, Hgb 8.8 L, Hct 27.2 L, MCV 90.4, MCH 29.2, MCHC 32.4, RDW 14.5 H, Plt Count 407, MPV 8.8, Immature Gran % (Auto) 0.50 H, Immature Gran # (Auto) 0.09 H, Neutrophils % 87.8 H, Lymphocytes % 6.8 L, Monocytes % 4.4, Eosinophils % 0.1, Basophils % 0.4, Nucleated RBC % 0.0, Neutrophils # 14.4 H, Lymphocytes # 1.12 L, Monocytes # 0.7, Eosinophils # 0.0, Absolute Basophils 0.1 03/31/20 09:13: Sodium 133, Plasma Sodium 134, Potassium 4.0, Chloride 94 L, Carbon Dioxide 34.1 H, Anion Gap 8.9, BUN 29 H, Creatinine 1.69 H, Est GFR (Non- Af Amer) 33 L, BUN/Creatinine Ratio 17.2, Random Glucose 182 H, Calcium 10.0, Calcium Adj for Albumin 11.6 H, Total Bilirubin 0.2, AST 14, ALT 5 L, Alkaline Phosphatase 123, Total Protein 8.0, Albumin 1.6 L 04/01/20 06:00: WBC 14.8 H, RBC 2.94 L, Hgb 8.6 L, Hct 27.0 L, MCV 91.8, MCH 29.3, MCHC 31.9 L, RDW 14.3 H, Plt Count 379, MPV 8.8, Immature Gran % (Auto) 0.70 H, Immature Gran # (Auto) 0.10 H, Neutrophils % 86.5 H, Lymphocytes % 7.9 L, Monocytes % 4.4, Eosinophils % 0.1, Basophils % 0.4, Nucleated RBC % 0.0, Neutrophils # 12.8 H, Lymphocytes # 1.16 L, Monocytes # 0.7, Eosinophils # 0.0, Absolute Basophils 0.1 04/02/20 06:00: WBC 12.4 H, RBC 2.72 L, Hgb 7.8 L*, Hct 25.0 L, MCV 91.9, MCH 28.7, MCHC 31.2 L, RDW 14.3 H, Plt Count 357, MPV 9.1, Immature Gran % (Auto) 0.50 H, Immature Gran # (Auto) 0.06 H, Neutrophils % 82.3 H, Lymphocytes % 10.7 L, Monocytes % 5.9, Eosinophils % 0.2, Basophils % 0.4, Nucleated RBC % 0.0, Neutrophils # 10.2 H, Lymphocytes # 1.32 L, Monocytes # 0.7, Eosinophils # 0.0, Absolute Basophils 0.1 Discharge Location: Home Disposition: Home Health Service Home Health Agency: [facility] Home Health Condition: Fair Face to Face Encounter completed per CMS Guidelines: Yes Discharge Activity: Activity as tolerated Discharge Diet: Consistent carbs Fdc Therapy: Physical Therapy, Occupation Therapy Referrals: Morena Kimbrough MD [Primary Care Provider] - Additional Patient Instructions (free text): [facility] Home Health at discharge- nursing and therapy. Prescriptions (Any new or edited meds): Sulfamethoxazole/Trimethoprim [Bactrim Ds] 1 tab PO BID 5 Days #10 tab Transmission Status: Pending to [facility], [place], [place] Cyclobenzaprine HCl 10 mg PO Q8H #30 tablet Cyclobenzaprine HCl [Flexeril] 10 mg PO Q8H #30 tab Complete Home Medications List: Complete Home Medication List: Buprenorphine HCl/Naloxone HCl [Suboxone 8 MG-2 MG Tablet] 1 film SL DAILY 11/06/15 Acetaminophen [Tylenol] 650 mg PO Q4H PRN tab 09/04/17 miscellaneous medical supply See Dose Instructions .ROUTE .MEDSUPPLY #1 ea 02/07/18 pen needle, diabetic 30 gauge x 5/16" 1 ea .ROUTE .MEDSUPPLY #100 ea 02/07/18 diltiazem HCl 180 mg capsule,24 hr,extended release 180 mg PO DAILY 01/06/19 Sodium Fluoride [Prevident 5000] 100 ml DENTAL DAILY 01/24/19 insulin aspart U-100 100 unit/mL (3 mL) subcutaneous pen 4 unit SUBCUT .with meals ml 10/01/19 omeprazole magnesium 20 mg tablet,delayed release 40 mg PO DAILY #60 tab 01/02/20 pregabalin 75 mg capsule 75 mg PO BID #180 cap 01/29/20 lamotrigine 150 mg tablet 150 mg PO DAILY #30 tab 03/01/20 Calcium Carbonate/Vitamin D3 [Calcium 600-D3 20Mcg(800 Unit)] 1 ea PO HS 03/20/20 Cholecalciferol (Vitamin D3) [Vitamin D3] 2,000 unit PO HS 03/20/20 Furosemide [Lasix] 60 mg PO DAILY 03/20/20 Insulin Degludec [Tresiba Flextouch U-200] 16 unit SQ HS 03/20/20 Lisinopril [Zestril] 10 mg PO DAILY 03/20/20 atorvastatin 20 mg tablet 20 mg PO HS #90 tab 03/30/20 famotidine 20 mg tablet 20 mg PO Q48H #45 tab 03/30/20 Cefazolin Sodium/Dextrose,Iso [Ancef] 1 gm IV Q8H bag 04/01/20 Cyclobenzaprine HCl [Flexeril] 10 mg PO Q8H #30 tab 04/01/20 Linezolid in Dextrose 5% [Zyvox] 600 mg IV Q12H 5 Days bag 04/01/20 duloxetine 30 mg capsule,delayed release 30 mg PO DAILY #30 cap 04/01/20 Cyclobenzaprine HCl 10 mg PO Q8H #30 tablet 04/02/20 Sulfamethoxazole/Trimethoprim [Bactrim Ds] 1 tab PO BID 5 Days #10 tab 04/02/20 Amb Orders for Discharge: CBC Time Frame: 5 Days, Facility: [facility], Location: Laboratory Comprehensive Metabolic Panel Time Frame: 5 Days, Facility: [facility], Location: Laboratory Forms: Patient Portal Registration
[2020-04-02 13:49] VITALS: BP 141/69
== END 2020-04-02 14:15 | disposition home health service (06) | DRG 811 ==
LOC: ER 11:55 → MS 15:56
PROVIDERS: ADMIT Internal Medicine; ATTEND Family Medicine
DX: D62 Acute posthemorrhagic anemia; Z91.81 History of falling; D47.3 Essential (hemorrhagic) thrombocythemia; I12.9 Hypertensive chronic kidney disease with stage 1 through stage 4 chronic kidney disease, or unspecified chronic kidney disease; D63.1 Anemia in chronic kidney disease; L89.151 Pressure ulcer of sacral region, stage 1; N17.9 Acute kidney failure, unspecified; N18.4 Chronic kidney disease, stage 4 (severe); W08.XXXA Fall from other furniture, initial encounter; E10.319 Type 1 diabetes mellitus with unspecified diabetic retinopathy without macular edema; Z79.4 Long term (current) use of insulin; N39.0 Urinary tract infection, site not specified; E10.22 Type 1 diabetes mellitus with diabetic chronic kidney disease; A41.02 Sepsis due to Methicillin resistant Staphylococcus aureus; S32.591D Other specified fracture of right pubis, subsequent encounter for fracture with routine healing; Z23 Encounter for immunization; M25.511 Pain in right shoulder; E10.40 Type 1 diabetes mellitus with diabetic neuropathy, unspecified

== ENCOUNTER 2020-05-15 14:43 | Observation (INO) ==
[2020-05-15 15:40] LABS: Hematocrit 30.1 % (37.0-47.0); Hemoglobin 9.3 gm/dL (12.5-16.0); Mean Cell Volume 94.4 fl (78-100); Mean Corpuscular Hemoglobin 29.2 pg (27-31); Mean Corpuscular Hgb Conc 30.9 g/dl (32-36); Mean Platelet Volume 8.7 fl (8-12.5); Neutrophil # 9.9 K/mm3 (1.3-6.0); Neutrophil % 86.8 % (42-75.0); Platelet Count 473 K/mm3 (150-450); Red Blood Count 3.19 M/mm3 (4.2-5.4); Red Cell Distribution Width 14.6 % (11.5-14.0); White Blood Count 11.4 K/mm3 (4.0-10.5)
[2020-05-15 15:57] LABS: ALT 9 U/L (19-67); AST 9 U/L (0-48); Albumin * 2.3 gm/dl (3.4-5.0); Alkaline Phosphatase * 112 U/L (50-170); Anion Gap 14.3 mmol/L (6.8-13.8); BUN/Creatinine Ratio 17.2 (9.0-21.6); Bilirubin, Total 0.2 mg/dL (0.0-1.1); Blood Urea Nitrogen 57 mg/dL (3-23); Ca. Corrected For Albumin 10.9 mg/dL (8.4-10.2); Calcium * 9.9 mg/dL (7.9-10.9); Carbon Dioxide 26.7 mmol/L (24-32.6); Chloride 97 mmol/L (97-106); Glucose * 203 mg/dL (70-110); Salicylate Less than 2.8 mg/dL (2.8-20.0); Sodium 133 mmol/L (132-142); Total Protein 9.8 gm/dL (6.2-8.2); Troponin I Less than 0.017 ng/mL (0.00-0.10)
[2020-05-15 16:47] LABS: Cocaine Ur Negative (NEGATIVE); Urine Barbiturate Negative (NEGATIVE); Urine Benzodiazepines Negative (NEGATIVE); Urine Opiates Negative (NEGATIVE); Urine PCP Negative (NEGATIVE); Urine THC Negative (NEGATIVE)
[2020-05-15 16:48] LABS: Urine Appearance Slightly Cloudy (CLEAR); Urine Bacteria 1+; Urine Bilirubin Negative (NEGATIVE); Urine Blood Negative /ul (NEGATIVE); Urine Color Yellow; Urine Ketone Negative (NEGATIVE); Urine Nitrite Negative (NEGATIVE); Urine Protein Negative (NEGATIVE); Urine RBC None Seen /hpf (0-5); Urine Urobilinogen Normal (NORMAL); Urine WBC 0-5 /hpf (0-5)
[2020-05-15 16:49] LABS: Urine Amorphous Sediment Few - 1+ (NONE-FEW); Urine Yeast Moderate - 2+
--- NOTE | 2020-05-15 19:14 | ERNOTE ---
Medical Problem HPI - Narrative Date of Service: 05/15/20 - General Chief Complaint: General Assessment Time Seen by Provider: 05/15/20 15:02 Source: patient, family Exam Limitations: no limitations - Immun/Allergies/Home Medications Immunizations: IMMUNIZATION HX Immunizations Up to Date Yes History of Influenza Vaccine Yes Hx Pneumococcal Vaccination Yes Allergies/Adverse Reactions: Allergies Penicillins Allergy (Verified 05/13/20 15:34) Hives Home Medications: HOME MEDICATIONS Buprenorphine HCl/Naloxone HCl [Suboxone 8 MG-2 MG Tablet] 1 film SL DAILY 11/06/15 [Last Taken 12/18/16] Acetaminophen [Tylenol] 650 mg PO Q4H PRN tab 09/04/17 [Last Taken Unknown] miscellaneous medical supply See Dose Instructions .ROUTE .MEDSUPPLY #1 ea 02/07/18 [Last Taken Unknown] pen needle, diabetic 30 gauge x 5/16" 1 ea .ROUTE .MEDSUPPLY #100 ea 02/07/18 [Last Taken Unknown] diltiazem HCl 180 mg capsule,24 hr,extended release 180 mg PO DAILY 01/06/19 [Last Taken Unknown] Sodium Fluoride [Prevident 5000] 100 ml DT DAILY 01/24/19 [Last Taken Unknown] insulin aspart U-100 100 unit/mL (3 mL) subcutaneous pen 4 unit SUBCUT .with meals ml 10/01/19 [Last Taken Unknown] omeprazole magnesium 20 mg tablet,delayed release 40 mg PO DAILY #60 tab 01/02/20 [Last Taken Unknown] Insulin Degludec [Tresiba Flextouch U-200] 16 unit SQ HS 03/20/20 [Last Taken Unknown] Lisinopril [Zestril] 10 mg PO DAILY 03/20/20 [Last Taken Unknown] atorvastatin 20 mg tablet 20 mg PO HS #90 tab 03/30/20 [Last Taken Unknown] famotidine 20 mg tablet 20 mg PO Q48H #45 tab 03/30/20 [Last Taken Unknown] duloxetine 30 mg capsule,delayed release 30 mg PO DAILY #30 cap 04/01/20 [Last Taken Unknown] lamotrigine 150 mg tablet 150 mg PO DAILY #30 tab 04/28/20 [Last Taken Unknown] lidocaine 4 % topical patch 1 patch TP Q8H PRN #10 ea 05/03/20 [Last Taken Unknown] pregabalin 75 mg capsule 75 mg PO BID #180 cap 05/03/20 [Last Taken Unknown] cyclobenzaprine 10 mg tablet 10 mg PO Q8H #60 tab 05/13/20 [Last Taken Unknown] furosemide 40 mg tablet 40 mg PO DAILY tab 05/13/20 [Last Taken Unknown] hydroxyzine HCl 50 mg tablet 50 mg PO Q8H PRN #60 tab 05/13/20 [Last Taken Unknown] venlafaxine 37.5 mg tablet 75 mg PO DAILY #90 tab 05/13/20 [Last Taken Unknown] - History of Present History Narrative: Patient presents to the ED with . She has been weak, unable to ambulate, having apparent hallucinations, talking to people who aren't there, seeming confused and generally declining. Normally walks with a walker but due to a pelvis fracture is having problems with that. She denies acute focal N/T/W. No headache. no Cp or SOB. No abdominal pain. Has been urinating 1-2 times per day. Her relates that given her decline he cannot care for her at home anymore. Timing: getting worse Severity: severe Modifying Factors - (Improves): Present: other - nothing Modifying Factors - (Worsens): Present: other - nothing Review of Systems - Review of Systems Constitutional: Absent: fever EYE: Present: no symptoms reported ENT: Absent: sore throat Respiratory: Absent: shortness of breath Cardiology: Absent: chest pain Gastrointestinal/Abdominal: Absent: vomiting Genitourinary: Absent: dysuria Musculoskeletal: Present: See HPI Neurological: Present: See HPI All Other Systems: All systems neg except as marked Medical History (Last Reviewed 05/15/20 @ 18:50 by Doug Cox MD) Primary osteoarthritis, left shoulder (Chronic) Osteoarthritis of right knee (Chronic) Major depression (Chronic) Onset Date: Unknown Tibia fracture (Chronic) Onset Date: ~11/2011 Left Restless leg syndrome (Chronic) Onset Date: Unknown Presbyopia (Chronic) Onset Date: Unknown History of onychomycosis (Chronic) Onset Date: ~05/27/14 OCD (obsessive compulsive disorder) (Chronic) Onset Date: Unknown Neck pain (Chronic) Onset Date: Unknown Mood swings (Chronic) Onset Date: Unknown Lumbago (Chronic) Onset Date: Unknown Kidney disease (Chronic) Onset Date: Unknown Joint pain (Chronic) Onset Date: Unknown Hyperopia (Chronic) Onset Date: Unknown Hyperlipidemia (Chronic) Onset Date: Unknown Headache (Chronic) Onset Date: Unknown History of gastroesophageal reflux (GERD) (Chronic) Onset Date: Unknown Fibula fracture (Acute) Onset Date: ~11/2011 Closed Left Endometriosis (Chronic) Onset Date: Unknown Diabetic retinopathy (Chronic) Onset Date: Unknown Diabetic neuropathy (Chronic) Onset Date: ~05/27/14 Diabetes 1.5, managed as type 1 (Chronic) Onset Date: ~12/15/13 Depression (Chronic) Onset Date: Unknown Charcot's joint arthropathy in type 1 diabetes mellitus (Chronic) Onset Date: ~12/24/13 Cellulitis (Chronic) Onset Date: ~12/24/13 and abscess of foot and leg Bulging disc (Chronic) Onset Date: Unknown Bipolar disorder (Chronic) Onset Date: Unknown Anemia (Chronic) Onset Date: ~12/24/13 Fracture of pubic ramus Onset Date: ~02/202012/09/2018 Surgical History: Surgical History (Last Reviewed 05/15/20 @ 18:50 by Doug Cox MD) History of tonsillectomy (Resolved) Onset Date: ~1973 History of sigmoidoscopy (Resolved) Onset Date: ~05/15/02 Marcela; polyp H/O nasal septoplasty (Resolved) Onset Date: ~04/10/03 Dr. Almodovar History of salpingo-oophorectomy (Resolved) Onset Date: ~1999 H/O fracture of lower leg (Resolved) Onset Date: ~12/08/11 Dr. Niño; Closed reduction, IM fixation of left tibiae closed reduction of left fibula H/O esophagogastroduodenoscopy (Resolved) Onset Date: ~06/30/04 10/07/14; Marcela; '05 gastroparesis. '15 clotest negative. Mild chronic superficial gastritis H/O colonoscopy (Resolved) Onset Date: ~2002 2003, 2004, 05/18/08; Dr. Medrano '03 hyperplastic, pedunculated adenomatous polyps. '04 adenomatous polyp, '05 poor prep. '08 fragments of colonic mucosa with adenomatous and hyperplastic changes H/O colonoscopy (Resolved) Onset Date: ~08/14/12 Marcela; Capacious colon. Recheck 10 years Family History: Family History (Last Reviewed 05/15/20 @ 18:50 by Doug Cox MD) Mother Acute arthritis Behcets syndrome H/O Deandra thyroiditis Father , age 84 CVA (cerebral vascular accident) CAD (coronary artery disease) Brother , age 59 unknown cause No problems noted. Social History: (Last Reviewed 05/15/20 @ 18:50 by Doug Cox MD) Social History: adopted: No intermediate: No Marital status: lives independently: Yes household members: spouse current occupational status: disabled Highest level of school completed/degree received: Associate degree: occupat Service: No Tobacco: Smoking Status: Former smoker tobacco type: cigarettes Smoking cigarettes per day: 8 Tobacco: How many years used: 5 how long ago did patient quit smoking: age 20 Alcohol: alcohol intake: current Alcohol type: beer alcohol intake frequency: a few times a month Substance Use: substance use type: does not use Dietary Habits: caffeine: Yes Type: carbonated beverages Physical Exam - Physical Exam General Appearance: Present: alert, other - chronically ill appearing Head Exam: Present: normal inspection, no evidence of injury Eye Exam: Normal inspection: bilateral, PERRL: bilateral Ears, Nose, Throat: Present: normal ENT inspection Neck: Present: normal inspection Respiratory: Present: no respiratory distress, normal breath sounds, lungs clear Cardiovascular/Chest: Present: regular rate, rhythm Gastrointestinal/Abdominal: Present: normal bowel sounds, nontender, soft Back Exam: Absent: CVA tenderness (R), CVA tenderness (L) Extremity Exam: Absent: joint swelling Neurological Exam: Present: alert, other - generalized weakness noted but no acute unilateral focal motor or snesory deficits. She seems to have some sort of hallucinations and will talk about unusual things at times Skin Exam: Present: normal color, warm/dry Progress - Results and Orders Patient's Lab Results:: I have reviewed the patient's lab results. - Vital Signs Patient's Vital Signs:: I have reviewed the patient's vital signs. Vital Signs: Vital Signs 05/15/20 14:54 05/15/20 16:11 05/15/20 16:26 Temperature 36.4 C Pulse Rate 93 82 93 Respiratory Rate 20 12 19 Blood Pressure 119/43 117/61 117/47 O2 Sat by Pulse Oximetry 100 95 05/15/20 16:40 05/15/20 17:09 05/15/20 17:25 Temperature 37.4 C Pulse Rate 82 82 80 Respiratory Rate 16 18 12 Blood Pressure 123/50 121/68 122/76 O2 Sat by Pulse Oximetry 96 94 05/15/20 18:05 05/15/20 18:25 05/15/20 18:41 Temperature 37.2 C Pulse Rate 83 81 82 Respiratory Rate 14 Blood Pressure 132/58 118/60 114/52 O2 Sat by Pulse Oximetry 93 94 - EKG EKG #1 EKG: NSR EKG read: Interp. by me EKG Comments: NSR rate 87. Non-specific ST/T wave changes, no STEMI noted - X-Ray X-Ray #1 X-Ray: chest Interpretation: Interp. by me X-ray Comments: I personally reviewed x-ray image as well as official radiology report - CT/Ultrasound CT/Ultrasound Narrative: I reviewed official radiology report. - Progress/Reassessment Chief Complaint: General Assessment Progress Note-Subjective: 05/15/20 18:53 did not think he could care for her at this point given her mental status and debilitation. She is agreeable to placement in skilled/nursing environment. I discussed the case with Dr Ayon who will admit. Departure Clinical Impression: Failure to thrive, Acute on chronic renal failure, Hallucinations, Mental status alteration, Gait instability - Departure Disposition: Still a patient Condition: Fair Referrals: Morena Kimbrough MD [Primary Care Provider] -
--- NOTE | 2020-05-15 19:56 | HP ---
Chief Complaint - Chief Complaint Date of Service: 05/15/20 Time of Service: 19:56 Chief Complaint: confusion, weakness History of Present Illness: History obtained from ER physician and from patient, though many of her responses are nonsensical. ERP reports her brought her in because she was hallucinating today, and could not walk. She is in baseline poor health, and was to move to a nursing facility sometime recently, but she declined. She reportedly agreed to it today. Lab work shows mild leukocytosis with white blood cell count of 11.4, mild anemia with hemoglobin of 9.3, hyperkalemia with potassium of 5, kidney injury with creatinine of 3.32 and GFR of 15. Her GFR was 37 in March. Baseline creatinine appears to be around 1.5, but she has had a chronic kidney disease for years. Lactate normal at 0.9, ammonia not elevated at less than 17, troponin not elevated. UDS negative, Covid negative. She is conversational and makes eye contact, but her replies are not reliable. She cannot name the building that we are in, and stated that town as [place]. She appropriately stated fall as the season. When asked about her health problems, she reported having both kinds of diabetes, and went on to say she had type I and type II. When asked how she controlled her diabetes, she stated she gives herself "type a." She could not tell me why she was in the hospital. Medical History (Last Reviewed 05/15/20 @ 18:50 by Doug Cox MD) Primary osteoarthritis, left shoulder (Chronic) Osteoarthritis of right knee (Chronic) Major depression (Chronic) Onset Date: Unknown Tibia fracture (Chronic) Onset Date: ~11/2011 Left Restless leg syndrome (Chronic) Onset Date: Unknown Presbyopia (Chronic) Onset Date: Unknown History of onychomycosis (Chronic) Onset Date: ~05/27/14 OCD (obsessive compulsive disorder) (Chronic) Onset Date: Unknown Neck pain (Chronic) Onset Date: Unknown Mood swings (Chronic) Onset Date: Unknown Lumbago (Chronic) Onset Date: Unknown Kidney disease (Chronic) Onset Date: Unknown Joint pain (Chronic) Onset Date: Unknown Hyperopia (Chronic) Onset Date: Unknown Hyperlipidemia (Chronic) Onset Date: Unknown Headache (Chronic) Onset Date: Unknown History of gastroesophageal reflux (GERD) (Chronic) Onset Date: Unknown Fibula fracture (Acute) Onset Date: ~11/2011 Closed Left Endometriosis (Chronic) Onset Date: Unknown Diabetic retinopathy (Chronic) Onset Date: Unknown Diabetic neuropathy (Chronic) Onset Date: ~05/27/14 Diabetes 1.5, managed as type 1 (Chronic) Onset Date: ~12/15/13 Depression (Chronic) Onset Date: Unknown 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 Almodovar History of salpingo-oophorectomy (Resolved) Onset Date: ~1999 H/O fracture of lower leg (Resolved) Onset Date: ~12/08/11 Dr. Niño; Closed reduction, IM fixation of left tibiae closed reduction of left fibula H/O esophagogastroduodenoscopy (Resolved) Onset Date: ~06/30/04 10/07/14; Marcela; '05 gastroparesis. ' clotest negative. Mild chronic superficial gastritis H/O colonoscopy (Resolved) Onset Date: ~2002 2003, 2004, 05/18/08; Dr. Medrano '03 hyperplastic, pedunculated adenomatous po lyps. '04 adenomatous polyp, '05 poor prep. '08 fragments of colonic mucosa with adenomatous and hyperplastic changes H/O colonoscopy (Resolved) Onset Date: ~08/14/12 Marcela; Capacious colon. Recheck 10 years Family History: Family History (Last Reviewed 05/15/20 @ 19:36 by Capri Marsh, KARLENE) Mother Acute arthritis Behcets syndrome H/O Deandra thyroiditis Father , age 84 CVA (cerebral vascular accident) CAD (coronary artery disease) Brother , age 59 unknown cause No problems noted. Social History: (Last Reviewed 05/15/20 @ 19:36 by Capri Marsh RN) Social History: adopted: No assisted: No Marital status: lives independently: Yes household members: spouse current occupational status: disabled Highest level of school completed/degree received: Associate degree: occupat Service: No Tobacco: Smoking Status: Former smoker tobacco type: cigarettes Smoking cigarettes per day: 8 Tobacco: How many years used: 5 how long ago did patient quit smoking: age 20 Alcohol: alcohol intake: current Alcohol type: beer alcohol intake frequency: a few times a month Substance Use: substance use type: does not use Dietary Habits: caffeine: Yes Type: carbonated beverages Review Of Systems (GEN) - Review of Systems Generalized/Overall Review: Present: Weakness - Patient's reported weakness, though patient denies. Absent: Fever EENTM: Absent: Throat Pain Respiratory: Absent: Cough, Shortness of Breath Cardiac: Absent: Chest Pain Abdominal: Absent: Abdominal Pain, Constipation, Diarrhea Genitourinary: Absent: Dysuria Musculoskeletal: Present: Joint Pain Neurological: Absent: Headache Immunizations: IMMUNIZATION HX Immunizations Up to Date Yes History of Influenza Vaccine Yes Hx Pneumococcal Vaccination Yes Allergies/Adverse Reactions: Allergies Allergy/AdvReac Type Severity Reaction Status Date / Time Penicillins Allergy Hives Verified 05/13/20 15:34 Home Medications: HOME MEDICATIONS Buprenorphine HCl/Naloxone HCl [Suboxone 8 MG-2 MG Tablet] 1 film SL DAILY 11/06/15 [Last Taken 12/18/16] Acetaminophen [Tylenol] 650 mg PO Q4H PRN tab 09/04/17 [Last Taken Unknown] miscellaneous medical supply See Dose Instructions .ROUTE .MEDSUPPLY #1 ea 02/07/18 [Last Taken Unknown] pen needle, diabetic 30 gauge x /16" 1 ea .ROUTE .MEDSUPPLY #100 ea 02/07/18 [Last Taken Unknown] diltiazem HCl 180 mg capsule,24 hr,extended release 180 mg PO DAILY 01/06/19 [Last Taken Unknown] Sodium Fluoride [Prevident 5000] 100 ml DT DAILY 01/24/19 [Last Taken Unknown] insulin aspart U-100 100 unit/mL (3 mL) subcutaneous pen 4 unit SUBCUT .with meals ml 10/01/19 [Last Taken Unknown] omeprazole magnesium 20 mg tablet,delayed release 40 mg PO DAILY #60 tab 01/02/20 [Last Taken Unknown] Insulin Degludec [Tresiba Flextouch U-200] 16 unit SQ HS 03/20/20 [Last Taken Unknown] Lisinopril [Zestril] 10 mg PO DAILY 03/20/20 [Last Taken Unknown] atorvastatin 20 mg tablet 20 mg PO HS #90 tab 03/30/20 [Last Taken Unknown] famotidine 20 mg tablet 20 mg PO Q48H #45 tab 03/30/20 [Last Taken Unknown] duloxetine 30 mg capsule,delayed release 30 mg PO DAILY #30 cap 04/01/20 [Last Taken Unknown] lamotrigine 150 mg tablet 150 mg PO DAILY #30 tab 04/28/20 [Last Taken Unknown] lidocaine 4 % topical patch 1 patch TP Q8H PRN #10 ea 05/03/20 [Last Taken Unknown] pregabalin 75 mg capsule 75 mg PO BID #180 cap 05/03/20 [Last Taken Unknown] cyclobenzaprine 10 mg tablet 10 mg PO Q8H #60 tab 05/13/20 [Last Taken Unknown] furosemide 40 mg tablet 40 mg PO DAILY tab 05/13/20 [Last Taken Unknown] hydroxyzine HCl 50 mg tablet 50 mg PO Q8H PRN #60 tab 05/13/20 [Last Taken Unknown] Venlafaxine HCl 37.5 mg PO DAILY 05/15/20 [Last Taken Unknown] Exam - Exam Vital Signs: Vital Signs - Last Taken Temp 37.4 C 05/15/20 19:39 Pulse 79 05/15/20 19:39 Resp 20 05/15/20 19:39 BP 113/52 05/15/20 19:39 Pulse Ox 96 05/15/20 19:39 Constitutional: Present: Alert, Cooperative, No distress. Absent: Oriented x3 Respiratory: Present: lungs clear, normal breath sounds Cardiovascular/Chest: Present: regular rate, rhythm Abdomen: Present: soft, nontender Extremity: Absent: lower extremity edema Skin Exam: Present: other - dry skin of bilateral ankles Neurologic: Present: normal mood/affect Appearance: Present: impaired insight, impaired recent memory Eye contact: Present: cooperative, good eye contact Diagnostic Studies: Abnormal Lab Results 05/15/20 05/15/20 05/15/20 Range/Units 15:33 15:33 16:16 WBC 11.4 H (4.0-10.5) K/mm3 RBC 3.19 L (4.2-5.4) M/mm3 Hgb 9.3 L (12.5-16.0) gm/dL Hct 30.1 L (37.0-47.0) % MCHC 30.9 L (32-36) g/dl RDW 14.6 H (11.5-14.0) % Plt Count 473 H (150-450) K/mm3 Immature Gran # (Auto) 0.05 H (0.000-0.0310) K/mm3 Neutrophils % 86.8 H (42-75.0) % Lymphocytes % 8.1 L (20-51) % Neutrophils # 9.9 H (1.3-6.0) K/mm3 Lymphocytes # 0.92 L (1.5-3.5) k/mm3 Potassium 5.0 H (3.4-4.6) mmol/L Anion Gap 14.3 H (6.8-13.8) mmol/L BUN 57 H (3-23) mg/dL Creatinine 3.32 H (0.4-1.4) mg/dL Est GFR (Non-Af Amer) 15 L (60-130) mL/min Random Glucose 203 H (70-110) mg/dL Calcium Adj for Albumin 10.9 H (8.4-10.2) mg/dL ALT 9 L (19-67) U/L Total Protein 9.8 H (6.2-8.2) gm/dL Albumin 2.3 L (3.4-5.0) gm/dl Urine Bacteria 1+ H (NONE) Urine Yeast Moderate - 2+ H (NONE) Salicylates Less than 2.8 L (2.8-20.0) mg/dL Acetaminophen Less than 0.2 L (10.0-30.0) mcg/mL Laboratory Results WBC 11.4 K/mm3 (4.0-10.5) H 05/15/20 15:33 RBC 3.19 M/mm3 (4.2-5.4) L 05/15/20 15:33 Hgb 9.3 gm/dL (12.5-16.0) L 05/15/20 15:33 Hct 30.1 % (37.0-47.0) L 05/15/20 15: MCV 94.4 fl (78-100) 05/15/20 15: MCH 29.2 pg (27-31) 05/15/20 15: MCHC 30.9 g/dl (32-36) L 05/15/20 15:33 RDW 14.6 % (11.5-14.0) H 05/15/20 15:33 Plt Count 473 K/mm3 (150-450) H 05/15/20 15:33 MPV 8.7 fl (8-12.5) 05/15/20 15: Immature Gran % (Auto) 0.40 % (0.001-0.429) 05/15/20 15: Immature Gran # (Auto) 0.05 K/mm3 (0.000-0.0310) H 05/15/20 15:33 Neutrophils % 86.8 % (42-75.0) H 05/15/20 15:33 Lymphocytes % 8.1 % (20-51) L 05/15/20 15:33 Monocytes % 4.0 % (0.0-9) 05/15/20 15: Eosinophils % 0.4 % (0.0-3.0) 05/15/20 15: Basophils % 0.3 % (0.0-1.0) 05/15/20 15: Nucleated RBC % 0.0 k/mm3 (0-1) 05/15/20 15: Neutrophils # 9.9 K/mm3 (1.3-6.0) H 05/15/20 15:33 Lymphocytes # 0.92 k/mm3 (1.5-3.5) L 05/15/20 15:33 Monocytes # 0.5 k/mm3 (0.0-1.0) 05/15/20 15: Eosinophils # 0.1 k/mm3 (0.0-0.7) 05/15/20 15: Absolute Basophils 0.0 k/mm3 (0.0-0.1) 05/15/20 15:33 Sodium 133 mmol/L (132-142) 05/15/20 15: Plasma Sodium 135 mmol/L (130-142) 05/15/20 15:33 Potassium 5.0 mmol/L (3.4-4.6) H 05/15/20 15:33 Chloride 97 mmol/L (97-106) 05/15/20 15:33 Carbon Dioxide 26.7 mmol/L (24-32.6) 05/15/20 15:33 Anion Gap 14.3 mmol/L (6.8-13.8) H 05/15/20 15:33 BUN 57 mg/dL (3-23) H 05/15/20 15:33 Creatinine 3.32 mg/dL (0.4-1.4) H 05/15/20 15:33 Est GFR (Non-Af Amer) 15 mL/min (60-130) L 05/15/20 15:33 BUN/Creatinine Ratio 17.2 (9.0-21.6) 05/15/20 15:33 Random Glucose 203 mg/dL (70-110) H 05/15/20 15:33 Lactic Acid, Venous 0.9 mmol/L (0.4-2.0) 05/15/20 15:33 Calcium 9.9 mg/dL (7.9-10.9) 05/15/20 15:33 Calcium Adj for Albumin 10.9 mg/dL (8.4-10.2) H 05/15/20 15:33 Total Bilirubin 0.2 mg/dL (0.0-1.1) 05/15/20 15:33 AST 9 U/L (0-48) 05/15/20 15:33 ALT 9 U/L (19-67) L 05/15/20 15:33 Alkaline Phosphatase 112 U/L (50-170) 05/15/20 15:33 Ammonia Less than 17.0 mcmol/L (11-35) 05/15/20 16:58 Troponin I Less than 0.017 ng/mL (0.00-0.10) 05/15/20 15:33 Total Protein 9.8 gm/dL (6.2-8.2) H 05/15/20 15:33 Albumin 2.3 gm/dl (3.4-5.0) L 05/15/20 15:33 Urine Color Yellow 05/15/20 16:16 Urine Appearance Slightly cloudy (CLEAR) 05/15/20 16:16 Urine pH 5.0 pH (5.0-7.0) 05/15/20 16:16 Ur Specific [place] 1.020 SP.GR. (1.005-1.010) 05/15/20 16:16 Urine Protein Negative mg/dL (NEGATIVE) 05/15/20 16:16 Urine Glucose (UA) Negative mg/dL (NEGATIVE) 05/15/20 16:16 Urine Ketones Negative mg/dL (NEGATIVE) 05/15/20 16:16 Urine Blood Negative /ul (NEGATIVE) 05/15/20 16:16 Urine Nitrate Negative (NEGATIVE) 05/15/20 16:16 Urine Bilirubin Negative mg/dl (NEGATIVE) 05/15/20 16:16 Urine Urobilinogen Normal EU/dl (NORMAL) 05/15/20 16:16 Ur Leukocyte Esterase Negative /ul (NEGATIVE) 05/15/20 16:16 Urine RBC None seen /hpf (0-5) 05/15/20 16:16 Urine WBC 0-5 /hpf (0-5) 05/15/20 16:16 Ur Epithelial Cells 0-5 /hpf (0-5) 05/15/20 16:16 Amorphous Sediment Few - 1+ (NONE-FEW) 05/15/20 16:16 Urine Bacteria 1+ (NONE) H 05/15/20 16:16 Urine Yeast Moderate - 2+ (NONE) H 05/15/20 16:16 Urine Culture Comments No culture indicated 05/15/20 16:16 Salicylates Less than 2.8 mg/dL (2.8-20.0) L 05/15/20 15:33 Urine Opiates Screen Negative (NEGATIVE) 05/15/20 16:16 Acetaminophen Less than 0.2 mcg/mL (10.0-30.0) L 05/15/20 15:33 Barbiturate Screen Negative (NEGATIVE) 05/15/20 16:16 Ur Phencyclidine Scrn Negative (NEGATIVE) 05/15/20 16:16 Urine Amphetamine Negative (NEGATIVE) 05/15/20 16:16 U Benzodiazepines Scrn Negative (NEGATIVE) 05/15/20 16:16 Urine Cocaine Screen Negative (NEGATIVE) 05/15/20 16:16 Urine Marijuana (THC) Negative (NEGATIVE) 05/15/20 16:16 Ethyl Alcohol Less than 3.0 mg/dL (0.0-10.0) 05/15/20 15:33 SARS-CoV-2 (PCR) Not detected (NotDetected) 05/15/20 18:10 Assessment/Plan - Narrative Narrative: She has multiple findings on lab work, though none of it seems to be acute. However, her feels like she is not safe to be at home. Many of her responses are nonsensical, so I agree that she cannot care for herself at home. With type 1 diabetes, and apparent encephalopathy, she is at very high risk for an adverse event without nursing care. Today is Sunday, so will enlist case management help on Sunday with placement. - Assessment/Plan (1) Encephalopathy acute Assessment: Unclear etiology at this time. She has multiple lab abnormalities, though none of them seem to be new onset. Negative UDS. No signs of infection. There is a chance she may be confused at baseline. Problem: Acute (2) Hallucinations Assessment: not present to provide more info regarding hallucinations. Negative UDS. Problem: Acute (3) Unable to care for self Problem: Acute (4) CKD (chronic kidney disease) stage 4, GFR 15-29 ml/min Problem: Chronic (5) Hyperglycemia due to type 1 diabetes mellitus Problem: Resolved (6) Opiate addiction Assessment: Continue suboxine, and avoid opiates. Problem: Chronic (7) Leukocytosis Assessment: Blood culture pending. UA neg for leukocyte esterase and nitrates. Problem: Acute (8) Diabetic neuropathy Problem: Chronic Qualifiers: Diabetes mellitus type: type 1 Diabetes mellitus complication detail: diabetic polyneuropathy Qualified Code(s): E10.42 - Type 1 diabetes mellitus with diabetic polyneuropathy (9) Anemia Problem: Chronic (10) CHF (congestive heart failure) Problem: Chronic (11) Mental confusion determined by examination Problem: Acute (12) Hyperkalemia Assessment: Likely due to renal failure. Problem: Resolved (13) Depression Assessment: She has venlafaxine and duloxetine on her med list, but the combination can cause serotonin syndrome. Will hold duloxetine, as weaning off venlafaxine can take several weeks. Problem: Chronic Qualifiers: Depression Type: unspecified Qualified Code(s): F32.9 - Major depressive disorder, single episode, unspecified
[2020-05-15] MEDS ORDERED: FAMOTIDINE 20 MG TABLET PO SCH (20:30)
[2020-05-15 20:43] LABS: Magnesium 2.2 mg/dL (1.2-2.8); Phosphorus 5.8 mg/dL (2.2-4.2)
[2020-05-15] MEDS ORDERED: INSULIN GLARGINE,HUM.REC.ANLOG 100 UNITS/ML VIAL SC SCH (21:00)
[2020-05-15] MEDS ORDERED: hydrOXYzine HCL 25 MG TABLET PO PRN (21:13)
[2020-05-15] MEDS: PREGABALIN 75 MG CAPSULE PO SCH (21:27)
[2020-05-16] MEDS: PANTOPRAZOLE SODIUM 40 MG TABLET.EC PO SCH (06:44)
[2020-05-16] MEDS ORDERED: INSULIN ASPART 100 UNITS/ML VIAL SC SCH ×2 (07:00→09:00)
[2020-05-16] MEDS: ACETAMINOPHEN 325 MG TABLET PO PRN ×4 (07:17→23:57)
[2020-05-16] MEDS: DILTIAZEM HCL 180 MG CAP.SR.24H PO SCH (08:15)
[2020-05-16] MEDS: FUROSEMIDE 40 MG TABLET PO SCH (08:15)
[2020-05-16] MEDS: VENLAFAXINE HCL 75 MG TABLET PO SCH (08:15)
[2020-05-16] MEDS: lamoTRIgine 100 MG TABLET PO SCH (08:15)
[2020-05-16] MEDS: NALOXONE HCL SL SCH ×2 (08:16→16:02)
[2020-05-16] MEDS: LISINOPRIL 10 MG TABLET PO SCH (08:16)
[2020-05-16] MEDS: BUPRENORPHINE HCL SL SCH ×2 (08:16→16:02)
[2020-05-16] MEDS: PREGABALIN 75 MG CAPSULE PO SCH ×2 (08:19→21:02)
[2020-05-16] MEDS: INSULIN LISPRO 100 UNITS/ML VIAL SC SCH ×2 (11:36→17:16)
--- NOTE | 2020-05-16 12:37 | PN ---
Subjective - Date and Time Seen Date: 05/16/20 Time: 10:30 Subjective Narrative: Patient reports not knowing where she was and she woke up this morning, but is now aware she is at the [facility]. She is having some joint pain. Also has had low blood sugar down to 60. Objective - Review of Systems Generalized/Overall Review: Reports: Weakness. Denies: Fever Respiratory: Denies: Cough, Shortness of Breath Cardiac: Denies: Chest Pain Abdominal: Reports: No Symptoms Reported Genitourinary Symptoms: Reports: No Symptoms Reported Musculoskeletal Complaints: Reports: Joint Pain Neurological: Reports: No Symptoms Reported - Vitals Vitals: Last Vital Signs Temp 36.6 C 05/16/20 10:49 Pulse 83 05/16/20 10:49 Resp 16 05/16/20 10:49 BP 153/72 H 05/16/20 10:49 Pulse Ox 97 05/16/20 10:49 - Abnormal Lab Findings Abnormal Lab Findings: Abnormal Lab Results 05/15/20 05/15/20 05/15/20 Range/Units 15:33 15:33 15:33 WBC 11.4 H (4.0-10.5) K/mm3 RBC 3.19 L (4.2-5.4) M/mm3 Hgb 9.3 L (12.5-16.0) gm/dL Hct 30.1 L (37.0-47.0) % MCHC 30.9 L (32-36) g/dl RDW 14.6 H (11.5-14.0) % Plt Count 473 H (150-450) K/mm3 Immature Gran # (Auto) 0.05 H (0.000-0.0310) K/mm3 Neutrophils % 86.8 H (42-75.0) % Lymphocytes % 8.1 L (20-51) % Neutrophils # 9.9 H (1.3-6.0) K/mm3 Lymphocytes # 0.92 L (1.5-3.5) k/mm3 Potassium 5.0 H (3.4-4.6) mmol/L Anion Gap 14.3 H (6.8-13.8) mmol/L BUN 57 H (3-23) mg/dL Creatinine 3.32 H (0.4-1.4) mg/dL Est GFR (Non-Af Amer) 15 L (60-130) mL/min Random Glucose 203 H (70-110) mg/dL Calcium Adj for Albumin 10.9 H (8.4-10.2) mg/dL Phosphorus 5.8 H (2.2-4.2) mg/dL ALT 9 L (19-67) U/L Total Protein 9.8 H (6.2-8.2) gm/dL Albumin 2.3 L (3.4-5.0) gm/dl Urine Bacteria (NONE) Urine Yeast (NONE) Salicylates Less than 2.8 L (2.8-20.0) mg/dL Acetaminophen Less than 0.2 L (10.0-30.0) mcg/mL 05/15/20 Range/Units 16:16 WBC (4.0-10.5) K/mm3 RBC (4.2-5.4) M/mm3 Hgb (12.5-16.0) gm/dL Hct (37.0-47.0) % MCHC (32-36) g/dl RDW (11.5-14.0) % Plt Count (150-450) K/mm3 Immature Gran # (Auto) (0.000-0.0310) K/mm3 Neutrophils % (42-75.0) % Lymphocytes % (20-51) % Neutrophils # (1.3-6.0) K/mm3 Lymphocytes # (1.5-3.5) k/mm3 Potassium (3.4-4.6) mmol/L Anion Gap (6.8-13.8) mmol/L BUN (3-23) mg/dL Creatinine (0.4-1.4) mg/dL Est GFR (Non-Af Amer) (60-130) mL/min Random Glucose (70-110) mg/dL Calcium Adj for Albumin (8.4-10.2) mg/dL Phosphorus (2.2-4.2) mg/dL ALT (19-67) U/L Total Protein (6.2-8.2) gm/dL Albumin (3.4-5.0) gm/dl Urine Bacteria 1+ H (NONE) Urine Yeast Moderate - 2+ H (NONE) Salicylates (2.8-20.0) mg/dL Acetaminophen (10.0-30.0) mcg/mL - Exam Constitutional: Present: Alert, Cooperative, No distress Respiratory: Present: lungs clear, normal breath sounds Cardiovascular/Chest: Present: regular rate, rhythm Abdomen: Present: soft, nontender Extremity: Present: other - Glucose monitor in left upper arm Eye contact: Present: cooperative, good eye contact Assessment/Plan Plan Narrative: She has not had hallucinations and seems more lucid than yesterday. Her reports being unable to care for her at home. She has had 2 pelvic fractures in the last year so her mobility is limited. She agrees to custodial placement after discharge, and appreciate case management assistance in starting this tomorrow. We will reduce her long-acting insulin for 2 days of low blood sugars, down to 10 units of Lantus nightly. She reportedly has been in poor health for quite a while and her can no longer care for her at home. She has stage IV chronic renal disease. Phosphorus was high at 5.8 yesterday we will start PhosLo. If dialysis has not already been discussed, would recommend. - Problems/Diagnosis (1) CKD (chronic kidney disease) stage 4, GFR 15-29 ml/min Problem: Chronic (2) Encephalopathy acute Problem: Resolved (3) Hallucinations Problem: Resolved (4) Unable to care for self Problem: Acute (5) Hyperglycemia due to type 1 diabetes mellitus Problem: Resolved (6) Opiate addiction Problem: Chronic (7) Leukocytosis Problem: Acute (8) Diabetic neuropathy Problem: Chronic Qualifiers: Diabetes mellitus type: type 1 Diabetes mellitus complication detail: diabetic polyneuropathy Qualified Code(s): E10.42 - Type 1 diabetes mellitus with diabetic polyneuropathy (9) Anemia Problem: Chronic (10) CHF (congestive heart failure) Problem: Chronic (11) Mental confusion determined by examination Problem: Acute (12) Hyperkalemia Problem: Resolved (13) Depression Problem: Chronic Qualifiers: Depression Type: unspecified Qualified Code(s): F32.9 - Major depressive disorder, single episode, unspecified
[2020-05-16] MEDS: CALCIUM ACETATE 667 MG CAPSULE PO SCH ×2 (12:58→17:16)
[2020-05-16] MEDS ORDERED: INSULIN GLARGINE,HUM.REC.ANLOG 100 UNITS/ML VIAL SC SCH (21:00)
[2020-05-16] MEDS ORDERED: ROSUVASTATIN CALCIUM 10 MG TABLET PO SCH (21:00)
[2020-05-17] MEDS: ACETAMINOPHEN 325 MG TABLET PO PRN ×2 (05:21→15:13)
[2020-05-17] MEDS: PANTOPRAZOLE SODIUM 40 MG TABLET.EC PO SCH (06:44)
[2020-05-17 07:14] LABS: Albumin * 1.8 gm/dl (3.4-5.0); Anion Gap 10.9 mmol/L (6.8-13.8); BUN/Creatinine Ratio 19.9 (9.0-21.6); Bilirubin, Total 0.2 mg/dL (0.0-1.1); Calcium * 9.6 mg/dL (7.9-10.9); Carbon Dioxide 28.6 mmol/L (24-32.6); Potassium 4.5 mmol/L (3.4-4.6); Total Protein 8.4 gm/dL (6.2-8.2)
[2020-05-17] MEDS: INSULIN LISPRO 100 UNITS/ML VIAL SC SCH ×2 (07:39→11:52)
[2020-05-17] MEDS: DILTIAZEM HCL 180 MG CAP.SR.24H PO SCH (09:10)
[2020-05-17] MEDS: VENLAFAXINE HCL 75 MG TABLET PO SCH (09:11)
[2020-05-17] MEDS: lamoTRIgine 100 MG TABLET PO SCH (09:12)
[2020-05-17] MEDS: FUROSEMIDE 40 MG TABLET PO SCH (09:12)
[2020-05-17] MEDS: LISINOPRIL 10 MG TABLET PO SCH (09:13)
[2020-05-17] MEDS: CALCIUM ACETATE 667 MG CAPSULE PO SCH ×2 (09:13→13:40)
[2020-05-17] MEDS: NALOXONE HCL SL SCH (09:15)
[2020-05-17] MEDS: BUPRENORPHINE HCL SL SCH (09:15)
[2020-05-17] MEDS: PREGABALIN 75 MG CAPSULE PO SCH (09:17)
[2020-05-17] MEDS ORDERED: VANCOMYCIN/WATER FOR INJ (PEG) 1.5 GM/300 ML BAG IV SCH (11:00)
[2020-05-17] MEDS ORDERED: VANCOMYCIN HCL 500 MG in DEXTROSE 5 % IN WATER 100 ML IV SCH ×2 (12:00)
--- NOTE | 2020-05-17 13:25 | DS ---
(1) Diabetes mellitus Problem: Chronic Qualifiers: Diabetes mellitus type: type 1 Diabetes mellitus complication status: with kidney complications Diabetes mellitus complication detail: with chronic kidney disease Chronic kidney disease stage: stage 4 (severe) Qualified Code(s): E10.22 - Type 1 diabetes mellitus with diabetic chronic kidney disease; N18.4 - Chronic kidney disease, stage 4 (severe) (2) Bacteremia Problem: Chronic (3) Right shoulder pain Problem: Chronic Qualifiers: Chronicity: chronic Qualified Code(s): M25.511 - Pain in right shoulder; G89.29 - Other chronic pain (4) Signs and symptoms of anemia Problem: Chronic (5) Recurrent falls Problem: Chronic (6) Pelvic fracture Problem: Chronic Qualifiers: Encounter type: sequela Pelvic bone location: other part of pelvis Fracture type: closed Qualified Code(s): S32.89XS - Fracture of other parts of pelvis, sequela (7) Anemia of chronic disease Problem: Chronic (8) Mental confusion determined by examination Problem: Resolved (9) Bacteremia due to Staphylococcus Problem: Acute Date of Discharge:: 05/17/20 Hospital Course: 59-year-old female admitted for altered mental status and hallucinations was evaluated at bedside and was found to be afebrile and in no acute distress. Patient has shown clinical improvement since admission. She is now oriented in person time and place which would indicate resolution of her altered mental status and hallucinations. This morning she expresses a desire to go home and says she feels much better. The patient has been maintained stable vitals and has not presented fever or chills since arriving. Labs reported growth of gram-positive cocci in clusters on blood culture however this has been the case on past admissions. It appears the patient is colonized by staff since he was detected multiple blood cultures in the past despite the patient being treated with IV antibiotics on multiple previous hospitalizations. However she does not show any clinical signs and symptoms such as fever or chills in fact she is asymptomatic from this. As a precaution we will administer 1 dose of IV vancomycin before discharging the patient home. We will also discharge her with a short course of oral Bactrim DS for apparent mild bacteremia dosed appropriately for her renal function. The patient is to follow-up with myself at the internal medicine clinic. She will continue to receive home health services in order to assist with activities of daily living as well as physical therapy to address issues with balance and ambulation. Procedures Performed: none Results and Findings: Pending Mircobiology Results 05/15/20 15:33 Blood Blood Culture - Preliminary Ruling Out Pathogen 05/15/20 16:58 Blood Blood Culture - Preliminary NO GROWTH 24 HOURS Lab Pending Results 05/15/20 15:33: WBC 11.4 H, RBC 3.19 L, Hgb 9.3 L, Hct 30.1 L, MCV 94.4, MCH 29.2, MCHC 30.9 L, RDW 14.6 H, Plt Count 473 H, MPV 8.7, Immature Gran % (Auto) 0.40, Immature Gran # (Auto) 0.05 H, Neutrophils % 86.8 H, Lymphocytes % 8.1 L, Monocytes % 4.0, Eosinophils % 0.4, Basophils % 0.3, Nucleated RBC % 0.0, Neutrophils # 9.9 H, Lymphocytes # 0.92 L, Monocytes # 0.5, Eosinophils # 0.1, Absolute Basophils 0.0 05/15/20 15:33: Sodium 133, Plasma Sodium 135, Potassium 5.0 H, Chloride 97, Carbon Dioxide 26.7, Anion Gap 14.3 H, BUN 57 H, Creatinine 3.32 H, Est GFR (Non-Af Amer) 15 L, BUN/Creatinine Ratio 17.2, Random Glucose 203 H, Calcium 9.9, Calcium Adj for Albumin 10.9 H, Total Bilirubin 0.2, AST 9, ALT 9 L, Alkaline Phosphatase 112, Troponin I Less than 0.017, Total Protein 9.8 H, Albumin 2.3 L, Salicylates Less than 2.8 L, Acetaminophen Less than 0.2 L, Ethyl Alcohol Less than 3.0 05/15/20 15:33: Lactic Acid, Venous 0.9 05/15/20 15:33: Phosphorus 5.8 H, Magnesium 2.2 05/15/20 16:16: Urine Color Yellow, Urine Appearance Slightly cloudy, Urine pH 5.0, Ur Specific [place] 1.020, Urine Protein Negative, Urine Glucose (UA) Negative, Urine Ketones Negative, Urine Blood Negative, Urine Nitrate Negative, Urine Bilirubin Negative, Urine Urobilinogen Normal, Ur Leukocyte Esterase Negative, Urine RBC None seen, Urine WBC 0-5, Ur Epithelial Cells 0-5, Amorphous Sediment Few - 1+, Urine Bacteria 1+ H, Urine Yeast Moderate - 2+ H, Urine Culture Comments No culture indicated 05/15/20 16:16: Urine Opiates Screen Negative, Barbiturate Screen Negative, Ur Phencyclidine Scrn Negative, Urine Amphetamine Negative, U Benzodiazepines Scrn Negative, Urine Cocaine Screen Negative, Urine Marijuana (THC) Negative 05/15/20 16:58: Ammonia Less than 17.0 05/15/20 18:10: SARS-CoV-2 (PCR) Not detected 05/17/20 06:45: Sodium 133, Plasma Sodium 137, Potassium 4.5, Chloride 98, Carbon Dioxide 28.6, Anion Gap 10.9, BUN 56 H, Creatinine 2.81 H D, Est GFR (Non-Af Amer) 18 L, BUN/Creatinine Ratio 19.9, Random Glucose 326 H D, Calcium 9.6, Calcium Adj for Albumin 11.0 H, Total Bilirubin 0.2, AST 10, ALT 8 L, Alkaline Phosphatase 100, Total Protein 8.4 H, Albumin 1.8 L Discharge Location: Home Disposition: Home self-care Condition: Fair Face to Face Encounter completed per [facility] Guidelines: No Discharge Activity: Activity as tolerated Discharge Diet: Consistent carbs [facility] Therapy: Physical Therapy Prescriptions (Any new or edited meds): Sulfamethoxazole/Trimethoprim [Bactrim Ds] 1 tab PO DAILY 5 Days #5 tab Transmission Status: Pending to [place], [place] Complete Home Medications List: Complete Home Medication List: Buprenorphine HCl/Naloxone HCl [Suboxone 8 MG-2 MG Tablet] 1 film SL DAILY 11/06/15 Acetaminophen [Tylenol] 650 mg PO Q4H PRN tab 09/04/17 miscellaneous medical supply See Dose Instructions .ROUTE .MEDSUPPLY #1 ea 02/07/18 pen needle, diabetic 30 gauge x /" 1 ea .ROUTE .MEDSUPPLY #100 ea 02/07/18 diltiazem HCl 180 mg capsule,24 hr,extended release 180 mg PO DAILY 01/06/19 Sodium Fluoride [Prevident 5000] 100 ml DT DAILY 01/24/19 insulin aspart U-100 100 unit/mL (3 mL) subcutaneous pen 4 unit SUBCUT .with meals ml 10/01/19 omeprazole magnesium 20 mg tablet,delayed release 40 mg PO DAILY #60 tab 01/02/20 Insulin Degludec [Tresiba Flextouch U-200] 16 unit SQ HS 03/20/20 Lisinopril [Zestril] 10 mg PO DAILY 03/20/20 atorvastatin 20 mg tablet 20 mg PO HS #90 tab 03/30/20 famotidine 20 mg tablet 20 mg PO Q48H #45 tab 03/30/20 lamotrigine 150 mg tablet 150 mg PO DAILY #30 tab 04/28/20 lidocaine 4 % topical patch 1 patch TP Q8H PRN #10 ea 05/03/20 pregabalin 75 mg capsule 75 mg PO BID #180 cap 05/03/20 cyclobenzaprine 10 mg tablet 10 mg PO Q8H #60 tab 05/13/20 furosemide 40 mg tablet 40 mg PO DAILY tab 05/13/20 hydroxyzine HCl 50 mg tablet 50 mg PO Q8H PRN #60 tab 05/13/20 Venlafaxine HCl 37.5 mg PO DAILY 05/15/20 Sulfamethoxazole/Trimethoprim [Bactrim Ds] 1 tab PO DAILY 5 Days #5 tab 05/17/20 Forms: Patient Portal Registration
[2020-05-17 15:18] VITALS: BP 162/68
== END 2020-05-17 16:00 | disposition home or self-care (01) ==
LOC: MS 14:43 → ER 14:43 → MS 19:30
PROVIDERS: ADMIT Family Medicine; ATTEND Family Medicine